=== PATIENT | female | born 1955 | race Caucasian/White ===

== ENCOUNTER 2016-06-27 14:45 | Inpatient (IN) | payer OTHER ==
[~2016-06-27] VITALS: Ht 162.6 cm; Wt 79.9 kg
[~2016-06-27 14:45] MED LIST: ALBU0.63 IH; ALEN70TA3 PO; CHOL4POW11 PO; CRESTOR40 MG PO; CYCL5TAB PO; DIAZEPAM10 MG PO; DICY10CA53 PO; DIPH25CA58 PO; DIPH50CA PO; DULO30CA2 PO; DULO60CA44 PO; FENO135C PO; FLUT10.6 IH; FLUT1DIS5 IH; FURO-68 PO; HYDR-2672 PO; HYDR1TAB26 PO; LANS30CA17 PO; LEVO125T5 PO; LEVO150T5 PO; LEVO500T38 PO; LEVO500T8 PO; LINA145C PO; LINE600T PO; LISI10TA2 PO; METF500T4 PO; MONT10TA6 PO; NITR1PAT11 TD; NYST30PO9 TP; ONDA8TAB9 PO; POLY17PO5 PO; POTA8CAP PO; PRED-220 PO; PRED20TA PO; PRED50TA PO; PROM118S2 PO; SUCR1TAB29 PO; TIOT18CA IH; TRAM50TA PO; ZOLP10TA PO
[2016-06-27 15:40] LABS: BASO # 0.1 x10^3/uL (0.0-0.2); BASO % 1 % (0-3); EOS % 2 % (0-3); HEMOGLOBIN 14.4 g/dL (12.0-15.5); LYMPH % 21 % (24-48); MEAN CORPUSCULAR HEMOGLOBIN 30 pg (25-35); MEAN CORPUSCULAR HGB CONC 34 g/dL (31-37); MEAN CORPUSCULAR VOLUME 86 fL (79-100); MONO % 7 % (0-9); NEUT % 70 % (31-73); PLATELET COUNT 219 x10^3/uL (140-400); RED BLOOD COUNT 4.87 x10^6/uL (3.50-5.40); RED CELL DISTRIBUTION WIDTH 14.3 % (11.5-14.5); WHITE BLOOD COUNT 9.6 x10^3/uL (4.0-11.0)
--- NOTE | 2016-06-27 15:47 | EKG ---
[facility] [address] [place] [address] Test Date: 2016-06-27 Test Time: 15:03:27 Pat Name: CIPRIANO ALBRECHT Department: Room: Gender: F [employer] [place]: : 1955 Requested By: MISAEL TERRY Order Number: [id number] Reading MD: Skyla Aguirre Measurements Intervals [place] Rate: 79 P: 90 NH: 204 QRS: 71 QRSD: 76 T: 87 QT: 396 QTc: 455 Interpretive Statements SINUS RHYTHM ATRIAL PREMATURE COMPLEX(ES) QRS(T) CONTOUR ABNORMALITY CONSIDER ANTEROLATERAL MYOCARDIAL DAMAGE RI6.01 Unconfirmed report Compared to ECG 05/12/2016 15:03:47 No significant changes Electronically Signed On 06-29-2016 18:55:47 TIE HACKER by Skyla Aguirre
[2016-06-27 16:00] LABS: ALBUMIN 3.5 g/dL (3.4-5.0); ALBUMIN/GLOBULIN RATIO 0.9 (1.0-1.7); CALCIUM 9.4 mg/dL (8.5-10.1); CREATININE 0.8 mg/dL (0.6-1.0); GFR 72.9; TOTAL BILIRUBIN 0.6 mg/dL (0.2-1.0); TOTAL PROTEIN 7.6 g/dL (6.4-8.2)
[2016-06-27] MEDS ORDERED: IPRATRPIUM/ALBUTEROL 0.5/2.5MG 3 ML NEBU. NEB ONE (16:00)
--- NOTE | 2016-06-27 16:11 | RAD ---
2 view CXR: Clinical indications: Cough and chest pain. Comparison: March 21, 2016. Findings: Hyperinflation is seen consistent with COPD. No acute lung infiltrate or pleural effusion or pulmonary edema or lung mass or pneumothorax is seen. Focally eventration or hernia of the posterior medial aspect of the right hemidiaphragm is again seen. The heart size, pulmonary vasculature, mediastinum and both lorena are unremarkable. Impression: No acute radiographic abnormality is seen.
[2016-06-27 16:12] LABS: OBC FLU VALID
[2016-06-27 16:13] LABS: POTASSIUM 2.7 mmol/L (3.5-5.1)
[2016-06-27] MEDS ORDERED: methylPREDNISolone SOD SUCC PF 125 MG/2 ML VIAL. IV ONE (16:15)
[2016-06-27] MEDS ORDERED: POTASSIUM CL 40MEQ IN 0.9%NACL 1,000 ML IV ONE (16:30)
[2016-06-27] MEDS ORDERED: POTASSIUM CHLORIDE 20 MEQ/15 ML ORAL LIQUID. PO ONE (16:30)
--- NOTE | 2016-06-27 18:15 | ED.ADGEN ---
Past Medical History Past Medical History: COPD, Diabetes-Type II, Hypertension, Pneumonia, Other Additional Past Medical Histor: Emphysema, chronic back pain, osteoarthritis Past Surgical History: Cholecystectomy, Tubal ligation, Other Additional Past Surgical Histo: thyroidectomy Alcohol Use: None Drug Use: None Adult General Chief Complaint Chief Complaint: SHORTNESS OF BREATH HPI HPI Patient is a 60 year old woman, history of type 2 diabetes mellitus, COPD on 2- 3 L nasal cannula baseline, hypertension, who presents to the emergency part with a complaint of shortness of breath, cough productive of thick sputum, and dyspnea on exertion over the past several days, with intermittent midsternal chest pain, sharp, nonradiating, over the past several weeks. Patient was seen by her primary care provider, Dr. Delarosa today, and was sent to the ED for evaluation from his office. She denies any chest pain currently, states the chest pain is worse with coughing, denies any fevers or chills, any GI or complaints, any injuries, any history of DVT or PE, any recent travel or surgery. Patient becomes winded when sitting upright and moving even short distances. She states she has been taking her prednisone and using her inhalers daily. She states her last stress test and catheterization were "a long time ago ". Review of Systems Review of Systems Constitutional: Denies fever or chills. [] Eyes: Denies change in visual acuity. [] HENT: Denies nasal congestion or sore throat. [] Respiratory: Cough with shortness of breath. Chest pain. Cardiovascular: Chest pain, midsternal no edema. GI: Denies abdominal pain, nausea, vomiting, bloody stools or diarrhea. [] : Denies dysuria. [] Musculoskeletal: Denies back pain or joint pain. [] Integument: Denies rash. [] Neurologic: Denies headache, focal weakness or sensory changes. [] Endocrine: Denies polyuria or polydipsia. [] Lymphatic: Denies swollen glands. [] Psychiatric: Denies depression or anxiety. [] Current Medications Current Medications Current Medications Medications (Trade) Dose Ordered Sig/Santiago Start Time Stop Time Status Last Admin Dose Admin Albuterol/ Ipratropium (Duoneb) 3 ml 1X ONCE 06/27/16 16:00 06/27/16 16:01 DC 06/27/16 16:15 3 ML Methylprednisolone Sodium Succinate (Solu-Medrol 125mg Vial) 125 mg 1X ONCE 06/27/16 16:15 06/27/16 16:16 DC 06/27/16 16:09 125 MG Potassium Chloride 40 meq 40 meq 1X ONCE 06/27/16 16:30 06/27/16 16:31 DC 06/27/16 16:52 40 MEQ Potassium Chloride/Sodium Chloride (KCl 40 Meq-NS 1,000 ml Iv Soln) 1,000 ml @ 75 mls/hr 1X ONCE 06/27/16 16:30 06/28/16 05:49 06/27/16 16:52 75 MLS/HR Allergies Allergies Allergies Coded Allergies Type Severity Reaction Last Updated Verified amoxicillin Allergy Intermediate Nausea and Vomiting 01/30/16 Yes amoxicillin trihydrate Allergy Intermediate yeast infection 01/30/16 Yes potassium clavulanate Allergy Intermediate yeast infection 01/30/16 Yes I S O L A T I O N *CONTACT* Allergy Unknown 02/04/16 Yes meperidine HCl Adverse Reaction Severe 01/30/16 Yes Physical Exam Physical Exam Constitutional: Well developed, well nourished, no acute distress, non-toxic appearance. [] HENT: Normocephalic, atraumatic, bilateral external ears normal, oropharynx moist, no oral exudates, nose normal. [] Eyes: PERRLA, EOMI, conjunctiva normal, no discharge. [] Neck: Normal range of motion, no tenderness, supple, no stridor. [] Cardiovascular:Heart rate regular rhythm, no murmur, S1, S2, rubs or gallops. [] Lungs & Thorax: Patient with wheezes and diminished breath sounds noted throughout, no rhonchi or rales identified, patient with cough with deep inspiration, reproducible anterior midsternal chest pain.] Abdomen: Bowel sounds normal, soft, no tenderness, no masses, no pulsatile masses. [] Skin: Warm, dry, no erythema, no rash. [] Back: No tenderness, no CVA tenderness. [] Extremities: No tenderness, no cyanosis, no clubbing, ROM intact, no edema. Negative Homans sign. [] Neurologic: Alert and oriented X 3, normal motor function, normal sensory function, no focal deficits noted. [] Psychologic: Affect normal, judgement normal, mood normal. [] Current Patient Data Vital Signs Vital Signs Date Time Temp Pulse Resp B/P Pulse Ox O2 Delivery O2 Flow Rate FiO2 06/27/16 17:12 74 18 98/51 98 Nasal Cannula 2 06/27/16 15:08 98.3 98.3 Lab Values Laboratory Tests Test 06/27/16 15:30 White Blood Count 9.6x10^3/uL (4.0-11.0) Red Blood Count 4.87x10^6/uL (3.50-5.40) Hemoglobin 14.4g/dL (12.0-15.5) Hematocrit 42.0% (36.0-47.0) Mean Corpuscular Volume 86fL (79-100) Mean Corpuscular Hemoglobin 30pg (25-35) Mean Corpuscular Hemoglobin Concent 34g/dL (31-37) Red Cell Distribution Width 14.3% (11.5-14.5) Platelet Count 219x10^3/uL (140-400) Neutrophils (%) (Auto) 70% (31-73) Lymphocytes (%) (Auto) 21% (24-48) L Monocytes (%) (Auto) 7% (0-9) Eosinophils (%) (Auto) 2% (0-3) Basophils (%) (Auto) 1% (0-3) Neutrophils # (Auto) 6.6x10^3uL (1.8-7.7) Lymphocytes # (Auto) 2.0x10^3/uL (1.0-4.8) Monocytes # (Auto) 0.7x10^3/uL (0.0-1.1) Eosinophils # (Auto) 0.1x10^3/uL (0.0-0.7) Basophils # (Auto) 0.1x10^3/uL (0.0-0.2) Sodium Level 144mmol/L (136-145) Potassium Level 2.7mmol/L (3.5-5.1) *L Chloride Level 102mmol/L (98-107) Carbon Dioxide Level 32mmol/L (21-32) Anion Gap 10 (6-14) Blood Urea Nitrogen 8mg/dL (7-20) Creatinine 0.8mg/dL (0.6-1.0) Estimated GFR (Cockcroft-Gault) 72.9 BUN/Creatinine Ratio 10 (6-20) Glucose Level 129mg/dL (70-99) H Calcium Level 9.4mg/dL (8.5-10.1) Magnesium Level 1.7mg/dL (1.8-2.4) L Total Bilirubin 0.6mg/dL (0.2-1.0) Aspartate Amino Transferase (AST) 23U/L (15-37) Alanine Aminotransferase (ALT) 20U/L (14-59) Alkaline Phosphatase 72U/L (46-116) Troponin I Quantitative < 0.017ng/mL (0.000-0.055) QR-Mcp-E-Type Natriuretic Peptide 152pg/mL (0-124) H Total Protein 7.6g/dL (6.4-8.2) Albumin 3.5g/dL (3.4-5.0) Albumin/Globulin Ratio 0.9 (1.0-1.7) L Influenza Type A Antigen Negative (NEGATIVE) Influenza Type B Antigen Negative (NEGATIVE) Laboratory Tests 06/27/16 15:30 Laboratory Tests 06/27/16 15:30 EKG EKG EC: Sinus rhythm, heart rate 79 bpm, upright axis, QTC of 455, DE of 204 , QRS 76, moderate baseline artifact noted, occasional APCs noted, no evidence ST elevations or depressions, does not meet STEMI criteria, as interpreted by me. Radiology/Procedures Radiology/Procedures [] [facility] [address] [place] [address] IMAGING REPORT Signed PATIENT: CIPRIANO ALBRECHT ACCOUNT: [id number] : 1955 LOCATION: ER AGE: 60 SEX: F EXAM STATUS: PRE ER ORD. PHYSICIAN: MISAEL TERRY DO REASON: Cough/CP 12 PROCEDURE: CHEST PA & LATERAL 2 view CXR: Clinical indications: Cough and chest pain. Comparison: March 21, 2016. Findings: Hyperinflation is seen consistent with COPD. No acute lung infiltrate or pleural effusion or pulmonary edema or lung mass or pneumothorax is seen. Focally eventration or hernia of the posterior medial aspect of the right hemidiaphragm is again seen. The heart size, pulmonary vasculature, mediastinum and both lorena are unremarkable. Impression: No acute radiographic abnormality is seen. DICTATED and SIGNED BY: YUNG TINEO MD DATE: 06/27/16 1504 CC: MISAEL TERRY DO; MIGUEL DELAROSA MD ~ Course & Med Decision Making Course & Med Decision Making Pertinent Labs and Imaging studies reviewed. (See chart for details) Patient's examination concerning for COPD exacerbation, versus possible cardiac Normality versus infectious source. Chest x-ray is negative for infiltrate or effusion, consistent with COPD, patient's oxygen saturation is stable on her baseline 3 L, although she is dyspneic. Additional nebulizer treatment, and Solu -Medrol given in the ED. Laboratory studies reveal a potassium of 2.7, which was orally repleted in the ED, troponin was negative. Influenza swab was negative. Findings as above discussed with Dr. Hitchcock, on-call for the patient's primary care provider, patient accepted to his service as a full admission to the medical telemetry floor, will continue treatment for COPD exacerbation, follow serial enzymes, and closely monitor, with bridge orders entered per his request. Patient is agreeable to admission, resting comfortably awaiting transfer to the floor. Dragon Disclaimer Dragon Disclaimer This electronic medical record was generated, in whole or in part, using a voice recognition dictation system. Departure Impression: Primary Impression: Hypokalemia Additional Impression: COPD exacerbation Disposition: ADMITTED INPATIENT Admitting Physician: Catrachito Hitchcock Condition: IMPROVED Problem Qualifiers MISAEL TERRY DO Jun 27, 2016 18:15
[2016-06-27 19:00] VITALS: BP 113/53
[2016-06-27 23:00] VITALS: BP 104/50
[2016-06-28] MEDS ORDERED: ACETAMINOPHEN 325 MG TABLET. PO PRN ×2 (00:15→08:45)
[2016-06-28 03:00] VITALS: BP 105/58
[2016-06-28 07:00] VITALS: BP 115/67
[2016-06-28] MEDS ORDERED: IPRATRPIUM/ALBUTEROL 0.5/2.5MG 3 ML NEBU. NEB SCH (08:00)
[2016-06-28] MEDS: IPRATRPIUM/ALBUTEROL 0.5/2.5MG 3 ML NEBU. NEB SCH ×4 (09:00→20:05)
[2016-06-28] MEDS ORDERED: ALBUTEROL SULFATE 2.5 MG/3 ML NEBU. NEB PRN (09:00)
[2016-06-28] MEDS ORDERED: POTASSIUM CHLORIDE 20 MEQ TABLET.ER. PO ONE (09:00)
[2016-06-28] MEDS: DICYCLOMINE HCL 10 MG CAPSULE PO SCH ×3 (09:13→20:36)
[2016-06-28] MEDS: METFORMIN 500 MG TABLET. PO SCH ×2 (09:13→17:24)
[2016-06-28] MEDS: PANTOPRAZOLE 40 MG TABLET. PO SCH (09:13)
[2016-06-28] MEDS: LINACLOTIDE 145 MCG CAPSULE. PO SCH (09:13)
[2016-06-28] MEDS: DULOXETINE HCL 30 MG CAPSULE.DR. PO SCH (09:13)
[2016-06-28] MEDS: MONTELUKAST SODIUM 10 MG TABLET. PO SCH (09:13)
[2016-06-28] MEDS: LEVOTHYROXINE 75 MCG TABLET PO SCH (09:13)
[2016-06-28] MEDS: NYSTATIN TOPICAL POWDER 15GM BOTTLE. TP SCH ×2 (09:14→20:37)
[2016-06-28] MEDS: LISINOPRIL 10 MG TABLET PO SCH ×2 (09:14→21:00)
[2016-06-28] MEDS: NITROGLYCERIN 0.6MG/HR PATCH. TD SCH (09:15)
[2016-06-28] MEDS: HYDROCODONE/APAP 10/325 TABLET. PO PRN ×2 (09:18→17:27)
[2016-06-28 10:44] LABS: CALCIUM 9.2 mg/dL (8.5-10.1); CREATININE 0.8 mg/dL (0.6-1.0); GFR 72.9; POTASSIUM 3.3 mmol/L (3.5-5.1)
[2016-06-28 11:00] VITALS: BP 97/60
[2016-06-28] MEDS: GUAIFENESIN DM 200MG/20MG 10 ML SYRUP. PO PRN ×2 (11:07→17:27)
[2016-06-28] MEDS ORDERED: methylPREDNISolone SOD SUCC PF 40 MG/ML VIAL. IV SCH (12:00)
[2016-06-28] MEDS: methylPREDNISolone SOD SUCC PF 40 MG/ML VIAL. IV SCH (12:30)
[2016-06-28] MEDS ORDERED: MAGNESIUM SULFATE 2GM 50 ML IV ONE (12:30)
[2016-06-28 15:00] VITALS: BP 116/66
[2016-06-28 19:00] VITALS: BP 96/54
--- NOTE | 2016-06-28 20:57 | PDOC ---
Provider Note Provider Note [id number] a/c resp fail copd w ae acute bronchitis see orders DIOR SANCHEZ MD Jun 28, 2016 20:56
--- NOTE | 2016-06-28 21:47 | CONS ---
DATE OF CONSULTATION: 06/28/2016 REASON FOR CONSULTATION: I was asked to see this 60-year-old lady for [id number] respiratory failure, acute exacerbation of COPD. HISTORY OF PRESENT ILLNESS: She has history more than 52-[id number]-[id number] smoking, stopped smoking about 9 years ago. She started to have increased shortness of breath and cough about 3 weeks ago. It has been getting worse over the past week. She has had fever, on and off. She has green sputum production. She has had wheezing. She has rhinorrhea and nasal congestion. PAST MEDICAL HISTORY: Chronic respiratory failure, COPD, oxygen dependent, hypertension, diabetes mellitus, arthritis, thyroidectomy. ALLERGIES: AMOXICILLIN, POTASSIUM, MEPERIDINE. MEDICATIONS: Currently, she is on Solu-Medrol 60 mg daily, Robitussin DM, albuterol, Atrovent nebulizer, Protonix, nitroglycerin, Singulair, metformin, lisinopril, levothyroxine. SOCIAL HISTORY: History of more than 59-qkuq-bstb smoking, stopped smoking 9 years ago. FAMILY HISTORY: There is no history of lung disease. REVIEW OF SYSTEMS: As mentioned above. Other systems otherwise negative. PHYSICAL EXAMINATION: GENERAL: This is overweight lady. VITAL SIGNS: Her O2 saturation is 95% on 3 L of oxygen, blood pressure 96/54, temperature 96, heart rate 78, respiratory rate 18. HEENT: Normocephalic, atraumatic. Pupils equal, round, reactive to light. Throat is clear. Nose, there is some dry mucosa. NECK: There is no JVD. No lymphadenopathy or thyromegaly. CARDIOVASCULAR: Regular rate and rhythm. PMI is nondisplaced. CHEST: Inspection is normal. LUNGS: There are bibasilar crackles and expiratory wheezing, dullness at the bases. ABDOMEN: Soft, bowel sounds are good. There is no mass. EXTREMITIES: There is no edema. LYMPHATICS: There is no lymphadenopathy. NEUROLOGIC: Alert and oriented x 3. SKIN: Chronic changes. LABORATORY DATA: I reviewed the following lab data: Chest x-ray shows COPD changes, no infiltrates. WBC 9.6, hemoglobin 14.4, platelet 219. Sodium 142, potassium 3.3, chloride 104, CO2 of 30, BUN 7, creatinine 0.8, glucose 167. Influenza A and B negative. Her nasal screen for MRSA is negative. IMPRESSION: 1. Lfloc-vn-ydfhbnu respiratory failure, multifactorial in etiology. 2. Acute exacerbation of chronic obstructive pulmonary disease. 3. Acute bronchitis. 4. Ex-smoker. 5. Hypothyroidism. 6. Diabetes mellitus. 7. Hypertension. PLAN AND RECOMMENDATION: 1. Titrate FiO2 to keep O2 saturation 92%. 2. Bronchodilator. 3. Inhaled corticosteroids. 4. Continue Solu-Medrol. 5. Sputum culture. 6. Urine for legionella and strep pneumoniae antigen. 7. Start doxycycline. 8. Lovenox for DVT prophylaxis. 9. Protonix for stress ulcer prophylaxis. 10. Monitor respiratory status very closely. The findings and recommendations were discussed with the patient. She understood and agreed to proceed with the plan. I have answered all of her questions. Thank you very much for allowing me to participate in care of this very nice lady. DIOR SANCHEZ M.D. DR: RONEL/adrianna JOB#: [id number] / [id number] ANNA
[2016-06-28] MEDS: ENOXAPARIN 40 MG/0.4 ML DISP.SYRIN. SQ SCH (21:51)
[2016-06-28] MEDS: DOXYCYCLINE HYCLATE 100 MG TABLET PO SCH (21:51)
[2016-06-28 23:00] VITALS: BP 90/53
[2016-06-29 03:48] VITALS: BP 94/50
[2016-06-29 05:10] LABS: BASO % 0 % (0-3); EOS % 0 % (0-3); HEMATOCRIT 35.6 % (36.0-47.0); HEMOGLOBIN 11.5 g/dL (12.0-15.5); LYMPH % 20 % (24-48); MEAN CORPUSCULAR HEMOGLOBIN 29 pg (25-35); MEAN CORPUSCULAR HGB CONC 32 g/dL (31-37); MEAN CORPUSCULAR VOLUME 89 fL (79-100); MONO % 9 % (0-9); NEUT % 70 % (31-73); PLATELET COUNT 207 x10^3/uL (140-400); RED BLOOD COUNT 4.01 x10^6/uL (3.50-5.40); RED CELL DISTRIBUTION WIDTH 14.5 % (11.5-14.5)
[2016-06-29 05:41] LABS: ALBUMIN 2.9 g/dL (3.4-5.0); ALBUMIN/GLOBULIN RATIO 0.9 (1.0-1.7); CALCIUM 8.9 mg/dL (8.5-10.1); CREATININE 0.7 mg/dL (0.6-1.0); GFR 85.1; POTASSIUM 3.9 mmol/L (3.5-5.1); TOTAL BILIRUBIN 0.2 mg/dL (0.2-1.0); TOTAL PROTEIN 6.3 g/dL (6.4-8.2)
--- NOTE | 2016-06-29 06:16 | HP ---
ADMIT DATE: 06/28/2016 ADMITTING PHYSICIAN: Dr. Aurelia Maldonado. HISTORY OF PRESENT ILLNESS: This 60-year-old female presented to [facility] Emergency Room with complaints of dyspnea, progressively getting worse. The patient also had intermittent midsternal chest pains. The patient was seen by Dr. Maldonado in the office and he was sent to the Emergency Room for further evaluation. The patient was noted to have potassium of 2.7 in the Emergency Room and because of the severe hypokalemia as well as exacerbation of COPD, the patient was admitted for further evaluation and management. The patient did receive some potassium supplements in the Emergency Room. REVIEW OF SYSTEMS: At present time, the patient is complaining of cold, cough, congestion and dyspnea. She denies any nausea, vomiting, abdominal pain, chest pains at this time, although yesterday and day before she had chest pains. She denies any leg pain or swelling of the legs, although she admits to occasional cramping. Other systems reviewed and are negative. The patient denies any fever or chills. PAST MEDICAL HISTORY: The patient has history of diabetes type 2, COPD, hypertension, MRSA pneumonia, emphysema, osteoarthritis. PAST SURGICAL HISTORY: The patient had thyroid surgery, tubal ligation, gallbladder surgery. ALLERGIES: INCLUDE AMOXICILLIN, DEMEROL, POTASSIUM AND AUGMENTIN. SOCIAL HISTORY: History of smoking in the past and has stopped smoking for 2 years, on oxygen at home. No history of alcoholism or drug abuse. MEDICATIONS: Reviewed. FAMILY HISTORY: Positive for diabetes, COPD, heart disease. PHYSICAL EXAMINATION: VITAL SIGNS: Pulse 66 per minute, respirations 20 per minute, blood pressure 105/58 mmHg. Temperature was 98.3 in the Emergency Room. GENERAL: The patient is alert, oriented x 3, in mild to moderate distress. HEENT: Mild congestion of throat. EYES: Pupils reacting to light. SKIN: Warm and dry. There is no cyanosis. NECK: Supple. JVP normal. No thyromegaly. Trachea midline. LUNGS: Bilateral wheezing. CARDIOVASCULAR: S1, S2 regular. ABDOMEN: Soft, nontender, no guarding, no rigidity. Bowel sounds present. EXTREMITIES: No edema, no calf tenderness. CENTRAL NERVOUS SYSTEM: Generalized weakness. LABORATORY FINDINGS: Potassium was 2.7, yesterday was 3.3. Today, WBC count 9.6, hemoglobin 14.4, sodium 142, BUN 7, creatinine 0.8, glucose 104, 167 and 119. Magnesium is 1.7. Chest x-ray did not show any acute infiltrates. IMPRESSION: 1. Severe hypokalemia. 2. Exacerbation of chronic obstructive pulmonary disease. 3. Hypomagnesemia. 4. Diabetes mellitus type 2. 5. Hypertension. 6. Emphysema. 7. Osteoarthritis. PLAN: Replace potassium. I will hold Lasix at this time. I will give her IV Solu-Medrol. Also, I will replace magnesium. For details, please review the orders. I will consult Dr. Minaya for pulmonary evaluation and management. KAMI ROLAND MD DR: JUANITA/adrianna JOB#: [id number] / [id number]
[2016-06-29 07:00] VITALS: BP 110/68
[2016-06-29] MEDS: LEVOTHYROXINE 75 MCG TABLET PO SCH (07:58)
[2016-06-29] MEDS: METFORMIN 500 MG TABLET. PO SCH ×2 (07:58→16:38)
[2016-06-29] MEDS: PANTOPRAZOLE 40 MG TABLET. PO SCH (07:59)
[2016-06-29] MEDS: DICYCLOMINE HCL 10 MG CAPSULE PO SCH ×3 (07:59→19:51)
[2016-06-29] MEDS: POTASSIUM CHLORIDE 20 MEQ TABLET.ER. PO SCH (07:59)
[2016-06-29] MEDS: MONTELUKAST SODIUM 10 MG TABLET. PO SCH (07:59)
[2016-06-29] MEDS: LINACLOTIDE 145 MCG CAPSULE. PO SCH (07:59)
[2016-06-29] MEDS: DULOXETINE HCL 30 MG CAPSULE.DR. PO SCH (07:59)
[2016-06-29] MEDS: NYSTATIN TOPICAL POWDER 15GM BOTTLE. TP SCH ×2 (08:00→19:52)
[2016-06-29] MEDS: DOXYCYCLINE HYCLATE 100 MG TABLET PO SCH ×2 (08:00→19:51)
[2016-06-29] MEDS: HYDROCODONE/APAP 10/325 TABLET. PO PRN ×2 (08:00→20:02)
[2016-06-29] MEDS: NITROGLYCERIN 0.6MG/HR PATCH. TD SCH (08:01)
[2016-06-29] MEDS: LISINOPRIL 10 MG TABLET PO SCH ×2 (08:02→19:51)
[2016-06-29] MEDS: methylPREDNISolone SOD SUCC PF 40 MG/ML VIAL. IV SCH ×2 (08:41→16:38)
--- NOTE | 2016-06-29 09:14 | PDOC ---
PULMONARY PROGRESS NOTES Subjective still has sob, cough, has nasal dryness. no pain Vitals Vital Signs Date Time Temp Pulse Resp B/P Pulse Ox O2 Delivery O2 Flow Rate FiO2 06/29/16 08:02 65 110/68 06/29/16 08:00 18 90 Nasal Cannula 3.0 06/29/16 07:00 98.0 98.0 Comments ros, as mentioned as above other sys otherwise neg General: Alert, No acute distress HEENT: Other (nc at perrl throat clear) Lungs: Wheezing Cardiovascular: S1, S2 Abdomen: Soft, Non-tender Neuro Exam: Alert, Oriented Extremities: No Edema Skin: Warm Labs Laboratory Tests Test 06/27/16 15:30 06/27/16 22:15 06/28/16 07:48 06/28/16 09:35 White Blood Count 9.6x10^3/uL (4.0-11.0) Red Blood Count 4.87x10^6/uL (3.50-5.40) Hemoglobin 14.4g/dL (12.0-15.5) Hematocrit 42.0% (36.0-47.0) Mean Corpuscular Volume 86fL (79-100) Mean Corpuscular Hemoglobin 30pg (25-35) Mean Corpuscular Hemoglobin Concent 34g/dL (31-37) Red Cell Distribution Width 14.3% (11.5-14.5) Platelet Count 219x10^3/uL (140-400) Neutrophils (%) (Auto) 70% (31-73) Lymphocytes (%) (Auto) 21% (24-48) Monocytes (%) (Auto) 7% (0-9) Eosinophils (%) (Auto) 2% (0-3) Basophils (%) (Auto) 1% (0-3) Neutrophils # (Auto) 6.6x10^3uL (1.8-7.7) Lymphocytes # (Auto) 2.0x10^3/uL (1.0-4.8) Monocytes # (Auto) 0.7x10^3/uL (0.0-1.1) Eosinophils # (Auto) 0.1x10^3/uL (0.0-0.7) Basophils # (Auto) 0.1x10^3/uL (0.0-0.2) Sodium Level 144mmol/L (136-145) 142mmol/L (136-145) Potassium Level 2.7mmol/L (3.5-5.1) 3.3mmol/L (3.5-5.1) Chloride Level 102mmol/L (98-107) 104mmol/L (98-107) Carbon Dioxide Level 32mmol/L (21-32) 30mmol/L (21-32) Anion Gap 10 (6-14) 8 (6-14) Blood Urea Nitrogen 8mg/dL (7-20) 7mg/dL (7-20) Creatinine 0.8mg/dL (0.6-1.0) 0.8mg/dL (0.6-1.0) Estimated GFR (Cockcroft-Gault) 72.9 72.9 BUN/Creatinine Ratio 10 (6-20) Glucose Level 129mg/dL (70-99) 167mg/dL (70-99) Calcium Level 9.4mg/dL (8.5-10.1) 9.2mg/dL (8.5-10.1) Magnesium Level 1.7mg/dL (1.8-2.4) Total Bilirubin 0.6mg/dL (0.2-1.0) Aspartate Amino Transf (AST/SGOT) 23U/L (15-37) Alanine Aminotransferase (ALT/SGPT) 20U/L (14-59) Alkaline Phosphatase 72U/L (46-116) Troponin I Quantitative < 0.017ng/mL (0.000-0.055) NX-Kos-T-Type Natriuretic Peptide 152pg/mL (0-124) Total Protein 7.6g/dL (6.4-8.2) Albumin 3.5g/dL (3.4-5.0) Albumin/Globulin Ratio 0.9 (1.0-1.7) Influenza Type A Antigen Negative (NEGATIVE) Influenza Type B Antigen Negative (NEGATIVE) Nasal Screen MRSA (PCR) Negative (Negative) Glucose (Fingerstick) 104mg/dL (70-99) Test 06/28/16 11:15 06/28/16 16:15 06/28/16 20:42 06/29/16 04:45 Glucose (Fingerstick) 119mg/dL (70-99) 154mg/dL (70-99) 203mg/dL (70-99) White Blood Count 10.0x10^3/uL (4.0-11.0) Red Blood Count 4.01x10^6/uL (3.50-5.40) Hemoglobin 11.5g/dL (12.0-15.5) Hematocrit 35.6% (36.0-47.0) Mean Corpuscular Volume 89fL (79-100) Mean Corpuscular Hemoglobin 29pg (25-35) Mean Corpuscular Hemoglobin Concent 32g/dL (31-37) Red Cell Distribution Width 14.5% (11.5-14.5) Platelet Count 207x10^3/uL (140-400) Neutrophils (%) (Auto) 70% (31-73) Lymphocytes (%) (Auto) 20% (24-48) Monocytes (%) (Auto) 9% (0-9) Eosinophils (%) (Auto) 0% (0-3) Basophils (%) (Auto) 0% (0-3) Neutrophils # (Auto) 7.0x10^3uL (1.8-7.7) Lymphocytes # (Auto) 2.0x10^3/uL (1.0-4.8) Monocytes # (Auto) 0.9x10^3/uL (0.0-1.1) Eosinophils # (Auto) 0.0x10^3/uL (0.0-0.7) Basophils # (Auto) 0.0x10^3/uL (0.0-0.2) Sodium Level 143mmol/L (136-145) Potassium Level 3.9mmol/L (3.5-5.1) Chloride Level 106mmol/L (98-107) Carbon Dioxide Level 33mmol/L (21-32) Anion Gap 4 (6-14) Blood Urea Nitrogen 8mg/dL (7-20) Creatinine 0.7mg/dL (0.6-1.0) Estimated GFR (Cockcroft-Gault) 85.1 BUN/Creatinine Ratio 11 (6-20) Glucose Level 107mg/dL (70-99) Calcium Level 8.9mg/dL (8.5-10.1) Total Bilirubin 0.2mg/dL (0.2-1.0) Aspartate Amino Transf (AST/SGOT) 11U/L (15-37) Alanine Aminotransferase (ALT/SGPT) 9U/L (14-59) Alkaline Phosphatase 69U/L (46-116) Total Protein 6.3g/dL (6.4-8.2) Albumin 2.9g/dL (3.4-5.0) Albumin/Globulin Ratio 0.9 (1.0-1.7) Laboratory Tests Test 06/28/16 09:35 06/28/16 11:15 06/28/16 16:15 06/28/16 20:42 Sodium Level 142mmol/L (136-145) Potassium Level 3.3mmol/L (3.5-5.1) Chloride Level 104mmol/L (98-107) Carbon Dioxide Level 30mmol/L (21-32) Anion Gap 8 (6-14) Blood Urea Nitrogen 7mg/dL (7-20) Creatinine 0.8mg/dL (0.6-1.0) Estimated GFR (Cockcroft-Gault) 72.9 Glucose Level 167mg/dL (70-99) Calcium Level 9.2mg/dL (8.5-10.1) Glucose (Fingerstick) 119mg/dL (70-99) 154mg/dL (70-99) 203mg/dL (70-99) Test 06/29/16 04:45 White Blood Count 10.0x10^3/uL (4.0-11.0) Red Blood Count 4.01x10^6/uL (3.50-5.40) Hemoglobin 11.5g/dL (12.0-15.5) Hematocrit 35.6% (36.0-47.0) Mean Corpuscular Volume 89fL (79-100) Mean Corpuscular Hemoglobin 29pg (25-35) Mean Corpuscular Hemoglobin Concent 32g/dL (31-37) Red Cell Distribution Width 14.5% (11.5-14.5) Platelet Count 207x10^3/uL (140-400) Neutrophils (%) (Auto) 70% (31-73) Lymphocytes (%) (Auto) 20% (24-48) Monocytes (%) (Auto) 9% (0-9) Eosinophils (%) (Auto) 0% (0-3) Basophils (%) (Auto) 0% (0-3) Neutrophils # (Auto) 7.0x10^3uL (1.8-7.7) Lymphocytes # (Auto) 2.0x10^3/uL (1.0-4.8) Monocytes # (Auto) 0.9x10^3/uL (0.0-1.1) Eosinophils # (Auto) 0.0x10^3/uL (0.0-0.7) Basophils # (Auto) 0.0x10^3/uL (0.0-0.2) Sodium Level 143mmol/L (136-145) Potassium Level 3.9mmol/L (3.5-5.1) Chloride Level 106mmol/L (98-107) Carbon Dioxide Level 33mmol/L (21-32) Anion Gap 4 (6-14) Blood Urea Nitrogen 8mg/dL (7-20) Creatinine 0.7mg/dL (0.6-1.0) Estimated GFR (Cockcroft-Gault) 85.1 BUN/Creatinine Ratio 11 (6-20) Glucose Level 107mg/dL (70-99) Calcium Level 8.9mg/dL (8.5-10.1) Total Bilirubin 0.2mg/dL (0.2-1.0) Aspartate Amino Transf (AST/SGOT) 11U/L (15-37) Alanine Aminotransferase (ALT/SGPT) 9U/L (14-59) Alkaline Phosphatase 69U/L (46-116) Total Protein 6.3g/dL (6.4-8.2) Albumin 2.9g/dL (3.4-5.0) Albumin/Globulin Ratio 0.9 (1.0-1.7) Medications Active Scripts Medications Dose Route/Sig Days Date Category Dose Instructions Prednisone 50 Mg Tablet 0.5 Tab PO DAILY 05/16/16 Reported Prednisone 50 Mg Tablet 1 Tab PO DAILY 05/16/16 Reported Diazepam 10 Mg Tablet 10 Mg PO TID 05/12/16 Reported Duloxetine Hcl 60 Mg Capsule.dr 60 Mg PO DAILY 02/01/16 Reported Prednisone 20 Mg Tablet 40 Mg PO DAILY 01/29/16 Rx Levaquin (Levofloxacin) 500 Mg Tablet 500 Mg PO DAILY06 01/29/16 Rx Diphenhydramine Hcl 50 Mg Capsule 1 Cap PO QHS 01/25/16 Reported Hydrocodone-Apap 10-325 (Hydrocodone Bit/Acetaminophen) 1 Each Tablet 1 Tab PO PRN Q4HRS PRN 01/25/16 Reported Nystatin 15 Gm Powder 1 Dereck TP BID 01/25/16 Reported Levothyroxine Sodium 150 Mcg Tablet 1 Tab PO DAILY 01/25/16 Reported Ambien (Zolpidem Tartrate) 10 Mg Tablet 10 Mg PO QHS 10/12/13 Reported Zofran (Ondansetron Hcl) 8 Mg Tablet 8 Mg PO PRN TID PRN 05/19/13 Reported Linzess (Linaclotide) 145 Mcg Capsule 145 Mcg PO DAILYAC 05/19/13 Reported Trilipix (Fenofibric Acid (Choline)) 135 Mg Capsule.dr 135 Mg PO DAILY 05/19/13 Reported Potassium Chloride 8 Meq Capsule.er 16 Meq PO BIDWMEALS 05/19/13 Reported Singulair Tablet (Montelukast Sodium) 10 Mg Tablet 10 Mg PO DAILY 05/19/13 Reported Spiriva (Tiotropium [place]) 18 Mcg Cap.w.dev 18 Mcg IH DAILY 05/19/13 Reported NITRO-DUR 0.6mg/hr (Nitroglycerin) 1 Each Patch.td24 0.2 Each TD DAILY 05/19/[address] night, off during day Crestor (Rosuvastatin Calcium) 40 Mg Tablet 40 Mg PO DAILY 05/19/13 Reported Tramadol Hcl 50 Mg Tablet 50 Mg PO PRN Q6HRS 05/19/13 Reported Prevacid (Lansoprazole) 30 Mg Capsule.dr 30 Mg PO DAILYAC 05/19/13 Reported Metformin Hcl 500 Mg Tablet 500 Mg PO BIDAC 05/19/13 Reported Albuterol Sulfate Neb Soln (Albuterol Sulfate) 0.63 Mg/3 Ml Vial.neb 0.63 Mg IH QID 05/19/13 Reported Advair 500-50 Diskus (Fluticasone/Salmeterol) 1 Each Disk.w.dev 1 Each IH BID 05/19/13 Reported Lisinopril 10 Mg Tablet 10 Mg PO BID 05/19/13 Reported Lasix (Furosemide) 40 Mg Tablet 40 Mg PO BID 05/19/13 Reported Fosamax (Alendronate Sodium) 70 Mg Tablet 70 Mg PO Thursday05/19/13 Reported Flovent 44MCG Hfa (Fluticasone Propionate) 10.6 Gm Aer.w.adap 2 IH BID 05/19/13 Reported Bentyl (Dicyclomine Hcl) 10 Mg Capsule 10 Mg PO TID 05/19/13 Reported Cyclobenzaprine Hcl 5 Mg Tablet 5 Mg PO BID 05/19/13 Reported Promethazine-Codeine Syrup (Promethazine Hcl/Codeine) 118 Ml Syrup 5 Ml PO PRN QID 05/19/13 Reported Comments cxr reviewed, No acute radiographic abnormality is seen. Impression . IMPRESSION: 1. [id number] respiratory failure, multifactorial in etiology. 2. Acute exacerbation of chronic obstructive pulmonary disease. 3. Acute bronchitis. 4. Ex-smoker. 5. Hypothyroidism. 6. Diabetes mellitus. 7. Hypertension. Plan . PLAN AND RECOMMENDATION: 1. Titrate FiO2 to keep O2 saturation 92%. 2. Bronchodilator. 3. Inhaled corticosteroids. 4. Continue Solu-Medrol, no change. 5. fu Sputum culture. 6. fu Urine for legionella and strep pneumoniae antigen. 7. doxycycline. 8. Lovenox for DVT prophylaxis. 9. Protonix for stress ulcer prophylaxis. 10. Monitor respiratory status very closely. 11. add DIOR Watkins pt, MD Jun 29, 2016 09:14
[2016-06-29] MEDS: IPRATRPIUM/ALBUTEROL 0.5/2.5MG 3 ML NEBU. NEB SCH ×4 (10:00→19:55)
[2016-06-29 11:00] VITALS: BP 121/67
[2016-06-29] MEDS: BUDESONIDE 0.5 MG/2 ML NEBU NEB SCH ×2 (13:15→19:55)
--- NOTE | 2016-06-29 13:30 | PDOC ---
IM PROGRESS NOTES- Subjective Subjective Not feeling well.Has increased wheezing. Objective Vitals Vital Signs Date Time Temp Pulse Resp B/P Pulse Ox O2 Delivery O2 Flow Rate FiO2 06/29/16 13:20 Nasal Cannula 3.0 06/29/16 11:00 98.2 64 20 121/67 95 98.2 Input & Output Intake and Output 06/29/16 07:00 Intake Total 1620 ml Output Total 400 ml Balance 1220 ml Intake Oral 1620 ml Output Urine Total 400 ml # Voids 8 Physical Exam Physical Exam GENERAL: The patient is alert, oriented x 3, in mild to moderate distress. HEENT: Mild congestion of throat. EYES: Pupils reacting to light. SKIN: Warm and dry. There is no cyanosis. NECK: Supple. JVP normal. No thyromegaly. Trachea midline. LUNGS: Bilateral wheezing. CARDIOVASCULAR: S1, S2 regular. ABDOMEN: Soft, nontender, no guarding, no rigidity. Bowel sounds present. EXTREMITIES: No edema, no calf tenderness. CENTRAL NERVOUS SYSTEM: Generalized weakness. Labs Laboratory Tests Test 06/27/16 15:30 06/27/16 22:15 06/28/16 07:48 06/28/16 09:35 White Blood Count 9.6x10^3/uL (4.0-11.0) Red Blood Count 4.87x10^6/uL (3.50-5.40) Hemoglobin 14.4g/dL (12.0-15.5) Hematocrit 42.0% (36.0-47.0) Mean Corpuscular Volume 86fL (79-100) Mean Corpuscular Hemoglobin 30pg (25-35) Mean Corpuscular Hemoglobin Concent 34g/dL (31-37) Red Cell Distribution Width 14.3% (11.5-14.5) Platelet Count 219x10^3/uL (140-400) Neutrophils (%) (Auto) 70% (31-73) Lymphocytes (%) (Auto) 21% (24-48) Monocytes (%) (Auto) 7% (0-9) Eosinophils (%) (Auto) 2% (0-3) Basophils (%) (Auto) 1% (0-3) Neutrophils # (Auto) 6.6x10^3uL (1.8-7.7) Lymphocytes # (Auto) 2.0x10^3/uL (1.0-4.8) Monocytes # (Auto) 0.7x10^3/uL (0.0-1.1) Eosinophils # (Auto) 0.1x10^3/uL (0.0-0.7) Basophils # (Auto) 0.1x10^3/uL (0.0-0.2) Sodium Level 144mmol/L (136-145) 142mmol/L (136-145) Potassium Level 2.7mmol/L (3.5-5.1) 3.3mmol/L (3.5-5.1) Chloride Level 102mmol/L (98-107) 104mmol/L (98-107) Carbon Dioxide Level 32mmol/L (21-32) 30mmol/L (21-32) Anion Gap 10 (6-14) 8 (6-14) Blood Urea Nitrogen 8mg/dL (7-20) 7mg/dL (7-20) Creatinine 0.8mg/dL (0.6-1.0) 0.8mg/dL (0.6-1.0) Estimated GFR (Cockcroft-Gault) 72.9 72.9 BUN/Creatinine Ratio 10 (6-20) Glucose Level 129mg/dL (70-99) 167mg/dL (70-99) Calcium Level 9.4mg/dL (8.5-10.1) 9.2mg/dL (8.5-10.1) Magnesium Level 1.7mg/dL (1.8-2.4) Total Bilirubin 0.6mg/dL (0.2-1.0) Aspartate Amino Transf (AST/SGOT) 23U/L (15-37) Alanine Aminotransferase (ALT/SGPT) 20U/L (14-59) Alkaline Phosphatase 72U/L (46-116) Troponin I Quantitative < 0.017ng/mL (0.000-0.055) DY-Ewr-T-Type Natriuretic Peptide 152pg/mL (0-124) Total Protein 7.6g/dL (6.4-8.2) Albumin 3.5g/dL (3.4-5.0) Albumin/Globulin Ratio 0.9 (1.0-1.7) Influenza Type A Antigen Negative (NEGATIVE) Influenza Type B Antigen Negative (NEGATIVE) Nasal Screen MRSA (PCR) Negative (Negative) Glucose (Fingerstick) 104mg/dL (70-99) Test 06/28/16 11:15 06/28/16 16:15 06/28/16 20:42 06/29/16 04:45 Glucose (Fingerstick) 119mg/dL (70-99) 154mg/dL (70-99) 203mg/dL (70-99) White Blood Count 10.0x10^3/uL (4.0-11.0) Red Blood Count 4.01x10^6/uL (3.50-5.40) Hemoglobin 11.5g/dL (12.0-15.5) Hematocrit 35.6% (36.0-47.0) Mean Corpuscular Volume 89fL (79-100) Mean Corpuscular Hemoglobin 29pg (25-35) Mean Corpuscular Hemoglobin Concent 32g/dL (31-37) Red Cell Distribution Width 14.5% (11.5-14.5) Platelet Count 207x10^3/uL (140-400) Neutrophils (%) (Auto) 70% (31-73) Lymphocytes (%) (Auto) 20% (24-48) Monocytes (%) (Auto) 9% (0-9) Eosinophils (%) (Auto) 0% (0-3) Basophils (%) (Auto) 0% (0-3) Neutrophils # (Auto) 7.0x10^3uL (1.8-7.7) Lymphocytes # (Auto) 2.0x10^3/uL (1.0-4.8) Monocytes # (Auto) 0.9x10^3/uL (0.0-1.1) Eosinophils # (Auto) 0.0x10^3/uL (0.0-0.7) Basophils # (Auto) 0.0x10^3/uL (0.0-0.2) Sodium Level 143mmol/L (136-145) Potassium Level 3.9mmol/L (3.5-5.1) Chloride Level 106mmol/L (98-107) Carbon Dioxide Level 33mmol/L (21-32) Anion Gap 4 (6-14) Blood Urea Nitrogen 8mg/dL (7-20) Creatinine 0.7mg/dL (0.6-1.0) Estimated GFR (Cockcroft-Gault) 85.1 BUN/Creatinine Ratio 11 (6-20) Glucose Level 107mg/dL (70-99) Calcium Level 8.9mg/dL (8.5-10.1) Total Bilirubin 0.2mg/dL (0.2-1.0) Aspartate Amino Transf (AST/SGOT) 11U/L (15-37) Alanine Aminotransferase (ALT/SGPT) 9U/L (14-59) Alkaline Phosphatase 69U/L (46-116) Total Protein 6.3g/dL (6.4-8.2) Albumin 2.9g/dL (3.4-5.0) Albumin/Globulin Ratio 0.9 (1.0-1.7) Test 06/29/16 07:21 06/29/16 10:31 Glucose (Fingerstick) 88mg/dL (70-99) 104mg/dL (70-99) Laboratory Tests Test 06/28/16 16:15 06/28/16 20:42 06/29/16 04:45 06/29/16 07:21 Glucose (Fingerstick) 154mg/dL (70-99) 203mg/dL (70-99) 88mg/dL (70-99) White Blood Count 10.0x10^3/uL (4.0-11.0) Red Blood Count 4.01x10^6/uL (3.50-5.40) Hemoglobin 11.5g/dL (12.0-15.5) Hematocrit 35.6% (36.0-47.0) Mean Corpuscular Volume 89fL (79-100) Mean Corpuscular Hemoglobin 29pg (25-35) Mean Corpuscular Hemoglobin Concent 32g/dL (31-37) Red Cell Distribution Width 14.5% (11.5-14.5) Platelet Count 207x10^3/uL (140-400) Neutrophils (%) (Auto) 70% (31-73) Lymphocytes (%) (Auto) 20% (24-48) Monocytes (%) (Auto) 9% (0-9) Eosinophils (%) (Auto) 0% (0-3) Basophils (%) (Auto) 0% (0-3) Neutrophils # (Auto) 7.0x10^3uL (1.8-7.7) Lymphocytes # (Auto) 2.0x10^3/uL (1.0-4.8) Monocytes # (Auto) 0.9x10^3/uL (0.0-1.1) Eosinophils # (Auto) 0.0x10^3/uL (0.0-0.7) Basophils # (Auto) 0.0x10^3/uL (0.0-0.2) Sodium Level 143mmol/L (136-145) Potassium Level 3.9mmol/L (3.5-5.1) Chloride Level 106mmol/L (98-107) Carbon Dioxide Level 33mmol/L (21-32) Anion Gap 4 (6-14) Blood Urea Nitrogen 8mg/dL (7-20) Creatinine 0.7mg/dL (0.6-1.0) Estimated GFR (Cockcroft-Gault) 85.1 BUN/Creatinine Ratio 11 (6-20) Glucose Level 107mg/dL (70-99) Calcium Level 8.9mg/dL (8.5-10.1) Total Bilirubin 0.2mg/dL (0.2-1.0) Aspartate Amino Transf (AST/SGOT) 11U/L (15-37) Alanine Aminotransferase (ALT/SGPT) 9U/L (14-59) Alkaline Phosphatase 69U/L (46-116) Total Protein 6.3g/dL (6.4-8.2) Albumin 2.9g/dL (3.4-5.0) Albumin/Globulin Ratio 0.9 (1.0-1.7) Test 06/29/16 10:31 Glucose (Fingerstick) 104mg/dL (70-99) Meds Current Medications Budesonide (Pulmicort) 0.5 mg RTBID NEB Last administered on 06/29/16 13:15; Start 06/29/16 at 08:00 Doxycycline Hyclate (Vibra-Tab) 100 mg BID PO Last administered on 06/29/16 08 :00; Start 06/28/16 at 21:00 Enoxaparin Sodium (Lovenox 40mg Syringe) 40 mg Q24H SQ Last administered on 21:51; Start 06/28/16 at 21:00 Montelukast Sodium (Singulair) 10 mg QHS PO ; Start 06/30/16 at 21:00 Potassium Chloride (Klor-Con) 20 meq [id number] PO Last administered on 07:59; Start 06/29/16 at 08:00 Assessment Assessment 1. Severe hypokalemia. 2. Exacerbation of chronic obstructive pulmonary disease. 3. Hypomagnesemia. 4. Diabetes mellitus type 2. 5. Hypertension. 6. Emphysema. 7. Osteoarthritis. PLAN: Replace potassium. I will hold Lasix at this time. I will give her IV Solu-Medrol. Also, I will replace magnesium. For details, please review the orders. I will consult Dr. Minaya for pulmonary evaluation and management. Wheezing worse- increase Solumedrol. Hypokalemia- better- K 3.9. Restart Lasix. Plan Plan For more details regarding further plans, please refer to the orders. KAMI ROLAND MD Jun 29, 2016 13:30
[2016-06-29 15:00] VITALS: BP 121/68
[2016-06-29] MEDS: FUROSEMIDE 40 MG TABLET PO SCH (17:29)
[2016-06-29 19:00] VITALS: BP 121/75
[2016-06-29 19:12] LABS: SPECIMEN SOURCE Urine (.)
[2016-06-29] MEDS: ENOXAPARIN 40 MG/0.4 ML DISP.SYRIN. SQ SCH (19:52)
[2016-06-29 23:00] VITALS: BP 108/56
[2016-06-30 03:00] VITALS: BP 98/56
[2016-06-30] MEDS: LINACLOTIDE 145 MCG CAPSULE. PO SCH (06:05)
[2016-06-30] MEDS: LEVOTHYROXINE 75 MCG TABLET PO SCH (06:05)
[2016-06-30 07:07] VITALS: BP 107/61
[2016-06-30 07:14] LABS: ALBUMIN 3.3 g/dL (3.4-5.0); ALBUMIN/GLOBULIN RATIO 0.9 (1.0-1.7); CALCIUM 9.6 mg/dL (8.5-10.1); CREATININE 0.7 mg/dL (0.6-1.0); GFR 85.1; POTASSIUM 3.5 mmol/L (3.5-5.1); TOTAL BILIRUBIN 0.3 mg/dL (0.2-1.0); TOTAL PROTEIN 7.1 g/dL (6.4-8.2)
[2016-06-30 07:18] LABS: BASO # 0.1 x10^3/uL (0.0-0.2); BASO % 1 % (0-3); EOS % 0 % (0-3); HEMATOCRIT 39.3 % (36.0-47.0); HEMOGLOBIN 12.7 g/dL (12.0-15.5); LYMPH # 1.8 x10^3/uL (1.0-4.8); LYMPH % 14 % (24-48); MEAN CORPUSCULAR HEMOGLOBIN 29 pg (25-35); MEAN CORPUSCULAR HGB CONC 32 g/dL (31-37); MEAN CORPUSCULAR VOLUME 90 fL (79-100); MONO % 9 % (0-9); NEUT % 76 % (31-73); PLATELET COUNT 252 x10^3/uL (140-400); RED BLOOD COUNT 4.37 x10^6/uL (3.50-5.40); RED CELL DISTRIBUTION WIDTH 14.9 % (11.5-14.5)
[2016-06-30] MEDS: IPRATRPIUM/ALBUTEROL 0.5/2.5MG 3 ML NEBU. NEB SCH ×2 (07:56→11:29)
[2016-06-30] MEDS: BUDESONIDE 0.5 MG/2 ML NEBU NEB SCH (07:57)
[2016-06-30] MEDS: METFORMIN 500 MG TABLET. PO SCH (08:33)
[2016-06-30] MEDS: NITROGLYCERIN 0.6MG/HR PATCH. TD SCH (08:33)
[2016-06-30] MEDS: DOXYCYCLINE HYCLATE 100 MG TABLET PO SCH (08:33)
[2016-06-30] MEDS: LISINOPRIL 10 MG TABLET PO SCH (08:33)
[2016-06-30] MEDS: POTASSIUM CHLORIDE 20 MEQ TABLET.ER. PO SCH (08:34)
[2016-06-30] MEDS: DULOXETINE HCL 30 MG CAPSULE.DR. PO SCH (08:34)
[2016-06-30] MEDS: FUROSEMIDE 40 MG TABLET PO SCH (08:34)
[2016-06-30] MEDS: PANTOPRAZOLE 40 MG TABLET. PO SCH (08:34)
[2016-06-30] MEDS: DICYCLOMINE HCL 10 MG CAPSULE PO SCH ×2 (08:34→14:51)
[2016-06-30] MEDS: methylPREDNISolone SOD SUCC PF 40 MG/ML VIAL. IV SCH (08:38)
[2016-06-30] MEDS: NYSTATIN TOPICAL POWDER 15GM BOTTLE. TP SCH (08:41)
--- NOTE | 2016-06-30 09:49 | PDOC ---
PROGRESS NOTES Subjective Subjective feels better , want to go home Objective Objective Vital Signs Date Time Temp Pulse Resp B/P Pulse Ox O2 Delivery O2 Flow Rate FiO2 06/30/16 08:33 64 107/61 06/30/16 07:59 97 Nasal Cannula 3.0 06/30/16 07:07 98.2 18 98.2 Intake and Output 06/30/16 07:00 Intake Total 4480 ml Output Total 2600 ml Balance 1880 ml Intake Oral 4480 ml Output Urine Total 2600 ml # Voids 5 Physical Exam Abdomen: Normal bowel sounds, Soft Heart: Regular rate, Normal S1, Normal S2 Extremities: No clubbing General: Alert, Oriented X3 HEENT: Atraumatic Lungs: Other (ocassional wheezing) MUSCULOSKELETAL: No deformity Neuro: Normal speech Psych/Mental Status: Mental status NL Skin: No rashes Diagnosis Problem List Problems Medical Problems: (1) COPD exacerbation Status: Acute (2) Hypokalemia Status: Acute Assessment Assessment 1. Severe hypokalemia. 2. Exacerbation of chronic obstructive pulmonary disease. 3. Hypomagnesemia. 4. Diabetes mellitus type 2. 5. Hypertension. 6. Emphysema. 7. Osteoarthritis. PLAN: cxr -ve flue neg. lab linda. d/c home today. Replace potassium. I will hold Lasix at this time. I will give her IV Solu-Medrol. Also, I will replace magnesium. For details, please review the orders. I will consult Dr. Minaya for pulmonary evaluation and management. Wheezing worse- increase Solumedrol. Hypokalemia- better- K 3.9. Restart Lasix. Problems: Plan Plan of Care Problems Medical Problems: (1) COPD exacerbation Status: Acute (2) Hypokalemia Status: Acute Comment Review of Relevant I have reviewed the following items vinny (where applicable) has been applied. Labs Laboratory Tests Test 06/29/16 10:31 06/29/16 16:18 06/29/16 20:43 06/30/16 06:15 Glucose (Fingerstick) 104mg/dL (70-99) 147mg/dL (70-99) 197mg/dL (70-99) White Blood Count 13.0x10^3/uL (4.0-11.0) Red Blood Count 4.37x10^6/uL (3.50-5.40) Hemoglobin 12.7g/dL (12.0-15.5) Hematocrit 39.3% (36.0-47.0) Mean Corpuscular Volume 90fL (79-100) Mean Corpuscular Hemoglobin 29pg (25-35) Mean Corpuscular Hemoglobin Concent 32g/dL (31-37) Red Cell Distribution Width 14.9% (11.5-14.5) Platelet Count 252x10^3/uL (140-400) Neutrophils (%) (Auto) 76% (31-73) Lymphocytes (%) (Auto) 14% (24-48) Monocytes (%) (Auto) 9% (0-9) Eosinophils (%) (Auto) 0% (0-3) Basophils (%) (Auto) 1% (0-3) Neutrophils # (Auto) 9.9x10^3uL (1.8-7.7) Lymphocytes # (Auto) 1.8x10^3/uL (1.0-4.8) Monocytes # (Auto) 1.2x10^3/uL (0.0-1.1) Eosinophils # (Auto) 0.0x10^3/uL (0.0-0.7) Basophils # (Auto) 0.1x10^3/uL (0.0-0.2) Sodium Level 142mmol/L (136-145) Potassium Level 3.5mmol/L (3.5-5.1) Chloride Level 100mmol/L (98-107) Carbon Dioxide Level 32mmol/L (21-32) Anion Gap 10 (6-14) Blood Urea Nitrogen 11mg/dL (7-20) Creatinine 0.7mg/dL (0.6-1.0) Estimated GFR (Cockcroft-Gault) 85.1 BUN/Creatinine Ratio 16 (6-20) Glucose Level 85mg/dL (70-99) Calcium Level 9.6mg/dL (8.5-10.1) Total Bilirubin 0.3mg/dL (0.2-1.0) Aspartate Amino Transf (AST/SGOT) 12U/L (15-37) Alanine Aminotransferase (ALT/SGPT) 13U/L (14-59) Alkaline Phosphatase 80U/L (46-116) Total Protein 7.1g/dL (6.4-8.2) Albumin 3.3g/dL (3.4-5.0) Albumin/Globulin Ratio 0.9 (1.0-1.7) Test 06/30/16 07:24 Glucose (Fingerstick) 94mg/dL (70-99) Medications Current Medications Furosemide (Lasix) 40 mg [id number] PO Last administered on 06/30/16 08:34; Start 06/29/16 at 17:30 Methylprednisolone Sodium Succinate (Solu-Medrol 40mg Vial) 60 mg [id number] IV Last administered on 06/30/16 08:38; Start 06/29/16 at 16:00 Montelukast Sodium (Singulair) 10 mg QHS PO ; Start 06/30/16 at 21:00 Vitals/I & O Vital Sign - Last 24 Hours 06/29/16 06/29/16 06/29/16 06/29/16 11:00 13:17 13:20 15:00 Temp 98.2 98.7 98.2 98.7 Pulse 64 74 Resp 20 18 B/P 121/67 121/68 Pulse Ox 95 95 O2 Delivery Nasal Cannula Nasal Cannula Nasal Cannula Nasal Cannula O2 Flow Rate 3.0 3.0 3.0 3.0 06/29/16 06/29/16 06/29/16 06/29/16 17:00 19:00 19:50 19:51 Temp 97.8 97.8 Pulse 73 73 Resp 18 B/P 121/75 121/75 Pulse Ox 95 O2 Delivery Nasal Cannula Nasal Cannula Nasal Cannula O2 Flow Rate 3.0 3.0 3.0 06/29/16 06/29/16 06/29/16 06/29/16 19:57 19:57 20:02 21:02 Resp 20 20 O2 Delivery Nasal Cannula Nasal Cannula Nasal Cannula Nasal Cannula O2 Flow Rate 3.0 3.0 3.0 3.0 06/29/16 06/30/16 06/30/16 06/30/16 23:00 03:00 07:07 07:59 Temp 97.6 98.0 98.2 97.6 98.0 98.2 Pulse 80 78 64 Resp 18 20 18 B/P 108/56 98/56 107/61 Pulse Ox 94 95 91 97 O2 Delivery Nasal Cannula Nasal Cannula Room Air Nasal Cannula O2 Flow Rate 3.0 3.0 3.0 3.0 06/30/16 08:33 Pulse 64 B/P 107/61 Intake and Output 06/29/16 06/29/16 06/30/16 15:00 23:00 07:00 Intake Total 1500 ml 1240 ml 1740 ml Output Total 800 ml 1200 ml 600 ml Balance 700 ml 40 ml 1140 ml MIGUEL DELAROSA MD Jun 30, 2016 09:49
[2016-06-30] MEDS ORDERED: POTA8CAP PO (09:57)
[2016-06-30 10:52] VITALS: BP 112/57
[2016-06-30] MEDS: HYDROCODONE/APAP 10/325 TABLET. PO PRN (11:36)
[2016-06-30] MEDS ORDERED: MONTELUKAST SODIUM 10 MG TABLET. PO SCH (21:00)
--- NOTE | 2016-07-01 22:25 | PDOC ---
Provider Note Provider Note Discharge summary dictated. #[id number] MIGUEL DELAROSA MD Jul 01, 2016 22:25
--- NOTE | 2016-07-02 05:28 | DS ---
DATE OF DISCHARGE: 06/30/2016 REASON FOR ADMISSION TO THE HOSPITAL: 1. Chronic obstructive pulmonary disease with exacerbation. 2. Hypokalemia. CONSULTATIONS: Dr. Breaux. PROCEDURES: None. HOSPITAL COURSE: The patient is a 60-year-old female, with history of COPD on home oxygen, who came in with shortness of breath and wheezing. Chest x-ray was negative. She was given IV Solu-Medrol, IV doxycycline, breathing treatments. Was found to have potassium of 2.7. The patient was given potassium supplements which was replaced and she was discharged on June 30 after potassium was replaced and she was feeling better. FINAL DIAGNOSES: 1. Chronic obstructive pulmonary disease with acute exacerbation. 2. Chronic obstructive pulmonary disease with hypoxia, on oxygen. 3. Hypokalemia 4. Diabetes, hypertension, hyperlipidemia. DISPOSITION: Home. MEDICATIONS: See MRAD for discharge medications. MIGUEL DELAROSA MD DR: CARLOS/adrianna JOB#: [id number] / [id number] MIGUEL Fowler MD
== END 2016-06-30 15:10 | disposition home or self-care (01) | DRG 189 ==
LOC: ER 14:45 → 5 SOUTH 16:58
PROVIDERS: ADMIT Internal Medicine; ATTEND Internal Medicine
DX: J96.21 Acute and chronic respiratory failure with hypoxia (principal); J44.1 Chronic obstructive pulmonary disease with (acute) exacerbation; J44.0 Chronic obstructive pulmonary disease with (acute) lower respiratory infection; E87.6 Hypokalemia; M19.90 Unspecified osteoarthritis, unspecified site; I10 Essential (primary) hypertension; E11.9 Type 2 diabetes mellitus without complications; Z82.5 Family history of asthma and other chronic lower respiratory diseases; Z83.3 Family history of diabetes mellitus; J20.9 Acute bronchitis, unspecified; E83.42 Hypomagnesemia; E03.9 Hypothyroidism, unspecified; Z87.891 Personal history of nicotine dependence; Z99.81 Dependence on supplemental oxygen; Z90.49 Acquired absence of other specified parts of digestive tract; Z88.1 Allergy status to other antibiotic agents; Z88.8 Allergy status to other drugs, medicaments and biological substances; Z98.51 Tubal ligation status; Z79.899 Other long term (current) drug therapy
CPT/HCPCS: 36415; 71020; 80048; 80053; 82947; 83735; 83880; 84484; 85027; 87070; 87205; 87449; 87641; 87804; 93005; 94640; 94760; 96365; 96375; J1650; J2920; J2930; J3480; J7060; J7620; 99285-25

== ENCOUNTER → 2016-11-20 | Outpatient (CLI) | payer OTHER ==
[~2016-11-20] MED LIST changes: -HYDR-2672 PO; +HYDR-2766 PO; -LANS30CA17 PO; +LANS30CA66 PO; -LEVO500T38 PO; +LEVO500T59 PO; +NYST15PO9 TP; -NYST30PO9 TP; +POLY17PO29 PO; -POLY17PO5 PO; -SUCR1TAB29 PO; +SUCR1TAB35 PO
[2016-11-20 10:11] LABS: BASO # 0.1 x10^3/uL (0.0-0.2); BASO % 1 % (0-3); EOS % 3 % (0-3); HEMATOCRIT 40.5 % (36.0-47.0); LYMPH # 2.1 x10^3/uL (1.0-4.8); LYMPH % 30 % (24-48); MEAN CORPUSCULAR HEMOGLOBIN 31 pg (25-35); MEAN CORPUSCULAR HGB CONC 35 g/dL (31-37); MEAN CORPUSCULAR VOLUME 88 fL (79-100); MONO % 9 % (0-9); NEUT % 56 % (31-73); PLATELET COUNT 219 x10^3/uL (140-400); RED CELL DISTRIBUTION WIDTH 14.2 % (11.5-14.5); WHITE BLOOD COUNT 6.8 x10^3/uL (4.0-11.0)
[2016-11-20 10:19] LABS: ALBUMIN 3.6 g/dL (3.4-5.0); ALBUMIN/GLOBULIN RATIO 1.1 (1.0-1.7); CALCIUM 8.7 mg/dL (8.5-10.1); CREATININE 0.8 mg/dL (0.6-1.0); GFR 72.7; POTASSIUM 3.3 mmol/L (3.5-5.1); TOTAL BILIRUBIN 0.3 mg/dL (0.2-1.0); TOTAL PROTEIN 6.8 g/dL (6.4-8.2)
[2016-11-20 10:24] LABS: PROTHROMBIN TIME PATIENT 12.7 SEC (11.7-14.0)
== END | disposition home or self-care (01) ==
LOC: SURGPAT 08:49
PROVIDERS: ATTEND Obstetrics & Gynecology
DX: Z01.818 Encounter for other preprocedural examination (principal)
CPT/HCPCS: 36415; 80053; 85027; 85610; 85730

== ENCOUNTER 2016-11-26 07:15 | Inpatient (IN) | payer OTHER ==
[2016-11-26] VITALS (12 sets, daily range): BP systolic 91–124; BP diastolic 57–68
[~2016-11-26] VITALS: Ht 162.6 cm; Wt 83.0 kg
[~2016-11-26 07:15] MED LIST changes: +CLINDAMYCIN 600MG PREMIX 50 ML IV PRN; +HYDROmorphone 2 MG/ML VIAL IV PRN; +LIDOCAINE 1% 1 ML SYRINGE. ID PRN; +ONDANSETRON PF 4 MG/2 ML VIAL. IV PRN; +PROCHLORPERAZINE 10 MG/2 ML VIAL. IV PRN; +fentaNYL PF VIAL 100 MCG/2 ML VIAL IV PRN
[2016-11-26] MEDS ORDERED: ALBUTEROL SULFATE 2.5 MG/3 ML NEBU. NEB ONE (08:15)
[2016-11-26] MEDS ORDERED: HYDROCORTISONE SOD SUCC/PF 100 MG/2 ML VIAL. ONE (08:29)
[2016-11-26] MEDS: IV RINGERS,LACTATED 1000ML 1,000 ML IV SCH ×2 (08:35→11:48)
[2016-11-26] MEDS ORDERED: fentaNYL PF VIAL 100 MCG/2 ML VIAL ONE (08:53)
[2016-11-26] MEDS ORDERED: LIDOCAINE 2% PF Vial for OR 5 ML VIAL. ONE (08:53)
[2016-11-26] MEDS ORDERED: DEXAMETHASONE SOD PHOS 20 MG/5 ML VIAL. ONE (08:53)
[2016-11-26] MEDS ORDERED: PROPOFOL 20 ML IV ONE (08:53)
[2016-11-26] MEDS ORDERED: ROCURONIUM 50 MG/5 ML VIAL. ONE (08:53)
[2016-11-26] MEDS ORDERED: ONDANSETRON PF 4 MG/2 ML VIAL. ONE (08:53)
[2016-11-26] MEDS ORDERED: SEVOFLURANE > 120 MINUTES. IH ONE (08:53)
[2016-11-26] MEDS ORDERED: MIDAZOLAM HCL/PF 2 MG/2 ML VIAL. ONE (08:53)
[2016-11-26] MEDS ORDERED: ETOMIDATE 20 MG/10 ML VIAL. IV ONE (08:58)
[2016-11-26] MEDS ORDERED: HYDROCORTISONE SOD SUCC/PF 100 MG/2 ML VIAL. IV ONE ×2 (09:00→21:00)
[2016-11-26] MEDS ORDERED: PHENYLEPHRINE in 0.9% NACL PF 1 MG/10 ML DISP.SYRIN. IV ONE (09:30)
[2016-11-26] MEDS ORDERED: MORPHINE SULFATE 10 MG/ML VIAL. ONE (09:49)
[2016-11-26] MEDS ORDERED: ESMOLOL 100 MG/10 ML VIAL. IV ONE (10:38)
[2016-11-26] MEDS ORDERED: GELATIN SPONGE SIZE 100. ONE (10:51)
[2016-11-26] MEDS ORDERED: GLYCOPYRROLATE 1 MG/5 ML VIAL. ONE (11:00)
[2016-11-26] MEDS ORDERED: NEOSTIGMINE METHYLSULFATE 5 MG/5 ML SYRINGE. ONE (11:01)
[2016-11-26] MEDS: fentaNYL PF VIAL 100 MCG/2 ML VIAL IV PRN ×2 (11:50→12:30)
[2016-11-26] MEDS ORDERED: IV RINGERS,LACTATED 1000ML 1,000 ML IV ONE (13:00)
[2016-11-26] MEDS ORDERED: ONDANSETRON PF 4 MG/2 ML VIAL. IV PRN (13:00)
[2016-11-26] MEDS: MORPHINE SULFATE 2 MG/ML DISP.SYRIN. IV PRN ×5 (13:02→23:36)
[2016-11-26] MEDS ORDERED: CLINDAMYCIN 600MG PREMIX 50 ML IV SCH (17:30)
[2016-11-26] MEDS ORDERED: IV RINGERS,LACTATED 1000ML 1,000 ML IV SCH (21:45)
[2016-11-26] MEDS: ZOLPIDEM 5 MG TABLET. PO PRN ×2 (21:52→22:36)
[2016-11-27 00:52] VITALS: BP 113/64
[2016-11-27] MEDS ORDERED: MORPHINE SULFATE 4 MG/ML DISP.SYRIN. IV ONE (01:15)
[2016-11-27] MEDS: MORPHINE SULFATE 2 MG/ML DISP.SYRIN. IV PRN ×2 (03:09→07:40)
[2016-11-27 03:18] VITALS: BP 119/63
--- NOTE | 2016-11-27 08:04 | PDOC ---
SUBJECTIVE Subjective Patient doing ok No problems OBJECTIVE Objective Vital signs stable Abdomen soft Vital Signs Vital Signs Date Time Temp Pulse Resp B/P (MAP) Pulse Ox O2 Delivery O2 Flow Rate FiO2 11/27/16 04:40 Nasal Cannula 3.0 11/27/16 03:18 97.7 82 22 119/63 (81) 96 Venturi Mask 12.0 97.7 11/27/16 01:30 20 93 11/27/16 01:08 96 11/27/16 00:52 98.1 78 20 113/64 (80) 96 Venturi Mask 12.0 98.1 11/27/16 00:06 96 Venturi Mask 12.0 11/26/16 23:36 20 96 Venturi Mask 12.0 11/26/16 21:30 Venturi Mask 12.0 11/26/16 21:30 98.2 76 20 124/57 (79) 93 40% on Venturi Mask 12.0 98.2 11/26/16 19:43 93 Nasal Cannula 12.0 11/26/16 17:39 98.0 76 20 112/68 (83) 91 venturi mask at 40% 12.0 98.0 11/26/16 16:45 97.9 77 20 124/62 (82) 95 venturi mask at 40% 12.0 97.9 11/26/16 15:55 20 11/26/16 15:45 79 20 110/60 (77) 92 venturi mask at 40% 12.0 11/26/16 15:26 20 Room Air 11/26/16 15:15 97.7 76 20 108/64 (79) 91 venturi mask at 40% 12.0 97.7 11/26/16 14:45 80 20 112/63 (79) 90 venturi mask at 40% 12.0 11/26/16 14:30 78 20 111/66 (81) 91 venturi mask at 40% 12.0 11/26/16 14:15 80 21 110/64 (79) 91 venturi mask at 40% 12.0 11/26/16 14:00 81 18 108/62 (77) 91 venturi mask at 40% 12.0 11/26/16 13:45 82 18 91/60 (70) 91 venturi mask at 40% 12.0 11/26/16 13:30 79 18 102/57 (72) 93 Nasal Cannula 5.0 11/26/16 13:15 98.1 83 20 109/63 (78) 81 Nasal Cannula 2.0 98.1 11/26/16 13:15 Nasal Cannula 2.0 11/26/16 13:10 97.0 78 20 137/65 97 Nasal Cannula 2 97.0 11/26/16 13:10 20 91 Nasal Cannula 2.0 11/26/16 13:02 20 92 Nasal Cannula 2.0 11/26/16 12:47 84 20 118/57 94 Nasal Cannula 2 11/26/16 12:33 Nasal Cannula 2 11/26/16 12:32 86 20 115/58 92 Nasal Cannula 2 11/26/16 12:30 22 92 Nasal Cannula 2.0 11/26/16 12:17 86 20 136/60 90 Nasal Cannula 2 11/26/16 12:04 90 20 116/58 88 Simple Mask 10 11/26/16 11:57 92 20 148/57 87 Nasal Cannula 2 11/26/16 11:50 20 99 Simple Mask 10.0 11/26/16 11:42 89 20 143/72 99 Simple Mask 10 11/26/16 11:27 97.6 89 20 132/66 99 Simple Mask 10 97.6 11/26/16 11:27 Mask 10 11/26/16 08:49 Nasal Cannula 2 11/26/16 08:04 97.4 95 18 113/71 95 Nasal Cannula 2 97.4 I & O Intake and Output 11/27/16 07:00 Intake Total 2630 ml Output Total 1005 ml Balance 1625 ml Intake IV Total 2630 ml Output Urine Total 905 ml Estimated Blood Loss 100 ml PHYSICAL EXAM Physical Exam Vital signs stable Incision healing well ASSESSMENT/PLAN Assessment/Plan Postop Hysterectomy Incision healing ok Problems: COMMENT Lab Laboratory Tests Test 11/26/16 12:26 11/26/16 16:48 Glucose (Fingerstick) 170 mg/dL (70-99) 139 mg/dL (70-99) TANYA CARTER MD Nov 27, 2016 08:04
[2016-11-27] MEDS ORDERED: oxyCODONE/APAP 5/325 1 TAB TABLET PO PRN ×2 (08:15)
[2016-11-27] MEDS ORDERED: HYDROcodone/APAP 7.5/325MG 1 TAB TABLET PO PRN (08:30)
--- NOTE | 2016-11-27 10:28 | PDOC ---
Provider Note Provider Note Pt seen ,Medical consult to be dictated MIGUEL DELAROSA MD Nov 27, 2016 10:28
--- NOTE | 2016-11-27 10:28 | PDOC1 ---
HISTORY AND PHYSICAL Chief Complaint Chief Complaint This is 61 year old female has been admitted with a chief complaint of blader prolapse Pt underwent hysterectomy and bladder lift surgery . i was consulted for medical problems copd /dm and primary care f/u while in the hospital Problems: Past Medical History Cardiovascular: HTN Pulmonary: Bronchitis, COPD, Other CENTRAL NERVOUS SYSTEM: Other GI: GERD, Other Psych: Anxiety, Depression Musculoskeletal: low back pain Renal/: Chronic renal insuff Endocrine: Diabetes Past Surgical History Past Surgical History: Cholecystectomy, Total knee replacement Past Family History Family History: Diabetes, Heart Disease Past Social History PSH ex smoker ,no alcohol Review of Symptoms Review of Symptoms General ROS: positive for blader problems Psychological ROS: negative Ophthalmic ROS: negative ENT ROS: negative Allergy and Immunology ROS: negative Hematology and Lymphatic: negative Endocrine ROS: negative Respiratory ROS: positive cough, dyspnea. Cardiovascular ROS: no chest pain or dyspnea on exertion Gastrointestinal ROS: no abdominal pain, change in bowel habits, or black or bloody stools Genito-Urinary ROS: no dysuria, trouble voiding, or hematuria Musculoskeletal ROS: no pain Neurological ROS: negative Dermatological ROS: no rash Medications Current Medications Acetaminophen/ Hydrocodone Bitart (Lortab 10/325) 1 tab PRN Q4HRS PRN PO PAIN; Start 11/27/16 at 10:30; Status UNV Acetaminophen/ Hydrocodone Bitart (Lortab 7.5/325) 1 tab PRN Q4HRS PRN PO PAIN Last administered on 11/27/16 09:21; Start 11/27/16 at 08:30 Clindamycin Phosphate 50 ml @ 100 mls/hr Q8H IV Last administered on 17:37; Start 11/26/16 at 17:30; Stop 11/26/16 at 17:59; Status DC Dicyclomine HCl (Bentyl) 10 mg TID PO ; Start 11/27/16 at 14:00; Status UNV Esmolol HCl (Brevibloc) 100 mg STK-MED ONCE IV ; Start 11/26/16 at 10:38; Stop 11/26/16 at 10:39; Status DC Furosemide (Lasix) 40 mg BID PO ; Start 11/27/16 at 21:00; Status UNV Gelatin (Gelfoam Size 100) 1 each STK-MED ONCE .ROUTE Last administered on 10:52; Start 11/26/16 at 10:51; Stop 11/26/16 at 10:52; Status DC Glycopyrrolate (Robinul) 1 mg STK-MED ONCE .ROUTE ; Start 11/26/16 at 11:00; Stop 11/26/16 at 11:01; Status DC Hydrocortisone Sodium Succinate (Solu-CORTEF) 100 mg 1X ONCE IV Last administered on 11/26/16 21:46; Start 11/26/16 at 21:00; Stop 11/26/16 at 21:01 ; Status DC Levothyroxine Sodium (Synthroid) 150 mcg DAILY PO ; Start 11/28/16 at 09:00; Status UNV Linaclotide (Linzess) 145 mcg DAILYAC PO ; Start 11/28/16 at 07:30; Status UNV Lisinopril (Prinivil) 10 mg BID PO ; Start 11/27/16 at 21:00; Status UNV Metformin HCl (Glucophage) 500 mg BIDAC PO ; Start 11/27/16 at 16:30; Status UNV Montelukast Sodium (Singulair) 10 mg DAILY PO ; Start 11/28/16 at 09:00; Status UNV Morphine Sulfate 2 mg PRN Q4HRS PRN IV PAIN Last administered on 11/27/16 07: 40; Start 11/26/16 at 13:00 Morphine Sulfate 4 mg 1X ONCE IV Last administered on 11/27/16 01:08; Start 11/27/16 at 01:15; Stop 11/27/16 at 01:16; Status DC Neostigmine Methylsulfate 5 mg STK-MED ONCE .ROUTE ; Start 11/26/16 at 11:01; Stop 11/26/16 at 11:02; Status DC Nitroglycerin (Nitro-Dur 0.6mg) 0.2 patch DAILY TD ; Start 11/28/16 at 09:00; Status UNV Non-Formulary Medication 0.63 mg QID IH ; Start 11/27/16 at 13:00; Status UNV Non-Formulary Medication 1 each BID IH ; Start 11/27/16 at 21:00; Status UNV Non-Formulary Medication 2 puff BID INH ; Start 11/27/16 at 21:00; Status UNV Non-Formulary Medication 5 mg BID PO ; Start 11/27/16 at 21:00; Status UNV Non-Formulary Medication 8 meq TID PO ; Start 11/27/16 at 14:00; Status UNV Non-Formulary Medication 8 mg PRN TID PRN PO NAUSEA/VOMITING; Start 11/27/16 at 10:30; Status UNV Non-Formulary Medication 10 mg QHS PO ; Start 11/27/16 at 21:00; Status UNV Non-Formulary Medication 18 mcg DAILY IH ; Start 11/28/16 at 09:00; Status UNV Non-Formulary Medication 30 mg DAILYAC PO ; Start 11/28/16 at 07:30; Status UNV Non-Formulary Medication 40 mg DAILY PO ; Start 11/28/16 at 09:00; Status UNV Non-Formulary Medication 60 mg DAILY PO ; Start 11/28/16 at 09:00; Status UNV Non-Formulary Medication 135 mg DAILY PO ; Start 11/28/16 at 09:00; Status UNV Nystatin (Nystop) 1 georges BID TP ; Start 11/27/16 at 21:00; Status UNV Ondansetron HCl (Zofran) 4 mg PRN Q4HRS PRN IV NAUSEA/VOMITING; Start 11/26/16 at 13:00 Oxycodone/ Acetaminophen (Percocet 5/325) 1 tab PRN Q4HRS PRN PO PAIN; Start at 08:15 Oxycodone/ Acetaminophen (Percocet 5/325) 2 tab PRN Q4HRS PRN PO PAIN; Start at 08:15 Prednisone (Prednisone) 10 mg DAILY PO ; Start 11/28/16 at 09:00; Status UNV Ringer's Solution 1,000 ml @ 75 mls/hr [id number] IV Last administered on t 21:54; Start 11/26/16 at 21:45 Ringer's Solution 1,000 ml @ 125 mls/hr 1X ONCE IV Last administered on 13:00; Start 11/26/16 at 13:00; Stop 11/26/16 at 20:59; Status DC Tramadol HCl (Ultram) 50 mg PRN Q6HRS PO ; Start 11/27/16 at 10:30; Status UNV Zolpidem Tartrate (Ambien) 5 mg PRN QHS PRN PO INSOMNIA, MAY REPEAT IN 1HR Last administered on 11/26/16t 22:36; Start 11/26/16 at 22:00 Allergy Allergies Coded Allergies Type Severity Reaction Last Updated Verified amoxicillin Allergy Intermediate Nausea and Vomiting 11/26/16 Yes amoxicillin trihydrate Allergy Intermediate yeast infection 11/26/16 Yes potassium clavulanate Allergy Intermediate yeast infection 11/26/16 Yes meperidine HCl Adverse Reaction Severe 11/26/16 Yes Physical Exam Physical Exam General appearance - alert,well appearing, and in no distress and oriented to person, place, and time Mental Status - alert, oriented to person, place, and time, affect appropriate to mood Head - normal Chest - mild wheezes, rales or rhonchi, symmetric air entry Heart - S1 and S2 normal Abdomen - soft, nontender, nondistended, no masses or organomegaly Neurological - alert and oriented Musculoskeletal - no muscular tenderness noted Extremities - no pedal edema Skin - warm and dry Labs Laboratory Tests Test 11/26/16 12:26 11/26/16 16:48 Glucose (Fingerstick) 170 mg/dL (70-99) 139 mg/dL (70-99) Laboratory Tests Test 11/26/16 12:26 11/26/16 16:48 Glucose (Fingerstick) 170 mg/dL (70-99) 139 mg/dL (70-99) Vitals Vital Signs Date Time Temp Pulse Resp B/P (MAP) Pulse Ox O2 Delivery O2 Flow Rate FiO2 11/27/16 04:40 Nasal Cannula 3.0 11/27/16 03:18 97.7 82 22 119/63 (81) 96 97.7 VTE Prophylaxis VTE Prophylaxis Devices: Yes VTE Pharmacological Prophylaxi: Yes Assessment Assessment IMPRESSION:s/p hysterectomy 1. [id number] respiratory failure, multifactorial in etiology.recent surgery 2. Acute exacerbation of chronic obstructive pulmonary disease. 3. Acute bronchitis. 4. Ex-smoker. 5. Hypothyroidism. 6. Diabetes mellitus. 7. Hypertension. PLAN: given iv solumedrol pre and post op solumedrol iv duoneb qid dvt prevention scd sliding scale insulin resume home meds spoke with RN Plan Plan For more details regarding further plans, please refer to the orders. MIGUEL DELAROSA MD Nov 27, 2016 10:28
[2016-11-27] MEDS ORDERED: DEXTROSE 50% 25 GM / 50ML DISP.SYRIN. IV PRN (10:30)
[2016-11-27] MEDS ORDERED: traMADol 50 MG TABLET PO PRN (10:30)
[2016-11-27] MEDS ORDERED: ONDANSETRON ODT 4 MG TAB.RAPDIS. PO PRN (10:45)
[2016-11-27] MEDS: BUDESONIDE 0.5 MG/2 ML NEBU. NEB SCH ×2 (11:00→19:56)
[2016-11-27] MEDS ORDERED: methylPREDNISolone SOD SUCC PF 125 MG/2 ML VIAL. IV ONE (11:00)
[2016-11-27] MEDS ORDERED: IPRATRPIUM/ALBUTEROL 0.5/2.5MG 3 ML NEBU. NEB ONE (11:00)
[2016-11-27] MEDS: DULoxetine HCL 30 MG CAPSULE.DR PO SCH (11:29)
[2016-11-27] MEDS: PANTOPRAZOLE 40 MG TABLET.DR. PO SCH (11:30)
[2016-11-27] MEDS ORDERED: MONTELUKAST SODIUM 10 MG TABLET. PO SCH (11:30)
[2016-11-27] MEDS: LEVOTHYROXINE 150 MCG TABLET PO SCH (11:31)
[2016-11-27] MEDS: CYCLOBENZAPRINE 10 MG TABLET. PO SCH ×2 (11:31→21:16)
[2016-11-27] MEDS: LINACLOTIDE 145 MCG CAPSULE. PO SCH (11:33)
[2016-11-27] MEDS: metFORMIN 500 MG TABLET PO SCH ×2 (11:33→16:05)
[2016-11-27] MEDS: NITROGLYCERIN 0.2MG/HR PATCH. TD SCH (11:34)
[2016-11-27] MEDS: POTASSIUM CHLORIDE 8 MEQ TABLET.ER. PO SCH ×2 (11:36→16:05)
[2016-11-27] MEDS: predniSONE 10 MG TABLET PO SCH (11:36)
[2016-11-27] MEDS: FENOFIBRATE,MICRONIZED 134 MG CAPSULE PO SCH (11:38)
[2016-11-27] MEDS: LISINOPRIL 10 MG TABLET PO SCH ×2 (11:38→21:14)
[2016-11-27] MEDS: FUROSEMIDE 40 MG TABLET. PO SCH ×2 (11:39→21:13)
[2016-11-27] MEDS: NYSTATIN TOPICAL POWDER 15GM BOTTLE. TP SCH ×2 (11:40→21:20)
[2016-11-27] MEDS ORDERED: INSULIN ASPART 300 UNITS/3 ML INSULN.PEN SQ SCH (12:00)
[2016-11-27] MEDS ORDERED: NON FORMULARY ITEM (Albuterol Sulfate (Albuterol Sulfate Neb Soln) 0.63 MG) IH SCH (13:00)
[2016-11-27] MEDS: HYDROcodone/APAP 10/325 1 TAB TABLET PO PRN ×2 (14:02→21:24)
[2016-11-27] MEDS: IPRATRPIUM/ALBUTEROL 0.5/2.5MG 3 ML NEBU. NEB SCH ×3 (14:58→19:56)
[2016-11-27] MEDS: DICYCLOMINE HCL 10 MG CAPSULE PO SCH ×2 (15:13→21:15)
[2016-11-27 15:17] VITALS: BP 109/68
[2016-11-27] MEDS ORDERED: diphenhydrAMINE HCL 25 MG CAPSULE PO PRN (19:15)
[2016-11-27] MEDS ORDERED: ZOLPIDEM 5 MG TABLET. PO SCH (21:00)
[2016-11-27] MEDS ORDERED: NON FORMULARY ITEM (Fluticasone/Salmeterol (Advair 500-50 Diskus) 1 EACH) IH SCH (21:00)
[2016-11-27] MEDS ORDERED: ATORVASTATIN CALCIUM 40 MG TABLET. PO SCH (21:00)
[2016-11-27] MEDS ORDERED: NON FORMULARY ITEM (Fluticasone Propionate (Flovent 44MCG Hfa) 2 PUFF) INH SCH (21:00)
[2016-11-27 23:00] VITALS: BP 120/60
[2016-11-27] MEDS ORDERED: BENZOCAINE/MENTHOL LOZENGE. PO PRN (23:00)
[2016-11-28] MEDS: HYDROcodone/APAP 10/325 1 TAB TABLET PO PRN ×2 (02:33→07:49)
[2016-11-28 06:00] VITALS: BP 116/62
[2016-11-28] MEDS: LEVOTHYROXINE 150 MCG TABLET PO SCH (06:44)
[2016-11-28] MEDS: IPRATRPIUM/ALBUTEROL 0.5/2.5MG 3 ML NEBU. NEB SCH ×2 (06:46→10:54)
[2016-11-28] MEDS: BUDESONIDE 0.5 MG/2 ML NEBU. NEB SCH (06:46)
[2016-11-28 07:35] VITALS: BP 113/64
[2016-11-28] MEDS: PANTOPRAZOLE 40 MG TABLET.DR. PO SCH (07:38)
[2016-11-28] MEDS: LINACLOTIDE 145 MCG CAPSULE. PO SCH (07:38)
[2016-11-28] MEDS: metFORMIN 500 MG TABLET PO SCH (07:38)
[2016-11-28] MEDS ORDERED: NON FORMULARY ITEM (Tiotropium Bromide (Spiriva) 18 MCG) IH SCH (09:00)
[2016-11-28] MEDS: POTASSIUM CHLORIDE 8 MEQ TABLET.ER. PO SCH (09:04)
[2016-11-28] MEDS: DULoxetine HCL 30 MG CAPSULE.DR PO SCH (09:05)
[2016-11-28] MEDS: DICYCLOMINE HCL 10 MG CAPSULE PO SCH (09:05)
[2016-11-28] MEDS: CYCLOBENZAPRINE 10 MG TABLET. PO SCH (09:06)
[2016-11-28] MEDS: FUROSEMIDE 40 MG TABLET. PO SCH (09:06)
[2016-11-28] MEDS: FENOFIBRATE,MICRONIZED 134 MG CAPSULE PO SCH (09:07)
[2016-11-28] MEDS: LISINOPRIL 10 MG TABLET PO SCH (09:08)
[2016-11-28] MEDS: predniSONE 10 MG TABLET PO SCH (09:09)
[2016-11-28] MEDS: NITROGLYCERIN 0.2MG/HR PATCH. TD SCH (09:11)
--- NOTE | 2016-11-28 09:29 | PDOC ---
SUBJECTIVE Subjective Doing ok No Problems OBJECTIVE Objective Vital signs stable Vital Signs Vital Signs Date Time Temp Pulse Resp B/P (MAP) Pulse Ox O2 Delivery O2 Flow Rate FiO2 11/28/16 09:08 91 113/64 11/28/16 07:49 22 93 Nasal Cannula 3.0 11/28/16 06:46 97 Nasal Cannula 2.0 11/28/16 06:00 20 94 Nasal Cannula 3.0 11/28/16 06:00 98.4 87 18 116/62 (80) 98.4 11/27/16 23:00 97.9 90 18 120/60 (80) 97.9 11/27/16 22:23 Nasal Cannula 2.0 11/27/16 21:14 90 120/60 11/27/16 19:50 94 Nasal Cannula 2.0 11/27/16 15:17 79 20 109/68 (82) 11/27/16 15:00 92 Nasal Cannula 2.0 11/27/16 11:38 78 110/62 11/27/16 11:15 92 Nasal Cannula 3.0 I & O Intake and Output 11/28/16 06:59 Intake Total 120 ml Output Total 600 ml Balance -480 ml Intake Oral 120 ml Output Urine Total 600 ml PHYSICAL EXAM Physical Exam Abdomen soft No vaginal bleeding ASSESSMENT/PLAN Assessment/Plan Patient to go home today Will see her in 2 weeks Problems: COMMENT Lab Laboratory Tests Test 11/27/16 21:12 11/28/16 06:44 Glucose (Fingerstick) 180 mg/dL (70-99) 107 mg/dL (70-99) TANYA CARTER MD Nov 28, 2016 09:29
[2016-11-28 11:40] VITALS: BP 101/55
--- NOTE | 2016-11-28 12:01 | PDOC ---
PROGRESS NOTES Subjective Subjective feels good ,anxious to go home Objective Objective Vital Signs Date Time Temp Pulse Resp B/P (MAP) Pulse Ox O2 Delivery O2 Flow Rate FiO2 11/28/16 10:56 Nasal Cannula 2.0 11/28/16 09:10 20 92 11/28/16 09:08 91 113/64 11/28/16 07:35 97.6 97.6 Intake and Output 11/28/16 07:00 Intake Total 120 ml Output Total 600 ml Balance -480 ml Intake Oral 120 ml Output Urine Total 600 ml Physical Exam Abdomen: Normal bowel sounds, Soft Heart: Regular rate, Normal S1 Extremities: No clubbing General: Alert HEENT: Atraumatic Lungs: Other (minimal wheezing) MUSCULOSKELETAL: No deformity Neck: Supple Neuro: Normal speech Psych/Mental Status: Mental status NL Skin: No breakdown Assessment Assessment IMPRESSION:s/p hysterectomy,pod#2 1. Nmogr-bv-watdmeb respiratory failure, multifactorial in etiology.recent surgery 2. Acute exacerbation of chronic obstructive pulmonary disease. 3. Acute bronchitis. 4. Ex-smoker. 5. Hypothyroidism. 6. Diabetes mellitus. 7. Hypertension. PLAN:d/c home on tapering doses of prednisone given iv solumedrol pre and post op solumedrol ivx1 yesterday duoneb qid dvt prevention scd sliding scale insulin resume home meds spoke with RN Problems: Comment Review of Relevant I have reviewed the following items vinny (where applicable) has been applied. Labs Laboratory Tests Test 11/27/16 21:12 11/28/16 06:44 Glucose (Fingerstick) 180 mg/dL (70-99) 107 mg/dL (70-99) Medications Current Medications Albuterol/ Ipratropium (Duoneb) 3 ml RTQID NEB Last administered on 11/28/16 10:54; Start 11/27/16 at 12:00 Atorvastatin Calcium (Lipitor) 80 mg QHS PO Last administered on 11/27/16 21: 15; Start 11/27/16 at 21:00 Dicyclomine HCl (Bentyl) 10 mg TID PO Last administered on 11/28/16 09:05; Start 11/27/16 at 14:00 Diphenhydramine HCl (Benadryl) 50 mg PRN QHS PRN PO INSOMNIA Last administered on 7/13/17at 21:15; Start 11/27/16 at 19:15 Insulin Aspart (NovoLOG) 0-7 UNITS TIDWMEALS SQ ; Start 11/27/16 at 12:00 Non-Formulary Medication 0.63 mg QID IH ; Start 11/27/16 at 13:00; Status UNV Non-Formulary Medication 1 each BID IH ; Start 11/27/16 at 21:00; Status UNV Non-Formulary Medication 2 puff BID INH ; Start 11/27/16 at 21:00; Status UNV Non-Formulary Medication 18 mcg DAILY IH ; Start 11/28/16 at 09:00; Status UNV Potassium Chloride (Klor-Con 8) 8 meq TIDWMEALS PO Last administered on 09:04; Start 11/27/16 at 12:00 Throat Lozenges (Cepacol Sore Throat Lozenge) 1 rebecca PRN Q2HRS PRN PO SORE THROAT Last administered on 11/28/16 02:33; Start 11/27/16 at 23:00 Zolpidem Tartrate (Ambien) 5 mg QHS PO Last administered on 11/27/16 21:15; Start 11/27/16 at 21:00 Vitals/I & O Vital Sign - Last 24 Hours 11/27/16 11/27/16 11/27/16 11/27/16 15:00 15:17 19:50 21:14 Pulse 79 90 Resp 20 B/P (MAP) 109/68 (82) 120/60 Pulse Ox 92 94 O2 Delivery Nasal Cannula Nasal Cannula O2 Flow Rate 2.0 2.0 11/27/16 11/27/16 11/28/16 11/28/16 22:23 23:00 06:00 06:00 Temp 97.9 98.4 97.9 98.4 Pulse 90 87 Resp 18 18 20 B/P (MAP) 120/60 (80) 116/62 (80) Pulse Ox 94 O2 Delivery Nasal Cannula Nasal Cannula O2 Flow Rate 2.0 3.0 11/28/16 11/28/16 11/28/16 11/28/16 06:46 07:35 07:35 07:49 Temp 97.6 97.6 Pulse 91 Resp 22 22 B/P (MAP) 113/64 (80) Pulse Ox 97 93 93 O2 Delivery Nasal Cannula Nasal Cannula Nasal Cannula Nasal Cannula O2 Flow Rate 2.0 3.0 3.0 3.0 11/28/16 11/28/16 11/28/16 09:08 09:10 10:56 Pulse 91 Resp 20 B/P (MAP) 113/64 Pulse Ox 92 O2 Delivery Nasal Cannula Nasal Cannula O2 Flow Rate 3.0 2.0 Intake and Output 11/27/16 11/27/16 11/28/16 15:00 23:00 07:00 Intake Total 120 ml Output Total 600 ml Balance -480 ml MIGUEL DELARSOA MD Nov 28, 2016 12:01
[2016-11-28] MEDS ORDERED: predniSONE 10 MG TABLET PO ONE (12:30)
--- NOTE | 2016-11-28 15:21 | PATHOLOGY ---
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 - Proliferative phase endometrium without any evidence of hyperplasia or malignancy. - Myometrium with calcified thick-walled vessels. - Superficial adenomyosis. (SHA:tobin; 11/28/2016) REPORT ELECTRONICALLY SIGNED BY: Benigno Patel M.D. DATE/TIME: 11/28/2016 15:21 * * * * * * * * GROSS PATHOLOGY: The specimen is received in formalin labeled "Lilli Duvall, uterus and cervix". Received is a 48 g, 7.5 x 3.5 x 2.8 cm moderately torn uterus with attached cervix. The uterine serosa is pale matt, smooth and glistening in appearance. The 0.6 cm cervical os is surrounded by pale matt, smooth to disrupted ectocervical mucosa. The uterus is oriented using the peritoneal reflection and the anterior paracervical margin is inked black. The uterus is opened laterally to reveal a pale matt, corrugated endocervical canal measuring 2.6 cm in length. The endometrial cavity is triangular measuring 3.6 cm in length by 1.1 cm in width. The endometrium is pale matt, glistening in appearance and measures less than 0.1 cm in thickness. Serial sectioning reveals a pale matt, trabeculated myometrium measuring 1.5 cm in thickness with no grossly distinct nodules or lesions. The specimen is submitted representatively as follows: A1 12:00 cervix A2 6:00 cervix A3 anterior endomyometrium A4 posterior endomyometrium. (CAA; 11/27/2016) INITIAL CPT CODE(S): A; 54816 Professional services performed by [facility] at [address] [address] Technical services performed by [facility] at [address] [place] [address], [address], [place] [address]. SPECIMEN(S) RECEIVED: A.Uterus and cervix CLINICAL HISTORY: Post menopausal bleeding, menorrhagia, urinary incontinence PATIENT: LILLI DUVALL /AGE: 4 1955 (Age: 61) PATIENT #: [id number] ALT CASE #: SPECIMEN COLLECTION DATE: 11/26/2016 SPECIMEN RECEIVED DATE: 11/26/2016 [facility] - [id number] [address] - PHONE: [phone] * * * END OF REPORT * * *
--- NOTE | 2016-12-24 19:54 | OP ---
DATE OF SURGERY: 11/26/2016 PREOPERATIVE DIAGNOSES: Postmenopausal bleeding, pelvic pain. POSTOPERATIVE DIAGNOSES: Postmenopausal bleeding, pelvic pain. OPERATION PERFORMED: Total abdominal hysterectomy. DESCRIPTION OF PROCEDURE: The patient is taken to the operating room. Under general anesthesia, she is placed in the dorsal supine position. Wei catheter introduced in the bladder for continuous bladder drainage. Lower abdomen was prepped and draped in the usual manner. A Pfannenstiel incision is made. Abdomen opened in layers and the peritoneum is opened. The pelvic cavity is entered and the round ligament on either side is clamped, ligated, cut and sutured with #1 chromic catgut sutures. The broad ligament on either side is clamped, ligated, cut, sutured with #1 chromic catgut sutures and also the bladder flap peritoneum is dissected. Bladder is pushed way down the lower segment of the uterus and after the complete reflection of bladder flap peritoneum, uterine vessels on either side are clamped, ligated, cut and sutured with #1 chromic catgut sutures and the uterosacral cardinal ligaments on either side are clamped, ligated, cut and sutured with #1 chromic catgut sutures and after the complete reflection of bladder flap peritoneum, a stab wound incision is made below the cervix posteriorly first, incision is extended all around the cervix. Thus, the uterus with the cervix is removed and subjected for pathological examination and the cut edges of vaginal mucous membrane are brought together midline, sutured together using #1 chromic catgut sutures and thus the vaginal cuff is closed. The angle of the vagina is anchored to the uterosacral cardinal ligaments on either side using figure of 8 #1 chromic catgut sutures and a small piece of Gelfoam sponge is placed below the bladder flap peritoneum. Re-peritonealization was done with continuous 0 chromic catgut sutures. After this, there was no active bleeding or oozing noted and abdomen closed in layers using continuous 0 chromic catgut sutures for the peritoneum, the muscle, the fascia, 3-0 plain continuous sutures applied for subcutaneous tissue, 3-0 Vicryl subcutaneous sutures were placed. Pressure dressing was given. The patient was sent to the recovery room in good condition. No complications encountered at the time of the procedure. Estimated blood loss about 100 mL and postoperative condition is stable. TANYA CARTER MD DR: XIMENA/adrianna JOB#: [id number] / [id number]
== END 2016-11-28 11:50 | disposition home or self-care (01) | DRG 748 ==
LOC: SURG 07:15 → 3 NORTH 11:30
PROVIDERS: ADMIT Obstetrics & Gynecology; ATTEND Obstetrics & Gynecology
PROC: 0JUC0JZ Supplement of Pelvic Region Subcutaneous Tissue and Fascia with Synthetic Substitute, Open Approach (ICD-10-PCS; 2016-11-26)
PROC: 0TQB0ZZ Repair Bladder, Open Approach (ICD-10-PCS; principal; 2016-11-26 09:00)
DX: N95.0 Postmenopausal bleeding (principal); J96.20 Acute and chronic respiratory failure, unspecified whether with hypoxia or hypercapnia; J44.0 Chronic obstructive pulmonary disease with (acute) lower respiratory infection; J44.1 Chronic obstructive pulmonary disease with (acute) exacerbation; N81.10 Cystocele, unspecified; E03.9 Hypothyroidism, unspecified; E11.9 Type 2 diabetes mellitus without complications; I10 Essential (primary) hypertension; J20.9 Acute bronchitis, unspecified; Z96.659 Presence of unspecified artificial knee joint; K21.9 Gastro-esophageal reflux disease without esophagitis; F32.9 Major depressive disorder, single episode, unspecified; F41.9 Anxiety disorder, unspecified; G47.00 Insomnia, unspecified; Z79.899 Other long term (current) drug therapy; Z88.1 Allergy status to other antibiotic agents; Z88.5 Allergy status to narcotic agent; Z83.3 Family history of diabetes mellitus; Z82.49 Family history of ischemic heart disease and other diseases of the circulatory system; Z90.49 Acquired absence of other specified parts of digestive tract; Z87.891 Personal history of nicotine dependence; Z88.8 Allergy status to other drugs, medicaments and biological substances
CPT/HCPCS: 36415; 82962; 86850; 86900; 86901; 88307; 94250; 94640; 94760; J0780; J1100; J1720; J1815; J2001; J2250; J2270; J2370; J2405; J2704; J2710; J2930; J3010; J3490; J7120; J7512; J7613; J7620; J7626; Q0163

== ENCOUNTER 2017-02-10 17:42 | Inpatient (IN) | payer OTHER ==
[~2017-02-10] VITALS: Ht 162.6 cm; Wt 86.8 kg
[~2017-02-10 17:42] MED LIST changes: -CLINDAMYCIN 600MG PREMIX 50 ML IV PRN; +DOXY100T PO; -HYDROmorphone 2 MG/ML VIAL IV PRN; -LIDOCAINE 1% 1 ML SYRINGE. ID PRN; -ONDANSETRON PF 4 MG/2 ML VIAL. IV PRN; -PROCHLORPERAZINE 10 MG/2 ML VIAL. IV PRN; -fentaNYL PF VIAL 100 MCG/2 ML VIAL IV PRN
--- NOTE | 2017-02-10 18:10 | PHYS DOC ---
Past Medical History Past Medical History: COPD, Diabetes-Type II, Hypertension, Pneumonia, Other Additional Past Medical Histor: Emphysema, chronic back pain, osteoarthritis Past Surgical History: Cholecystectomy, Hysterectomy, Tubal ligation, Other Additional Past Surgical Histo: thyroidectomy Additional Information: denies, although fingers are tobacco stained Alcohol Use: None Drug Use: None Adult General Chief Complaint Chief Complaint: CHEST WALL PAIN HPI HPI Patient is a 61 year old female who presents with resident chest pain. She states started last night at this time squeezing sensation in her left chest and radiates around to her back. She states nothing makes the pain better or worse. She states is constant she denies any nausea vomiting but states she does feel short of breath and has yellow productive cough. She denies any fevers or chills. She usually wears a Nitropatch but has been wearing it today. She states nitroglycerin that was given in emergency Department did not help and it just a for headache. She states she just got out of hospital for COPD exacerbation last week. She states she's had a stress test but it was 2-3 years ago. Review of Systems Review of Systems Constitutional: Denies fever or chills [] Eyes: Denies change in visual acuity, redness, or eye pain [] HENT: Denies nasal congestion or sore throat [] Respiratory: Positive for cough and shortness of breath Cardiovascular: No additional information not addressed in HPI [] GI: Denies abdominal pain, nausea, vomiting, bloody stools or diarrhea [] : Denies dysuria or hematuria [] Musculoskeletal: Denies back pain or joint pain [] Integument: Denies rash or skin lesions [] Neurologic: Denies headache, focal weakness or sensory changes [] Endocrine: Denies polyuria or polydipsia [] Current Medications Current Medications Current Medications Medications (Trade) Dose Ordered Sig/Santiago Start Time Stop Time Status Last Admin Dose Admin Albuterol/ Ipratropium (Duoneb) 3 ml 1X ONCE 02/10/17 18:45 02/10/17 18:46 DC 02/10/17 18:59 3 ML Info (Do NOT chart on this entry -- for MONITORING) 1 each PRN DAILY PRN 02/10/17 20:15 02/12/17 20:14 Iohexol (Omnipaque 300 Mg/ml) 75 ml 1X ONCE 02/10/17 20:00 02/10/17 20:04 DC 02/10/17 20:12 75 ML Morphine Sulfate 4 mg 1X ONCE 02/10/17 21:15 02/10/17 21:16 DC 02/10/17 21:19 4 MG Nitroglycerin (Nitrostat) 0.4 mg PRN Q5MIN PRN 02/10/17 18:15 02/11/17 18:14 02/10/17 18:23 0.4 MG Allergies Allergies Allergies Coded Allergies Type Severity Reaction Last Updated Verified amoxicillin Allergy Intermediate Nausea and Vomiting 11/26/16 Yes amoxicillin trihydrate Allergy Intermediate yeast infection 11/26/16 Yes potassium clavulanate Allergy Intermediate yeast infection 11/26/16 Yes meperidine HCl Adverse Reaction Severe 11/26/16 Yes Physical Exam Physical Exam Constitutional: Well developed, well nourished, no acute distress, non-toxic appearance. [] HENT: Normocephalic, atraumatic, bilateral external ears normal, oropharynx moist, no oral exudates, nose normal. [] Eyes: PERRLA, EOMI, conjunctiva normal, no discharge. [] Neck: Normal range of motion, no tenderness, supple, no stridor. [] Cardiovascular:Heart rate regular rhythm, no murmur [] Lungs & Thorax: Wheezing bilaterally with decreased breath sounds at bases, tender to palpation over the left chest wall Abdomen: Bowel sounds normal, soft, mild tender palpation left upper quadrant, no rebound or guarding, no masses, no pulsatile masses. [] Skin: Warm, dry, no erythema, no rash. [] Back: No tenderness, no CVA tenderness. [] Extremities: No tenderness, no cyanosis, no clubbing, ROM intact, no edema. [] Neurologic: Alert and oriented X 3, normal motor function, normal sensory function, no focal deficits noted. [] Psychologic: Affect normal, judgement normal, mood normal. [] Current Patient Data Vital Signs Vital Signs Date Time Temp Pulse Resp B/P (MAP) Pulse Ox O2 Delivery O2 Flow Rate FiO2 02/10/17 19:49 76 20 137/75 (95) 97 Nasal Cannula 3.0 02/10/17 17:50 98.9 98.9 Lab Values Laboratory Tests Test 02/10/17 18:00 02/10/17 18:30 White Blood Count 6.4 x10^3/uL (4.0-11.0) Red Blood Count 4.56 x10^6/uL (3.50-5.40) Hemoglobin 13.6 g/dL (12.0-15.5) Hematocrit 41.1 % (36.0-47.0) Mean Corpuscular Volume 90 fL (79-100) Mean Corpuscular Hemoglobin 30 pg (25-35) Mean Corpuscular Hemoglobin Concent 33 g/dL (31-37) Red Cell Distribution Width 15.1 % (11.5-14.5) H Platelet Count 181 x10^3/uL (140-400) Neutrophils (%) (Auto) 56 % (31-73) Lymphocytes (%) (Auto) 32 % (24-48) Monocytes (%) (Auto) 9 % (0-9) Eosinophils (%) (Auto) 3 % (0-3) Basophils (%) (Auto) 1 % (0-3) Neutrophils # (Auto) 3.6 x10^3uL (1.8-7.7) Lymphocytes # (Auto) 2.0 x10^3/uL (1.0-4.8) Monocytes # (Auto) 0.6 x10^3/uL (0.0-1.1) Eosinophils # (Auto) 0.2 x10^3/uL (0.0-0.7) Basophils # (Auto) 0.0 x10^3/uL (0.0-0.2) Prothrombin Time 11.7 SEC (11.7-14.0) Prothrombin Time INR 0.9 (0.8-1.1) D-Dimer (Darlin) 0.89 ug/mlFEU (0.00-0.50) H Sodium Level 144 mmol/L (136-145) Potassium Level 3.8 mmol/L (3.5-5.1) Chloride Level 107 mmol/L (98-107) Carbon Dioxide Level 30 mmol/L (21-32) Anion Gap 7 (6-14) Blood Urea Nitrogen 9 mg/dL (7-20) Creatinine 0.7 mg/dL (0.6-1.0) Estimated GFR (Cockcroft-Gault) 84.8 Glucose Level 126 mg/dL (70-99) H Calcium Level 8.3 mg/dL (8.5-10.1) L Magnesium Level 1.6 mg/dL (1.8-2.4) L Total Bilirubin 0.2 mg/dL (0.2-1.0) Direct Bilirubin < 0.1 mg/dL (0.0-0.2) Aspartate Amino Transferase (AST) 23 U/L (15-37) Alanine Aminotransferase (ALT) 23 U/L (14-59) Alkaline Phosphatase 83 U/L (46-116) Creatine Kinase 45 U/L (26-192) Creatine Kinase MB (Mass) 0.5 ng/mL (0.0-3.6) Creatine Kinase MB Relative Index % (0-4) Troponin I Quantitative < 0.017 ng/mL (0.000-0.055) IT-Efo-G-Type Natriuretic Peptide 136 pg/mL (0-124) H Total Protein 6.0 g/dL (6.4-8.2) L Albumin 3.1 g/dL (3.4-5.0) L Lipase 142 U/L (73-393) Thyroid Stimulating Hormone (TSH) 0.043 uIU/mL (0.358-3.74) L Urine Collection Type Unknown Urine Color Yellow Urine Clarity Clear Urine pH 6.0 Urine Specific [place] 1.015 Urine Protein Negative mg/dL (NEG-TRACE) Urine Glucose (UA) Negative mg/dL (NEG) Urine Ketones (Stick) Negative mg/dL (NEG) Urine Blood Negative (NEG) Urine Nitrite Negative (NEG) Urine Bilirubin Negative (NEG) Urine Urobilinogen Dipstick 0.2 mg/dL (0.2 mg/dL) Urine Leukocyte Esterase Negative (NEG) Urine RBC 0 /HPF (0-2) Urine WBC 1-4 /HPF (0-4) Urine Squamous Epithelial Cells Few /LPF Urine Bacteria 0 /HPF (0-FEW) Urine Mucus Marked /LPF Urine Opiates Screen Pos (NEG) Urine Methadone Screen Neg (NEG) Urine Barbiturates Neg (NEG) Urine Phencyclidine Screen Neg (NEG) Urine Amphetamine/Methamphetamine Neg (NEG) Urine Benzodiazepines Screen Pos (NEG) Urine Cocaine Screen Neg (NEG) Urine Cannabinoids Screen Neg (NEG) Urine Ethyl Alcohol Neg (NEG) Laboratory Tests 02/10/17 18:00 Laboratory Tests 02/10/17 18:00 EKG EKG EKG shows sinus rhythm with rate of [address] elevations or T-wave inversions noted in aVL, normal axis, QTC 404 ms, as interpreted by me. Radiology/Procedures Radiology/Procedures [facility] [address] [place] [address] IMAGING REPORT Signed PATIENT: CIPRIANO ALBRECHT ACCOUNT: [id number] : 1955 LOCATION: ER AGE: 61 SEX: F EXAM STATUS: REG ER ORD. PHYSICIAN: DANNY CHAIREZ MD REASON: PE protocol PROCEDURE: CT ANGIOGRAPHY CHEST Indication: Chest pain and short of air Technique: Axial images and coronal and sagittal maximum intensity projection reformatted images are provided. 75 mL of intravenous Omnipaque 300 was administered. Comparison is from April 07, 2014. One or more of the following individualized dose reduction techniques were utilized for this examination: 1. Automated exposure control 2. Adjustment of the mA and/or kV according to patient size 3. Use of iterative reconstruction technique Findings: The contrast bolus is satisfactory. There is no filling defect to suggest pulmonary embolism. There is atheromatous disease in the thoracic aorta without aneurysm. The heart is not enlarged. There is no hilar or mediastinal adenopathy. Subcentimeter mediastinal lymph nodes are noted. There is no pleural effusion. Central airways are patent. There is a right upper lobe 3 mm nodule on image 39 which is new. There is a 3 mm nodule in the right upper lobe on image 41 which is also new. 3 mm nodule in the left upper lobe on image 59 probably is stable. 3 mm nodule in the left upper lobe on image 46 is new. There are linear bands of atelectasis or scarring. Gallbladder is surgically absent. There are minimal degenerative changes in the spine. IMPRESSION: 1. Negative for pulmonary embolism. 2. Pulmonary nodules. Some of these are new from prior. Per Fleischner Society, 12 month follow-up can be considered in a high-risk patient, no further workup is required in a low-risk patient. Electronically signed by: Rick Tello MD (02/10/2017 8:36 PM) [facility] DICTATED and SIGNED BY: RICK TELLO MD DATE: 02/10/172028 CC: DANNY CHAIREZ MD; AURELIA DELAROSA MD ~ Impressions: Chest pain Course & Med Decision Making Course & Med Decision Making Pertinent Labs and Imaging studies reviewed. (See chart for details) Patient's pain did not improve with nitroglycerin, EKG does not show any acute abnormalities. CT Angio was negative for PE. She's had some issues with constipation lately but her pain is more in her chest made worse with breathing. Patient is being admitted for chest pain rule out. Patient's in stable condition at this time be admitted to , who requests cardiology consultation. Dragon Disclaimer Dragon Disclaimer This electronic medical record was generated, in whole or in part, using a voice recognition dictation system. Departure Departure Impression: Primary Impression: Chest pain Disposition: HOME, SELF-CARE Admitting Physician: Aurelia Delarosa Condition: STABLE Referrals: AURELIA DELAROSA MD (PCP) Problem Qualifiers Primary Impression: Chest pain Chest pain type: chest pain on breathing Qualified Codes: R07.1 - Chest pain on breathing DANNY CHAIREZ MD Feb 10, 2017 18:10
[2017-02-10] MEDS ORDERED: NITROGLYCERIN SUBLINGUAL 0.4 MG BOTTLE OF 25. SL PRN (18:15)
[2017-02-10 18:25] LABS: BASO % 1 % (0-3); EOS % 3 % (0-3); HEMATOCRIT 41.1 % (36.0-47.0); HEMOGLOBIN 13.6 g/dL (12.0-15.5); LYMPH % 32 % (24-48); MEAN CORPUSCULAR HEMOGLOBIN 30 pg (25-35); MEAN CORPUSCULAR HGB CONC 33 g/dL (31-37); MEAN CORPUSCULAR VOLUME 90 fL (79-100); MONO % 9 % (0-9); NEUT % 56 % (31-73); PLATELET COUNT 181 x10^3/uL (140-400); RED BLOOD COUNT 4.56 x10^6/uL (3.50-5.40); RED CELL DISTRIBUTION WIDTH 15.1 % (11.5-14.5); WHITE BLOOD COUNT 6.4 x10^3/uL (4.0-11.0)
[2017-02-10 18:33] LABS: INR 0.9 (0.8-1.1); PROTHROMBIN TIME PATIENT 11.7 SEC (11.7-14.0)
[2017-02-10 18:44] LABS: ANION GAP 7 (6-14); BLOOD UREA NITROGEN 9 mg/dL (7-20); CALCIUM 8.3 mg/dL (8.5-10.1); CARBON DIOXIDE 30 mmol/L (21-32); CHLORIDE 107 mmol/L (98-107); CREATININE 0.7 mg/dL (0.6-1.0); GFR 84.8; GLUCOSE 126 mg/dL (70-99); POTASSIUM 3.8 mmol/L (3.5-5.1); SODIUM 144 mmol/L (136-145)
[2017-02-10] MEDS ORDERED: IPRATRPIUM/ALBUTEROL 0.5/2.5MG 3 ML NEBU. NEB ONE (18:45)
[2017-02-10 18:49] LABS: BILIRUBIN,URINE NEGATIVE (NEG); GLUCOSE,URINE NEGATIVE (NEG); NITRITE,URINE NEGATIVE (NEG); PROTEIN,URINE NEGATIVE (NEG-TRACE); UROBILINOGEN,URINE 0.2 mg/dL (0.2 mg/dL)
[2017-02-10] MEDS: MORPHINE SULFATE 4 MG/ML DISP.SYRIN. IV/SQ PRN ×2 (18:50→20:09)
[2017-02-10 18:51] LABS: ALBUMIN 3.1 g/dL (3.4-5.0); ALK PHOS 83 U/L (46-116); ALT (SGPT) 23 U/L (14-59); AST (SGOT) 23 U/L (15-37); DIRECT BILIRUBIN < 0.1 mg/dL (0.0-0.2); MAGNESIUM 1.6 mg/dL (1.8-2.4); TOTAL BILIRUBIN 0.2 mg/dL (0.2-1.0)
[2017-02-10 18:58] LABS: BARBITURATES NEG (NEG); BENZODIAZEPINES POS (NEG); CANNABINOIDS NEG (NEG); COCAINE NEG (NEG); METHADONE NEG (NEG); OPIATES POS (NEG); PHENCYCLIDINE NEG (NEG)
[2017-02-10 19:00] LABS: CKMB MASS 0.5 ng/mL (0.0-3.6); CREATINE KINASE 45 U/L (26-192)
[2017-02-10 19:01] LABS: BACTERIA,URINE 0 /HPF (0-FEW); RBC,URINE 0 /HPF (0-2); SQUAMOUS EPITHELIAL CELL,UR FEW /LPF
[2017-02-10] MEDS ORDERED: IOHEXOL 300 MG/ML 75 ML VIAL IV ONE (20:00)
[2017-02-10] MEDS ORDERED: CONTRAST GIVEN MC PRN (20:15)
--- NOTE | 2017-02-10 20:39 | RAD ---
Indication: Chest pain and short of air Technique: Axial images and coronal and sagittal maximum intensity projection reformatted images are provided. 75 mL of intravenous Omnipaque 300 was administered. Comparison is from April 07, 2014. One or more of the following individualized dose reduction techniques were utilized for this examination: 1. Automated exposure control 2. Adjustment of the mA and/or kV according to patient size 3. Use of iterative reconstruction technique Findings: The contrast bolus is satisfactory. There is no filling defect to suggest pulmonary embolism. There is atheromatous disease in the thoracic aorta without aneurysm. The heart is not enlarged. There is no hilar or mediastinal adenopathy. Subcentimeter mediastinal lymph nodes are noted. There is no pleural effusion. Central airways are patent. There is a right upper lobe 3 mm nodule on image 39 which is new. There is a 3 mm nodule in the right upper lobe on image 41 which is also new. 3 mm nodule in the left upper lobe on image 59 probably is stable. 3 mm nodule in the left upper lobe on image 46 is new. There are linear bands of atelectasis or scarring. Gallbladder is surgically absent. There are minimal degenerative changes in the spine. IMPRESSION: 1. Negative for pulmonary embolism. 2. Pulmonary nodules. Some of these are new from prior. Per Fleischner Society, 12 month follow-up can be considered in a high-risk patient, no further workup is required in a low-risk patient. Electronically signed by: Rick Tello MD (02/10/2017 8:36 PM) [facility]
[2017-02-10] MEDS ORDERED: MORPHINE SULFATE 4 MG/ML DISP.SYRIN. IV ONE (21:15)
[2017-02-10] MEDS ORDERED: ALBUTEROL SULFATE 2.5 MG/3 ML NEBU. NEB PRN (21:30)
[2017-02-10] MEDS ORDERED: ONDANSETRON PF 4 MG/2 ML VIAL. IV PRN (21:30)
[2017-02-10] MEDS ORDERED: MORPHINE SULFATE 2 MG/ML DISP.SYRIN. IV PRN (21:30)
[2017-02-10 23:25] VITALS: BP 135/84
[2017-02-11] MEDS ORDERED: ZOLPIDEM 5 MG TABLET. PO PRN ×2 (00:15→07:30)
[2017-02-11] MEDS ORDERED: MAGNESIUM SULFATE 1GM 100 ML IV ONE (00:30)
[2017-02-11] MEDS ORDERED: ATORVASTATIN CALCIUM 20 MG TABLET PO ONE (00:30)
[2017-02-11] MEDS ORDERED: LISINOPRIL 10 MG TABLET PO ONE (00:30)
[2017-02-11] MEDS ORDERED: DEXTROSE 50% 25 GM / 50ML DISP.SYRIN. IV PRN ×2 (00:45→09:00)
[2017-02-11 03:15] VITALS: BP 142/83
[2017-02-11 03:45] LABS: BASO # 0.1 x10^3/uL (0.0-0.2); BASO % 1 % (0-3); EOS % 3 % (0-3); HEMATOCRIT 39.8 % (36.0-47.0); HEMOGLOBIN 13.3 g/dL (12.0-15.5); LYMPH # 2.1 x10^3/uL (1.0-4.8); LYMPH % 35 % (24-48); MEAN CORPUSCULAR HEMOGLOBIN 30 pg (25-35); MEAN CORPUSCULAR HGB CONC 33 g/dL (31-37); MEAN CORPUSCULAR VOLUME 89 fL (79-100); MONO % 9 % (0-9); NEUT % 52 % (31-73); PLATELET COUNT 164 x10^3/uL (140-400); RED BLOOD COUNT 4.45 x10^6/uL (3.50-5.40); RED CELL DISTRIBUTION WIDTH 14.9 % (11.5-14.5); WHITE BLOOD COUNT 6.1 x10^3/uL (4.0-11.0)
[2017-02-11 04:11] LABS: ALBUMIN/GLOBULIN RATIO 1.1 (1.0-1.7); CALCIUM 8.4 mg/dL (8.5-10.1); CREATININE 0.7 mg/dL (0.6-1.0); GFR 84.8; MAGNESIUM 2.1 mg/dL (1.8-2.4); POTASSIUM 3.8 mmol/L (3.5-5.1); TOTAL BILIRUBIN 0.3 mg/dL (0.2-1.0); TOTAL PROTEIN 5.8 g/dL (6.4-8.2)
--- NOTE | 2017-02-11 06:34 | EKG ---
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
[2017-02-11] MEDS ORDERED: NON FORMULARY ITEM (Alendronate Sodium (Fosamax) 70 MG) PO SCH (06:45)
[2017-02-11 07:00] VITALS: BP 132/80
[2017-02-11] MEDS ORDERED: LEVOTHYROXINE 150 MCG TABLET PO ONE (07:00)
[2017-02-11] MEDS ORDERED: ALBUTEROL SULFATE 2.5 MG/3 ML NEBU. NEB SCH (07:15)
[2017-02-11] MEDS ORDERED: ONDANSETRON ODT 4 MG TAB.RAPDIS. PO PRN (07:15)
[2017-02-11] MEDS: ZOLPIDEM 5 MG TABLET. PO SCH ×2 (07:30→21:38)
[2017-02-11] MEDS ORDERED: FLU VACC QS2017-18 (36MOS+)/PF 0.5 ML SYRINGE. VAX IM ONE (08:00)
[2017-02-11] MEDS: BUDESONIDE 0.5 MG/2 ML NEBU. NEB SCH ×2 (08:10→19:42)
--- NOTE | 2017-02-11 08:38 | RAD ---
EXAM: Chest, single view. HISTORY: Left-sided chest pain. COMPARISON: 01/23/2017. FINDINGS: A frontal view of the chest is obtained. There is no infiltrate, effusion or pneumothorax. There is slight eventration of the hemidiaphragms. The heart is normal in size. There is right middle lobe pleural-parenchymal scarring. IMPRESSION: No acute pulmonary finding.
[2017-02-11] MEDS: FUROSEMIDE 40 MG TABLET. PO SCH ×2 (08:52→16:20)
[2017-02-11] MEDS: diazePAM 5 MG TABLET PO SCH ×3 (08:52→21:37)
[2017-02-11] MEDS: FENOFIBRATE,MICRONIZED 134 MG CAPSULE PO SCH (08:52)
[2017-02-11] MEDS: CYCLOBENZAPRINE 10 MG TABLET. PO SCH ×2 (08:53→21:38)
[2017-02-11] MEDS: DICYCLOMINE HCL 10 MG CAPSULE PO SCH ×3 (08:53→16:28)
[2017-02-11] MEDS: PANTOPRAZOLE 40 MG TABLET.DR. PO SCH (08:53)
[2017-02-11] MEDS: LINACLOTIDE 145 MCG CAPSULE. PO SCH (08:54)
[2017-02-11] MEDS: POTASSIUM CHLORIDE 8 MEQ TABLET.ER. PO SCH ×3 (08:54→17:00)
[2017-02-11] MEDS: HYDROcodone/APAP 10/325 1 TAB TABLET PO PRN ×3 (08:56→21:38)
[2017-02-11] MEDS: NYSTATIN TOPICAL POWDER 15GM BOTTLE. TP SCH ×2 (08:57→21:43)
[2017-02-11] MEDS ORDERED: FLUTICASONE PROPIONATE IH SCH (09:00)
[2017-02-11] MEDS ORDERED: INFLUENZA VAX SCREEN BY RX. MC ONE (09:00)
[2017-02-11] MEDS: LISINOPRIL 10 MG TABLET PO SCH ×2 (09:00→21:00)
[2017-02-11] MEDS ORDERED: NON FORMULARY ITEM (Tiotropium Bromide (Spiriva) 18 MCG) IH SCH (09:00)
[2017-02-11] MEDS ORDERED: predniSONE 10 MG TABLET PO SCH (09:00)
[2017-02-11] MEDS ORDERED: NON FORMULARY ITEM (Fluticasone/Salmeterol (Advair 500-50 Diskus) 1 EACH) IH SCH (09:00)
[2017-02-11] MEDS ORDERED: LISINOPRIL 10 MG TABLET PO SCH (09:00)
[2017-02-11] MEDS ORDERED: NITROGLYCERIN 0.6MG/HR PATCH. TD SCH (09:00)
[2017-02-11] MEDS: DULoxetine HCL 30 MG CAPSULE.DR PO SCH (09:10)
--- NOTE | 2017-02-11 10:10 | PDOC ---
Provider Note Provider Note Pt seen.H&P dictated. #[id number] MIGUEL DELAROSA MD Feb 11, 2017 10:10
--- NOTE | 2017-02-11 10:16 | PDOC2 ---
CARDIAC CONSULT DATE OF CONSULT Date of Consult DATE: 02/11/17 TIME: 09:55 REASON FOR CONSULT Reason for Consult: Chest pain REFERRING PHYSICIAN Referring Physician: Blanche SOURCE Source: Chart review, Patient HISTORY OF PRESENT ILLNESS HISTORY OF PRESENT ILLNESS This is a pleasant 61 yo female admitted for complains of left chest tightness that radiates to her back. Denies any n/v or diaphoresis but has been positive for increasing HORTON despite COPD treatments and O2/steroid use. Denies any palpitations, dizziness or any passing out. No recent falls, injury, No CAD and VTE. Her last stress test was >5 yrs ago PAST MEDICAL HISTORY Cardiovascular: HTN, Hyperlipidemia Pulmonary: COPD (home O2) Musculoskeletal: Osteoarthritis Renal/: Urinary Incontinence Endocrine: Diabetes (2) PAST SURGICAL HISTORY Past Surgical History: Cholecystectomy, Tubal Ligation, Other (thyroid surgery) FAMILY HISTORY Family History: Diabetes, Heart Disease SOCIAL HISTORY Smoke: Quit ALCOHOL: none Drugs: None Lives: with Family CURRENT MEDICATIONS CURRENT MEDICATIONS Current Medications Medications (Trade) Dose Ordered Sig/Santiago Route PRN Reason Start Time Stop Time Status Last Admin Dose Admin Nitroglycerin (Nitrostat) 0.4 mg PRN Q5MIN PRN SL CP RATING > 1/10 02/10/17 18:15 02/11/17 18:14 02/10/17 18:23 Morphine Sulfate 2 mg PRN Q15MIN PRN IV/SQ PAIN GREATER THAN 3/10 02/10/17 18:45 02/11/17 18:44 02/10/17 20:09 Albuterol/ Ipratropium (Duoneb) 3 ml 1X ONCE NEB 02/10/17 18:45 02/10/17 18:46 DC 02/10/17 18:59 Iohexol (Omnipaque 300 Mg/ml) 75 ml 1X ONCE IV 02/10/17 20:00 02/10/17 20:04 DC 02/10/17 20:12 Morphine Sulfate 4 mg 1X ONCE IV 02/10/17 21:15 02/10/17 21:16 DC 02/10/17 21:19 Albuterol Sulfate (Ventolin Neb Soln) 2.5 mg Q4HRS W/A PRN NEB SHORTNESS OF BREATH 02/10/17 21:30 02/11/17 09:03 DC 02/11/17 08:08 Magnesium Sulfate/ Dextrose 100 ml @ 100 mls/hr 1X ONCE IV 02/11/17 00:30 02/11/17 01:29 DC 02/11/17 00:43 Lisinopril (Prinivil) 10 mg 1X ONCE PO 02/11/17 00:30 02/11/17 00:31 DC 02/11/17 00:41 Zolpidem Tartrate (Ambien) 10 mg PRN QHS PRN PO INSOMNIA 02/11/17 00:15 02/11/17 07:15 DC 02/11/17 00:41 Dicyclomine HCl (Bentyl) 10 mg TIDBFRMEAL PO 02/11/17 07:30 02/11/17 08:53 Furosemide (Lasix) 40 mg BID92 PO 02/11/17 09:00 02/11/17 08:52 Acetaminophen/ Hydrocodone Bitart (Lortab 10/325) 1 tab PRN Q4HRS PRN PO PAIN 02/11/17 06:45 02/11/17 08:56 Linaclotide (Linzess) 145 mcg DAILYAC PO 02/11/17 07:30 02/11/17 08:54 Nystatin (Nystop) 1 [place] BID TP 02/11/17 09:00 02/11/17 08:57 Prednisone (Prednisone) 50 mg DAILY PO 02/11/17 09:00 02/11/17 09:04 DC 02/11/17 08:51 Cyclobenzaprine HCl (Flexeril) 5 mg BID PO 02/11/17 09:00 02/11/17 08:53 Diazepam (Valium) 10 mg TID PO 02/11/17 09:00 02/11/17 08:52 Fenofibrate (Lofibra) 134 mg DAILY PO 02/11/17 09:00 02/11/17 08:52 Pantoprazole Sodium (Protonix) 40 mg DAILYAC PO 02/11/17 07:30 02/11/17 08:53 Potassium Chloride (Klor-Con 8) 8 meq TIDWMEALS PO 02/11/17 08:00 02/11/17 08:54 Levothyroxine Sodium (Synthroid) 150 mcg ONCE ONCE PO 02/11/17 07:00 02/11/17 07:02 DC 02/11/17 08:50 Budesonide (Pulmicort) 0.5 mg RTBID NEB 02/11/17 08:00 02/11/17 08:10 ALLERGIES ALLERGIES: Coded Allergies: amoxicillin (Verified Allergy, Intermediate, Nausea and Vomiting, 11/26/16) amoxicillin trihydrate (Verified Allergy, Intermediate, yeast infection, ) potassium clavulanate (Verified Allergy, Intermediate, yeast infection, 05/03) meperidine HCl (Verified Adverse Reaction, Severe, 11/26/16) ROS Review of System 14 point ROS evaluated with pertinent positives noted per HPI PHYSICAL EXAM General: Alert, Oriented X3, Cooperative, No acute distress HEENT: Atraumatic, Mucous membr. moist/pink Lungs: Other (diffuse wheeze) Heart: Regular rate (SR), Normal S1, Normal S2, Other (2/6 systolic murmur to LLS border) Abdomen: Soft, No tenderness Extremities: No cyanosis, Other (1+ bilateral LE pitting edema) Skin: No breakdown, No significant lesion Neuro: Normal speech, Sensation intact Psych/Mental Status: Mental status NL, Mood NL MUSCULOSKELETAL: Osteoarthritic changes both hands VITALS VITALS Vital Signs Date Time Temp Pulse Resp B/P (MAP) Pulse Ox O2 Delivery O2 Flow Rate FiO2 02/11/17 08:56 18 97 Nasal Cannula 3.0 02/11/17 07:00 98.8 73 132/80 (97) 98.8 LABS Lab: Laboratory Tests Test 02/10/17 18:00 02/10/17 18:30 02/10/17 21:00 02/11/17 03:26 White Blood Count 6.4 x10^3/uL (4.0-11.0) 6.1 x10^3/uL (4.0-11.0) Red Blood Count 4.56 x10^6/uL (3.50-5.40) 4.45 x10^6/uL (3.50-5.40) Hemoglobin 13.6 g/dL (12.0-15.5) 13.3 g/dL (12.0-15.5) Hematocrit 41.1 % (36.0-47.0) 39.8 % (36.0-47.0) Mean Corpuscular Volume 90 fL (79-100) 89 fL (79-100) Mean Corpuscular Hemoglobin 30 pg (25-35) 30 pg (25-35) Mean Corpuscular Hemoglobin Concent 33 g/dL (31-37) 33 g/dL (31-37) Red Cell Distribution Width 15.1 % (11.5-14.5) 14.9 % (11.5-14.5) Platelet Count 181 x10^3/uL (140-400) 164 x10^3/uL (140-400) Neutrophils (%) (Auto) 56 % (31-73) 52 % (31-73) Lymphocytes (%) (Auto) 32 % (24-48) 35 % (24-48) Monocytes (%) (Auto) 9 % (0-9) 9 % (0-9) Eosinophils (%) (Auto) 3 % (0-3) 3 % (0-3) Basophils (%) (Auto) 1 % (0-3) 1 % (0-3) Neutrophils # (Auto) 3.6 x10^3uL (1.8-7.7) 3.2 x10^3uL (1.8-7.7) Lymphocytes # (Auto) 2.0 x10^3/uL (1.0-4.8) 2.1 x10^3/uL (1.0-4.8) Monocytes # (Auto) 0.6 x10^3/uL (0.0-1.1) 0.6 x10^3/uL (0.0-1.1) Eosinophils # (Auto) 0.2 x10^3/uL (0.0-0.7) 0.1 x10^3/uL (0.0-0.7) Basophils # (Auto) 0.0 x10^3/uL (0.0-0.2) 0.1 x10^3/uL (0.0-0.2) Prothrombin Time 11.7 SEC (11.7-14.0) Prothromb Time International Ratio 0.9 (0.8-1.1) D-Dimer (Darlin) 0.89 ug/mlFEU (0.00-0.50) Sodium Level 144 mmol/L (136-145) 145 mmol/L (136-145) Potassium Level 3.8 mmol/L (3.5-5.1) 3.8 mmol/L (3.5-5.1) Chloride Level 107 mmol/L (98-107) 107 mmol/L (98-107) Carbon Dioxide Level 30 mmol/L (21-32) 32 mmol/L (21-32) Anion Gap 7 (6-14) 6 (6-14) Blood Urea Nitrogen 9 mg/dL (7-20) 8 mg/dL (7-20) Creatinine 0.7 mg/dL (0.6-1.0) 0.7 mg/dL (0.6-1.0) Estimated GFR (Cockcroft-Gault) 84.8 84.8 Glucose Level 126 mg/dL (70-99) 109 mg/dL (70-99) Calcium Level 8.3 mg/dL (8.5-10.1) 8.4 mg/dL (8.5-10.1) Magnesium Level 1.6 mg/dL (1.8-2.4) 2.1 mg/dL (1.8-2.4) Total Bilirubin 0.2 mg/dL (0.2-1.0) 0.3 mg/dL (0.2-1.0) Direct Bilirubin < 0.1 mg/dL (0.0-0.2) Aspartate Amino Transf (AST/SGOT) 23 U/L (15-37) 18 U/L (15-37) Alanine Aminotransferase (ALT/SGPT) 23 U/L (14-59) 25 U/L (14-59) Alkaline Phosphatase 83 U/L (46-116) 85 U/L (46-116) Creatine Kinase 45 U/L (26-192) Creatine Kinase MB (Mass) 0.5 ng/mL (0.0-3.6) Creatine Kinase MB Relative Index % (0-4) Troponin I Quantitative < 0.017 ng/mL (0.000-0.055) < 0.017 ng/mL (0.000-0.055) < 0.017 ng/mL (0.000-0.055) FO-Npv-Y-Type Natriuretic Peptide 136 pg/mL (0-124) Total Protein 6.0 g/dL (6.4-8.2) 5.8 g/dL (6.4-8.2) Albumin 3.1 g/dL (3.4-5.0) 3.0 g/dL (3.4-5.0) Lipase 142 U/L (73-393) Thyroid Stimulating Hormone (TSH) 0.043 uIU/mL (0.358-3.74) Urine Collection Type Unknown Urine Color Yellow Urine Clarity Clear Urine pH 6.0 Urine Specific [place] 1.015 Urine Protein Negative mg/dL (NEG-TRACE) Urine Glucose (UA) Negative mg/dL (NEG) Urine Ketones (Stick) Negative mg/dL (NEG) Urine Blood Negative (NEG) Urine Nitrite Negative (NEG) Urine Bilirubin Negative (NEG) Urine Urobilinogen Dipstick 0.2 mg/dL (0.2 mg/dL) Urine Leukocyte Esterase Negative (NEG) Urine RBC 0 /HPF (0-2) Urine WBC 1-4 /HPF (0-4) Urine Squamous Epithelial Cells Few /LPF Urine Bacteria 0 /HPF (0-FEW) Urine Mucus Marked /LPF Urine Opiates Screen Pos (NEG) Urine Methadone Screen Neg (NEG) Urine Barbiturates Neg (NEG) Urine Phencyclidine Screen Neg (NEG) Urine Amphetamine/Methamphetamine Neg (NEG) Urine Benzodiazepines Screen Pos (NEG) Urine Cocaine Screen Neg (NEG) Urine Cannabinoids Screen Neg (NEG) Urine Ethyl Alcohol Neg (NEG) BUN/Creatinine Ratio 11 (6-20) Albumin/Globulin Ratio 1.1 (1.0-1.7) Test 02/11/17 07:38 Glucose (Fingerstick) 114 mg/dL (70-99) ECHOCARDIOGRAM ECHOCARDIOGRAM <Conclusion> The left ventricle is normal size. Left ventricular systolic function is normal. The Ejection Fraction is 50-55%. There is no significant aortic valvular stenosis. There is trace aortic regurgitation. Mitral regurgitation is mild. There is mild tricuspid regurgitation. The pulmonary valve is normal in structure and function. There is no significant pericardial effusion. DATE: 05/26/13 1009 ASSESSMENT/PLAN ASSESSMENT/PLAN 1. Chest pain: with typical features. Troponin series normal. EKG SR with PAC, no AFIB. No acute changes. Tele no evidence of AFIB. 2. DM2 3. HTN: controlled 4. COPD: O2 dependent 5. Hypothyroidism: TSH supra therapeutic at 0.04 per PCP Recommendations 1. TTE today. Unable to tolerate dobutamine MPI today. If wheezing better then will proceed with Lexiscan tomorrow. 2. Consider GI prophylaxis if pt continues to be on oral steroids. 3. Recommend start of ECASA 81 mg for primary prevention. 4. Continue home meds. Problems: ANN MARIE CROWDER APRN Feb 11, 2017 10:16
[2017-02-11 11:00] VITALS: BP 98/45
[2017-02-11] MEDS: IPRATRPIUM/ALBUTEROL 0.5/2.5MG 3 ML NEBU. NEB SCH ×3 (11:47→19:42)
[2017-02-11] MEDS: INSULIN ASPART 300 UNITS/3 ML INSULN.PEN SQ SCH ×2 (12:00→18:53)
[2017-02-11] MEDS ORDERED: MELO15TA23 PO (12:56)
[2017-02-11] MEDS ORDERED: NITR1PAT5 TD (12:56)
[2017-02-11] MEDS ORDERED: SUCR1TAB PO (12:57)
[2017-02-11] MEDS ORDERED: LORA10TA3 PO (12:57)
[2017-02-11] MEDS ORDERED: METH20TA5 PO (12:58)
[2017-02-11] MEDS ORDERED: PROM118S2 PO (12:59)
[2017-02-11] MEDS ORDERED: REGADENOSON 0.4 MG/5 ML DISP.SYRIN. IV ONE (13:15)
--- NOTE | 2017-02-11 13:48 | HP ---
ADMIT DATE: 02/10/2017 PATIENT LOCATION: 258. REASON FOR ADMISSION TO THE HOSPITAL: 1. Chest pain. 2. New onset of atrial fibrillation. HISTORY OF PRESENT ILLNESS: The patient is a 61-year-old female. The patient has severe COPD, oxygen dependent, steroid dependent and she has not smoked for more than 5 years ago and she came with chest pain, left-sided, going to the back and had a CT angiogram of the chest negative for PE. EKG shows atrial fibrillation which is new, was admitted to the hospital for further workup and treatment. PAST MEDICAL HISTORY: Hypertension, hyperlipidemia, COPD, is oxygen dependent as well as steroid dependent, arthritis, anxiety, depression, chronic pain, bladder incontinence and diabetes type 2. PAST SURGICAL HISTORY: She has had a gallbladder surgery, tubal ligation, thyroid surgery. FAMILY HISTORY: Positive for diabetes, heart disease. SOCIAL HISTORY: Smoker for at least 40 years, quit more than 5 years ago. Denies alcohol, drug abuse. She uses oxygen. ALLERGIES: AMOXIL, AUGMENTIN, DEMEROL, AMPICILLIN. MEDICATIONS AT HOME: The patient is on nitro-patch 0.4 daily, Ventolin 2 puffs 4 times daily, lisinopril 10 mg daily, Ambien 10 mg daily, Bentyl 10 mg daily, Lasix 40 mg twice a day, Linzess 145 mcg daily, prednisone 10 mg daily, Flexeril 5 mg twice a day, Valium p.r.n., fenofibrate 134 mg daily, Protonix 40 mg daily, potassium 8 mEq daily, Synthroid 150 mcg daily, Pulmicort 0.5 mg bid, DuoNeb at home qid, Spiriva 1 daily. REVIEW OF SYMPTOMS: Mostly chest pain going to the left shoulder and to the left arm. No fever, no yellow sputum. PHYSICAL EXAMINATION: VITAL SIGNS: At the time of admission shows a temperature 98, pulse 81, respirations 20, blood pressure 143/102, 98% on 3 liters. HEENT: Head is atraumatic. Pupils are equal. Oral cavity, no teeth. NECK: Supple. Thyroid not enlarged. JVD not elevated. CHEST: Symmetrical, COPD pattern. The patient has some chest wall pain, especially at the shoulder when she moves the shoulder. CARDIOVASCULAR: S1, S2. LUNGS: Clear to auscultation. Occasional wheezing. ABDOMEN: Soft, no mass palpable. EXTERNAL GENITALIA: No Wei. RECTAL: Deferred. EXTREMITIES: No calf tenderness, no edema. Pulses 1+. NEUROLOGIC: Cranial nerves intact. Power 5/5 in all extremities. LABORATORY DATA: Shows a white count of 6, hemoglobin 13, platelets 181. Electrolytes show sodium 145, potassium 3.8, chloride 107, bicarb 32, BUN 8, creatinine 0.7, glucose 109. Troponin was negative. Her TSH is very low at 0.043. Urine was negative. Toxicology was positive for opiates and benzodiazepines. D-dimer was high at 0.89. Had a chest x-ray, was negative. Had a CT angiogram of the chest, negative for PE, small nodules, less than 3 mm. FINAL IMPRESSION: 1. Chest pain for cardiac evaluation. The patient has risk factors including diabetes, hypertension, ex-smoker. 2. New onset of atrial fibrillation, probably related to chronic obstructive pulmonary disease. 3. Hypothyroidism. Her TSH is very low. Maybe she is getting too much Synthroid that may also cause atrial fibrillation. 4. Chronic obstructive pulmonary disease, on oxygen and prednisone dependent. 5. Anxiety, depression. 6. Irritable bowel syndrome. PLAN: At this time, was admitted to the hospital, cardiac enzymes, EKG. Cardiology consult and DVT prevention. At this point, may need anticoagulation if persistent or AFib. MIGUEL DELAROSA MD DR: CARLOS/adrianna JOB#: [id number] / [id number] ANNA
[2017-02-11 15:00] VITALS: BP 113/51
--- NOTE | 2017-02-11 16:06 | CARD ---
APPROVED REPORT EXAM: Two-dimensional and M-mode echocardiogram with Doppler and color Doppler. Other Information Quality : Average Rhythm : NSR INDICATION Chest Pain 2D DIMENSIONS RVDd3.0 (2.9-3.5cm)Left Atrium(2D)3.5 (1.6-4.0cm) IVSd1.1 (0.7-1.1cm)Aortic Root(2D)2.9 (2.0-3.7cm) LVDd3.9 (3.9-5.9cm)LVOT Diameter2.0 (1.8-2.4cm) PWd1.1 (0.7-1.1cm)LVDs2.7 (2.5-4.0cm) FS (%) 31.9 %SV38.3 ml LVEF(%)60.2 (>50%) Aortic Valve AoV Peak Rohit.147.5cm/sAoV VTI27.7cm AO Peak GR.8.7mmHgLVOT Peak Rohit.138.8cm/s LVOT VTI 24.67cmAO Mean GR.4mmHg DAVID (VMAX)2.33lc2YVB (VTI)2.71cm2 Mitral Valve MV E Sfsyyxgq88.1cm/sMV DECEL ONOR647rv MV A Jkreybdx89.0cm/sMV UXN039zs E/A Ratio0.8MV A Kmkmgnpb282fz MVA (PHT)2.19cm2 TDI E/Lateral E'8.2E/Medial E'7.9 Pulmonary Valve PV Peak Sdswjrho869.9cm/sPV Peak Grad.4mmHg RVOT VTI11.3cm Tricuspid Valve TR P. Svqkxtmn415pu/sRAP MYPQSUOW4mwNt TR Peak Gr.48hpMmOOZP27mjFo Pulmonary Vein S1 Peumcrtl53.3cm/sD2 Weyuafup19.8cm/s LEFT VENTRICLE The left ventricle is normal size. There is normal left ventricular wall thickness. Left ventricle sy stolic function is normal. The Ejection Fraction is 60-65%. The left ventricular systolic function is normal and the ejection fraction is within normal range. There is normal LV segmental wall motion. T he left ventricular diastolic function and filling is normal for age. There is no ventricular septal defect visualized. RIGHT VENTRICLE The right ventricle is normal size. The right ventricular systolic function is normal. ATRIA The left atrium size is normal. The right atrium size is normal. The interatrial septum is intact wit h no evidence for an atrial septal defect or patent foramen ovale as noted on 2-D or Doppler imaging. AORTIC VALVE The aortic valve is not well visualized. Doppler and Color Flow revealed no significant aortic regurg itation. There is no significant aortic valvular stenosis. MITRAL VALVE The mitral valve is normal in structure and function. There is no mitral valve stenosis. Doppler and Color Flow revealed no mitral valve regurgitation noted. TRICUSPID VALVE The tricuspid valve is not well visualized. Doppler and Color Flow revealed trace to mild tricuspid r egurgitation. The PA pressure was estimated at 29 mmHg. There is no tricuspid valve stenosis. PULMONIC VALVE The pulmonic valve is not well visualized. Doppler and Color Flow revealed no pulmonic valvular regur gitation. There is no pulmonic valvular stenosis. GREAT VESSELS The aortic root is normal in size. The ascending aorta is normal in size. Normal pulmonary venous francesca w (Doppler). The IVC is normal in size and collapses >50% with inspiration. PERICARDIAL EFFUSION There is no evidence of significant pericardial effusion. Critical Notification Critical Value: No <Conclusion> The left ventricle is normal size. Left ventricle systolic function is normal. The Ejection Fraction is 60-65%. The left ventricular systolic function is normal and the ejection fraction is within normal range. There is no significant aortic valvular stenosis. Doppler and Color Flow revealed no significant aortic regurgitation. Doppler and Color Flow revealed no mitral valve regurgitation noted. Doppler and Color Flow revealed trace to mild tricuspid regurgitation. The PA pressure was estimated at 29 mmHg.
[2017-02-11] MEDS: ASPIRIN ENTERIC COATED 81 MG TABLET.DR. PO SCH (16:20)
[2017-02-11] MEDS: HEPARIN PF for SUB-Q USE 5,000 UNIT/0.5 ML VIAL. SQ SCH ×2 (16:26→21:46)
[2017-02-11] MEDS: traMADol 50 MG TABLET PO PRN (18:49)
[2017-02-11 19:43] VITALS: BP 94/52
[2017-02-11] MEDS ORDERED: ATORVASTATIN CALCIUM 40 MG TABLET. PO SCH (21:00)
[2017-02-11] MEDS: diphenhydrAMINE HCL 25 MG CAPSULE PO SCH (21:36)
[2017-02-11] MEDS: MONTELUKAST SODIUM 10 MG TABLET. PO SCH (21:37)
[2017-02-11] MEDS: ATORVASTATIN CALCIUM 40 MG TABLET. PO SCH (21:37)
[2017-02-11 22:35] VITALS: BP 93/57
[2017-02-11] MEDS: PROMETH/CODEINE 6.25/10MG 5 ML SYRUP. PO PRN (23:18)
[2017-02-12 03:29] VITALS: BP 99/48
[2017-02-12] MEDS: traMADol 50 MG TABLET PO PRN ×2 (04:13→21:16)
[2017-02-12] MEDS: HYDROcodone/APAP 10/325 1 TAB TABLET PO PRN ×4 (04:14→21:16)
[2017-02-12] MEDS ORDERED: LEVOTHYROXINE 150 MCG TABLET PO SCH (06:00)
[2017-02-12] MEDS: LEVOTHYROXINE 75 MCG TABLET PO SCH (06:28)
[2017-02-12] MEDS: HEPARIN PF for SUB-Q USE 5,000 UNIT/0.5 ML VIAL. SQ SCH ×3 (06:32→21:26)
[2017-02-12 07:00] VITALS: BP 98/55
[2017-02-12] MEDS: DICYCLOMINE HCL 10 MG CAPSULE PO SCH ×3 (07:30→16:05)
[2017-02-12] MEDS: INSULIN ASPART 300 UNITS/3 ML INSULN.PEN SQ SCH ×3 (08:00→17:39)
[2017-02-12] MEDS: IPRATRPIUM/ALBUTEROL 0.5/2.5MG 3 ML NEBU. NEB SCH ×4 (08:25→20:01)
[2017-02-12] MEDS: BUDESONIDE 0.5 MG/2 ML NEBU. NEB SCH ×2 (08:26→20:01)
[2017-02-12] MEDS ORDERED: REGADENOSON 0.4 MG/5 ML DISP.SYRIN. IV ONE ×2 (08:30→09:00)
[2017-02-12] MEDS: LISINOPRIL 10 MG TABLET PO SCH (09:00)
[2017-02-12] MEDS: NYSTATIN TOPICAL POWDER 15GM BOTTLE. TP SCH ×2 (09:00→21:17)
--- NOTE | 2017-02-12 10:09 | PDOC ---
PROGRESS NOTES Subjective Subjective feels better today Objective Objective Vital Signs Date Time Temp Pulse Resp B/P (MAP) Pulse Ox O2 Delivery O2 Flow Rate FiO2 02/12/17 08:28 93 Nasal Cannula 3.0 02/12/17 07:00 97.8 76 17 98/55 (69) 97.8 Physical Exam Abdomen: Soft, No tenderness Heart: Regular rate, Normal S1, Normal S2, Other Extremities: No cyanosis, Other General: Alert, Oriented X3, Cooperative, No acute distress HEENT: Atraumatic, Mucous membr. moist/pink Lungs: Other (diffuse wheeze) MUSCULOSKELETAL: Osteoarthritic changes both hands Neuro: Normal speech, Sensation intact Psych/Mental Status: Mental status NL, Mood NL Skin: No breakdown, No significant lesion Diagnosis Problem List Problems Medical Problems: (1) Chest pain Status: Acute Assessment Assessment Problems Medical Problems: (1) Chest pain Status: Acute FINAL IMPRESSION: 1. Chest pain for cardiac evaluation. The patient has risk factors including diabetes, hypertension, ex-smoker. 2. New onset of atrial fibrillation, probably related to chronic obstructive pulmonary disease. 3. Hypothyroidism. Her TSH is very low. Maybe she is getting too much Synthroid that may also cause atrial fibrillation. 4. Chronic obstructive pulmonary disease, on oxygen and prednisone dependent. 5. Anxiety, depression. 6. Irritable bowel syndrome. PLAN: NSR, no more a fib. ECHO good LVF. stress test today. home tomorrow. spoke with cardiology. At this time, was admitted to the hospital, cardiac enzymes, EKG. Cardiology consult and DVT prevention. At this point, may need anticoagulation if persistent or AFib. Problems: Plan Plan of Care Problems Medical Problems: (1) Chest pain Status: Acute Comment Review of Relevant I have reviewed the following items vinny (where applicable) has been applied. Labs Laboratory Tests Test 02/11/17 11:25 02/11/17 16:15 02/11/17 21:06 02/12/17 07:47 Glucose (Fingerstick) 142 mg/dL (70-99) 326 mg/dL (70-99) 143 mg/dL (70-99) 109 mg/dL (70-99) Medications Current Medications Albuterol/ Ipratropium (Duoneb) 3 ml RTQID NEB Last administered on 02/12/17t 08:25; Start 02/11/17 at 12:00 Aspirin (Ecotrin) 81 mg DAILYWBKFT PO Last administered on 02/11/17 16:20; Start 02/11/17 at 11:00 Atorvastatin Calcium (Lipitor) 80 mg QHS PO ; Start 02/11/17 at 21:00; Stop at 21:00; Status DC Atorvastatin Calcium (Lipitor) 80 mg QHS PO Last administered on 02/11/17 21: 37; Start 02/11/17 at 21:00 Diphenhydramine HCl (Benadryl) 50 mg QHS PO Last administered on 02/11/17 21: 36; Start 02/11/17 at 21:00 Dobutamine HCl 100 mg/Sodium Chloride 108 ml @ 0 mls/hr 1X ONCE IV Last administered on 02/11/17 10:45; Start 02/11/17 at 10:45; Stop 02/11/17 at 10:48 ; Status DC Heparin Sodium (Porcine) (Heparin Sq) 5,000 unit Q8HRS SQ Last administered on 02/12/17 06:32; Start 02/11/17 at 14:00 Insulin Aspart (NovoLOG) 0-7 UNITS TIDWMEALS SQ Last administered on 02/11/17 18:53; Start 02/11/17 at 12:00 Levothyroxine Sodium (Synthroid) 75 mcg DAILY07 PO Last administered on 06:28; Start 02/12/17 at 07:00 Levothyroxine Sodium (Synthroid) 150 mcg DAILY06 PO ; Start 02/12/17 at 06:00; Stop 02/12/17 at 06:00; Status DC Metformin HCl (Glucophage) 500 mg BIDAC PO ; Start 02/12/17 at 16:30 Montelukast Sodium (Singulair) 10 mg HS PO Last administered on 02/11/17 21:37 ; Start 02/11/17 at 21:00 Prednisone (Prednisone) 10 mg DAILY PO ; Start 02/12/17 at 09:00 Promethazine HCl/ Codeine (Phenergan With Codeine) 5 ml PRN Q6HRS PRN PO COUGH Last administered on 02/11/17 23:18; Start 02/11/17 at 22:45 Regadenoson (Lexiscan) 0.4 mg 1X ONCE IV ; Start 02/11/17 at 13:15; Stop at 13:16; Status DC Regadenoson (Lexiscan) 0.4 mg 1X ONCE IV ; Start 02/12/17 at 08:30; Stop at 08:31; Status DC Vitals/I & O Vital Sign - Last 24 Hours 02/11/17 02/11/17 02/11/17 02/11/17 11:00 15:00 15:46 17:04 Temp 98.2 97.8 98.2 97.8 Pulse 73 84 Resp 20 20 18 B/P (MAP) 98/45 (62) 113/51 (71) Pulse Ox 96 96 96 96 O2 Delivery Nasal Cannula Nasal Cannula Nasal Cannula Nasal Cannula O2 Flow Rate 3.0 3.0 3.0 3.0 02/11/17 02/11/17 02/11/17 02/11/17 18:49 18:54 19:40 19:43 Temp 98.5 98.5 Pulse 74 Resp 18 18 B/P (MAP) 94/52 (66) Pulse Ox 96 96 93 O2 Delivery Nasal Cannula Nasal Cannula Nasal Cannula O2 Flow Rate 3.0 3.0 3.0 02/11/17 02/11/17 02/11/17 02/11/17 19:43 19:44 21:00 21:38 Pulse 74 Resp 20 B/P (MAP) 94/52 Pulse Ox 93 93 93 O2 Delivery Nasal Cannula Nasal Cannula Nasal Cannula O2 Flow Rate 3.0 3.0 3.0 02/11/17 02/12/17 02/12/17 02/12/17 22:35 03:29 04:13 04:14 Temp 98.6 98.4 98.6 98.4 Pulse 77 71 Resp 16 16 20 20 B/P (MAP) 93/57 (69) 99/48 (65) Pulse Ox 95 90 O2 Delivery Nasal Cannula Room Air Nasal Cannula Nasal Cannula O2 Flow Rate 3.0 3.0 3.0 02/12/17 02/12/17 02/12/17 02/12/17 05:14 05:14 07:00 08:28 Temp 97.8 97.8 Pulse 76 Resp 18 18 17 B/P (MAP) 98/55 (69) Pulse Ox 96 93 O2 Delivery Nasal Cannula Nasal Cannula Nasal Cannula Nasal Cannula O2 Flow Rate 3.0 3.0 3.0 3.0 MIGUEL DELAROSA MD Feb 12, 2017 10:09
[2017-02-12 11:00] VITALS: BP 106/68
[2017-02-12] MEDS: diazePAM 5 MG TABLET PO SCH ×3 (11:37→21:11)
[2017-02-12] MEDS: POTASSIUM CHLORIDE 8 MEQ TABLET.ER. PO SCH ×3 (11:37→16:06)
[2017-02-12] MEDS: FENOFIBRATE,MICRONIZED 134 MG CAPSULE PO SCH (11:38)
[2017-02-12] MEDS: CYCLOBENZAPRINE 10 MG TABLET. PO SCH ×2 (11:39→21:11)
[2017-02-12] MEDS: FUROSEMIDE 40 MG TABLET. PO SCH ×2 (11:39→13:01)
[2017-02-12] MEDS: PANTOPRAZOLE 40 MG TABLET.DR. PO SCH (11:39)
[2017-02-12] MEDS: LINACLOTIDE 145 MCG CAPSULE. PO SCH (11:39)
[2017-02-12] MEDS: DULoxetine HCL 30 MG CAPSULE.DR PO SCH (11:39)
[2017-02-12] MEDS: predniSONE 10 MG TABLET PO SCH (11:40)
[2017-02-12] MEDS: ASPIRIN ENTERIC COATED 81 MG TABLET.DR. PO SCH (11:40)
[2017-02-12] MEDS: PROMETH/CODEINE 6.25/10MG 5 ML SYRUP. PO PRN ×2 (11:43→21:15)
--- NOTE | 2017-02-12 12:07 | PDOC ---
CARDIO Progress Notes Date and Time Date of Service 02/12/2017 Time of Evaluation 1200 Subjective Subjective: No Chest Pain, No Palpitations, No Dizziness, Other (SOA with activity) Vitals Vitals Vital Signs Date Time Temp Pulse Resp B/P (MAP) Pulse Ox O2 Delivery O2 Flow Rate FiO2 02/12/17 11:51 Nasal Cannula 3.0 02/12/17 09:00 76 98/55 02/12/17 08:35 93 02/12/17 07:00 97.8 17 97.8 Weight Weight [ ] Laboratory Labs Laboratory Tests Test 02/11/17 16:15 02/11/17 21:06 02/12/17 07:47 02/12/17 11:50 Glucose (Fingerstick) 326 mg/dL (70-99) 143 mg/dL (70-99) 109 mg/dL (70-99) 108 mg/dL (70-99) Physical Exam HEENT: Neck Supple W Full Motion Chest: Symmetric LUNGS: Other (diffuse wheeze) Heart: S1S2, RRR (SR no significant rhythm ectopies) Abdomen: Soft N/T Extremities: No Calf Tenderness Neurology: alert, oriented, follow commands Assessment Assessment 1. Chest pain: No AFIB. CP better overnight. TTE with normal EF and wall motion. 2. DM2 3. HTN: BP low 4. COPD: O2 dependent 5. Hypothyroidism: TSH supra therapeutic at 0.04 per PCP Recommendations 1. Lexiscan today and completely rule out ischemic process. May DC if unremarkable per cardiac standpoint. 2. Decrease lisinopril, continue with ASA. Continue with home BP monitoring 3. Continue with secondary prevention ANN MARIE CROWDER APRN Feb 12, 2017 12:07
--- NOTE | 2017-02-12 14:09 | RAD ---
APPROVED REPORT Test Type: Pharmacological Stress Nurse/Tech: marybel hansen Test Indications: COPD. PT EVALUATED IN ROOM BY RN, PT WITH WHEEZING THROUGHOUT, AT THAT TIME DELAY ED STUDY. DR DELAROSA PAGED AND STATED THE STUDY SHOULD PROCEDE. PT BROUGHT TO NUCLEAR MEDICINE AND INUC HEALTH BP WAS LOW, 250 NS BOLUS GIVEN IV PRIOR TO START OF STUDY. STUDY COMPLETED WITHOUT COMPLICATION OF BREATHING, PT DROWSY. SECOND 250 NS BOLUS GIVEN IV. SBP MAINTAINED GREATER THAN 90 AT THIS TIME. Cardiac History: HTN, SEE EHR Medications: SEE EHR Medical History: COPD SEVERE, HISTORY SMOKING, SEE EHR Resting ECG: SR Resting Heart Rate: 67 bpm Resting Blood Pressure: 90/47mmHg Pretest Chest Pain: No chest pain Nurse/Tech Notes LUNG SOUNDS WHEEZY THROUGHOUT. PT DROWSY BUT ALERT. Consent: The procedure was explained to the patient in lay terms. Informed consent was witnessed. Bc eout was entered into [employer]. History and Stress Test performed by RT Rigo (R) (N) Pharm. Details Pharmacologic stress testing was performed using 0.4mg per 5ml of regadenoson given intravenously ove r 7-10 seconds. Stress Symptoms NONE STATED. HYPOTENSION. POST EXERCISE Reason for Termination: Infusion complete Max HR: 83 bpm Max Blood Pressure: 90/47mmHg Chest Pain: No. Arrhythmia: No. ST Change: No. INTERPRETATION Stress EKG Conclusion: The resting EKG showed a normal sinus rhythm with mild nonspecific ST segment changes. The stress EKG showed no significant changes from baseline. No EKG evidence of stressed induced ischemia. Imaging Protocol IMAGE PROTOCOL: Rest Tc-99m/stress Tc-99m 2 days Rest: Stress: Viability: Radiopharm.Tc99m CdqbqjpifKk94m Sestamibi Ueev19pHz 36.2mCi Img Date 02/11/2017 02/12/2017 Inj-Img Jmex42tky. 60min. Rest Admin Site:IV - Right HandAdministrator:RT Junito Sierra)(N) Stress Admin Site: IV - Right HandAdministrator: RT Junito Sierra)(N) STRESS DATA End Diast. Vol.61.0mlAv. Heart Rate76.0bpm End Syst. Vol.7.0mlCO Index BSA0.0L/min Myocardial Gzoe699.0gEject. Jdctsmvt83.0% Stress Rates Pk. Fill Rate4.12EDV/secLVtime Pk. Fill 230.92msec Pk. Empty Rate5.43ESV/secLVtime Pk. Cluvy457.56msec 1/3 Pk. Fill1.21EDV/sec Stress Scores Regional WT0.00Summed WT2.00 Regional WM0.00Summed WM4.00 LV Perfusion The stress scans showed no significant defects. The rest scans showed no significant defects. Nuclear imaging shows no reversible ischemia or infarct. Wall Motion Normal left ventricular systolic function with an ejection fraction of greater than 70%. LV Perf. Quant 17 Seg. SSS1.00 17 Seg. SRS0.00 17 Seg. SDS1.00 Stress Defect Extent (% LAD)0.00Rest Defect Extent (% LAD)0.00Rev. Defect Extent (% LAD)0.00 Stress Defect Extent (% LCX) 0.00Rest Defect Extent (% LCX)0.00Rev. Defect Extent (% LCX)0.00 Stress Defect Extent (% RCA)0.00Rest Defect Extent (% RCA)0.00Rev. Defect Extent (% RCA)0.00 Stress Defect Extent (% FLOYD)0.00Rest Defect Extent (% FLOYD)0.00Rev. Defect Extent (% FLOYD)0.00 Conclusion 1. No EKG evidence of stressed induced ischemia. 2. Nuclear imaging shows no reversible ischemia or infarct. 3. Normal left ventricular systolic function with an ejection fraction of greater than 70%. 4. Low risk Lexiscan nuclear stress test.
[2017-02-12 15:00] VITALS: BP 109/52
[2017-02-12] MEDS: metFORMIN 500 MG TABLET PO SCH (16:05)
[2017-02-12 19:26] VITALS: BP 106/62
[2017-02-12] MEDS: ZOLPIDEM 5 MG TABLET. PO SCH (21:11)
[2017-02-12] MEDS: diphenhydrAMINE HCL 25 MG CAPSULE PO SCH (21:11)
[2017-02-12] MEDS: MONTELUKAST SODIUM 10 MG TABLET. PO SCH (21:11)
[2017-02-12] MEDS: ATORVASTATIN CALCIUM 40 MG TABLET. PO SCH (21:12)
[2017-02-12 22:36] VITALS: BP 97/64
[2017-02-13 03:21] VITALS: BP 105/66
[2017-02-13] MEDS: HYDROcodone/APAP 10/325 1 TAB TABLET PO PRN (04:56)
[2017-02-13] MEDS: LEVOTHYROXINE 75 MCG TABLET PO SCH (06:27)
[2017-02-13] MEDS: HEPARIN PF for SUB-Q USE 5,000 UNIT/0.5 ML VIAL. SQ SCH (06:32)
[2017-02-13 07:00] VITALS: BP 109/70
[2017-02-13] MEDS: IPRATRPIUM/ALBUTEROL 0.5/2.5MG 3 ML NEBU. NEB SCH ×2 (07:37→11:39)
[2017-02-13] MEDS: BUDESONIDE 0.5 MG/2 ML NEBU. NEB SCH (07:37)
[2017-02-13] MEDS: metFORMIN 500 MG TABLET PO SCH (08:13)
[2017-02-13] MEDS: CYCLOBENZAPRINE 10 MG TABLET. PO SCH (08:13)
[2017-02-13] MEDS: DULoxetine HCL 30 MG CAPSULE.DR PO SCH (08:13)
[2017-02-13] MEDS: ASPIRIN ENTERIC COATED 81 MG TABLET.DR. PO SCH (08:13)
[2017-02-13] MEDS: POTASSIUM CHLORIDE 8 MEQ TABLET.ER. PO SCH ×2 (08:13→12:12)
[2017-02-13] MEDS: DICYCLOMINE HCL 10 MG CAPSULE PO SCH ×2 (08:13→12:12)
[2017-02-13] MEDS: LINACLOTIDE 145 MCG CAPSULE. PO SCH (08:13)
[2017-02-13] MEDS: traMADol 50 MG TABLET PO PRN (08:14)
[2017-02-13] MEDS: FENOFIBRATE,MICRONIZED 134 MG CAPSULE PO SCH (08:14)
[2017-02-13] MEDS: FUROSEMIDE 40 MG TABLET. PO SCH (08:14)
[2017-02-13] MEDS: predniSONE 10 MG TABLET PO SCH (08:14)
[2017-02-13] MEDS: diazePAM 5 MG TABLET PO SCH (08:14)
[2017-02-13] MEDS: PANTOPRAZOLE 40 MG TABLET.DR. PO SCH (08:18)
[2017-02-13] MEDS: PROMETH/CODEINE 6.25/10MG 5 ML SYRUP. PO PRN (08:19)
[2017-02-13] MEDS: INSULIN ASPART 300 UNITS/3 ML INSULN.PEN SQ SCH ×2 (08:22→12:00)
[2017-02-13] MEDS ORDERED: LISINOPRIL 10 MG TABLET PO SCH (09:00)
[2017-02-13] MEDS: NYSTATIN TOPICAL POWDER 15GM BOTTLE. TP SCH (09:00)
--- NOTE | 2017-02-13 10:22 | PDOC ---
PROGRESS NOTES Subjective Subjective no cp or sob Objective Objective Vital Signs Date Time Temp Pulse Resp B/P (MAP) Pulse Ox O2 Delivery O2 Flow Rate FiO2 02/13/17 08:14 91 Room Air 2.0 02/13/17 07:00 98.6 79 19 109/70 (83) 98.6 Physical Exam Abdomen: Soft, No tenderness Heart: Regular rate, Normal S1, Normal S2, Other Extremities: No cyanosis, Other General: Alert, Oriented X3, Cooperative, No acute distress HEENT: Atraumatic, Mucous membr. moist/pink Lungs: Other (diffuse wheeze) MUSCULOSKELETAL: Osteoarthritic changes both hands Neuro: Normal speech, Sensation intact Psych/Mental Status: Mental status NL, Mood NL Skin: No breakdown, No significant lesion Diagnosis Problem List Problems Medical Problems: (1) Chest pain Status: Acute Assessment Assessment Problems Medical Problems: (1) Chest pain Status: Acute FINAL IMPRESSION: 1. Chest pain for cardiac evaluation. The patient has risk factors including diabetes, hypertension, ex-smoker, stress test -ve for ischemia. 2. New onset of atrial fibrillation, probably related to chronic obstructive pulmonary disease. 3. Hypothyroidism. Her TSH is very low. Maybe she is getting too much Synthroid that may also cause atrial fibrillation. 4. Chronic obstructive pulmonary disease, on oxygen and prednisone dependent. 5. Anxiety, depression. 6. Irritable bowel syndrome. PLAN: d/c home today ECHO good LVF. stress test normal po prednisone for wheezing spoke with cardiology. Problems: Plan Plan of Care Problems Medical Problems: (1) Chest pain Status: Acute Comment Review of Relevant I have reviewed the following items vinny (where applicable) has been applied. Labs Laboratory Tests Test 02/12/17 11:50 02/12/17 16:52 02/12/17 20:41 02/13/17 07:43 Glucose (Fingerstick) 108 mg/dL (70-99) 245 mg/dL (70-99) 158 mg/dL (70-99) 161 mg/dL (70-99) Medications Current Medications Lisinopril (Prinivil) 10 mg DAILY PO ; Start 02/13/17 at 09:00 Metformin HCl (Glucophage) 500 mg BIDAC PO Last administered on 02/13/17t 08:13 ; Start 02/12/17 at 16:30 Vitals/I & O Vital Sign - Last 24 Hours 02/12/17 02/12/17 02/12/17 02/12/17 11:00 11:44 11:51 15:00 Temp 97.4 98.4 97.4 98.4 Pulse 76 90 Resp 19 19 B/P (MAP) 106/68 (81) 109/52 (71) Pulse Ox 97 90 O2 Delivery Nasal Cannula Nasal Cannula Nasal Cannula Nasal Cannula O2 Flow Rate 3.0 2.0 3.0 3.0 02/12/17 02/12/17 02/12/17 02/12/17 15:28 16:06 17:06 19:26 Temp 99.0 99.0 Pulse 89 Resp 18 B/P (MAP) 106/62 (77) Pulse Ox 90 O2 Delivery Nasal Cannula Nasal Cannula Room Air O2 Flow Rate 3.0 2.0 2.0 02/12/17 02/12/17 02/12/17 02/12/17 19:53 20:30 21:16 21:16 Pulse Ox 95 95 95 O2 Delivery Nasal Cannula Room Air Room Air Room Air O2 Flow Rate 2.0 02/12/17 02/12/17 02/13/17 02/13/17 22:36 23:19 03:21 04:56 Temp 98.8 98.3 98.8 98.3 Pulse 84 72 Resp 16 16 B/P (MAP) 97/64 (75) 105/66 (79) Pulse Ox 95 95 94 94 O2 Delivery Nasal Cannula Room Air Nasal Cannula Room Air O2 Flow Rate 2.0 2.0 02/13/17 02/13/17 02/13/17 02/13/17 06:02 07:00 07:37 08:14 Temp 98.6 98.6 Pulse 79 Resp 19 B/P (MAP) 109/70 (83) Pulse Ox 94 98 91 91 O2 Delivery Room Air Nasal Cannula Room Air Room Air O2 Flow Rate 3.0 2.0 MIGUEL DELAROSA MD Feb 13, 2017 10:22
[2017-02-13] MEDS ORDERED: LEVO75TA5 PO (10:27)
[2017-02-13 11:00] VITALS: BP 124/64
--- NOTE | 2017-02-14 23:07 | PDOC ---
Provider Note Provider Note Discharge summary dictated. #[id number] MIGUEL DELAROSA MD Feb 14, 2017 23:07
--- NOTE | 2017-02-15 00:49 | DS ---
DATE OF DISCHARGE: 02/13/2017 REASON FOR ADMISSION TO THE HOSPITAL: Left-sided chest pain, risk factors including diabetes, hypertension, ex-smoker. CONSULTATIONS: Dr. Finn. PROCEDURES DONE: 1. Echocardiogram. 2. Lexiscan stress test. COMPLICATIONS NOTED: None. HOSPITAL COURSE: The patient is a 61-year-old female with history of COPD on home oxygen, also diabetes, hypertension, hyperlipidemia, ex-smoker for more than 30 years and initial EKG shows AFib, but after the admission, EKG remained normal sinus rhythm. Cardiac enzymes, EKG was negative for ischemia. Had an echocardiogram that shows ejection fraction of 65%. No significant valvular disease. The patient had a Lexiscan stress test negative for ischemia. The patient had a CT angiogram of the chest negative for PE, a small nodule less than 4 mm. Recommended to follow up in 6 months. The patient had chronic COPD, on oxygen and prednisone dependent, was given higher dose of prednisone. Because of the Lexiscan, the patient had some bronchospasms; otherwise, the patient is discharged home. FINAL DIAGNOSES: 1. Chest pain, noncardiac possible GERD. 2. Stress test negative for ischemia. 3. Chronic obstructive pulmonary disease, on home oxygen and steroid-dependent chronic obstructive pulmonary disease. 4. Diabetes, hypertension, hyperlipidemia. DISPOSITION: Home. DISCHARGE MEDICATIONS: See MRAD for discharge medications. MIGUEL DELAROSA MD DR: CARLOS/nts JOB#: [id number] / [id number] [facility] MIGUEL DELAROSA MD [facility]
[2017-05-16] MEDS ORDERED: DOXY100T PO (21:19)
== END 2017-02-13 13:00 | disposition home or self-care (01) | DRG 392 ==
LOC: ER 17:42 → 2 SOUTH 20:29
PROVIDERS: ADMIT Internal Medicine; ATTEND Internal Medicine
DX: K21.9 Gastro-esophageal reflux disease without esophagitis (principal); J44.1 Chronic obstructive pulmonary disease with (acute) exacerbation; Z99.81 Dependence on supplemental oxygen; I10 Essential (primary) hypertension; F32.9 Major depressive disorder, single episode, unspecified; E03.9 Hypothyroidism, unspecified; E11.9 Type 2 diabetes mellitus without complications; G89.29 Other chronic pain; M19.90 Unspecified osteoarthritis, unspecified site; R07.89 Other chest pain; M54.9 Dorsalgia, unspecified; E78.5 Hyperlipidemia, unspecified; F41.9 Anxiety disorder, unspecified; K58.9 Irritable bowel syndrome, unspecified; Z79.52 Long term (current) use of systemic steroids; Z83.3 Family history of diabetes mellitus; Z87.891 Personal history of nicotine dependence; Z88.8 Allergy status to other drugs, medicaments and biological substances; Z90.49 Acquired absence of other specified parts of digestive tract; Z90.710 Acquired absence of both cervix and uterus; Z87.01 Personal history of pneumonia (recurrent)
CPT/HCPCS: 36415; 71010; 71275; 78452; 80048; 80053; 80076; 80307; 81001; 82553; 82962; 83690; 83735; 83880; 84443; 84484; 85025; 85379; 85610; 90686; 93005; 93017; 93306; 94250; 94640; 94760; 96374; 96375; 96376; A9500; J1250; J1815; J2270; J2785; J3475; J7512; J7613; J7620; J7626; Q0163; Q9967; 99285-25; G0479

== ENCOUNTER 2017-02-16 09:06 | Emergency (ER) | payer OTHER ==
[~2017-02-16 09:06] MED LIST changes: +LEVO75TA5 PO; +LORA10TA3 PO; +MELO15TA23 PO; +METH20TA5 PO; +NITR1PAT5 TD; +SUCR1TAB PO
--- NOTE | 2017-02-16 09:44 | PHYS DOC ---
Past Medical History Past Medical History: COPD, Diabetes-Type II, Hypertension, Pneumonia, Other Additional Past Medical Histor: Emphysema, chronic back pain, osteoarthritis Past Surgical History: Cholecystectomy, Hysterectomy, Tubal ligation, Other Additional Past Surgical Histo: thyroidectomy Alcohol Use: None Drug Use: None Adult General Chief Complaint Chief Complaint: SHORTNESS OF BREATH HPI HPI Patient is a 61 year old female with a history of COPD, hypertension and GERD presents to the ED complaining of left sided chest pain 1 week. Patient states she had chest pain and was admitted to the hospital, worked up and released 2 days ago. States yesterday a rash appeared to her left side. No history of shingles in the past. Denies nausea/vomiting, chest pain, dizziness, weakness, shortness of breath, headache, vision changes, fever or syncope. Review of Systems Review of Systems Constitutional: Denies fever or chills [] Eyes: Denies change in visual acuity, redness, or eye pain [] HENT: Denies nasal congestion or sore throat [] Respiratory: Denies cough or shortness of breath [] Cardiovascular: No additional information not addressed in HPI [] GI: Denies abdominal pain, nausea, vomiting, bloody stools or diarrhea [] : Denies dysuria or hematuria [] Musculoskeletal: Denies back pain or joint pain [] Integument: Complains of rash. Denies skin lesions [] Neurologic: Denies headache, focal weakness or sensory changes [] Endocrine: Denies polyuria or polydipsia [] Current Medications Current Medications Current Medications Medications (Trade) Dose Ordered Sig/Santiago Start Time Stop Time Status Last Admin Dose Admin Acyclovir Sodium 540 mg/Dextrose 110.8 ml @ 110.8 mls/ hr 1X ONCE 02/16/17 10:00 02/16/17 10:59 DC 02/16/17 10:10 110.8 MLS/HR Albuterol/ Ipratropium (Duoneb) 3 ml 1X ONCE 02/16/17 09:45 02/16/17 09:46 DC 02/16/17 10:02 3 ML Methylprednisolone Sodium Succinate (SOLU-Medrol 125MG VIAL) 125 mg 1X ONCE 02/16/17 11:00 02/16/17 11:01 DC 02/16/17 11:03 125 MG Morphine Sulfate 2 mg 1X ONCE 02/16/17 09:45 02/16/17 09:46 DC 02/16/17 10:09 2 MG Ondansetron HCl (Zofran) 4 mg 1X ONCE 02/16/17 09:45 02/16/17 09:46 DC 02/16/17 10:08 4 MG Allergies Allergies Allergies Coded Allergies Type Severity Reaction Last Updated Verified amoxicillin Allergy Intermediate Nausea and Vomiting 11/26/16 Yes amoxicillin trihydrate Allergy Intermediate yeast infection 11/26/16 Yes potassium clavulanate Allergy Intermediate yeast infection 11/26/16 Yes meperidine HCl Adverse Reaction Severe 11/26/16 Yes Physical Exam Physical Exam Constitutional: Well developed, well nourished, no acute distress, non-toxic appearance. [] HENT: Normocephalic, atraumatic, bilateral external ears normal, oropharynx moist, no oral exudates, nose normal. [] Eyes: PERRLA, EOMI, conjunctiva normal, no discharge. [] Neck: Normal range of motion, no tenderness, supple, no stridor. [] Cardiovascular:Heart rate regular rhythm, no murmur [] Lungs & Thorax: Bilateral breath sounds clear to auscultation [] Abdomen: Bowel sounds normal, soft, no tenderness, no masses, no pulsatile masses. [] Skin: Warm, dry, ERYTHEMATOUS VESICULAR RASH TO LEFT RIBS IN DERMATOMAL DISTRIBUTION CONSISTENT WITH HERPES ZOSTER. [] Back: No tenderness, no CVA tenderness. [] Extremities: No tenderness, no cyanosis, no clubbing, ROM intact, no edema. [] Neurologic: Alert and oriented X 3, normal motor function, normal sensory function, no focal deficits noted. [] Psychologic: Affect normal, judgement normal, mood normal. [] Current Patient Data Vital Signs Vital Signs Date Time Temp Pulse Resp B/P (MAP) Pulse Ox O2 Delivery O2 Flow Rate FiO2 02/16/17 11:14 103 20 121/68 (85) 93 Nasal Cannula 3.0 02/16/17 09:20 97.8 97.8 Lab Values Laboratory Tests Test 02/16/17 09:40 White Blood Count 4.2 x10^3/uL (4.0-11.0) Red Blood Count 4.91 x10^6/uL (3.50-5.40) Hemoglobin 14.9 g/dL (12.0-15.5) Hematocrit 43.2 % (36.0-47.0) Mean Corpuscular Volume 88 fL (79-100) Mean Corpuscular Hemoglobin 30 pg (25-35) Mean Corpuscular Hemoglobin Concent 35 g/dL (31-37) Red Cell Distribution Width 15.3 % (11.5-14.5) H Platelet Count 212 x10^3/uL (140-400) Sodium Level 140 mmol/L (136-145) Potassium Level 3.8 mmol/L (3.5-5.1) Chloride Level 98 mmol/L (98-107) Carbon Dioxide Level 33 mmol/L (21-32) H Anion Gap 9 (6-14) Blood Urea Nitrogen 12 mg/dL (7-20) Creatinine 0.9 mg/dL (0.6-1.0) Estimated GFR (Cockcroft-Gault) 63.4 BUN/Creatinine Ratio 13 (6-20) Glucose Level 133 mg/dL (70-99) H Calcium Level 9.0 mg/dL (8.5-10.1) Total Bilirubin 0.4 mg/dL (0.2-1.0) Aspartate Amino Transferase (AST) 31 U/L (15-37) Alanine Aminotransferase (ALT) 30 U/L (14-59) Alkaline Phosphatase 101 U/L (46-116) Troponin I Quantitative < 0.017 ng/mL (0.000-0.055) Total Protein 6.9 g/dL (6.4-8.2) Albumin 3.7 g/dL (3.4-5.0) Albumin/Globulin Ratio 1.2 (1.0-1.7) Laboratory Tests 02/16/17 09:40 Laboratory Tests 02/16/17 09:40 EKG EKG [] Radiology/Procedures Radiology/Procedures PROCEDURE: CHEST AP ONLY Portable chest, 02/16/2017: History: Chest pain, shortness of breath Comparison is made to a study from 02/10/2017. The heart size and pulmonary vascularity are normal. No pulmonary infiltrates are seen. There is no evidence of pleural fluid. IMPRESSION: No acute cardiopulmonary abnormality is detected.[] Course & Med Decision Making Course & Med Decision Making Pertinent Labs and Imaging studies reviewed. (See chart for details) []Discussed labs and imaging with patient. Patient's pain improved. Vital stable , no acute distress. Discussed case with patients PCP, Dr. Maldonado. Agrees with evaluation and plan. Acyclovir given IV in the ED. Will prescribe acyclovir and analgesics outpatient. Discussed follow-up with PCP this week. Discussed reasons to return to the ED. Patient understands and agrees with plan. Family at bedside. Dragon Disclaimer Dragon Disclaimer This electronic medical record was generated, in whole or in part, using a voice recognition dictation system. Departure Departure Impression: Primary Impression: Shingles Disposition: HOME, SELF-CARE Condition: IMPROVED Referrals: MIGUEL MALDONADO MD (PCP) Patient Instructions: Ayde Scripts Acyclovir (ZOVIRAX) 5 Gm Cream..g. 1 CARRI TP 5XDAY, #5 GM 1 Refill Prov: AGATHA WHITFIELD 02/16/17 Hydrocodone/Apap 5-325 (NORCO 5-325 TABLET) 1 Each Tablet 1 TAB PO TID, #10 TAB Prov: AGATHA WHITFIELD 02/16/17 Acyclovir (ACYCLOVIR) 800 Mg Tablet 1 TAB PO 5XDAY, #35 TAB Prov: AGATHA WHITFIELD 02/16/17 AGATHA WHITFIELD Feb 16, 2017 09:44
--- NOTE | 2017-02-16 09:50 | EKG ---
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
[2017-02-16 09:57] LABS: HEMATOCRIT 43.2 % (36.0-47.0); HEMOGLOBIN 14.9 g/dL (12.0-15.5); RED BLOOD COUNT 4.91 x10^6/uL (3.50-5.40); RED CELL DISTRIBUTION WIDTH 15.3 % (11.5-14.5); WHITE BLOOD COUNT 4.2 x10^3/uL (4.0-11.0)
[2017-02-16 10:01] LABS: CREATININE 0.9 mg/dL (0.6-1.0); GFR 63.4; POTASSIUM 3.8 mmol/L (3.5-5.1)
[2017-02-16] MEDS: IPRATRPIUM/ALBUTEROL 0.5/2.5MG 3 ML NEBU. NEB ONE (10:02)
[2017-02-16 10:07] LABS: ALBUMIN 3.7 g/dL (3.4-5.0); ALBUMIN/GLOBULIN RATIO 1.2 (1.0-1.7); TOTAL BILIRUBIN 0.4 mg/dL (0.2-1.0); TOTAL PROTEIN 6.9 g/dL (6.4-8.2)
[2017-02-16] MEDS: ONDANSETRON PF 4 MG/2 ML VIAL. IV ONE (10:08)
[2017-02-16] MEDS: MORPHINE SULFATE 2 MG/ML DISP.SYRIN. IV ONE (10:09)
--- NOTE | 2017-02-16 10:09 | RAD ---
Portable chest, 02/16/2017: History: Chest pain, shortness of breath Comparison is made to a study from 02/10/2017. The heart size and pulmonary vascularity are normal. No pulmonary infiltrates are seen. There is no evidence of pleural fluid. IMPRESSION: No acute cardiopulmonary abnormality is detected.
[2017-02-16] MEDS: ACYCLOVIR SODIUM IV ONE (10:10)
[2017-02-16] MEDS: DEXTROSE 5% IV ONE (10:10)
[2017-02-16] MEDS ORDERED: ACYC5CRE2 TP (10:40)
[2017-02-16] MEDS ORDERED: ACYC800T PO (10:40)
[2017-02-16] MEDS ORDERED: HYDR-971 PO (10:40)
[2017-02-16] MEDS: methylPREDNISolone SOD SUCC PF 125 MG/2 ML VIAL. IV ONE (11:03)
[2017-02-16 11:14] VITALS: BP 121/68
== END 2017-02-16 11:25 | disposition home or self-care (01) ==
LOC: ER 09:06
DX: B02.9 Zoster without complications (principal); R07.89 Other chest pain; E11.9 Type 2 diabetes mellitus without complications; G89.29 Other chronic pain; I10 Essential (primary) hypertension; K21.9 Gastro-esophageal reflux disease without esophagitis; M19.90 Unspecified osteoarthritis, unspecified site; J43.9 Emphysema, unspecified; Z88.1 Allergy status to other antibiotic agents; Z88.8 Allergy status to other drugs, medicaments and biological substances
CPT/HCPCS: 36415; 71010; 80053; 84484; 85027; 93005; 94250; 94640; 96365; 96375; 99285; J0133; J2270; J2405; J2930; J7620

== ENCOUNTER 2017-02-21 09:47 | Inpatient (IN) | payer OTHER ==
[~2017-02-21] VITALS: Ht 162.6 cm; Wt 81.8 kg
[~2017-02-21 09:47] MED LIST changes: +ACYC5CRE2 TP; +ACYC800T PO; +HYDR-971 PO
[2017-02-21] MEDS ORDERED: methylPREDNISolone SOD SUCC PF 125 MG/2 ML VIAL. IV ONE (10:15)
[2017-02-21] MEDS ORDERED: IPRATRPIUM/ALBUTEROL 0.5/2.5MG 3 ML NEBU. NEB ONE (10:15)
[2017-02-21 10:26] LABS: BASO # 0.1 x10^3/uL (0.0-0.2); BASO % 1 % (0-3); EOS % 2 % (0-3); HEMOGLOBIN 15.1 g/dL (12.0-15.5); LYMPH # 2.6 x10^3/uL (1.0-4.8); LYMPH % 41 % (24-48); MEAN CORPUSCULAR HEMOGLOBIN 30 pg (25-35); MEAN CORPUSCULAR HGB CONC 34 g/dL (31-37); MEAN CORPUSCULAR VOLUME 90 fL (79-100); MONO % 10 % (0-9); NEUT % 46 % (31-73); PLATELET COUNT 321 x10^3/uL (140-400); RED BLOOD COUNT 5.02 x10^6/uL (3.50-5.40); RED CELL DISTRIBUTION WIDTH 15.4 % (11.5-14.5); WHITE BLOOD COUNT 6.4 x10^3/uL (4.0-11.0)
[2017-02-21 10:37] LABS: ALBUMIN 3.6 g/dL (3.4-5.0); ALBUMIN/GLOBULIN RATIO 0.9 (1.0-1.7); CALCIUM 9.1 mg/dL (8.5-10.1); CREATININE 0.8 mg/dL (0.6-1.0); GFR 72.7; POTASSIUM 3.3 mmol/L (3.5-5.1); TOTAL BILIRUBIN 0.2 mg/dL (0.2-1.0); TOTAL PROTEIN 7.6 g/dL (6.4-8.2)
--- NOTE | 2017-02-21 10:37 | RAD ---
Portable chest, 02/21/2017: History: Shortness of breath Comparison is made to a study from 02/16/2017. The heart size and pulmonary vascularity are normal. There is calcific plaque in the aorta. There are prominent epicardial fat pads. No pulmonary infiltrates are seen. There is no evidence of pleural fluid. IMPRESSION: No acute cardiopulmonary abnormality is detected.
[2017-02-21] MEDS: fentaNYL PF VIAL 100 MCG/2 ML VIAL IV PRN ×5 (10:40→22:20)
[2017-02-21 10:49] LABS: CKMB MASS < 0.5 ng/mL (0.0-3.6); CREATINE KINASE 37 U/L (26-192)
--- NOTE | 2017-02-21 11:33 | PHYS DOC ---
Past Medical History Past Medical History: COPD, Diabetes-Type II, High Cholesterol, Hypertension Additional Past Medical Histor: Emphysema, chronic back pain, osteoarthritis Past Surgical History: Cholecystectomy, Other Additional Past Surgical Histo: PARTIAL HYSTERECTOMY, DENTAL, PROLAPSE BLADDER SURGERY, THYROIDECTOMY Alcohol Use: None Drug Use: None Adult General Chief Complaint Chief Complaint: CHEST PAIN HPI HPI Patient is a 61 year old female who presents to the ED from home with the complaint of chest pain, shortness of air, and shingles. Patient was seen here on 02/16 with the diagnosis of shingles. She was prescribed acyclovir and hydrocodone. She states that she has been taking the acyclovir as prescribed. She took the hydrocodone, but it did not help her pain, and she is now out of it. She states she feels terrible. She feels weak, her chest hurts. The pain in her chest is over the anterior left chest, on top of her breast. The shingles are located under her left breast. Patient does have COPD, she wears oxygen at home 2-3 L. She does take nebulized breathing treatments. The last one was this morning. She is more short of breath than usual. She states she is supposed to be on prednisone but she hasn't been taking it lately. She just doesn't like it. She thinks she supposed to be on 10 mg a day. Pt denies fever or chills. Her cough is about usual. She has quit smoking but others in the household smoke. PCP Dr. Delarosa Review of Systems Review of Systems Constitutional: Denies fever or chills [] Eyes: Denies change in visual acuity, redness, or eye pain [] HENT: Denies nasal congestion or sore throat [] Respiratory: As in history of present illness Cardiovascular: As in history of present illness GI: Denies abdominal pain, nausea, vomiting : Denies dysuria or hematuria [] Musculoskeletal: Denies back pain or joint pain [] Integument: Chest wall rash consistent with shingles. Neurologic: Denies headache Current Medications Current Medications Current Medications Medications (Trade) Dose Ordered Sig/Santiago Start Time Stop Time Status Last Admin Dose Admin Albuterol/ Ipratropium (Duoneb) 3 ml 1X ONCE 02/21/17 10:15 02/21/17 10:25 DC 10/7/17 10:16 3 ML Fentanyl Citrate (Fentanyl 2ml Vial) 50 mcg PRN Q15MIN PRN 02/21/17 10:15 02/22/17 10:14 02/21/17 10:40 50 MCG Methylprednisolone Sodium Succinate (SOLU-Medrol 125MG VIAL) 60 mg 1X ONCE 02/21/17 10:15 02/21/17 10:25 DC 02/21/17 10:15 60 MG Allergies Allergies Allergies Coded Allergies Type Severity Reaction Last Updated Verified amoxicillin Allergy Intermediate Nausea and Vomiting 11/26/16 Yes amoxicillin trihydrate Allergy Intermediate yeast infection 11/26/16 Yes potassium clavulanate Allergy Intermediate yeast infection 11/26/16 Yes meperidine HCl Adverse Reaction Intermediate Nausea and itching. 02/21/17 Yes Physical Exam Physical Exam Constitutional: Well developed, well nourished, alert, mentating normally. She is mildly dyspneic on 2 L resting on the cart. Frequent cough. HENT: Normocephalic, atraumatic, bilateral external ears normal, nose normal. [ ] Eyes: conjunctiva normal, no discharge. [] Neck: Normal range of motion, no stridor. [] Cardiovascular:Heart rate regular rhythm, no murmur [] Lungs & Thorax: Moderately decreased breath sounds throughout, prolonged expiratory phase, full phase and expiratory wheezes throughout Abdomen: Bowel sounds normal, soft, no masses, no pulsatile masses. [] Skin: Warm, dry, no erythema, left chest wall rash consistent with herpes zoster , some active vesicles present Extremities: No tenderness, no cyanosis, no clubbing, ROM intact, no edema. [] Neurologic: Alert and oriented X 3, normal motor function, no focal deficits noted. [] Current Patient Data Vital Signs Vital Signs Date Time Temp Pulse Resp B/P (MAP) Pulse Ox O2 Delivery O2 Flow Rate FiO2 02/21/17 10:40 24 02/21/17 10:20 94 Nasal Cannula 1.0 02/21/17 10:03 97.9 82 137/71 (93) 97.9 Lab Values Laboratory Tests Test 02/21/17 10:05 White Blood Count 6.4 x10^3/uL (4.0-11.0) Red Blood Count 5.02 x10^6/uL (3.50-5.40) Hemoglobin 15.1 g/dL (12.0-15.5) Hematocrit 45.0 % (36.0-47.0) Mean Corpuscular Volume 90 fL (79-100) Mean Corpuscular Hemoglobin 30 pg (25-35) Mean Corpuscular Hemoglobin Concent 34 g/dL (31-37) Red Cell Distribution Width 15.4 % (11.5-14.5) H Platelet Count 321 x10^3/uL (140-400) Neutrophils (%) (Auto) 46 % (31-73) Lymphocytes (%) (Auto) 41 % (24-48) Monocytes (%) (Auto) 10 % (0-9) H Eosinophils (%) (Auto) 2 % (0-3) Basophils (%) (Auto) 1 % (0-3) Neutrophils # (Auto) 3.0 x10^3uL (1.8-7.7) Lymphocytes # (Auto) 2.6 x10^3/uL (1.0-4.8) Monocytes # (Auto) 0.6 x10^3/uL (0.0-1.1) Eosinophils # (Auto) 0.1 x10^3/uL (0.0-0.7) Basophils # (Auto) 0.1 x10^3/uL (0.0-0.2) Sodium Level 141 mmol/L (136-145) Potassium Level 3.3 mmol/L (3.5-5.1) L Chloride Level 103 mmol/L (98-107) Carbon Dioxide Level 32 mmol/L (21-32) Anion Gap 6 (6-14) Blood Urea Nitrogen 7 mg/dL (7-20) Creatinine 0.8 mg/dL (0.6-1.0) Estimated GFR (Cockcroft-Gault) 72.7 BUN/Creatinine Ratio 9 (6-20) Glucose Level 162 mg/dL (70-99) H Calcium Level 9.1 mg/dL (8.5-10.1) Magnesium Level 1.9 mg/dL (1.8-2.4) Total Bilirubin 0.2 mg/dL (0.2-1.0) Aspartate Amino Transferase (AST) 21 U/L (15-37) Alanine Aminotransferase (ALT) 19 U/L (14-59) Alkaline Phosphatase 93 U/L (46-116) Creatine Kinase 37 U/L (26-192) Creatine Kinase MB (Mass) < 0.5 ng/mL (0.0-3.6) Creatine Kinase MB Relative Index % (0-4) Troponin I Quantitative < 0.017 ng/mL (0.000-0.055) JN-Pjn-D-Type Natriuretic Peptide 193 pg/mL (0-124) H Total Protein 7.6 g/dL (6.4-8.2) Albumin 3.6 g/dL (3.4-5.0) Albumin/Globulin Ratio 0.9 (1.0-1.7) L Laboratory Tests 02/21/17 10:05 Laboratory Tests 02/21/17 10:05 EKG EKG 12-lead EKG read by me. Sinus rhythm. Heart rate 79. There are no acute ST or T wave changes indicative of ischemia or infarction. No STEMI. [id number][] Radiology/Procedures Radiology/Procedures One view portable chest x-ray read by the radiologist. No acute findings.[] Course & Med Decision Making Course & Med Decision Making Pertinent Labs and Imaging studies reviewed. (See chart for details) 61-year-old female with COPD presents with chest pain caused by shingles and also COPD exacerbation. I believe the pain in her chest is contributing to her COPD exacerbation, she's having trouble breathing. Also she has not been taking her prednisone as prescribed for some reason. The patient was given a breathing treatment and a dose of Solu-Medrol. She was given IV fentanyl for pain. I rechecked the patient, she states she doesn't feel any better. Her breathing feels much worse than usual and she doesn't feel comfortable going home. I believe she should be admitted for COPD exacerbation, pulmonary toilet, and pain control. I'm reluctant to give her anything stronger than hydrocodone 5 mg to go home, because she does have oxygen dependent COPD, and I believe she should be monitored if she is getting stronger opiate pain relievers due to the risk of respiratory depression. I discussed the Case with Dr. Hitchcock, taking calls for Dr. Delarosa, he will admit the patient. I wrote bridge orders. [] Dragon Disclaimer Dragon Disclaimer This electronic medical record was generated, in whole or in part, using a voice recognition dictation system. Departure Departure Impression: Primary Impression: Chest pain Additional Impressions: COPD exacerbation Shingles Disposition: ADMITTED INPATIENT Admitting Physician: Miguel Delarosa Condition: STABLE Referrals: MIGUEL DELAROSA MD (PCP) Problem Qualifiers CIPRIANO HAYNES MD Feb 21, 2017 11:33
[2017-02-21] MEDS ORDERED: fentaNYL PF VIAL 100 MCG/2 ML VIAL IV PRN (11:45)
--- NOTE | 2017-02-21 11:52 | EKG ---
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
[2017-02-21] MEDS ORDERED: IPRATRPIUM/ALBUTEROL 0.5/2.5MG 3 ML NEBU. NEB SCH (12:00)
[2017-02-21 12:30] VITALS: BP 119/56
[2017-02-21] MEDS ORDERED: POTASSIUM CHLORIDE 20 MEQ TABLET.ER. PO ONE (12:45)
[2017-02-21] MEDS ORDERED: ONDANSETRON ODT 4 MG TAB.RAPDIS. PO PRN (13:00)
[2017-02-21] MEDS: IPRATRPIUM/ALBUTEROL 0.5/2.5MG 3 ML NEBU. NEB SCH ×3 (13:00→19:31)
[2017-02-21] MEDS: POTASSIUM CHLORIDE 8 MEQ TABLET.ER. PO SCH ×2 (13:22→20:37)
[2017-02-21] MEDS: DULoxetine HCL 30 MG CAPSULE.DR PO SCH (13:23)
[2017-02-21] MEDS: ACYCLOVIR 200 MG CAPSULE. PO SCH ×3 (13:23→20:39)
[2017-02-21] MEDS: MONTELUKAST SODIUM 10 MG TABLET. PO SCH (13:24)
[2017-02-21] MEDS: FUROSEMIDE 40 MG TABLET. PO SCH (13:25)
[2017-02-21] MEDS: DICYCLOMINE HCL 10 MG CAPSULE PO SCH ×2 (13:25→20:38)
[2017-02-21] MEDS: LISINOPRIL 10 MG TABLET PO SCH ×2 (13:25→20:38)
[2017-02-21] MEDS: HYDROcodone/APAP 10/325 1 TAB TABLET PO PRN ×2 (13:26→20:38)
[2017-02-21] MEDS: LINACLOTIDE 145 MCG CAPSULE. PO SCH (13:26)
[2017-02-21] MEDS: NITROGLYCERIN 0.2MG/HR PATCH. TD SCH (13:26)
[2017-02-21] MEDS: NYSTATIN TOPICAL POWDER 15GM BOTTLE. TP SCH ×2 (13:27→20:39)
[2017-02-21 15:00] VITALS: BP 119/59
--- NOTE | 2017-02-21 15:16 | HP ---
ADMIT DATE: 02/21/2017 ATTENDING PHYSICIAN: Dr. Maldonado REASON FOR ADMISSION: Dyspnea and chest pain. HISTORY OF PRESENT ILLNESS: This is a 61-year-old female who has been admitted to this institution several times in the past and who was recently discharged last week, came back to the Emergency Room on 02/16/2017 because of shingles. She was prescribed acyclovir and hydrocodone. She was also prescribed prednisone on discharge from the last admission, but the patient has not been taking prednisone. This morning she called me because her pain was getting worse and she started having more difficulty breathing and her mucous was yellow. Her shingles she felt were causing a lot of pain and she was not able to breathe well. Because of that I sent her back to the Emergency Room. In the Emergency Room, the patient was noted to have exacerbation of chronic obstructive pulmonary disease, partly because of inability to control her pain without significant pain medication that she had run out of hydrocodone. Because of the acute bronchitis, exacerbation of chronic obstructive pulmonary disease and chest pain with pain from the herpes zoster not controlled with the risk of medicating her with higher doses of pain medications as outpatient in the setting of exacerbation of chronic obstructive pulmonary disease and respiratory failure, it was decided to go ahead and admit the patient for further evaluation and management. SYSTEMS REVIEW: At present, the patient is complaining of pain in the left side of the chest along with dyspnea, cough, congestion and yellow expectoration. She denies any heartburn, nausea, vomiting, diarrhea, constipation. She does admit to some joint pains. Other systems reviewed and are negative. PAST MEDICAL HISTORY: The patient was just discharged from this institution last week. Prior to that, she had an episode of atrial fibrillation that resolved spontaneously. During the previous admission when she had chest pain, she had an echocardiogram done that showed ejection fraction of 65% and she had a Lexiscan stress test that was negative for ischemia. The patient also had a CT angiogram of the chest negative for PE with a small nodule less than 4 mm that needs to be followed up in 6 months. She is known to have hypertension, diabetes mellitus type 2, bladder incontinence, hyperlipidemia, chronic obstructive pulmonary disease, oxygen dependent as well as steroid dependent; arthritis, anxiety, depression, chronic pain. PAST SURGICAL HISTORY: The patient had gallbladder surgery, tubal ligation and thyroid surgery. FAMILY HISTORY: Positive for diabetes, heart disease. SOCIAL HISTORY: Smoker for at least 40 years, quit more than 5 years ago. No history of alcoholism or drug abuse. ALLERGIES: THE PATIENT IS ALLERGIC TO AMOXICILLIN, AUGMENTIN, DEMEROL AND AMPICILLIN. MEDICATIONS: I reviewed the medications. PHYSICAL EXAMINATION: VITAL SIGNS: Temperature 97.9, pulse 82 per minute, respirations 22 per minute, blood pressure 137/71. GENERAL: The patient is an elderly female who looks older than her stated age and she is in moderate respiratory distress. SKIN: Warm and dry. There is no cyanosis. On the chest, the patient has healing areas with some open areas of the herpes zoster rash that is extensive, extending in the front and back of the left lower chest below the breast, both anteriorly and posteriorly. HEENT: The patient is wearing oxygen. Throat: Congested. Eyes: Pupils equal, reacting to light. NECK: Supple. JVP normal. No thyromegaly. Trachea midline. LUNGS: Bilateral wheezing. CARDIOVASCULAR: S1, S2 regular. ABDOMEN: Soft, nontender, no guarding, no rigidity. Bowel sounds present. EXTREMITIES: No edema. CENTRAL NERVOUS SYSTEM: Generalized weakness. Moves extremities. LABORATORY FINDINGS: Potassium is 3.3, sodium 141, glucose 162, calcium 9.1, magnesium 1.9, albumin 3.6. Cardiac enzymes are normal. WBC count 6.4, hemoglobin 15.1, platelet count 321,000. Chest x-ray shows no acute changes. IMPRESSION: 1. Acute bronchitis. 2. Acute exacerbation of chronic obstructive pulmonary disease. 3. Herpes zoster with pain not controlled. 4. Hypokalemia. 5. Diabetes mellitus type 2. 6. Hypertension. 7. Noncompliance. 8. Hyperlipidemia. 9. Acute on chronic respiratory failure, oxygen dependent as well as steroid dependent. PLAN: I will start her on IV Levaquin. I will also start her on IV steroids, continue acyclovir and I will give her IV fentanyl p.r.n., but monitor her because of her respiratory failure as well as start her on hydrocodone 10/325 q.4 hours p.r.n. for pain, which she has taken previously. For details, please review the orders. KAMI ROLAND MD DR: JUANITA/adrianna JOB#: [id number] / [id number]
[2017-02-21] MEDS: BUDESONIDE 0.5 MG/2 ML NEBU. NEB SCH ×2 (15:27→19:31)
[2017-02-21] MEDS: metFORMIN 500 MG TABLET PO SCH (17:45)
[2017-02-21] MEDS: SUCRALFATE 1 GM TABLET. PO SCH (17:45)
[2017-02-21] MEDS: INSULIN ASPART 300 UNITS/3 ML INSULN.PEN SQ SCH (17:49)
[2017-02-21] MEDS: PANTOPRAZOLE 40 MG TABLET.DR. PO SCH (17:53)
[2017-02-21 19:00] VITALS: BP 117/53
[2017-02-21] MEDS: guaiFENesin DM 200MG/20MG 10 ML SYRUP PO PRN (19:23)
[2017-02-21] MEDS: ATORVASTATIN CALCIUM 40 MG TABLET. PO SCH (20:38)
[2017-02-21] MEDS ORDERED: methylPREDNISolone SOD SUCC PF 125 MG/2 ML VIAL. IV SCH (21:00)
[2017-02-21] MEDS ORDERED: NON FORMULARY ITEM (Fluticasone Propionate (Flovent 44MCG Hfa) 2 PUFF) IH SCH (21:00)
[2017-02-21 23:00] VITALS: BP 106/59
[2017-02-22] MEDS: fentaNYL PF VIAL 100 MCG/2 ML VIAL IV PRN (02:50)
[2017-02-22] MEDS: guaiFENesin DM 200MG/20MG 10 ML SYRUP PO PRN ×2 (02:50→21:40)
[2017-02-22 03:00] VITALS: BP 110/77
[2017-02-22] MEDS: HYDROcodone/APAP 10/325 1 TAB TABLET PO PRN ×4 (06:05→21:24)
[2017-02-22] MEDS: ACYCLOVIR 200 MG CAPSULE. PO SCH ×5 (06:05→21:24)
[2017-02-22] MEDS: LEVOTHYROXINE 75 MCG TABLET PO SCH (06:05)
[2017-02-22 06:10] LABS: BASO % 1 % (0-3); EOS % 0 % (0-3); HEMATOCRIT 40.6 % (36.0-47.0); HEMOGLOBIN 13.4 g/dL (12.0-15.5); LYMPH % 16 % (24-48); MEAN CORPUSCULAR HEMOGLOBIN 30 pg (25-35); MEAN CORPUSCULAR HGB CONC 33 g/dL (31-37); MEAN CORPUSCULAR VOLUME 90 fL (79-100); MONO % 6 % (0-9); NEUT % 77 % (31-73); PLATELET COUNT 320 x10^3/uL (140-400); RED CELL DISTRIBUTION WIDTH 15.5 % (11.5-14.5); WHITE BLOOD COUNT 5.9 x10^3/uL (4.0-11.0)
[2017-02-22 06:38] LABS: ALBUMIN 3.3 g/dL (3.4-5.0); ALBUMIN/GLOBULIN RATIO 0.9 (1.0-1.7); CALCIUM 9.1 mg/dL (8.5-10.1); GFR 56.2; POTASSIUM 3.3 mmol/L (3.5-5.1); TOTAL BILIRUBIN 0.3 mg/dL (0.2-1.0); TOTAL PROTEIN 7.1 g/dL (6.4-8.2)
[2017-02-22 07:00] VITALS: BP 108/67
[2017-02-22] MEDS: INSULIN ASPART 300 UNITS/3 ML INSULN.PEN SQ SCH ×3 (07:30→16:30)
[2017-02-22] MEDS: PANTOPRAZOLE 40 MG TABLET.DR. PO SCH (07:30)
[2017-02-22] MEDS: LINACLOTIDE 145 MCG CAPSULE. PO SCH (07:30)
[2017-02-22] MEDS: metFORMIN 500 MG TABLET PO SCH ×2 (07:30→17:26)
[2017-02-22] MEDS: SUCRALFATE 1 GM TABLET. PO SCH ×2 (07:30→17:26)
[2017-02-22] MEDS: IPRATRPIUM/ALBUTEROL 0.5/2.5MG 3 ML NEBU. NEB SCH ×4 (08:48→19:50)
[2017-02-22] MEDS: BUDESONIDE 0.5 MG/2 ML NEBU. NEB SCH ×2 (08:48→19:50)
[2017-02-22] MEDS ORDERED: NON FORMULARY ITEM (Tiotropium Bromide (Spiriva) 18 MCG) IH SCH (09:00)
[2017-02-22] MEDS: NYSTATIN TOPICAL POWDER 15GM BOTTLE. TP SCH ×2 (09:00→21:25)
[2017-02-22] MEDS: DICYCLOMINE HCL 10 MG CAPSULE PO SCH ×3 (09:00→21:25)
[2017-02-22] MEDS: FUROSEMIDE 40 MG TABLET. PO SCH ×2 (09:00→14:54)
[2017-02-22] MEDS: MONTELUKAST SODIUM 10 MG TABLET. PO SCH (09:00)
[2017-02-22] MEDS: NITROGLYCERIN 0.2MG/HR PATCH. TD SCH (09:00)
[2017-02-22] MEDS: DULoxetine HCL 30 MG CAPSULE.DR PO SCH (09:00)
[2017-02-22] MEDS: LISINOPRIL 10 MG TABLET PO SCH ×2 (09:00→21:25)
--- NOTE | 2017-02-22 10:44 | PDOC ---
IM PROGRESS NOTES- Subjective Subjective Dyspnea,chest pain is improving. Objective Vitals Vital Signs Date Time Temp Pulse Resp B/P (MAP) Pulse Ox O2 Delivery O2 Flow Rate FiO2 02/22/17 10:18 94 Nasal Cannula 3.0 02/22/17 09:00 75 108/67 02/22/17 07:00 97.9 17 97.9 Physical Exam Physical Exam GENERAL: The patient is an elderly female who looks older than her stated age and she is in moderate respiratory distress. SKIN: Warm and dry. There is no cyanosis. On the chest, the patient has healing areas with some open areas of the herpes zoster rash that is extensive, extending in the front and back of the left lower chest below the breast, both anteriorly and posteriorly. HEENT: The patient is wearing oxygen. Throat: Congested. Eyes: Pupils equal, reacting to light. NECK: Supple. JVP normal. No thyromegaly. Trachea midline. LUNGS: Bilateral wheezing- decreased CARDIOVASCULAR: S1, S2 regular. ABDOMEN: Soft, nontender, no guarding, no rigidity. Bowel sounds present. EXTREMITIES: No edema. CENTRAL NERVOUS SYSTEM: Generalized weakness. Moves extremities. Labs Laboratory Tests Test 02/21/17 10:05 02/21/17 16:22 02/21/17 17:35 02/21/17 20:36 White Blood Count 6.4 x10^3/uL (4.0-11.0) Red Blood Count 5.02 x10^6/uL (3.50-5.40) Hemoglobin 15.1 g/dL (12.0-15.5) Hematocrit 45.0 % (36.0-47.0) Mean Corpuscular Volume 90 fL (79-100) Mean Corpuscular Hemoglobin 30 pg (25-35) Mean Corpuscular Hemoglobin Concent 34 g/dL (31-37) Red Cell Distribution Width 15.4 % (11.5-14.5) Platelet Count 321 x10^3/uL (140-400) Neutrophils (%) (Auto) 46 % (31-73) Lymphocytes (%) (Auto) 41 % (24-48) Monocytes (%) (Auto) 10 % (0-9) Eosinophils (%) (Auto) 2 % (0-3) Basophils (%) (Auto) 1 % (0-3) Neutrophils # (Auto) 3.0 x10^3uL (1.8-7.7) Lymphocytes # (Auto) 2.6 x10^3/uL (1.0-4.8) Monocytes # (Auto) 0.6 x10^3/uL (0.0-1.1) Eosinophils # (Auto) 0.1 x10^3/uL (0.0-0.7) Basophils # (Auto) 0.1 x10^3/uL (0.0-0.2) Sodium Level 141 mmol/L (136-145) Potassium Level 3.3 mmol/L (3.5-5.1) Chloride Level 103 mmol/L (98-107) Carbon Dioxide Level 32 mmol/L (21-32) Anion Gap 6 (6-14) Blood Urea Nitrogen 7 mg/dL (7-20) Creatinine 0.8 mg/dL (0.6-1.0) Estimated GFR (Cockcroft-Gault) 72.7 BUN/Creatinine Ratio 9 (6-20) Glucose Level 162 mg/dL (70-99) Calcium Level 9.1 mg/dL (8.5-10.1) Magnesium Level 1.9 mg/dL (1.8-2.4) Total Bilirubin 0.2 mg/dL (0.2-1.0) Aspartate Amino Transf (AST/SGOT) 21 U/L (15-37) Alanine Aminotransferase (ALT/SGPT) 19 U/L (14-59) Alkaline Phosphatase 93 U/L (46-116) Creatine Kinase 37 U/L (26-192) Creatine Kinase MB (Mass) < 0.5 ng/mL (0.0-3.6) Creatine Kinase MB Relative Index % (0-4) Troponin I Quantitative < 0.017 ng/mL (0.000-0.055) < 0.017 ng/mL (0.000-0.055) RK-Cey-J-Type Natriuretic Peptide 193 pg/mL (0-124) Total Protein 7.6 g/dL (6.4-8.2) Albumin 3.6 g/dL (3.4-5.0) Albumin/Globulin Ratio 0.9 (1.0-1.7) Glucose (Fingerstick) 304 mg/dL (70-99) 256 mg/dL (70-99) Test 10/7/17 23:25 02/22/17 05:00 02/22/17 07:19 Troponin I Quantitative < 0.017 ng/mL (0.000-0.055) White Blood Count 5.9 x10^3/uL (4.0-11.0) Red Blood Count 4.50 x10^6/uL (3.50-5.40) Hemoglobin 13.4 g/dL (12.0-15.5) Hematocrit 40.6 % (36.0-47.0) Mean Corpuscular Volume 90 fL (79-100) Mean Corpuscular Hemoglobin 30 pg (25-35) Mean Corpuscular Hemoglobin Concent 33 g/dL (31-37) Red Cell Distribution Width 15.5 % (11.5-14.5) Platelet Count 320 x10^3/uL (140-400) Neutrophils (%) (Auto) 77 % (31-73) Lymphocytes (%) (Auto) 16 % (24-48) Monocytes (%) (Auto) 6 % (0-9) Eosinophils (%) (Auto) 0 % (0-3) Basophils (%) (Auto) 1 % (0-3) Neutrophils # (Auto) 4.6 x10^3uL (1.8-7.7) Lymphocytes # (Auto) 1.0 x10^3/uL (1.0-4.8) Monocytes # (Auto) 0.3 x10^3/uL (0.0-1.1) Eosinophils # (Auto) 0.0 x10^3/uL (0.0-0.7) Basophils # (Auto) 0.0 x10^3/uL (0.0-0.2) Sodium Level 138 mmol/L (136-145) Potassium Level 3.3 mmol/L (3.5-5.1) Chloride Level 99 mmol/L (98-107) Carbon Dioxide Level 28 mmol/L (21-32) Anion Gap 11 (6-14) Blood Urea Nitrogen 10 mg/dL (7-20) Creatinine 1.0 mg/dL (0.6-1.0) Estimated GFR (Cockcroft-Gault) 56.2 BUN/Creatinine Ratio 10 (6-20) Glucose Level 202 mg/dL (70-99) Calcium Level 9.1 mg/dL (8.5-10.1) Total Bilirubin 0.3 mg/dL (0.2-1.0) Aspartate Amino Transf (AST/SGOT) 13 U/L (15-37) Alanine Aminotransferase (ALT/SGPT) 16 U/L (14-59) Alkaline Phosphatase 77 U/L (46-116) Total Protein 7.1 g/dL (6.4-8.2) Albumin 3.3 g/dL (3.4-5.0) Albumin/Globulin Ratio 0.9 (1.0-1.7) Glucose (Fingerstick) 170 mg/dL (70-99) Laboratory Tests Test 02/21/17 16:22 02/21/17 17:35 02/21/17 20:36 02/21/17 23:25 Glucose (Fingerstick) 304 mg/dL (70-99) 256 mg/dL (70-99) Troponin I Quantitative < 0.017 ng/mL (0.000-0.055) < 0.017 ng/mL (0.000-0.055) Test 02/22/17 05:00 02/22/17 07:19 White Blood Count 5.9 x10^3/uL (4.0-11.0) Red Blood Count 4.50 x10^6/uL (3.50-5.40) Hemoglobin 13.4 g/dL (12.0-15.5) Hematocrit 40.6 % (36.0-47.0) Mean Corpuscular Volume 90 fL (79-100) Mean Corpuscular Hemoglobin 30 pg (25-35) Mean Corpuscular Hemoglobin Concent 33 g/dL (31-37) Red Cell Distribution Width 15.5 % (11.5-14.5) Platelet Count 320 x10^3/uL (140-400) Neutrophils (%) (Auto) 77 % (31-73) Lymphocytes (%) (Auto) 16 % (24-48) Monocytes (%) (Auto) 6 % (0-9) Eosinophils (%) (Auto) 0 % (0-3) Basophils (%) (Auto) 1 % (0-3) Neutrophils # (Auto) 4.6 x10^3uL (1.8-7.7) Lymphocytes # (Auto) 1.0 x10^3/uL (1.0-4.8) Monocytes # (Auto) 0.3 x10^3/uL (0.0-1.1) Eosinophils # (Auto) 0.0 x10^3/uL (0.0-0.7) Basophils # (Auto) 0.0 x10^3/uL (0.0-0.2) Sodium Level 138 mmol/L (136-145) Potassium Level 3.3 mmol/L (3.5-5.1) Chloride Level 99 mmol/L (98-107) Carbon Dioxide Level 28 mmol/L (21-32) Anion Gap 11 (6-14) Blood Urea Nitrogen 10 mg/dL (7-20) Creatinine 1.0 mg/dL (0.6-1.0) Estimated GFR (Cockcroft-Gault) 56.2 BUN/Creatinine Ratio 10 (6-20) Glucose Level 202 mg/dL (70-99) Calcium Level 9.1 mg/dL (8.5-10.1) Total Bilirubin 0.3 mg/dL (0.2-1.0) Aspartate Amino Transf (AST/SGOT) 13 U/L (15-37) Alanine Aminotransferase (ALT/SGPT) 16 U/L (14-59) Alkaline Phosphatase 77 U/L (46-116) Total Protein 7.1 g/dL (6.4-8.2) Albumin 3.3 g/dL (3.4-5.0) Albumin/Globulin Ratio 0.9 (1.0-1.7) Glucose (Fingerstick) 170 mg/dL (70-99) Meds Current Medications Acetaminophen/ Hydrocodone Bitart (Lortab 10/325) 1 tab PRN Q4HRS PRN PO PAIN Last administered on 02/22/17 06:05; Start 02/21/17 at 12:15 Acyclovir (Zovirax) 800 mg 5XDAY PO Last administered on 02/22/17 10:00; Start 02/21/17 at 14:00 Albuterol/ Ipratropium (Duoneb) 3 ml QID NEB Last administered on 02/22/17 08: 48; Start 02/21/17 at 13:00 Albuterol/ Ipratropium (Duoneb) 3 ml RTQID NEB Last administered on 02/21/17 11:51; Start 02/21/17 at 12:00; Stop 02/21/17 at 12:53; Status DC Atorvastatin Calcium (Lipitor) 80 mg QHS PO Last administered on 02/21/17 20: 38; Start 02/21/17 at 21:00 Budesonide (Pulmicort) 0.5 mg RTBID NEB Last administered on 02/22/17 08:48; Start 02/21/17 at 13:00 Cetirizine HCl (ZyrTEC) 10 mg DAILY PO ; Start 02/27/17 at 13:00 Dicyclomine HCl (Bentyl) 10 mg TID PO Last administered on 02/22/17 09:00; Start 02/21/17 at 14:00 Duloxetine HCl (Cymbalta) 60 mg DAILY PO Last administered on 02/22/17 09:00; Start 02/21/17 at 13:00 Fentanyl Citrate (Fentanyl 2ml Vial) 50 mcg PRN Q2HR PRN IV PAIN; Start at 11:45; Stop 02/21/17 at 12:17; Status DC Fentanyl Citrate (Fentanyl 2ml Vial) 50 mcg PRN Q4HRS PRN IV PAIN Last administered on 02/22/17 02:50; Start 02/21/17 at 12:15; Stop 02/22/17 at 12:14 Furosemide (Lasix) 40 mg BID92 PO Last administered on 02/22/17 09:00; Start 02/21/17 at 14:00 Guaifenesin (Robitussin Dm) 10 ml PRN Q6HRS PRN PO COUGH Last administered on 02/22/17 02:50; Start 02/21/17 at 18:30 Insulin Aspart (NovoLOG) TIDBFRMEAL SQ Last administered on 02/21/17 17:49; Start 02/21/17 at 16:30 Levothyroxine Sodium (Synthroid) 75 mcg DAILY07 PO Last administered on 06:05; Start 02/22/17 at 07:00 Linaclotide (Linzess) 145 mcg DAILYAC PO Last administered on 02/22/17 07:30; Start 02/21/17 at 12:30 Lisinopril (Prinivil) 10 mg BID PO Last administered on 02/22/17 09:00; Start 02/21/17 at 13:00 Metformin HCl (Glucophage) 500 mg BIDAC PO Last administered on 02/22/17 07:30 ; Start 02/21/17 at 16:30 Methylprednisolone Sodium Succinate (SOLU-Medrol 40MG VIAL) 40 mg Q12HR IV ; Start 02/22/17 at 21:00 Methylprednisolone Sodium Succinate (SOLU-Medrol 125MG VIAL) 60 mg Q12HR IV Last administered on 02/21/17 20:39; Start 02/21/17 at 21:00; Stop 02/22/17 at 09:33; Status DC Montelukast Sodium (Singulair) 10 mg DAILY PO Last administered on 02/22/17 09 :00; Start 02/21/17 at 13:00 Nitroglycerin (Nitro-Dur) 1 patch DAILY TD Last administered on 02/22/17 09:00 ; Start 02/21/17 at 13:00 Non-Formulary Medication 2 puff BID IH ; Start 02/21/17 at 21:00; Stop 02/21/17 at 21:00; Status DC Non-Formulary Medication 18 mcg DAILY IH ; Start 02/22/17 at 09:00; Stop at 09:00; Status DC Nystatin (Nystop) 1 georges BID TP Last administered on 02/22/17 09:00; Start 02/21/17 at 13:00 Ondansetron HCl (Zofran Odt) 8 mg PRN TID PRN PO NAUSEA/VOMITING; Start at 13:00 Pantoprazole Sodium (Protonix) 40 mg DAILYAC PO Last administered on 02/22/17 07:30; Start 02/21/17 at 16:30 Potassium Chloride (Klor-Con 8) 8 meq TID PO Last administered on 02/21/17 20: 37; Start 02/21/17 at 14:00; Stop 02/22/17 at 09:33; Status DC Potassium Chloride (Klor-Con) 20 meq 1X ONCE PO Last administered on 13:24; Start 02/21/17 at 12:45; Stop 02/21/17 at 12:48; Status DC Potassium Chloride (Klor-Con) 20 meq TIDWMEALS PO ; Start 02/22/17 at 12:00 Sucralfate (Carafate) 1 gm BIDAC PO Last administered on 02/22/17t 07:30; Start 02/21/17 at 16:30 Assessment Assessment 1. Acute bronchitis. 2. Acute exacerbation of chronic obstructive pulmonary disease. 3. Herpes zoster with pain not controlled. 4. Hypokalemia. 5. Diabetes mellitus type 2. 6. Hypertension. 7. Noncompliance. 8. Hyperlipidemia. 9. Acute on chronic respiratory failure, oxygen dependent as well as steroid dependent. PLAN: I will start her on IV Levaquin. Decrease IV steroids, Stop Acyclovir tomorrow . I will give her IV fentanyl p.r.n., but monitor her because of her respiratory failure as well as start her on hydrocodone 10/325 q.4 hours p.r.n. for pain, which she has taken previously. For details, please review the orders. Hypokalemia- K 3.3 replace. Sliding scale insulin. Plan Plan For more details regarding further plans, please refer to the orders. KAMI ROLAND MD Feb 22, 2017 10:44
[2017-02-22 10:54] VITALS: BP 106/63
[2017-02-22 14:34] VITALS: BP 115/64
[2017-02-22] MEDS: POTASSIUM CHLORIDE 20 MEQ TABLET.ER. PO SCH ×2 (14:54→17:25)
[2017-02-22 19:00] VITALS: BP 111/63
[2017-02-22] MEDS: methylPREDNISolone SOD SUCC PF 40 MG/ML VIAL. IV SCH (21:23)
[2017-02-22] MEDS: ATORVASTATIN CALCIUM 40 MG TABLET. PO SCH (21:25)
[2017-02-22 23:00] VITALS: BP 111/70
[2017-02-23] MEDS ORDERED: ZOLPIDEM 5 MG TABLET. PO ONE (00:30)
[2017-02-23] MEDS: HYDROcodone/APAP 10/325 1 TAB TABLET PO PRN ×4 (03:07→20:44)
[2017-02-23 03:09] VITALS: BP 119/66
[2017-02-23] MEDS: LEVOTHYROXINE 75 MCG TABLET PO SCH (06:47)
[2017-02-23] MEDS: ACYCLOVIR 200 MG CAPSULE. PO SCH ×4 (06:47→19:03)
[2017-02-23 07:00] VITALS: BP 109/58
[2017-02-23] MEDS: BUDESONIDE 0.5 MG/2 ML NEBU. NEB SCH ×2 (07:02→19:53)
[2017-02-23] MEDS: IPRATRPIUM/ALBUTEROL 0.5/2.5MG 3 ML NEBU. NEB SCH ×4 (07:02→19:53)
[2017-02-23] MEDS: PANTOPRAZOLE 40 MG TABLET.DR. PO SCH (07:34)
[2017-02-23] MEDS: SUCRALFATE 1 GM TABLET. PO SCH ×2 (07:35→16:31)
[2017-02-23] MEDS: LINACLOTIDE 145 MCG CAPSULE. PO SCH (07:35)
[2017-02-23] MEDS: metFORMIN 500 MG TABLET PO SCH ×2 (07:47→16:31)
[2017-02-23] MEDS: guaiFENesin DM 200MG/20MG 10 ML SYRUP PO PRN ×2 (07:47→20:43)
[2017-02-23] MEDS: INSULIN ASPART 300 UNITS/3 ML INSULN.PEN SQ SCH ×3 (07:51→17:11)
[2017-02-23 08:34] LABS: CALCIUM 8.7 mg/dL (8.5-10.1); CREATININE 0.9 mg/dL (0.6-1.0); GFR 63.4
[2017-02-23] MEDS: NYSTATIN TOPICAL POWDER 15GM BOTTLE. TP SCH ×2 (09:00→20:45)
[2017-02-23] MEDS: DICYCLOMINE HCL 10 MG CAPSULE PO SCH ×3 (09:16→20:45)
[2017-02-23] MEDS: FUROSEMIDE 40 MG TABLET. PO SCH ×2 (09:16→13:47)
[2017-02-23] MEDS: DULoxetine HCL 30 MG CAPSULE.DR PO SCH (09:16)
[2017-02-23] MEDS: MONTELUKAST SODIUM 10 MG TABLET. PO SCH (09:16)
[2017-02-23] MEDS: POTASSIUM CHLORIDE 20 MEQ TABLET.ER. PO SCH ×3 (09:17→17:09)
[2017-02-23] MEDS: LISINOPRIL 10 MG TABLET PO SCH ×2 (09:17→20:45)
[2017-02-23] MEDS: methylPREDNISolone SOD SUCC PF 40 MG/ML VIAL. IV SCH ×2 (09:17→20:43)
[2017-02-23] MEDS: NITROGLYCERIN 0.2MG/HR PATCH. TD SCH (09:19)
--- NOTE | 2017-02-23 10:07 | PDOC ---
PROGRESS NOTES Subjective Subjective feels better today.pain from herpes zoster left chest wall Objective Objective Vital Signs Date Time Temp Pulse Resp B/P (MAP) Pulse Ox O2 Delivery O2 Flow Rate FiO2 02/23/17 09:17 57 02/23/17 08:48 18 02/23/17 07:48 Nasal Cannula 02/23/17 07:02 98 3.0 02/23/17 07:00 98.1 109/58 (75) 98.1 Intake and Output 02/24/17 07:00 Output Total 1600 ml Balance -1600 ml Output Urine Total 1600 ml Physical Exam Abdomen: Normal bowel sounds, Soft Heart: Regular rate, Normal S1, Normal S2 Extremities: No clubbing General: Oriented X3 HEENT: Atraumatic Lungs: Clear to auscultation MUSCULOSKELETAL: No deformity, Osteoarthritic changes both hands Neck: Supple Neuro: Normal speech Psych/Mental Status: Mental status NL Skin: Other (rash left chest) Diagnosis Problem List Problems Medical Problems: (1) Chest pain Status: Acute (2) COPD exacerbation Status: Acute (3) Shingles Status: Acute Assessment Assessment 1. Acute bronchitis. 2. Acute exacerbation of chronic obstructive pulmonary disease. 3. Herpes zoster with pain not controlled. 4. Hypokalemia. 5. Diabetes mellitus type 2. 6. Hypertension. 7. Noncompliance. 8. Hyperlipidemia. 9. Acute on chronic respiratory failure, oxygen dependent as well as steroid dependent. PLAN: lab s better ,add fentanyl patch for pain control I will start her on IV Levaquin. Decrease IV steroids, I will give her IV fentanyl p.r.n., but monitor her because of her respiratory failure as well as start her on hydrocodone 10/325 q.4 hours p.r.n. for pain, which she has taken previously. For details, please review the orders. Hypokalemia- replaced Sliding scale insulin. Problems: Plan Plan of Care Problems Medical Problems: (1) Chest pain Status: Acute (2) COPD exacerbation Status: Acute (3) Shingles Status: Acute Comment Review of Relevant I have reviewed the following items vinny (where applicable) has been applied. Labs Laboratory Tests Test 02/22/17 11:04 02/22/17 16:28 02/22/17 20:38 02/23/17 07:43 Glucose (Fingerstick) 143 mg/dL (70-99) 146 mg/dL (70-99) 132 mg/dL (70-99) 162 mg/dL (70-99) Test 02/23/17 08:05 Sodium Level 139 mmol/L (136-145) Potassium Level 4.0 mmol/L (3.5-5.1) Chloride Level 100 mmol/L (98-107) Carbon Dioxide Level 33 mmol/L (21-32) Anion Gap 6 (6-14) Blood Urea Nitrogen 11 mg/dL (7-20) Creatinine 0.9 mg/dL (0.6-1.0) Estimated GFR (Cockcroft-Gault) 63.4 Glucose Level 170 mg/dL (70-99) Calcium Level 8.7 mg/dL (8.5-10.1) Medications Current Medications Cetirizine HCl (ZyrTEC) 10 mg DAILY PO ; Start 02/27/17 at 13:00 Levofloxacin (Levaquin) 500 mg DAILY06 PO Last administered on 02/23/17 09:19 ; Start 02/22/17 at 15:30 Methylprednisolone Sodium Succinate (SOLU-Medrol 40MG VIAL) 40 mg Q12HR IV Last administered on 02/23/17 09:17; Start 02/22/17 at 21:00 Potassium Chloride (Klor-Con) 20 meq TIDWMEALS PO Last administered on 09:17; Start 02/22/17 at 12:00 Zolpidem Tartrate (Ambien) 5 mg 1X ONCE PO Last administered on 02/23/17 00: 23; Start 02/23/17 at 00:30; Stop 02/23/17 at 00:31; Status DC Vitals/I & O Vital Sign - Last 24 Hours 02/22/17 02/22/17 02/22/17 02/22/17 10:54 11:35 11:43 14:34 Temp 97.5 97.4 97.5 97.4 Pulse 74 77 Resp 17 18 16 B/P (MAP) 106/63 (77) 115/64 (81) Pulse Ox 96 96 99 O2 Delivery Nasal Cannula Nasal Cannula Nasal Cannula Nasal Cannula O2 Flow Rate 3.0 3.0 3.0 3.0 02/22/17 02/22/17 02/22/17 02/22/17 15:36 17:26 18:30 19:00 Temp 98.5 98.5 Pulse 79 Resp 16 B/P (MAP) 111/63 (79) Pulse Ox 99 99 96 O2 Delivery Nasal Cannula Nasal Cannula Nasal Cannula O2 Flow Rate 3.0 3.0 3.0 02/22/17 02/22/17 02/22/17 02/22/17 19:52 19:53 21:20 21:24 Resp 20 O2 Delivery Nasal Cannula Nasal Cannula Nasal Cannula Room Air O2 Flow Rate 3.0 3.0 3.0 02/22/17 02/22/17 02/23/17 02/23/17 21:25 23:00 03:07 03:09 Temp 98.2 99.1 98.2 99.1 Pulse 79 71 83 Resp 18 20 20 B/P (MAP) 111/63 111/70 (84) 119/66 (83) Pulse Ox 98 94 O2 Delivery Nasal Cannula Nasal Cannula Nasal Cannula O2 Flow Rate 3.0 3.0 3.0 02/23/17 02/23/17 02/23/17 02/23/17 04:00 07:00 07:02 07:48 Temp 98.1 98.1 Pulse 64 Resp 18 18 B/P (MAP) 109/58 (75) Pulse Ox 97 98 O2 Delivery Nasal Cannula Nasal Cannula Nasal Cannula Nasal Cannula O2 Flow Rate 3.0 3.0 3.0 02/23/17 02/23/17 08:48 09:17 Pulse 57 Resp 18 Intake and Output 02/23/17 02/23/17 02/24/17 15:00 23:00 07:00 Output Total 1600 ml Balance -1600 ml MIGUEL DELAROSA MD Feb 23, 2017 10:07
[2017-02-23] MEDS ORDERED: fentaNYL 12MCG/HR PATCH 1 PATCH PATCH.TD72 TD SCH (10:30)
[2017-02-23 11:00] VITALS: BP 110/73
[2017-02-23] MEDS: ACYCLOVIR 5% TOPICAL OINT 5GM TUBE. TP SCH ×4 (11:11→20:43)
[2017-02-23 15:00] VITALS: BP 118/68
[2017-02-23 19:15] VITALS: BP 107/60
[2017-02-23] MEDS: ATORVASTATIN CALCIUM 40 MG TABLET. PO SCH (20:43)
[2017-02-23 23:00] VITALS: BP 108/60
[2017-02-24] MEDS: HYDROcodone/APAP 10/325 1 TAB TABLET PO PRN ×5 (01:59→20:44)
[2017-02-24 03:00] VITALS: BP 105/51
[2017-02-24] MEDS: ACYCLOVIR 5% TOPICAL OINT 5GM TUBE. TP SCH ×5 (06:00→22:03)
[2017-02-24] MEDS: LEVOTHYROXINE 75 MCG TABLET PO SCH (06:01)
[2017-02-24 07:09] VITALS: BP 142/95
[2017-02-24] MEDS: IPRATRPIUM/ALBUTEROL 0.5/2.5MG 3 ML NEBU. NEB SCH ×4 (07:31→19:35)
[2017-02-24] MEDS: BUDESONIDE 0.5 MG/2 ML NEBU. NEB SCH ×2 (07:31→19:35)
--- NOTE | 2017-02-24 09:27 | PDOC ---
PROGRESS NOTES Subjective Subjective pain better with fentanyl patch Objective Objective Vital Signs Date Time Temp Pulse Resp B/P (MAP) Pulse Ox O2 Delivery O2 Flow Rate FiO2 02/24/17 07:32 97 Nasal Cannula 3.0 02/24/17 07:09 98.1 71 17 142/95 (111) 98.1 Physical Exam Abdomen: Normal bowel sounds, Soft Heart: Regular rate, Normal S1, Normal S2 Extremities: No clubbing General: Oriented X3 HEENT: Atraumatic Lungs: Clear to auscultation MUSCULOSKELETAL: No deformity, Osteoarthritic changes both hands Neck: Supple Neuro: Normal speech Psych/Mental Status: Mental status NL Skin: Other (rash left chest) Diagnosis Problem List Problems Medical Problems: (1) Chest pain Status: Acute (2) COPD exacerbation Status: Acute (3) Shingles Status: Acute Assessment Assessment 1. Acute bronchitis. 2. Acute exacerbation of chronic obstructive pulmonary disease. 3. Herpes zoster with pain not controlled. 4. Hypokalemia. 5. Diabetes mellitus type 2. 6. Hypertension. 7. Noncompliance. 8. Hyperlipidemia. 9. Acute on chronic respiratory failure, oxygen dependent as well as steroid dependent. PLAN: pain control better on fentanyl patch. d/c home tomorrow. lab s better ,add fentanyl patch for pain control d/c levaquin. oral prednisone, I will give her IV fentanyl p.r.n., but monitor her because of her respiratory failure as well as start her on hydrocodone 10/325 q.4 hours p.r.n. for pain, which she has taken previously. For details, please review the orders. Hypokalemia- replaced Sliding scale insulin. Problems: Plan Plan of Care Problems Medical Problems: (1) Chest pain Status: Acute (2) COPD exacerbation Status: Acute (3) Shingles Status: Acute Comment Review of Relevant I have reviewed the following items vinny (where applicable) has been applied. Labs Laboratory Tests Test 02/23/17 11:13 02/23/17 16:17 02/23/17 20:44 02/24/17 06:59 Glucose (Fingerstick) 135 mg/dL (70-99) 156 mg/dL (70-99) 172 mg/dL (70-99) 153 mg/dL (70-99) Medications Current Medications Acyclovir (Zovirax) 1 georges 5XDAY TP Last administered on 02/24/17 06:00; Start 02/23/17 at 11:00 Cetirizine HCl (ZyrTEC) 10 mg DAILY PO ; Start 02/27/17 at 13:00 Fentanyl (Duragesic 12mcg/ Hr Patch) 1 patch Q3DAYS TD Last administered on t 10:22; Start 02/23/17 at 10:30 Vitals/I & O Vital Sign - Last 24 Hours 02/23/17 02/23/17 02/23/17 02/23/17 10:22 11:00 11:07 14:22 Temp 97.9 97.9 Pulse 66 Resp 20 18 B/P (MAP) 110/73 (85) Pulse Ox 96 97 O2 Delivery Nasal Cannula Nasal Cannula Nasal Cannula Nasal Cannula O2 Flow Rate 2.0 3.0 3.0 2.0 02/23/17 02/23/17 02/23/17 02/23/17 15:00 15:30 16:03 19:05 Temp 98.1 98.1 Pulse 69 Resp 18 B/P (MAP) 118/68 (85) Pulse Ox 98 O2 Delivery Nasal Cannula Nasal Cannula Nasal Cannula Nasal Cannula O2 Flow Rate 3.0 3.0 2.0 2.0 02/23/17 02/23/17 02/23/17 02/23/17 19:15 19:54 20:44 20:45 Temp 98.6 98.6 Pulse 81 69 Resp 16 16 B/P (MAP) 107/60 (76) 106/70 Pulse Ox 95 98 O2 Delivery Nasal Cannula Nasal Cannula Nasal Cannula O2 Flow Rate 3.0 3.0 3.0 02/23/17 02/24/17 02/24/17 02/24/17 23:00 01:59 03:00 06:01 Temp 98.6 98.4 98.6 98.4 Pulse 75 77 Resp 16 16 16 16 B/P (MAP) 108/60 (76) 105/51 (69) Pulse Ox 93 93 93 93 O2 Delivery Room Air Nasal Cannula Nasal Cannula Nasal Cannula O2 Flow Rate 3.0 2.0 2.0 02/24/17 02/24/17 02/24/17 06:46 07:09 07:32 Temp 98.1 98.1 Pulse 71 Resp 18 17 B/P (MAP) 142/95 (111) Pulse Ox 93 93 97 O2 Delivery Nasal Cannula Nasal Cannula Nasal Cannula O2 Flow Rate 2.0 2.0 3.0 MIGUEL DELAROSA MD Feb 24, 2017 09:27
[2017-02-24] MEDS ORDERED: predniSONE 20 MG TABLET PO ONE (09:30)
[2017-02-24] MEDS: SUCRALFATE 1 GM TABLET. PO SCH ×2 (10:03→18:56)
[2017-02-24] MEDS: metFORMIN 500 MG TABLET PO SCH ×2 (10:03→18:56)
[2017-02-24] MEDS: LINACLOTIDE 145 MCG CAPSULE. PO SCH (10:04)
[2017-02-24] MEDS: PANTOPRAZOLE 40 MG TABLET.DR. PO SCH (10:04)
[2017-02-24] MEDS: POTASSIUM CHLORIDE 20 MEQ TABLET.ER. PO SCH ×3 (10:05→18:57)
[2017-02-24] MEDS: DULoxetine HCL 30 MG CAPSULE.DR PO SCH (10:06)
[2017-02-24] MEDS: DICYCLOMINE HCL 10 MG CAPSULE PO SCH ×3 (10:06→20:43)
[2017-02-24] MEDS: FUROSEMIDE 40 MG TABLET. PO SCH ×2 (10:07→14:28)
[2017-02-24] MEDS: LISINOPRIL 10 MG TABLET PO SCH ×2 (10:07→20:43)
[2017-02-24] MEDS: MONTELUKAST SODIUM 10 MG TABLET. PO SCH (10:08)
[2017-02-24] MEDS: NITROGLYCERIN 0.2MG/HR PATCH. TD SCH (10:09)
[2017-02-24] MEDS: NYSTATIN TOPICAL POWDER 15GM BOTTLE. TP SCH ×2 (10:10→20:44)
[2017-02-24] MEDS: guaiFENesin DM 200MG/20MG 10 ML SYRUP PO PRN (10:10)
[2017-02-24] MEDS: INSULIN ASPART 300 UNITS/3 ML INSULN.PEN SQ SCH ×3 (10:17→19:01)
[2017-02-24 11:18] VITALS: BP 115/54
[2017-02-24 14:45] VITALS: BP 124/72
[2017-02-24 19:15] VITALS: BP 105/61
[2017-02-24] MEDS: ATORVASTATIN CALCIUM 40 MG TABLET. PO SCH (20:43)
[2017-02-24] MEDS ORDERED: ZOLPIDEM 5 MG TABLET. PO PRN (21:30)
[2017-02-24 23:15] VITALS: BP 98/55
[2017-02-25] MEDS: HYDROcodone/APAP 10/325 1 TAB TABLET PO PRN ×2 (02:34→06:34)
[2017-02-25 03:00] VITALS: BP 108/67
[2017-02-25] MEDS: ACYCLOVIR 5% TOPICAL OINT 5GM TUBE. TP SCH ×2 (06:23→08:41)
[2017-02-25] MEDS: LEVOTHYROXINE 75 MCG TABLET PO SCH (06:23)
[2017-02-25 07:00] VITALS: BP 91/59
[2017-02-25] MEDS: IPRATRPIUM/ALBUTEROL 0.5/2.5MG 3 ML NEBU. NEB SCH ×2 (08:18→11:04)
[2017-02-25] MEDS: BUDESONIDE 0.5 MG/2 ML NEBU. NEB SCH (08:18)
[2017-02-25] MEDS: DULoxetine HCL 30 MG CAPSULE.DR PO SCH (08:36)
[2017-02-25] MEDS: LISINOPRIL 10 MG TABLET PO SCH (08:36)
[2017-02-25] MEDS: FUROSEMIDE 40 MG TABLET. PO SCH (08:37)
[2017-02-25] MEDS: POTASSIUM CHLORIDE 20 MEQ TABLET.ER. PO SCH (08:37)
[2017-02-25] MEDS: MONTELUKAST SODIUM 10 MG TABLET. PO SCH (08:37)
[2017-02-25] MEDS: DICYCLOMINE HCL 10 MG CAPSULE PO SCH (08:37)
[2017-02-25] MEDS: PANTOPRAZOLE 40 MG TABLET.DR. PO SCH (08:38)
[2017-02-25] MEDS: guaiFENesin DM 200MG/20MG 10 ML SYRUP PO PRN (08:38)
[2017-02-25] MEDS: LINACLOTIDE 145 MCG CAPSULE. PO SCH (08:38)
[2017-02-25] MEDS: SUCRALFATE 1 GM TABLET. PO SCH (08:38)
[2017-02-25] MEDS: metFORMIN 500 MG TABLET PO SCH (08:38)
[2017-02-25] MEDS: NITROGLYCERIN 0.2MG/HR PATCH. TD SCH (08:41)
[2017-02-25] MEDS: NYSTATIN TOPICAL POWDER 15GM BOTTLE. TP SCH (08:41)
[2017-02-25] MEDS: INSULIN ASPART 300 UNITS/3 ML INSULN.PEN SQ SCH (08:46)
[2017-02-25] MEDS ORDERED: predniSONE 20 MG TABLET PO SCH (09:00)
--- NOTE | 2017-02-25 09:59 | PDOC ---
PROGRESS NOTES Subjective Subjective feels better ready to go home Objective Objective Vital Signs Date Time Temp Pulse Resp B/P (MAP) Pulse Ox O2 Delivery O2 Flow Rate FiO2 02/25/17 08:39 18 95 Nasal Cannula 3.0 02/25/17 08:36 74 91/59 02/25/17 07:00 98.9 98.9 Physical Exam Abdomen: Normal bowel sounds, Soft Heart: Regular rate, Normal S1, Normal S2 Extremities: No clubbing General: Oriented X3 HEENT: Atraumatic Lungs: Clear to auscultation MUSCULOSKELETAL: No deformity, Osteoarthritic changes both hands Neck: Supple Neuro: Normal speech Psych/Mental Status: Mental status NL Skin: Other (rash left chest) Diagnosis Problem List Problems Medical Problems: (1) Chest pain Status: Acute (2) COPD exacerbation Status: Acute (3) Shingles Status: Acute Assessment Assessment 1. Acute bronchitis improved. 2. Acute exacerbation of chronic obstructive pulmonary disease. 3. Herpes zoster with pain not controlled. 4. Hypokalemia. 5. Diabetes mellitus type 2. 6. Hypertension. 7. Noncompliance. 8. Hyperlipidemia. 9. Acute on chronic respiratory failure, oxygen dependent as well as steroid dependent. PLAN: d/c home today pain control better on fentanyl patch. lab s better ,add fentanyl patch for pain control d/c levaquin, cxr -ve. oral prednisone 25 mg x 7 days and dec to 10 mg maintenance dose daily, had flue shot and up to date on Pneumovax Problems: Plan Plan of Care Problems Medical Problems: (1) Chest pain Status: Acute (2) COPD exacerbation Status: Acute (3) Shingles Status: Acute Comment Review of Relevant I have reviewed the following items vinny (where applicable) has been applied. Labs Laboratory Tests Test 02/24/17 11:01 02/24/17 16:15 02/24/17 21:01 02/25/17 07:25 Glucose (Fingerstick) 121 mg/dL (70-99) 252 mg/dL (70-99) 183 mg/dL (70-99) 97 mg/dL (70-99) Medications Current Medications Cetirizine HCl (ZyrTEC) 10 mg DAILY PO ; Start 02/27/17 at 13:00 Prednisone (Prednisone) 40 mg DAILY PO Last administered on 02/25/17t 08:38; Start 02/25/17 at 09:00 Zolpidem Tartrate (Ambien) 5 mg PRN QHS PRN PO INSOMNIA Last administered on t 22:02; Start 02/24/17 at 21:30 Vitals/I & O Vital Sign - Last 24 Hours 02/24/17 02/24/17 02/24/17 02/24/17 10:07 10:11 11:18 11:41 Temp 98.0 98.0 Pulse 71 80 Resp 20 18 B/P (MAP) 142/95 115/54 (74) Pulse Ox 97 95 O2 Delivery Nasal Cannula Nasal Cannula Nasal Cannula O2 Flow Rate 3.0 3.0 3.0 02/24/17 02/24/17 02/24/17 02/24/17 14:28 14:45 15:43 19:15 Temp 97.7 98.1 97.7 98.1 Pulse 78 77 Resp 20 18 16 B/P (MAP) 124/72 (89) 105/61 (76) Pulse Ox 95 95 96 O2 Delivery Nasal Cannula Room Air Nasal Cannula Nasal Cannula O2 Flow Rate 3.0 3.0 3.0 02/24/17 02/24/17 02/24/17 02/24/17 19:37 19:41 19:45 20:43 Pulse 77 B/P (MAP) 105/61 Pulse Ox 94 94 O2 Delivery Nasal Cannula Nasal Cannula Nasal Cannula O2 Flow Rate 3.0 3.0 3.0 02/24/17 02/24/17 02/25/17 02/25/17 20:44 23:15 02:34 03:00 Temp 98.5 96.8 98.5 96.8 Pulse 66 70 Resp 16 18 18 B/P (MAP) 98/55 (69) 108/67 (81) Pulse Ox 93 93 98 O2 Delivery Nasal Cannula Nasal Cannula Nasal Cannula Nasal Cannula O2 Flow Rate 3.0 3.0 3.0 3.0 02/25/17 02/25/17 02/25/17 02/25/17 06:34 07:00 08:00 08:20 Temp 98.9 98.9 Pulse 74 Resp 17 B/P (MAP) 91/59 (70) Pulse Ox 96 95 O2 Delivery Nasal Cannula Nasal Cannula Nasal Cannula Nasal Cannula O2 Flow Rate 3.0 3.0 3.0 3.0 02/25/17 02/25/17 08:36 08:39 Pulse 74 Resp 18 B/P (MAP) 91/59 Pulse Ox 95 O2 Delivery Nasal Cannula O2 Flow Rate 3.0 MIGUEL DELAROSA MD Feb 25, 2017 09:59
[2017-02-25] MEDS ORDERED: PRED20TA PO (10:02)
[2017-02-25] MEDS ORDERED: FENT1PAT13 TP (10:02)
[2017-02-25 10:47] VITALS: BP 111/70
[2017-02-27] MEDS ORDERED: CETIRIZINE HCL 10 MG TABLET. PO SCH (13:00)
== END 2017-02-25 11:53 | disposition home or self-care (01) | DRG 189 ==
LOC: ER 09:47 → 5 NORTH 11:33
PROVIDERS: ADMIT Internal Medicine; ATTEND Internal Medicine
DX: J96.20 Acute and chronic respiratory failure, unspecified whether with hypoxia or hypercapnia (principal); Z99.81 Dependence on supplemental oxygen; J44.0 Chronic obstructive pulmonary disease with (acute) lower respiratory infection; B02.9 Zoster without complications; J44.1 Chronic obstructive pulmonary disease with (acute) exacerbation; I48.91 Unspecified atrial fibrillation; I10 Essential (primary) hypertension; J20.9 Acute bronchitis, unspecified; M54.9 Dorsalgia, unspecified; E11.9 Type 2 diabetes mellitus without complications; E78.00 Pure hypercholesterolemia, unspecified; G89.29 Other chronic pain; F41.9 Anxiety disorder, unspecified; F32.9 Major depressive disorder, single episode, unspecified; E78.5 Hyperlipidemia, unspecified; E87.6 Hypokalemia; Z79.52 Long term (current) use of systemic steroids; Z83.3 Family history of diabetes mellitus; Z87.891 Personal history of nicotine dependence; Z90.710 Acquired absence of both cervix and uterus; Z91.19 Patient's noncompliance with other medical treatment and regimen; Z90.49 Acquired absence of other specified parts of digestive tract; Z90.89 Acquired absence of other organs; Z88.1 Allergy status to other antibiotic agents; Z88.8 Allergy status to other drugs, medicaments and biological substances; Z82.49 Family history of ischemic heart disease and other diseases of the circulatory system
CPT/HCPCS: 36415; 71010; 80048; 80053; 82553; 82962; 83735; 83880; 84484; 85025; 93005; 94250; 94640; 94760; 96374; J1815; J2920; J2930; J3010; J7512; J7620; J7626; 99285-25

== ENCOUNTER 2017-05-16 17:08 | Emergency (ER) | payer OTHER ==
[2017-05-16 17:36] LABS: ADD MAN DIFF? NO
[2017-05-16 17:38] LABS: BASO # 0.1 x10^3/uL (0.0-0.2); BASO % 1 % (0-3); EOS % 1 % (0-3); HEMATOCRIT 40.9 % (36.0-47.0); HEMOGLOBIN 13.7 g/dL (12.0-15.5); LYMPH # 1.5 x10^3/uL (1.0-4.8); LYMPH % 16 % (24-48); MEAN CORPUSCULAR HEMOGLOBIN 31 pg (25-35); MEAN CORPUSCULAR HGB CONC 33 g/dL (31-37); MEAN CORPUSCULAR VOLUME 91 fL (79-100); MONO % 10 % (0-9); NEUT % 74 % (31-73); PLATELET COUNT 251 x10^3/uL (140-400); RED BLOOD COUNT 4.48 x10^6/uL (3.50-5.40); RED CELL DISTRIBUTION WIDTH 12.8 % (11.5-14.5); WHITE BLOOD COUNT 9.9 x10^3/uL (4.0-11.0)
[2017-05-16 17:51] LABS: ANION GAP 8 (6-14); BLOOD UREA NITROGEN 8 mg/dL (7-20); CALCIUM 9.3 mg/dL (8.5-10.1); CARBON DIOXIDE 32 mmol/L (21-32); CHLORIDE 102 mmol/L (98-107); CREATININE 0.9 mg/dL (0.6-1.0); GFR 63.4; GLUCOSE 133 mg/dL (70-99); POTASSIUM 3.1 mmol/L (3.5-5.1); SODIUM 142 mmol/L (136-145)
[2017-05-16 18:00] LABS: TROPONINI < 0.017 ng/mL (0.000-0.055)
[2017-05-16 18:03] LABS: NT-PRO BNP 251 pg/mL (0-124)
[2017-05-16] MEDS: ACETAMINOPHEN 325 MG TABLET. PO (18:28)
[2017-05-16] MEDS: IV NORMAL SALINE 500ML BAG 500 ML IV (18:29)
[2017-05-16] MEDS: IPRATRPIUM/ALBUTEROL 0.5/2.5MG 3 ML NEBU. NEB (18:36)
[2017-05-16] MEDS: POTASSIUM CHLORIDE 20 MEQ TABLET.ER. PO (20:46)
[2017-05-16 20:58] LABS: TROPONIN BY ISTAT 0.01 ng/ml (<0.08)
[2017-05-16] MEDS: DEXAMETHASONE SOD PHOS 4 MG/ML VIAL IV (21:23)
== END 2017-05-16 21:54 | disposition home or self-care (01) ==
LOC: ER 17:08
DX: J44.9 Chronic obstructive pulmonary disease, unspecified (principal); E11.9 Type 2 diabetes mellitus without complications; E78.00 Pure hypercholesterolemia, unspecified; I10 Essential (primary) hypertension; G89.29 Other chronic pain; Z90.49 Acquired absence of other specified parts of digestive tract; Z90.711 Acquired absence of uterus with remaining cervical stump; Z88.1 Allergy status to other antibiotic agents; Z88.8 Allergy status to other drugs, medicaments and biological substances
CPT/HCPCS: 36415; 71010; 80048; 83880; 84484; 85025; 93005; 94640; 96361; 96374; 99285-25; J1100; J7040; J7620

== ENCOUNTER 2017-06-04 20:16 | Emergency (ER) | payer OTHER ==
[2017-06-04] MEDS: ONDANSETRON ODT 4 MG TAB.RAPDIS. PO ×2 (21:30→21:40)
== END 2017-06-04 23:02 | disposition home or self-care (01) ==
LOC: ER 20:16
DX: S06.0X0A Concussion without loss of consciousness, initial encounter (principal); S01.81XA Laceration without foreign body of other part of head, initial encounter; E78.00 Pure hypercholesterolemia, unspecified; E11.9 Type 2 diabetes mellitus without complications; I10 Essential (primary) hypertension; G89.29 Other chronic pain; J43.9 Emphysema, unspecified; Z99.81 Dependence on supplemental oxygen; Z90.49 Acquired absence of other specified parts of digestive tract; Z90.711 Acquired absence of uterus with remaining cervical stump; Z88.1 Allergy status to other antibiotic agents; Z88.8 Allergy status to other drugs, medicaments and biological substances; W18.39XA Other fall on same level, initial encounter; Y93.89 Activity, other specified; Y99.8 Other external cause status; Y92.89 Other specified places as the place of occurrence of the external cause
CPT/HCPCS: 70450; 99284-25; Q0162

== ENCOUNTER 2017-06-25 14:51 | Inpatient (IN) | payer OTHER ==
[2017-06-25 16:14] LABS: POC GLUCOSE 103 mg/dL (70-99)
[2017-06-25] MEDS ORDERED: DEXTROSE 50% 25 GM / 50ML DISP.SYRIN. IV (17:30)
[2017-06-25] MEDS ORDERED: NON FORMULARY ITEM (Alendronate Sodium (Fosamax) 70 MG) PO (17:30)
[2017-06-25] MEDS ORDERED: ONDANSETRON ODT 4 MG TAB.RAPDIS. PO (17:45)
[2017-06-25] MEDS: metFORMIN 500 MG TABLET PO (18:15)
[2017-06-25] MEDS: ENOXAPARIN 40 MG/0.4 ML SYRINGE. SQ (18:16)
[2017-06-25] MEDS: IV DEXTROSE 5 %-0.45 % NACL 1,000 ML IV (18:16)
[2017-06-25] MEDS ORDERED: ALBUTEROL SULFATE 2.5 MG/3 ML NEBU. NEB (18:30)
[2017-06-25] MEDS: cefTRIAXone IV Push 1 GM VIAL. IVP (18:30)
[2017-06-25] MEDS: IPRATRPIUM/ALBUTEROL 0.5/2.5MG 3 ML NEBU. NEB (20:00)
[2017-06-25] MEDS: BUDESONIDE 0.5 MG/2 ML NEBU. NEB (20:00)
[2017-06-25] MEDS: ATORVASTATIN CALCIUM 40 MG TABLET. PO (20:43)
[2017-06-25] MEDS: diphenhydrAMINE HCL 25 MG CAPSULE PO (20:44)
[2017-06-25] MEDS: CYCLOBENZAPRINE 10 MG TABLET. PO (20:45)
[2017-06-25] MEDS: diazePAM 5 MG TABLET PO (20:45)
[2017-06-25] MEDS: GABAPENTIN 300 MG CAPSULE. PO (20:45)
[2017-06-25] MEDS: FLUTICASONE 50MCG/NASAL SPRAY 16GM BOTTLE. NS (20:46)
[2017-06-25] MEDS: DULoxetine HCL 30 MG CAPSULE.DR PO (20:46)
[2017-06-25] MEDS: DICYCLOMINE HCL 10 MG CAPSULE PO (20:46)
[2017-06-25] MEDS: SUCRALFATE 1 GM TABLET. PO (20:46)
[2017-06-25] MEDS: METHYL SALICYLATE/MENTHOL TOPICAL OINTMENT 29GM TUBE. TP (20:47)
[2017-06-25] MEDS: NYSTATIN 100,000 UNITS/ML 5 ML ORAL.SUSP. SWSW (20:49)
[2017-06-25] MEDS: NYSTATIN TOPICAL POWDER 15GM BOTTLE. TP (20:50)
[2017-06-25] MEDS ORDERED: NON FORMULARY ITEM (Fluticasone Propionate (Flovent 44MCG Hfa) 2 PUFF) IH (21:00)
[2017-06-25] MEDS: LISINOPRIL 10 MG TABLET PO (21:00)
[2017-06-25] MEDS ORDERED: NON FORMULARY ITEM (Albuterol Sulfate (Albuterol Sulfate Neb Soln) 0.63 MG) IH (21:00)
[2017-06-25] MEDS ORDERED: NON FORMULARY ITEM (Fluticasone/Salmeterol (Advair 500-50 Diskus) 1 EACH) IH (21:00)
[2017-06-25 21:44] LABS: ALBUMIN/GLOBULIN RATIO 0.9 (1.0-1.7); ALK PHOS 74 U/L (46-116); ALT (SGPT) 12 U/L (14-59); ANION GAP 2 (6-14); AST (SGOT) 17 U/L (15-37); BLOOD UREA NITROGEN 8 mg/dL (7-20); BUN/CREATININE RATIO 9 (6-20); CALCIUM 8.2 mg/dL (8.5-10.1); CARBON DIOXIDE 36 mmol/L (21-32); CHLORIDE 103 mmol/L (98-107); CREATININE 0.9 mg/dL (0.6-1.0); GFR 63.4; GLUCOSE 136 mg/dL (70-99); POTASSIUM 3.4 mmol/L (3.5-5.1); SODIUM 141 mmol/L (136-145); TOTAL BILIRUBIN 0.3 mg/dL (0.2-1.0); TOTAL PROTEIN 6.3 g/dL (6.4-8.2)
[2017-06-25 21:56] LABS: POC GLUCOSE 116 mg/dL (70-99)
[2017-06-25] MEDS: HYDROcodone/APAP 10/325 1 TAB TABLET PO (22:06)
[2017-06-25] MEDS: CHOLESTYRAMINE/ASPARTAME 4 GM PACKET PO (22:06)
[2017-06-26] MEDS: IV DEXTROSE 5 %-0.45 % NACL 1,000 ML IV ×3 (04:00→23:16)
[2017-06-26 05:18] LABS: ADD MAN DIFF? NO
[2017-06-26 05:47] LABS: BASO # 0.1 x10^3/uL (0.0-0.2); BASO % 1 % (0-3); EOS # 0.1 x10^3/uL (0.0-0.7); EOS % 2 % (0-3); HEMATOCRIT 40.1 % (36.0-47.0); HEMOGLOBIN 13.5 g/dL (12.0-15.5); LYMPH % 31 % (24-48); MEAN CORPUSCULAR HEMOGLOBIN 31 pg (25-35); MEAN CORPUSCULAR HGB CONC 34 g/dL (31-37); MEAN CORPUSCULAR VOLUME 92 fL (79-100); MONO # 0.8 x10^3/uL (0.0-1.1); MONO % 12 % (0-9); NEUT # 3.6 x10^3uL (1.8-7.7); NEUT % 55 % (31-73); PLATELET COUNT 211 x10^3/uL (140-400); RED BLOOD COUNT 4.34 x10^6/uL (3.50-5.40); RED CELL DISTRIBUTION WIDTH 13.3 % (11.5-14.5); WHITE BLOOD COUNT 6.6 x10^3/uL (4.0-11.0)
[2017-06-26 06:36] LABS: ANION GAP 7 (6-14); BLOOD UREA NITROGEN 7 mg/dL (7-20); CALCIUM 8.4 mg/dL (8.5-10.1); CARBON DIOXIDE 35 mmol/L (21-32); CHLORIDE 102 mmol/L (98-107); CHOLESTEROL 88 mg/dL (0-200); CREATININE 0.8 mg/dL (0.6-1.0); GFR 72.7; GLUCOSE 103 mg/dL (70-99); HDLC 29 mg/dL (40-60); LDLC 36 mg/dL (0-100); NON-HDL CHOLESTEROL 59 mg/dL (0-129); POTASSIUM 3.3 mmol/L (3.5-5.1); SODIUM 144 mmol/L (136-145); TRIGLYCERIDES 114 mg/dL (0-150); VLDLC 23 mg/dL (0-40)
[2017-06-26 06:43] LABS: THYROID STIM HORMONE (TSH) 3.126 uIU/mL (0.358-3.74)
[2017-06-26] MEDS: LINACLOTIDE 145 MCG CAPSULE. PO (07:37)
[2017-06-26] MEDS: metFORMIN 500 MG TABLET PO ×2 (07:37→18:07)
[2017-06-26] MEDS: LEVOTHYROXINE 150 MCG TABLET PO (07:37)
[2017-06-26] MEDS: LANSOPRAZOLE 30 MG TAB.RAP.DR PO (07:37)
[2017-06-26] MEDS: INSULIN ASPART 300 UNITS/3 ML INSULN.PEN SQ ×3 (08:00→18:14)
[2017-06-26 08:07] LABS: POC GLUCOSE 128 mg/dL (70-99)
[2017-06-26] MEDS: LIDOCAINE (700MG/PATCH) PATCH. TP (09:00)
[2017-06-26] MEDS ORDERED: NON FORMULARY ITEM (Tiotropium Bromide (Spiriva) 18 MCG) IH (09:00)
[2017-06-26] MEDS: NYSTATIN 100,000 UNITS/ML 5 ML ORAL.SUSP. SWSW ×3 (09:00→17:00)
[2017-06-26] MEDS: BUDESONIDE 0.5 MG/2 ML NEBU. NEB ×2 (09:06→19:58)
[2017-06-26] MEDS: IPRATRPIUM/ALBUTEROL 0.5/2.5MG 3 ML NEBU. NEB ×4 (09:06→19:58)
[2017-06-26] MEDS: POTASSIUM CHLORIDE 10 MEQ TABLET.ER. PO ×3 (09:37→17:00)
[2017-06-26] MEDS: CETIRIZINE HCL 10 MG TABLET. PO (09:37)
[2017-06-26] MEDS: SUCRALFATE 1 GM TABLET. PO ×2 (09:37→21:20)
[2017-06-26] MEDS: DICYCLOMINE HCL 10 MG CAPSULE PO ×3 (09:37→21:15)
[2017-06-26] MEDS: CALCIUM CARB/VIT D3 500/200 TABLET. PO ×2 (09:38→18:07)
[2017-06-26] MEDS: MONTELUKAST SODIUM 10 MG TABLET. PO (09:38)
[2017-06-26] MEDS: GABAPENTIN 300 MG CAPSULE. PO ×3 (09:38→21:13)
[2017-06-26] MEDS: HYDROcodone/APAP 10/325 1 TAB TABLET PO ×2 (09:38→21:14)
[2017-06-26] MEDS: predniSONE 10 MG TABLET PO (09:38)
[2017-06-26] MEDS: FUROSEMIDE 40 MG TABLET. PO ×2 (09:38→15:23)
[2017-06-26] MEDS: DULoxetine HCL 30 MG CAPSULE.DR PO ×2 (09:38→21:15)
[2017-06-26] MEDS: FENOFIBRATE,MICRONIZED 134 MG CAPSULE PO (09:39)
[2017-06-26] MEDS: LISINOPRIL 10 MG TABLET PO ×2 (09:39→21:15)
[2017-06-26] MEDS: MELOXICAM 7.5 MG TABLET PO (09:40)
[2017-06-26] MEDS: METHYL SALICYLATE/MENTHOL TOPICAL OINTMENT 29GM TUBE. TP ×3 (09:40→21:17)
[2017-06-26] MEDS: diazePAM 5 MG TABLET PO ×3 (09:40→21:14)
[2017-06-26] MEDS: FLUTICASONE 50MCG/NASAL SPRAY 16GM BOTTLE. NS ×2 (09:40→21:17)
[2017-06-26] MEDS: CYCLOBENZAPRINE 10 MG TABLET. PO ×2 (09:40→21:15)
[2017-06-26] MEDS: NITROGLYCERIN 0.2MG/HR PATCH. TD (09:41)
[2017-06-26] MEDS: NYSTATIN TOPICAL POWDER 15GM BOTTLE. TP ×2 (09:41→21:17)
[2017-06-26] MEDS: POTASSIUM CHLORIDE 20 MEQ TABLET.ER. PO ×2 (09:44→12:49)
[2017-06-26] MEDS: CHOLESTYRAMINE/ASPARTAME 4 GM PACKET PO ×3 (09:44→21:16)
[2017-06-26 10:39] LABS: INFLUENZA A PATIENT NEGATIVE (NEGATIVE); INFLUENZA B PATIENT NEGATIVE (NEGATIVE)
[2017-06-26 10:40] LABS: OBC FLU VALID
[2017-06-26 11:40] LABS: POC GLUCOSE 111 mg/dL (70-99)
[2017-06-26] MEDS: LACTOBACILLUS RHAMNOSUS GG 1 CAPSULE. PO ×2 (15:22→21:16)
[2017-06-26 17:28] LABS: POC GLUCOSE 262 mg/dL (70-99)
[2017-06-26] MEDS: ENOXAPARIN 40 MG/0.4 ML SYRINGE. SQ (18:07)
[2017-06-26] MEDS: cefTRIAXone IV Push 1 GM VIAL. IVP (18:08)
[2017-06-26 20:55] LABS: POC GLUCOSE 201 mg/dL (70-99)
[2017-06-26] MEDS: traMADol 50 MG TABLET PO (21:13)
[2017-06-26] MEDS: ZOLPIDEM 5 MG TABLET. PO (21:14)
[2017-06-26] MEDS: ATORVASTATIN CALCIUM 40 MG TABLET. PO (21:15)
[2017-06-26] MEDS: diphenhydrAMINE HCL 25 MG CAPSULE PO (21:15)
[2017-06-26 23:12] LABS: HEMOGLOBIN A1C 5.4 % (4.8-5.6)
[2017-06-27] MEDS: IV DEXTROSE 5 %-0.45 % NACL 1,000 ML IV ×2 (00:15→05:29)
[2017-06-27 06:35] LABS: ANION GAP 10 (6-14); BLOOD UREA NITROGEN 4 mg/dL (7-20); CALCIUM 9.3 mg/dL (8.5-10.1); CARBON DIOXIDE 30 mmol/L (21-32); CHLORIDE 104 mmol/L (98-107); CREATININE 0.7 mg/dL (0.6-1.0); GFR 84.8; GLUCOSE 142 mg/dL (70-99); POTASSIUM 4.6 mmol/L (3.5-5.1); SODIUM 144 mmol/L (136-145)
[2017-06-27] MEDS: IPRATRPIUM/ALBUTEROL 0.5/2.5MG 3 ML NEBU. NEB ×4 (07:16→20:58)
[2017-06-27] MEDS: BUDESONIDE 0.5 MG/2 ML NEBU. NEB ×2 (07:16→20:58)
[2017-06-27 07:45] LABS: POC GLUCOSE 83 mg/dL (70-99)
[2017-06-27] MEDS: INSULIN ASPART 300 UNITS/3 ML INSULN.PEN SQ ×3 (08:00→17:00)
[2017-06-27] MEDS: diazePAM 5 MG TABLET PO ×3 (09:00→21:31)
[2017-06-27] MEDS: MELOXICAM 7.5 MG TABLET PO (09:00)
[2017-06-27] MEDS: CYCLOBENZAPRINE 10 MG TABLET. PO ×2 (09:00→21:33)
[2017-06-27] MEDS: LIDOCAINE (700MG/PATCH) PATCH. TP (09:00)
[2017-06-27] MEDS: LINACLOTIDE 145 MCG CAPSULE. PO (09:06)
[2017-06-27] MEDS: LISINOPRIL 10 MG TABLET PO ×2 (09:06→21:32)
[2017-06-27] MEDS: metFORMIN 500 MG TABLET PO ×2 (09:06→17:04)
[2017-06-27] MEDS: CETIRIZINE HCL 10 MG TABLET. PO (09:06)
[2017-06-27] MEDS: FENOFIBRATE,MICRONIZED 134 MG CAPSULE PO (09:07)
[2017-06-27] MEDS: predniSONE 10 MG TABLET PO (09:07)
[2017-06-27] MEDS: SUCRALFATE 1 GM TABLET. PO ×2 (09:07→21:33)
[2017-06-27] MEDS: DULoxetine HCL 30 MG CAPSULE.DR PO ×2 (09:07→21:28)
[2017-06-27] MEDS: GABAPENTIN 300 MG CAPSULE. PO ×3 (09:07→21:34)
[2017-06-27] MEDS: DICYCLOMINE HCL 10 MG CAPSULE PO ×3 (09:07→21:27)
[2017-06-27] MEDS: CALCIUM CARB/VIT D3 500/200 TABLET. PO ×2 (09:08→17:04)
[2017-06-27] MEDS: FUROSEMIDE 40 MG TABLET. PO ×2 (09:08→13:19)
[2017-06-27] MEDS: LEVOTHYROXINE 150 MCG TABLET PO (09:08)
[2017-06-27] MEDS: POTASSIUM CHLORIDE 10 MEQ TABLET.ER. PO ×3 (09:08→17:04)
[2017-06-27] MEDS: LACTOBACILLUS RHAMNOSUS GG 1 CAPSULE. PO ×2 (09:08→21:28)
[2017-06-27] MEDS: LANSOPRAZOLE 30 MG TAB.RAP.DR PO (09:08)
[2017-06-27] MEDS: MONTELUKAST SODIUM 10 MG TABLET. PO (09:08)
[2017-06-27] MEDS: FLUTICASONE 50MCG/NASAL SPRAY 16GM BOTTLE. NS ×2 (09:09→21:36)
[2017-06-27] MEDS: METHYL SALICYLATE/MENTHOL TOPICAL OINTMENT 29GM TUBE. TP ×3 (09:09→21:36)
[2017-06-27] MEDS: NYSTATIN TOPICAL POWDER 15GM BOTTLE. TP ×2 (09:09→21:36)
[2017-06-27] MEDS: NITROGLYCERIN 0.2MG/HR PATCH. TD (09:09)
[2017-06-27] MEDS: CHOLESTYRAMINE/ASPARTAME 4 GM PACKET PO ×3 (10:00→21:40)
[2017-06-27 11:15] LABS: POC GLUCOSE 88 mg/dL (70-99)
[2017-06-27] MEDS: CEFPODOXIME PROXETIL 100 MG TABLET. PO ×2 (13:18→21:32)
[2017-06-27] MEDS: HYDROcodone/APAP 10/325 1 TAB TABLET PO ×2 (13:18→21:44)
[2017-06-27] MEDS: DOCUSATE SODIUM 100 MG CAPSULE. PO (13:19)
[2017-06-27] MEDS: POLYETHYLENE GLYCOL 3350 17 GM PACKET. PO (13:20)
[2017-06-27] MEDS: ENOXAPARIN 40 MG/0.4 ML SYRINGE. SQ (17:04)
[2017-06-27 17:42] LABS: POC GLUCOSE 159 mg/dL (70-99)
[2017-06-27 21:09] LABS: POC GLUCOSE 149 mg/dL (70-99)
[2017-06-27] MEDS: ATORVASTATIN CALCIUM 40 MG TABLET. PO (21:28)
[2017-06-27] MEDS: diphenhydrAMINE HCL 25 MG CAPSULE PO (21:33)
[2017-06-27] MEDS: ZOLPIDEM 5 MG TABLET. PO (21:44)
[2017-06-28] MEDS: IPRATRPIUM/ALBUTEROL 0.5/2.5MG 3 ML NEBU. NEB ×2 (07:46→12:10)
[2017-06-28] MEDS: BUDESONIDE 0.5 MG/2 ML NEBU. NEB (07:46)
[2017-06-28] MEDS: INSULIN ASPART 300 UNITS/3 ML INSULN.PEN SQ ×2 (08:00→12:00)
[2017-06-28] MEDS: LIDOCAINE (700MG/PATCH) PATCH. TP (09:00)
[2017-06-28] MEDS: CHOLESTYRAMINE/ASPARTAME 4 GM PACKET PO (09:07)
[2017-06-28] MEDS: NYSTATIN TOPICAL POWDER 15GM BOTTLE. TP (09:07)
[2017-06-28] MEDS: FLUTICASONE 50MCG/NASAL SPRAY 16GM BOTTLE. NS (09:07)
[2017-06-28] MEDS: NITROGLYCERIN 0.2MG/HR PATCH. TD (09:08)
[2017-06-28] MEDS: METHYL SALICYLATE/MENTHOL TOPICAL OINTMENT 29GM TUBE. TP (09:08)
[2017-06-28] MEDS: CEFPODOXIME PROXETIL 100 MG TABLET. PO (09:09)
[2017-06-28] MEDS: MONTELUKAST SODIUM 10 MG TABLET. PO (09:09)
[2017-06-28] MEDS: predniSONE 10 MG TABLET PO (09:09)
[2017-06-28] MEDS: FENOFIBRATE,MICRONIZED 134 MG CAPSULE PO (09:09)
[2017-06-28] MEDS: MELOXICAM 7.5 MG TABLET PO (09:09)
[2017-06-28] MEDS: SUCRALFATE 1 GM TABLET. PO (09:10)
[2017-06-28] MEDS: LACTOBACILLUS RHAMNOSUS GG 1 CAPSULE. PO (09:10)
[2017-06-28] MEDS: LISINOPRIL 10 MG TABLET PO (09:10)
[2017-06-28] MEDS: metFORMIN 500 MG TABLET PO (09:10)
[2017-06-28] MEDS: GABAPENTIN 300 MG CAPSULE. PO (09:10)
[2017-06-28] MEDS: FUROSEMIDE 40 MG TABLET. PO (09:11)
[2017-06-28] MEDS: CYCLOBENZAPRINE 10 MG TABLET. PO (09:11)
[2017-06-28] MEDS: CALCIUM CARB/VIT D3 500/200 TABLET. PO (09:11)
[2017-06-28] MEDS: DOCUSATE SODIUM 100 MG CAPSULE. PO (09:11)
[2017-06-28] MEDS: POTASSIUM CHLORIDE 10 MEQ TABLET.ER. PO ×2 (09:11→12:54)
[2017-06-28] MEDS: CETIRIZINE HCL 10 MG TABLET. PO (09:11)
[2017-06-28] MEDS: DULoxetine HCL 30 MG CAPSULE.DR PO (09:11)
[2017-06-28] MEDS: LANSOPRAZOLE 30 MG TAB.RAP.DR PO (09:12)
[2017-06-28] MEDS: DICYCLOMINE HCL 10 MG CAPSULE PO (09:12)
[2017-06-28] MEDS: diazePAM 5 MG TABLET PO (09:12)
[2017-06-28] MEDS: LINACLOTIDE 145 MCG CAPSULE. PO (09:19)
[2017-06-28] MEDS: HYDROcodone/APAP 10/325 1 TAB TABLET PO (09:19)
[2017-06-28] MEDS: LEVOTHYROXINE 150 MCG TABLET PO (09:19)
[2017-06-28 11:41] LABS: POC GLUCOSE 121 mg/dL (70-99)
[2017-06-28 11:45] LABS: POC GLUCOSE 109 mg/dL (70-99)
== END 2017-06-28 14:00 | disposition home or self-care (01) | DRG 189 ==
LOC: 5 SOUTH 14:51
PROVIDERS: Internal Medicine
DX: J96.00 Acute respiratory failure, unspecified whether with hypoxia or hypercapnia (principal); J44.1 Chronic obstructive pulmonary disease with (acute) exacerbation; Z99.81 Dependence on supplemental oxygen; E11.9 Type 2 diabetes mellitus without complications; E78.5 Hyperlipidemia, unspecified; F32.9 Major depressive disorder, single episode, unspecified; I10 Essential (primary) hypertension; Z83.3 Family history of diabetes mellitus; Z87.891 Personal history of nicotine dependence; F41.9 Anxiety disorder, unspecified; G89.29 Other chronic pain; M19.90 Unspecified osteoarthritis, unspecified site; Z98.51 Tubal ligation status; Z88.0 Allergy status to penicillin; Z88.1 Allergy status to other antibiotic agents; Z88.8 Allergy status to other drugs, medicaments and biological substances
CPT/HCPCS: 36415; 71046; 80048; 80053; 80061; 82962; 83036; 84443; 85025; 87804; 87804-59; 93005; 94640; 94760; J0696; J1650; J1815; J7512; J7620; J7626; Q0163

== ENCOUNTER 2018-12-08 22:33 | Inpatient (IN) | payer OTHER ==
[~2018-12-08] VITALS: Ht 162.6 cm; Wt 94.4 kg
[~2018-12-08 22:33] MED LIST changes: +CA/D1TAB11 PO; +CEFP200T PO; +DIAZ10TA5 PO; +DIPH25TA22 PO; +DOXY100C2 PO; -DULO60CA44 PO; +DULO60CA45 PO; +FENT1PAT13 TP; +FLUT16SP NS; +GABA600T7 PO; -HYDR-2766 PO; +HYDR-2769 PO; +HYDR-3164 PO; -HYDR-971 PO; +LIDO700A21 TP; -LINA145C PO; +LINZESS145 MCG PO; +METF500T16 PO; -METF500T4 PO; +MONT10TA49 PO; -MONT10TA6 PO; +NYST100054 PO; +PANT40TA77 PO; -POTA8CAP PO; +POTA8CAP19 PO; +PRED1TAB3 PO; -PROM118S2 PO; +PROM118S5 PO; +[UNRECOGNIZED DRUG - CODE] TP
[2018-12-08] MEDS ORDERED: IPRATROPIUM BROMIDE 0.5 MG/2.5 ML NEBU. NEB ONE (23:30)
[2018-12-08] MEDS ORDERED: methylPREDNISolone SOD SUCC PF 125 MG/2 ML VIAL. IV ONE (23:30)
[2018-12-08] MEDS ORDERED: MORPHINE SULFATE 2 MG/ML VIAL. IV/SQ PRN (23:30)
[2018-12-08] MEDS ORDERED: ALBUTEROL SULFATE 2.5 MG/3 ML NEBU. CONT NEB ONE (23:30)
--- NOTE | 2018-12-08 23:34 | PHYS DOC ---
Past Medical History Past Medical History: COPD, Diabetes-Type II, High Cholesterol, Hypertension Additional Past Medical Histor: Emphysema, chronic back pain, osteoarthritis; O2 dependent Past Surgical History: Cholecystectomy, Other Additional Past Surgical Histo: PARTIAL HYSTERECTOMY, DENTAL, PROLAPSE BLADDER ;THYROIDECTOMY Alcohol Use: None Drug Use: None Adult General Chief Complaint Chief Complaint: SHORTNESS OF BREATH HPI HPI Patient is a 63-year-old female who presents with complaint of ongoing shortness of breath that she indicates has been going on for approximately a month. She states that she has been in and out of the hospital since that time and states t hat she was most recently released from hospital about a week ago. She states that she is just not getting any better. She also indicates that she has had development of chest pain over the last 3-4 days that she currently rates at a 9 out of 10. She describes it as tight, sharp and at times heavy. She states the pain is worsened with exertion. She states that she is having significant difficulty getting around her house due to the chest pain and shortness of breath. She denies any fever. She does indicate that she has had a cough but that it's not worse than usual.[] Review of Systems Review of Systems Constitutional: Denies fever or chills [] Respiratory: Complains of cough and shortness of breath [] Cardiovascular: No additional information not addressed in HPI [] GI: Denies abdominal pain, nausea, vomiting or diarrhea [] Integument: Denies rash or skin lesions [] Neurologic: Denies headache, focal weakness or sensory changes [] All other systems were reviewed and found to be within normal limits, except as documented in this note. Current Medications Current Medications Current Medications Medications (Trade) Dose Ordered Sig/Santiago Start Time Stop Time Status Last Admin Dose Admin Albuterol Sulfate (Ventolin Neb Soln) 10 mg 1X ONCE 12/08/18 23:30 12/08/18 23:31 DC 12/08/18 23:48 10 MG Ipratropium [place] (Atrovent) 0.5 mg 1X ONCE 12/08/18 23:30 12/08/18 23:31 DC 12/08/18 23:49 0.5 MG Methylprednisolone Sodium Succinate (SOLU-Medrol 125MG VIAL) 125 mg 1X ONCE 12/08/18 23:30 12/08/18 23:31 DC 12/08/18 23:52 125 MG Morphine Sulfate (Morphine Sulfate) 2 mg PRN Q15MIN PRN 12/08/18 23:30 12/09/18 23:29 12/08/18 23:52 2 MG Allergies Allergies Allergies Coded Allergies Type Severity Reaction Last Updated Verified amoxicillin Allergy Intermediate Nausea and Vomiting 11/16/18 Yes amoxicillin trihydrate Allergy Intermediate yeast infection 11/16/18 Yes potassium clavulanate Allergy Intermediate yeast infection 11/16/18 Yes meperidine HCl Adverse Reaction Intermediate Nausea and itching. 11/16/18 Yes Physical Exam Physical Exam Constitutional: Well developed, well nourished, no acute distress, non-toxic appearance. [] HENT: Normocephalic, atraumatic, bilateral external ears normal, oropharynx moist, no oral exudates, nose normal. [] Eyes: PERRLA, EOMI, conjunctiva normal, no discharge. [] Neck: Normal range of motion, no tenderness, supple, no stridor. [] Cardiovascular:Heart rate regular rhythm, no murmur [] Lungs & Thorax: Lungs demonstrate markedly reduced breath sounds throughout with coarse inspiratory and expiratory wheezes to auscultation [] Abdomen: Bowel sounds normal, soft, no tenderness. [] Skin: Warm, dry, no erythema, no rash. [] Extremities: No tenderness, no cyanosis, no clubbing, ROM intact. [] Neurologic: Alert and oriented X 3, no focal deficits noted. [] Current Patient Data Vital Signs Vital Signs Date Time Temp Pulse Resp B/P (MAP) Pulse Ox O2 Delivery O2 Flow Rate FiO2 12/08/18 23:52 18 Room Air 12/08/18 23:46 99 5.0 12/08/18 23:04 98.2 81 131/116 (121) 98.2 Lab Values Laboratory Tests Test 12/08/18 23:37 White Blood Count 10.2 x10^3/uL (4.0-11.0) Red Blood Count 4.60 x10^6/uL (3.50-5.40) Hemoglobin 14.3 g/dL (12.0-15.5) Hematocrit 42.2 % (36.0-47.0) Mean Corpuscular Volume 92 fL (79-100) Mean Corpuscular Hemoglobin 31 pg (25-35) Mean Corpuscular Hemoglobin Concent 34 g/dL (31-37) Red Cell Distribution Width 14.4 % (11.5-14.5) Platelet Count 274 x10^3/uL (140-400) Neutrophils (%) (Auto) 66 % (31-73) Lymphocytes (%) (Auto) 21 % (24-48) L Monocytes (%) (Auto) 10 % (0-9) H Eosinophils (%) (Auto) 2 % (0-3) Basophils (%) (Auto) 1 % (0-3) Neutrophils # (Auto) 6.7 x10^3/uL (1.8-7.7) Lymphocytes # (Auto) 2.2 x10^3/uL (1.0-4.8) Monocytes # (Auto) 1.0 x10^3/uL (0.0-1.1) Eosinophils # (Auto) 0.2 x10^3/uL (0.0-0.7) Basophils # (Auto) 0.1 x10^3/uL (0.0-0.2) Sodium Level 139 mmol/L (136-145) Potassium Level 3.8 mmol/L (3.5-5.1) Chloride Level 97 mmol/L (98-107) L Carbon Dioxide Level 38 mmol/L (21-32) H Anion Gap 4 (6-14) L Blood Urea Nitrogen 10 mg/dL (7-20) Creatinine 0.9 mg/dL (0.6-1.0) Estimated GFR (Cockcroft-Gault) 63.0 BUN/Creatinine Ratio 11 (6-20) Glucose Level 134 mg/dL (70-99) H Calcium Level 9.1 mg/dL (8.5-10.1) Total Bilirubin 0.6 mg/dL (0.2-1.0) Aspartate Amino Transferase (AST) 18 U/L (15-37) Alanine Aminotransferase (ALT) 25 U/L (14-59) Alkaline Phosphatase 76 U/L (46-116) Troponin I Quantitative < 0.017 ng/mL (0.000-0.055) WR-Vjz-I-Type Natriuretic Peptide 200 pg/mL (0-124) H Total Protein 6.3 g/dL (6.4-8.2) L Albumin 3.4 g/dL (3.4-5.0) Albumin/Globulin Ratio 1.2 (1.0-1.7) Laboratory Tests 12/08/18 23:37 Laboratory Tests 12/08/18 23:37 EKG EKG EKG demonstrates normal sinus rhythm with rate of 79.[] Radiology/Procedures Radiology/Procedures [] Course & Med Decision Making Course & Med Decision Making Pertinent Labs and Imaging studies reviewed. (See chart for details) [] Dragon Disclaimer Dragon Disclaimer This electronic medical record was generated, in whole or in part, using a voice recognition dictation system. Departure Departure Impression: Primary Impression: Chest pain Additional Impression: COPD exacerbation Disposition: ADMITTED INPATIENT Admitting Physician: Miguel Maldonado Condition: IMPROVED Referrals: MIGUEL MALDONADO MD (PCP) Problem Qualifiers Primary Impression: Chest pain Chest pain type: unspecified Qualified Codes: R07.9 - Chest pain, unspecified ANGELLA TIAN Jr. DO Dec 08, 2018 23:34
[2018-12-08 23:48] LABS: BASO # 0.1 x10^3/uL (0.0-0.2); BASO % 1 % (0-3); EOS # 0.2 x10^3/uL (0.0-0.7); EOS % 2 % (0-3); HEMATOCRIT 42.2 % (36.0-47.0); HEMOGLOBIN 14.3 g/dL (12.0-15.5); LYMPH # 2.2 x10^3/uL (1.0-4.8); LYMPH % 21 % (24-48); MEAN CORPUSCULAR HEMOGLOBIN 31 pg (25-35); MEAN CORPUSCULAR HGB CONC 34 g/dL (31-37); MEAN CORPUSCULAR VOLUME 92 fL (79-100); MONO % 10 % (0-9); NEUT # 6.7 x10^3/uL (1.8-7.7); NEUT % 66 % (31-73); PLATELET COUNT 274 x10^3/uL (140-400); RED CELL DISTRIBUTION WIDTH 14.4 % (11.5-14.5); WHITE BLOOD COUNT 10.2 x10^3/uL (4.0-11.0)
[2018-12-09] VITALS (7 sets, daily range): BP systolic 103–137; BP diastolic 44–74
[2018-12-09 00:05] LABS: CALCIUM 9.1 mg/dL (8.5-10.1); CREATININE 0.9 mg/dL (0.6-1.0); POTASSIUM 3.8 mmol/L (3.5-5.1)
[2018-12-09 00:10] LABS: ALBUMIN 3.4 g/dL (3.4-5.0); ALBUMIN/GLOBULIN RATIO 1.2 (1.0-1.7); TOTAL BILIRUBIN 0.6 mg/dL (0.2-1.0); TOTAL PROTEIN 6.3 g/dL (6.4-8.2)
[2018-12-09] MEDS ORDERED: MORPHINE SULFATE 2 MG/ML VIAL. IV PRN (01:00)
[2018-12-09] MEDS ORDERED: ONDANSETRON PF 4 MG/2 ML VIAL. IV PRN (01:00)
[2018-12-09] MEDS ORDERED: NITROGLYCERIN SUBLINGUAL 0.4 MG BOTTLE OF 25. SL PRN (01:00)
--- NOTE | 2018-12-09 02:00 | NUR ---
Pt was admitted to the unit from ER with c/o CP and SOB. Pt is A/Ox4, on 4L NC, SR on telemetry, VSS. Pt states being SOB for the past month, has been admitted twice this past month for COPD. Daughter Tristy at bedside, call light within reach, bed in low/locked position, will continue to monitor for status changes.
--- NOTE | 2018-12-09 06:00 | EKG ---
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
--- NOTE | 2018-12-09 07:58 | RAD ---
EXAM: AP View of the chest DATE: 12/08/2018 11:26 PM INDICATION: Chest pain, dyspnea COMPARISON: CT 11/15/2018, radiograph 11/29/2018 FINDINGS/ IMPRESSION: Heart is not enlarged. Atherosclerotic calcifications of the tortuous aorta are seen. Mild eventration left hemidiaphragm. No lobar consolidation. Emphysematous changes are seen. Blunting of the costophrenic angle likely bilaterally likely from pleural thickening. Electronically signed by: Jamie Mcdowell MD (12/09/2018 7:56 AM) [facility]
[2018-12-09] MEDS ORDERED: IPRATRPIUM/ALBUTEROL 0.5/2.5MG 3 ML NEBU. NEB SCH (08:00)
[2018-12-09] MEDS ORDERED: AZITHROMYCIN 250 MG TABLET. PO ONE (09:15)
[2018-12-09] MEDS ORDERED: NON FORMULARY ITEM (Alendronate Sodium (Fosamax) 70 MG) PO SCH (09:15)
[2018-12-09] MEDS ORDERED: methylPREDNISolone SOD SUCC PF 40 MG/ML VIAL. IV SCH (09:15)
[2018-12-09] MEDS ORDERED: traMADol 50 MG TABLET PO PRN (09:30)
[2018-12-09] MEDS ORDERED: DEXTROSE 50% 25 GM / 50ML DISP.SYRIN. IV PRN (10:00)
--- NOTE | 2018-12-09 10:00 | PDOC ---
Provider Note Provider Note Pt seen.H&P dictated.#[id number]. MIGUEL DELAROSA MD Dec 09, 2018 09:59
[2018-12-09] MEDS: LEVOTHYROXINE 150 MCG TABLET PO SCH (10:12)
[2018-12-09] MEDS: FLUTICASONE 50MCG/NASAL SPRAY 16GM BOTTLE. NS SCH ×2 (10:13→21:35)
[2018-12-09] MEDS: GABAPENTIN 300 MG CAPSULE. PO SCH ×3 (10:14→21:36)
[2018-12-09] MEDS: PANTOPRAZOLE 40 MG TABLET.DR. PO SCH (10:14)
[2018-12-09] MEDS: DULoxetine HCL 30 MG CAPSULE.DR PO SCH ×2 (10:15→21:36)
[2018-12-09] MEDS: SUCRALFATE 1 GM TABLET. PO SCH ×2 (10:15→21:36)
[2018-12-09] MEDS: MELOXICAM 7.5 MG TABLET PO SCH (10:15)
[2018-12-09] MEDS: DICYCLOMINE HCL 10 MG CAPSULE PO SCH ×3 (10:16→21:36)
[2018-12-09] MEDS: CETIRIZINE HCL 10 MG TABLET. PO SCH (10:16)
[2018-12-09] MEDS: metFORMIN 500 MG TABLET PO SCH ×2 (10:17→17:54)
--- NOTE | 2018-12-09 10:25 | PDOC2 ---
CARDIAC CONSULT DATE OF CONSULT Date of Consult DATE: 12/09/18 TIME: 10:12 REASON FOR CONSULT Reason for Consult: Chest pain, COPD exacerbation REFERRING PHYSICIAN Referring Physician: Paul SOURCE Source: Chart review, Patient HISTORY OF PRESENT ILLNESS HISTORY OF PRESENT ILLNESS This is a pleasant 63 yo female admitted for complains of chest pain. Reports that she has been having more wheezing and has been coughing with white sputum sometimes. Also with HORTON but could not tell me if it is more or less and uses 4LPM of O2 supplement continuously. Verbalized chest pain burning and sharp lower midchest which she also has GERD and takes med for it. This goes across below her bilateral ribcage. No nausea or vomiting. Also same discomfort to her left posterior lower ribcage that is reproducible. No palpitations nor frequent dizzy spells. PAST MEDICAL HISTORY Past Medical History Cardiovascular: HTN, Hyperlipidemia Pulmonary: COPD CENTRAL NERVOUS SYSTEM: Other (No pertinent history) GI: GERD Heme/Onc: Anemia NOS Musculoskeletal: Osteoarthritis Infectious disease: Herpes zoster (shingles to left chest) Renal/: Urinary Incontinence Endocrine: Diabetes (2), Hypothyroidism (acquired), Osteopenia Dermatology: Other (shingles) PAST SURGICAL HISTORY Past Surgical History Cholecystectomy, Tubal Ligation, Other (thyroid surgery) FAMILY HISTORY Family History Diabetes, Heart Disease SOCIAL HISTORY Smoke: Quit (>10 yrs) ALCOHOL: none Drugs: None Lives: with Family CURRENT MEDICATIONS CURRENT MEDICATIONS Current Medications Medications (Trade) Dose Ordered Sig/Santiago Route PRN Reason Start Time Stop Time Status Last Admin Dose Admin Ipratropium [place] (Atrovent) 0.5 mg 1X ONCE NEB 12/08/18 23:30 12/08/18 23:31 DC 12/08/18 23:49 Methylprednisolone Sodium Succinate (SOLU-Medrol 125MG VIAL) 125 mg 1X ONCE IV 12/08/18 23:30 12/08/18 23:31 DC 12/08/18 23:52 Albuterol Sulfate (Ventolin Neb Soln) 10 mg 1X ONCE CONT NEB 12/08/18 23:30 12/08/18 23:31 DC 12/08/18 23:48 Morphine Sulfate (Morphine Sulfate) 2 mg PRN Q15MIN PRN IV/SQ PAIN GREATER THAN 3/10 12/08/18 23:30 12/09/18 07:55 DC 12/08/18 23:52 Albuterol/ Ipratropium (Duoneb) 3 ml RTQID NEB 12/09/18 08:00 12/09/18 09:22 DC 12/09/18 07:20 ALLERGIES ALLERGIES: Coded Allergies: amoxicillin (Verified Allergy, Intermediate, Nausea and Vomiting, 11/16/18) amoxicillin trihydrate (Verified Allergy, Intermediate, yeast infection, 11/16/18) potassium clavulanate (Verified Allergy, Intermediate, yeast infection, 11/16/18) meperidine HCl (Verified Adverse Reaction, Intermediate, Nausea and itchi ng., 11/16/18) Patient states she can take Fentanyl with no problem. ROS Review of System 14 point ROS evaluated with pertinent positives noted per HPI PHYSICAL EXAM General: Alert, Oriented X3, Cooperative, No acute distress HEENT: Atraumatic, Mucous membr. moist/pink Heart: Regular rate (SR), No murmurs Abdomen: Soft, No tenderness Extremities: No cyanosis, No edema Skin: No breakdown, No significant lesion Neuro: Normal speech, Sensation intact Psych/Mental Status: Mental status NL, Mood NL MUSCULOSKELETAL: Osteoarthritic changes both hands VITALS/I&O VITALS/I&O: Vital Signs Date Time Temp Pulse Resp B/P (MAP) Pulse Ox O2 Delivery O2 Flow Rate FiO2 12/09/18 07:22 98 4.0 12/09/18 07:00 98.1 69 22 111/46 (67) Nasal Cannula 98.1 I & O 12/08/18 12/08/18 12/09/18 15:00 23:00 07:00 Intake Total 240 ml Balance 240 ml LABS Lab: Laboratory Tests Test 12/08/18 23:37 12/09/18 03:40 12/09/18 07:07 White Blood Count 10.2 x10^3/uL (4.0-11.0) Red Blood Count 4.60 x10^6/uL (3.50-5.40) Hemoglobin 14.3 g/dL (12.0-15.5) Hematocrit 42.2 % (36.0-47.0) Mean Corpuscular Volume 92 fL (79-100) Mean Corpuscular Hemoglobin 31 pg (25-35) Mean Corpuscular Hemoglobin Concent 34 g/dL (31-37) Red Cell Distribution Width 14.4 % (11.5-14.5) Platelet Count 274 x10^3/uL (140-400) Neutrophils (%) (Auto) 66 % (31-73) Lymphocytes (%) (Auto) 21 % (24-48) L Monocytes (%) (Auto) 10 % (0-9) H Eosinophils (%) (Auto) 2 % (0-3) Basophils (%) (Auto) 1 % (0-3) Neutrophils # (Auto) 6.7 x10^3/uL (1.8-7.7) Lymphocytes # (Auto) 2.2 x10^3/uL (1.0-4.8) Monocytes # (Auto) 1.0 x10^3/uL (0.0-1.1) Eosinophils # (Auto) 0.2 x10^3/uL (0.0-0.7) Basophils # (Auto) 0.1 x10^3/uL (0.0-0.2) Sodium Level 139 mmol/L (136-145) Potassium Level 3.8 mmol/L (3.5-5.1) Chloride Level 97 mmol/L (98-107) L Carbon Dioxide Level 38 mmol/L (21-32) H Anion Gap 4 (6-14) L Blood Urea Nitrogen 10 mg/dL (7-20) Creatinine 0.9 mg/dL (0.6-1.0) Estimated GFR (Cockcroft-Gault) 63.0 BUN/Creatinine Ratio 11 (6-20) Glucose Level 134 mg/dL (70-99) H Calcium Level 9.1 mg/dL (8.5-10.1) Total Bilirubin 0.6 mg/dL (0.2-1.0) Aspartate Amino Transferase (AST) 18 U/L (15-37) Alanine Aminotransferase (ALT) 25 U/L (14-59) Alkaline Phosphatase 76 U/L (46-116) Troponin I Quantitative < 0.017 ng/mL (0.000-0.055) < 0.017 ng/mL (0.000-0.055) ZR-Pic-K-Type Natriuretic Peptide 200 pg/mL (0-124) H Total Protein 6.3 g/dL (6.4-8.2) L Albumin 3.4 g/dL (3.4-5.0) Albumin/Globulin Ratio 1.2 (1.0-1.7) Glucose (Fingerstick) 171 mg/dL (70-99) H Laboratory Tests 12/08/18 23:37 Laboratory Tests 12/08/18 23:37 ECHOCARDIOGRAM ECHOCARDIOGRAM <Conclusion> The left ventricular systolic function is normal and the ejection fraction is within normal range. The Ejection Fraction is >70%. There is grossly normal LV segmental wall motion. Technically difficult study DATE: 12/04/17 1612 STRESS TEST STRESS TEST Conclusion 1. No EKG evidence of stressed induced ischemia. 2. Nuclear imaging shows no reversible ischemia or infarct. 3. Normal left ventricular systolic function with an ejection fraction of greater than 70%. 4. Low risk Lexiscan nuclear stress test. DATE: 02/12/17 1408 ASSESSMENT/PLAN ASSESSMENT/PLAN 1. Atypical CP: trops nml. Popsicle pleuritic and from bronchospasm 2. AECOPD 3. HTN 4. HLP 5. DM2 Recommendations TTE, continue with secondary prevention measures, Will consider for outpt stress test. ANN MARIE CROWDER IMPROVEMENT MANAGER Dec 09, 2018 10:25
[2018-12-09] MEDS: LISINOPRIL 10 MG TABLET PO SCH ×2 (10:26→21:36)
[2018-12-09] MEDS: FUROSEMIDE 40 MG TABLET. PO SCH ×2 (10:26→15:49)
[2018-12-09] MEDS: ENOXAPARIN 40 MG/0.4 ML SYRINGE. SQ SCH (10:27)
[2018-12-09] MEDS: NITROGLYCERIN 0.2MG/HR PATCH. TD SCH (10:40)
[2018-12-09] MEDS: IPRATRPIUM/ALBUTEROL 0.5/2.5MG 3 ML NEBU. NEB SCH ×3 (10:45→20:23)
--- NOTE | 2018-12-09 12:17 | CONS ---
DATE OF CONSULTATION: PULMONARY CONSULTATION ATTENDING PHYSICIAN: Catrachito Hitchcock MD REASON FOR CONSULTATION: Dyspnea. HISTORY OF PRESENT ILLNESS: The patient is known to us. She is a 63-year-old morbidly obese patient with a BMI of 33.8. She has a history of oxygen-dependent chronic obstructive airway disease and has frequent hospitalizations. She presented to the hospital with complaint of shortness of breath. She says she does not have any significant cough. She was some wheezing as well. This is her third admission in the last 30 days. No increased leg swelling. No headaches, no nausea, vomiting, no diarrhea. No dysuria. Her chest x-ray did not reveal any definite consolidation. I have been asked to see her for further evaluation. PAST MEDICAL HISTORY: 1. Significant for chronic hypoxic respiratory failure. 2. Chronic obstructive airway disease. 3. Diabetes type 2. 4. Dyslipidemia. 5. Hypertension. PAST SURGICAL HISTORY: Cholecystectomy, partial hysterectomy, prolapsed bladder, and thyroidectomy. REVIEW OF SYSTEMS: A 12-point system obtained. Pertinent positives discussed in my history of present illness, otherwise noncontributory. All systems that were negative were reviewed as well. ALLERGIES: AMOXICILLIN, MEPERIDINE, AND POTASSIUM CLAVULANATE. MEDICATIONS: All reviewed as listed in the MRAD including IV Solu-Medrol, azithromycin, DuoNeb, and Lovenox for DVT prophylaxis. SOCIAL HISTORY: Quit tobacco 10 years ago, before that smoked for 30 years. PHYSICAL EXAMINATION: VITAL SIGNS: Reviewed, pulse ox 98% on 4 liters. NECK: Supple. LUNGS: With occasional anterior wheeze, mostly on the right side. CARDIOVASCULAR: With regular rate. ABDOMEN: Soft, obese. EXTREMITIES: With no pitting edema. LABORATORY DATA: Labs are reviewed. White cell count 10.2, hemoglobin 14.3, platelets 274. IMPRESSION: 1. Dyspnea secondary to acute exacerbation of chronic obstructive pulmonary disease with mild bronchospasm. 2. Acute Bronchitis.Clinically, less likely pneumonia. 3. Morbid obesity. RECOMMENDATIONS: 1. Discussed with the patient regarding the importance of losing weight. She is at her baseline oxygen at 4 liters. 2. Continue present bronchodilators. 3. Continue steroids with taper. 4. DVT prophylaxis with Lovenox. 5. Anticipate hospitalization 24-48 hours. ADAM U. CAZARES, MD DR: ABRAM/adrianna JOB#: [id number] / [id number] ANNA
--- NOTE | 2018-12-09 12:19 | HP ---
ADMIT DATE: 12/09/2018 MEDICAL HISTORY AND PHYSICAL LOCATION: 250. ATTENDING PHYSICIAN: Miguel Maldonado MD REASONS FOR ADMISSION TO THE HOSPITAL: 1. Chest pain. 2. Chronic obstructive pulmonary disease exacerbation. HISTORY OF PRESENT ILLNESS: The patient is a 63-year-old female. The patient is well known to me. She has history of diabetes and chronic obstructive pulmonary disease. She has oxygen-dependent chronic obstructive pulmonary disease and prednisone-dependent chronic obstructive pulmonary disease. This is her third admission in last 30 days for chronic obstructive pulmonary disease with exacerbation. She came to the emergency room with chest pain and cardiac enzymes and EKG were negative. The patient was admitted to the hospital. She was also wheezing, was given Solu-Medrol and breathing treatments, and Pulmonary is also consulted. PAST MEDICAL HISTORY: As mentioned above. This is her third admission in last 30 days for chronic obstructive pulmonary disease. She has history of chronic obstructive pulmonary disease. As mentioned, she has history of steroid-dependent chronic obstructive pulmonary disease and she is also on home oxygen. She does not smoke. Last time she smoked was 15 years ago. She smoked for 40 years, at least 2 packs. She has history of diabetes, hypertension, hyperlipidemia, anxiety, depression, and hypothyroidism. PAST SURGICAL HISTORY: She had a thyroid surgery, hysterectomy, and bladder lift surgery. ALLERGIES: AMOXIL, AUGMENTIN, AND DEMEROL. MEDICATIONS AT HOME: She is in the hospital recently; please refer to the medications. PERSONAL HISTORY: Smoked for at least 30-40 years, 2 packs, quit 10-15 years ago. FAMILY HISTORY: Positive for diabetes and heart disease. REVIEW OF SYSTEMS: Complains of shortness of breath and chest tightness as well as fatigue. MEDICATIONS: She is on home oxygen between 3-4 liters. She is on prednisone 10 mg every day maintenance and nitropatch 0.2 daily. She has a nebulizer with DuoNeb 4 times daily, Fosamax 70 mg once a week, Bentyl 10 mg 3 times a day, Benadryl 25 mg twice a day, Cymbalta 30 mg twice a day, Flovent 2 inhalations twice a day, Flonase 1 spray twice a day, Advair Diskus 500/50 twice a day, Lasix 40 mg twice a day, gabapentin 600 mg 3 times daily, hydrocodone 10/325 every 4-6 hours, levothyroxine 150 mcg daily, lisinopril 10 mg daily, loratadine 10 mg daily, meloxicam 15 mg daily, metformin 500 mg twice a day, Zofran 8 mg as needed for nausea, Protonix 40 mg daily, potassium 8 mEq 3 times a day, prednisone 10 mg daily, Crestor 40 mg daily, Carafate 1 gram twice a day, Spiriva 18 mcg 1 inhalation daily, tramadol 50 mg every 6 hours, and Ambien 10 mg daily. PHYSICAL EXAMINATION: VITAL SIGNS: At the time of admission shows temperature 98, pulse 81, respirations 16, blood pressure 131/116, and saturation 95% on 4 liters. HEENT: Head is atraumatic. Pupils are equal. She has a wisdom face. The patient has no teeth, on oxygen nasal cannula. NECK: Supple, has a scar of thyroid surgery. CARDIOVASCULAR: S1, S2. No murmurs. LUNGS: Bilateral wheezing, mostly in the posterior lungs. ABDOMEN: Soft, no mass palpable. EXTERNAL GENITALIA: No Wei. RECTAL: Deferred. EXTREMITIES: No calf tenderness, no edema, pulses 1+. NEUROLOGIC: Moving all extremities. No focal deficits noted. DIAGNOSTIC STUDIES: Laboratory data shows a white count of 10, hemoglobin 14, and platelets 274. Electrolytes show sodium 139, potassium 3.8, chloride 97, bicarbonate 38, BUN 10, creatinine 0.9, and glucose 134. LFTs were normal. Troponin x2 was negative. BNP was 200. Chest x-ray, negative investigation in the past. The patient had a CT of the chest beginning of this month, which shows interstitial infiltrates. The patient has markedly delayed gastric emptying. She had a stress test done 2 years ago, negative for ischemia, ejection fraction 70%. FINAL IMPRESSION: 1. Chest pain for evaluation, the patient has risk factors. 2. Chronic obstructive pulmonary disease with acute exacerbation. 3. Chronic obstructive pulmonary disease, on home oxygen. 4. Chronic prednisone-dependent, steroid-dependent chronic obstructive pulmonary disease. 5. Diabetes. 6. Hypertension. 7. Hyperlipidemia. 8. Ex-smoker, smoked for at least 30-40 years, 2 packs, quit 10 years ago. PLAN: At this time, admit to hospital; the patient is consulted with Cardiology as well as Pulmonology; Solu-Medrol 40 mg every 8 hours and also may have an echocardiogram this time and see; deep vein thrombosis prevention. MIGUEL MALDONADO MD DR: CARLOS/adrianna JOB#: [id number] / [id number]
--- NOTE | 2018-12-09 12:22 | CARD ---
MR#: [id number] Date of Study: 12/09/2018 Ordering Physician: ANN MARIE CROWDER, Referring Physician: KAMI ROLAND Tech: Tami Bobo [facility] APPROVED REPORT EXAM: Two-dimensional and M-mode echocardiogram with Doppler and color Doppler. Other Information Quality : Technically LimitedHR: 81bpm Rhythm : NSRTechnically limited study due to body habitus and COPD. INDICATION Chest Pain RISK FACTORS Obesity Smoking 2D DIMENSIONS RVDd3.6 (2.9-3.5cm)Left Atrium(2D)3.5 (1.6-4.0cm) IVSd1.3 (0.7-1.1cm)Aortic Root(2D)2.6 (2.0-3.7cm) LVDd4.2 (3.9-5.9cm)LVOT Diameter1.9 (1.8-2.4cm) PWd0.9 (0.7-1.1cm)LVDs2.6 (2.5-4.0cm) FS (%) 38.6 %SV53.2 ml LVEF(%)69.4 (>50%) Aortic Valve AoV Peak Rohit.128.7cm/sAoV VTI23.4cm AO Peak GR.6.6mmHgLVOT VTI 16.82cm AO Mean GR.3mmHgAVA (VTI)2.00cm2 Mitral Valve MV E Bdzkqkzp55.4cm/sMV DECEL [id number] MV A Cgucbvcp12.5cm/sE/A Ratio0.9 MV A [id number] TDI Lateral E' P. V10.68cm/sE/Lateral E'7.2 Tricuspid Valve TR P. Gydbntme321ck/sRAP [id number] TR Peak Gr.67fbQmYDDX23tgPh LEFT VENTRICLE The left ventricle is normal size. Proximal septal thickening is noted. The left ventricular systolic function is normal and the ejection fraction is within normal range. The Ejection Fraction is 65-70% . There is grossly normal LV segmental wall motion. Technically difficult study with suboptimal image s. Transmitral Doppler flow pattern is abnormal. RIGHT VENTRICLE The right ventricle is borderline dilated. There is normal right ventricular wall thickness. The righ t ventricular systolic function is normal. ATRIA The left atrium size is normal. The right atrium size is normal. The interatrial septum is intact wit h no evidence for an atrial septal defect or patent foramen ovale as noted on 2-D or Doppler imaging. AORTIC VALVE The aortic valve is not well visualized. Doppler and Color Flow revealed no significant aortic regurg itation. There is no significant aortic valvular stenosis. MITRAL VALVE The mitral valve is normal in structure and function. There is no evidence of mitral valve prolapse. There is no mitral valve stenosis. Doppler and Color Flow revealed no mitral valve regurgitation note d. TRICUSPID VALVE The tricuspid valve is normal in structure and function. Doppler and Color Flow revealed trace tricus pid regurgitation. The PA pressure was estimated at 27 mmHg. There is no tricuspid valve prolapse or vegetation. There is no tricuspid valve stenosis. PULMONIC VALVE The pulmonic valve is not well visualized. GREAT VESSELS The aortic root is normal in size. The ascending aorta is normal in size. The IVC is normal in size a nd collapses >50% with inspiration. PERICARDIAL EFFUSION There is no evidence of significant pericardial effusion. Critical Notification Critical Value: No <Conclusion> The left ventricular systolic function is normal and the ejection fraction is within normal range. Th e Ejection Fraction is 65-70%. There is grossly normal LV segmental wall motion. Technically difficult study with suboptimal images. Signed by : Reza Christopher, Electronically Approved : 12/09/2018 12:22:05
[2018-12-09] MEDS ORDERED: NON FORMULARY ITEM (Albuterol Sulfate (Albuterol Sulfate Neb Soln) 0.63 MG) IH SCH (13:00)
[2018-12-09] MEDS: POTASSIUM CHLORIDE 10 MEQ TABLET.ER. PO SCH ×2 (13:32→15:48)
[2018-12-09] MEDS: INSULIN LISPRO 300 UNITS/3 ML INSULN.PEN. SQ SCH ×2 (13:37→17:00)
[2018-12-09] MEDS: HYDROcodone/APAP 10/325 1 TAB TABLET PO PRN ×2 (13:47→23:13)
[2018-12-09] MEDS: ONDANSETRON ODT 4 MG TAB.RAPDIS. PO PRN (13:47)
[2018-12-09] MEDS: methylPREDNISolone SOD SUCC PF 40 MG/ML VIAL. IV SCH ×2 (15:53→21:35)
[2018-12-09] MEDS: BUDESONIDE 0.5 MG/2 ML NEBU. NEB SCH (20:23)
[2018-12-09] MEDS ORDERED: NON FORMULARY ITEM (Fluticasone/Salmeterol (Advair 500-50 Diskus) 1 EACH) IH SCH (21:00)
[2018-12-09] MEDS ORDERED: DOXYCYCLINE HYCLATE 100 MG TABLET PO SCH (21:00)
[2018-12-09] MEDS: ATORVASTATIN CALCIUM 40 MG TABLET. PO SCH (21:36)
[2018-12-09] MEDS: diphenhydrAMINE HCL 25 MG CAPSULE PO PRN (23:13)
[2018-12-10] MEDS: ZOLPIDEM 5 MG TABLET. PO PRN ×2 (01:04→21:52)
[2018-12-10 03:59] VITALS: BP 124/74
[2018-12-10] MEDS: LEVOTHYROXINE 150 MCG TABLET PO SCH (06:06)
[2018-12-10] MEDS: methylPREDNISolone SOD SUCC PF 40 MG/ML VIAL. IV SCH ×3 (06:06→21:54)
[2018-12-10 07:00] VITALS: BP 125/64
[2018-12-10] MEDS: IPRATRPIUM/ALBUTEROL 0.5/2.5MG 3 ML NEBU. NEB SCH ×4 (07:33→20:06)
[2018-12-10] MEDS: BUDESONIDE 0.5 MG/2 ML NEBU. NEB SCH ×2 (07:33→20:06)
[2018-12-10] MEDS: INSULIN LISPRO 300 UNITS/3 ML INSULN.PEN. SQ SCH ×3 (08:00→17:26)
[2018-12-10] MEDS ORDERED: predniSONE 10 MG TABLET PO SCH (09:00)
[2018-12-10] MEDS: metFORMIN 500 MG TABLET PO SCH ×2 (09:01→17:23)
[2018-12-10] MEDS: DICYCLOMINE HCL 10 MG CAPSULE PO SCH ×3 (09:01→21:52)
[2018-12-10] MEDS: LISINOPRIL 10 MG TABLET PO SCH ×2 (09:01→21:53)
[2018-12-10] MEDS: PANTOPRAZOLE 40 MG TABLET.DR. PO SCH (09:01)
[2018-12-10] MEDS: AZITHROMYCIN 250 MG TABLET. PO SCH (09:01)
[2018-12-10] MEDS: POTASSIUM CHLORIDE 10 MEQ TABLET.ER. PO SCH ×3 (09:02→17:23)
[2018-12-10] MEDS: DULoxetine HCL 30 MG CAPSULE.DR PO SCH ×2 (09:02→21:52)
[2018-12-10] MEDS: MELOXICAM 7.5 MG TABLET PO SCH (09:02)
[2018-12-10] MEDS: CETIRIZINE HCL 10 MG TABLET. PO SCH (09:03)
[2018-12-10] MEDS: GABAPENTIN 300 MG CAPSULE. PO SCH ×3 (09:03→21:52)
[2018-12-10] MEDS: FUROSEMIDE 40 MG TABLET. PO SCH ×2 (09:03→13:47)
[2018-12-10] MEDS: FLUTICASONE 50MCG/NASAL SPRAY 16GM BOTTLE. NS SCH ×2 (09:03→21:51)
[2018-12-10] MEDS: NITROGLYCERIN 0.2MG/HR PATCH. TD SCH (09:10)
[2018-12-10] MEDS: HYDROcodone/APAP 10/325 1 TAB TABLET PO PRN ×2 (09:13→21:54)
--- NOTE | 2018-12-10 09:30 | PDOC ---
PROGRESS NOTES Subjective Subjective WHEEZING Objective Objective Vital Signs Date Time Temp Pulse Resp B/P (MAP) Pulse Ox O2 Delivery O2 Flow Rate FiO2 12/10/18 09:13 92 Nasal Cannula 4.0 12/10/18 09:01 82 124/74 12/10/18 07:00 98.0 20 98.0 Intake and Output 12/10/18 06:59 Intake Total 1800 ml Output Total 3900 ml Balance -2100 ml Intake Oral 1800 ml Output Urine Total 3900 ml Physical Exam Abdomen: Soft, No tenderness Heart: Regular rate (SR), No murmurs Extremities: No cyanosis, No edema General: Alert, Oriented X3, Cooperative, No acute distress HEENT: Atraumatic, Mucous membr. moist/pink Lungs: Other (BOB WHEEZING) MUSCULOSKELETAL: Osteoarthritic changes both hands Neuro: Normal speech, Sensation intact Psych/Mental Status: Mental status NL, Mood NL Skin: No breakdown, No significant lesion Diagnosis Problem List Problems Medical Problems: (1) Acute bronchitis Status: Acute (2) COPD exacerbation Status: Acute Assessment Assessment Problems Medical Problems: (1) Acute bronchitis Status: Acute (2) COPD exacerbation Status: Acute FINAL IMPRESSION: 1. Chest pain for evaluation, the patient has risk factors. 2. Chronic obstructive pulmonary disease with acute exacerbation. 3. Chronic obstructive pulmonary disease, on home oxygen. 4. Chronic prednisone-dependent, steroid-dependent chronic obstructive pulmonary disease. 5. Diabetes. 6. Hypertension. 7. Hyperlipidemia. 8. Ex-smoker, smoked for at least 30-40 years, 2 packs, quit 10 years ago. PLAN: ECHO -GOOD lvf 70% ejf . LABS GOOD SPOKE WITH LUNG DOCTOR. IV STEROIDS. At this time, admit to hospital; the patient is consulted with Cardiology as well as Pulmonology; Solu-Medrol 40 mg every 8 hours and also may have an echocardiogram this time and see; deep vein thrombosis prevention. Plan Plan of Care Problems Medical Problems: (1) Acute bronchitis Status: Acute (2) COPD exacerbation Status: Acute Comment Review of Relevant I have reviewed the following items vinny (where applicable) has been applied. Labs Laboratory Tests Test 12/09/18 09:50 12/09/18 11:53 12/09/18 17:32 12/09/18 20:33 Troponin I Quantitative < 0.017 ng/mL (0.000-0.055) Glucose (Fingerstick) 199 mg/dL (70-99) 147 mg/dL (70-99) 183 mg/dL (70-99) Test 12/10/18 07:30 Glucose (Fingerstick) 148 mg/dL (70-99) Medications Current Medications Albuterol/ Ipratropium (Duoneb) 3 ml RTQID NEB Last administered on 12/10/18 07:33; Start 12/09/18 at 12:00 Atorvastatin Calcium (Lipitor) 80 mg QHS PO Last administered on 12/09/18 21:36; Start 12/09/18 at 21:00 Azithromycin (Zithromax) 250 mg DAILY PO Last administered on 12/10/18 09:01; Start 12/10/18 at 09:00 Budesonide (Pulmicort) 0.5 mg RTBID NEB Last administered on 12/10/18 07:33; Start 12/09/18 at 20:00 Cetirizine HCl (ZyrTEC) 10 mg DAILY PO Last administered on 12/10/18 09:03; Start 12/09/18 at 10:00 Dextrose (Dextrose 50%-Water Syringe) 12.5 gm PRN Q15MIN PRN IV SEE COMMENTS; Start 12/09/18 at 10:00 Dicyclomine HCl (Bentyl) 10 mg TID PO Last administered on 12/10/18 09:01; Start 12/09/18 at 10:00 Diphenhydramine HCl (Benadryl) 25 mg PRN BID PRN PO ITCHING/ALLERGIES Last administered on 12/09/18 23:13; Start 12/09/18 at 09:30 Doxycycline Hyclate (Vibra-Tab) 100 mg BID PO ; Start 12/09/18 at 21:00; Status UNV Duloxetine HCl (Cymbalta) 30 mg BID PO Last administered on 12/10/18 09:02; Start 12/09/18 at 10:00 Enoxaparin Sodium (Lovenox 40mg Syringe) 40 mg Q24H SQ Last administered on 12/09/18 10:27; Start 12/09/18 at 10:00 Fluticasone Propionate (Flonase) 1 spray BID NS Last administered on 12/10/18 09:03; Start 12/09/18 at 10:00 Furosemide (Lasix) 40 mg BID92 PO Last administered on 12/10/18 09:03; Start 12/09/18 at 10:00 Gabapentin (Neurontin) 600 mg TID PO Last administered on 12/10/18 09:03; Start 12/09/18 at 10:00 Insulin Human Lispro (HumaLOG) 0-7 UNITS TIDWMEALS SQ Last administered on 12/09/18 13:37; Start 12/09/18 at 12:00 Levothyroxine Sodium (Synthroid) 150 mcg DAILY06 PO Last administered on 12/10/18 06:06; Start 12/09/18 at 10:00 Lisinopril (Prinivil) 10 mg BID PO Last administered on 12/10/18 09:01; Start 12/09/18 at 10:00 Meloxicam (Mobic) 15 mg DAILY PO Last administered on 12/10/18 09:02; Start 12/09/18 at 10:00 Metformin HCl (Glucophage) 500 mg BIDWMEALS PO Last administered on 12/10/18 09:01; Start 12/09/18 at 10:00 Methylprednisolone Sodium Succinate (SOLU-Medrol 40MG VIAL) 80 mg Q8HRS IV Last administered on 12/10/18 06:06; Start 12/09/18 at 14:00 Nitroglycerin (Nitro-Dur) 1 patch DAILY TD Last administered on 12/10/18 09:10; Start 12/09/18 at 11:00 Non-Formulary Medication (Albuterol Sulfate (Albuterol Sulfate Neb Soln)) 0.63 mg QID IH ; Start 12/09/18 at 13:00; Status UNV Non-Formulary Medication (Fluticasone/ Salmeterol (Advair 500-50 Diskus)) 1 each BID IH ; Start 12/09/18 at 21:00; Status UNV Pantoprazole Sodium (Protonix) 40 mg DAILYAC PO Last administered on 12/10/18 09:01; Start 12/09/18 at 10:00 Potassium Chloride (Klor-Con) 10 meq TIDWMEALS PO Last administered on 12/10/18 09:02; Start 12/09/18 at 12:00 Prednisone (Prednisone) 50 mg DAILY PO ; Start 12/10/18 at 09:00; Status UNV Sucralfate (Carafate) 1 gm BID@1000,2200 PO Last administered on 12/09/18at 21:36; Start 12/09/18 at 10:00 Tramadol HCl (Ultram) 50 mg PRN Q6HRS PRN PO MODERATE PAIN; Start 12/09/18 at 09:30 Zolpidem Tartrate (Ambien) 5 mg PRN QHS PRN PO INSOMNIA Last administered on 12/10/18at 01:04; Start 12/09/18 at 09:30 Vitals/I & O Vital Sign - Last 24 Hours 12/09/18 12/09/18 12/09/18 12/09/18 10:26 10:42 10:45 13:47 Temp 97.5 97.5 Pulse 69 77 Resp 16 B/P (MAP) 130/60 130/60 (83) Pulse Ox 95 98 98 O2 Delivery Nasal Cannula Nasal Cannula O2 Flow Rate 4.0 4.0 4.0 12/09/18 12/09/18 12/09/18 12/09/18 14:37 14:47 15:00 19:18 Temp 98.0 97.3 98.0 97.3 Pulse 80 69 Resp 16 16 B/P (MAP) 137/74 (95) 122/66 (84) Pulse Ox 98 92 92 97 O2 Delivery Nasal Cannula Nasal Cannula O2 Flow Rate 4.0 4.0 4.0 12/09/18 12/09/18 12/09/18 12/09/18 20:00 20:23 20:24 21:36 Pulse 69 B/P (MAP) 122/66 Pulse Ox 98 98 O2 Delivery Nasal Cannula O2 Flow Rate 4.0 4.0 4.0 12/09/18 12/09/18 12/10/18 12/10/18 23:03 23:13 00:13 03:59 Temp 97.5 98.3 97.5 98.3 Pulse 75 82 Resp 22 20 20 22 B/P (MAP) 121/58 (79) 124/74 (91) Pulse Ox 96 92 O2 Delivery Nasal Cannula Nasal Cannula Nasal Cannula Nasal Cannula O2 Flow Rate 4.0 4.0 4.0 4.0 12/10/18 12/10/18 12/10/18 12/10/18 07:00 07:36 07:37 08:00 Temp 98.0 98.0 Pulse 73 Resp 20 B/P (MAP) 125/64 (84) Pulse Ox 90 92 92 O2 Delivery Nasal Cannula Nasal Cannula O2 Flow Rate 4.0 4.0 4.0 4.0 12/10/18 12/10/18 09:01 09:13 Pulse 82 B/P (MAP) 124/74 Pulse Ox 92 O2 Delivery Nasal Cannula O2 Flow Rate 4.0 Intake and Output 12/09/18 12/09/18 12/10/18 14:59 22:59 06:59 Intake Total 600 ml 720 ml 480 ml Output Total 1500 ml 2400 ml Balance -900 ml 720 ml -1920 ml MIGUEL DELAROSA MD Dec 10, 2018 09:30
--- NOTE | 2018-12-10 09:49 | PDOC ---
PULMONARY PROGRESS NOTES Subjective better no soa Vitals Vital Signs Date Time Temp Pulse Resp B/P (MAP) Pulse Ox O2 Delivery O2 Flow Rate FiO2 12/10/18 09:13 92 Nasal Cannula 4.0 12/10/18 09:01 82 124/74 12/10/18 07:00 98.0 20 98.0 ROS: No Chest Pain, No Increase Cough General: Alert, No acute distress Lungs: Clear Cardiovascular: S1, S2 Abdomen: Soft, Non-tender Extremities: No Edema Labs Laboratory Tests Test 12/08/18 23:37 12/09/18 03:40 12/09/18 07:07 12/09/18 09:50 White Blood Count 10.2 x10^3/uL (4.0-11.0) Red Blood Count 4.60 x10^6/uL (3.50-5.40) Hemoglobin 14.3 g/dL (12.0-15.5) Hematocrit 42.2 % (36.0-47.0) Mean Corpuscular Volume 92 fL (79-100) Mean Corpuscular Hemoglobin 31 pg (25-35) Mean Corpuscular Hemoglobin Concent 34 g/dL (31-37) Red Cell Distribution Width 14.4 % (11.5-14.5) Platelet Count 274 x10^3/uL (140-400) Neutrophils (%) (Auto) 66 % (31-73) Lymphocytes (%) (Auto) 21 % (24-48) Monocytes (%) (Auto) 10 % (0-9) Eosinophils (%) (Auto) 2 % (0-3) Basophils (%) (Auto) 1 % (0-3) Neutrophils # (Auto) 6.7 x10^3/uL (1.8-7.7) Lymphocytes # (Auto) 2.2 x10^3/uL (1.0-4.8) Monocytes # (Auto) 1.0 x10^3/uL (0.0-1.1) Eosinophils # (Auto) 0.2 x10^3/uL (0.0-0.7) Basophils # (Auto) 0.1 x10^3/uL (0.0-0.2) Sodium Level 139 mmol/L (136-145) Potassium Level 3.8 mmol/L (3.5-5.1) Chloride Level 97 mmol/L (98-107) Carbon Dioxide Level 38 mmol/L (21-32) Anion Gap 4 (6-14) Blood Urea Nitrogen 10 mg/dL (7-20) Creatinine 0.9 mg/dL (0.6-1.0) Estimated GFR (Cockcroft-Gault) 63.0 BUN/Creatinine Ratio 11 (6-20) Glucose Level 134 mg/dL (70-99) Calcium Level 9.1 mg/dL (8.5-10.1) Total Bilirubin 0.6 mg/dL (0.2-1.0) Aspartate Amino Transf (AST/SGOT) 18 U/L (15-37) Alanine Aminotransferase (ALT/SGPT) 25 U/L (14-59) Alkaline Phosphatase 76 U/L (46-116) Troponin I Quantitative < 0.017 ng/mL (0.000-0.055) < 0.017 ng/mL (0.000-0.055) < 0.017 ng/mL (0.000-0.055) SE-Bdf-D-Type Natriuretic Peptide 200 pg/mL (0-124) Total Protein 6.3 g/dL (6.4-8.2) Albumin 3.4 g/dL (3.4-5.0) Albumin/Globulin Ratio 1.2 (1.0-1.7) Glucose (Fingerstick) 171 mg/dL (70-99) Test 12/09/18 11:53 12/09/18 17:32 12/09/18 20:33 12/10/18 07:30 Glucose (Fingerstick) 199 mg/dL (70-99) 147 mg/dL (70-99) 183 mg/dL (70-99) 148 mg/dL (70-99) Laboratory Tests Test 12/09/18 09:50 12/09/18 11:53 12/09/18 17:32 12/09/18 20:33 Troponin I Quantitative < 0.017 ng/mL (0.000-0.055) Glucose (Fingerstick) 199 mg/dL (70-99) 147 mg/dL (70-99) 183 mg/dL (70-99) Test 12/10/18 07:30 Glucose (Fingerstick) 148 mg/dL (70-99) Medications Active Scripts Medications Dose Route/Sig Max Daily Dose Days Date Category Doxycycline Hyclate 100 Mg Tablet 100 Mg PO BID 5 12/02/18 Rx Prednisone (Prednisone) 10 Mg Tablet 50 Mg PO DAILY 5 12/02/18 Rx Banophen (Diphenhydramine Hcl) 25 Mg Tablet 25 Mg PO BID 11/29/18 Reported Protonix (Pantoprazole Sodium) 40 Mg Tablet.dr 40 Mg PO DAILYAC 11/29/18 Reported Tramadol Hcl 50 Mg Tablet 50 Mg PO Q6HRS PRN 11/13/18 Reported Fluticasone Propionate Nasal [place] (Fluticasone Propionate) 16 Gm [place].susp 1 [place] NS BID 06/25/17 Reported Ambien (Zolpidem Tartrate) 10 Mg Tablet 10 Mg PO HS PRN 06/25/17 Reported Gabapentin 600 Mg Tablet 600 Mg PO TID 06/25/17 Reported Levothyroxine Sodium 150 Mcg Tablet 150 Mcg PO DAILYAC 06/25/17 Reported Cymbalta (Duloxetine Hcl) 30 Mg Capsule.dr 30 Mg PO BID 06/25/17 Reported Sucralfate 1 Gm Tablet 1 Gm PO BID 02/11/17 Reported Loratadine 10 Mg Tablet 10 Mg PO DAILY 02/11/17 Reported Meloxicam 15 Mg Tablet 15 Mg PO DAILY 02/11/17 Reported NITRO-DUR 0.2mg/hr (Nitroglycerin) 1 Each Patch.td24 1 Each TD 02/11/17 Reported Potassium Chloride 8 Meq Capsule.er 8 Meq PO TID 06/30/16 Rx Hydrocodone-Apap 10-325 (Hydrocodone Bit/Acetaminophen) 1 Each Tablet 1 Tab PO PRN Q4HRS PRN 01/25/16 Reported Zofran (Ondansetron Hcl) 8 Mg Tablet 8 Mg PO PRN TID PRN 05/19/13 Reported Spiriva (Tiotropium [place]) 18 Mcg Cap.w.dev 18 Mcg IH DAILY 05/19/13 Reported Crestor (Rosuvastatin Calcium) 40 Mg Tablet 40 Mg PO DAILY 05/19/13 Reported Metformin Hcl 500 Mg Tablet 500 Mg PO BIDAC 05/19/13 Reported Albuterol Sulfate Neb Soln (Albuterol Sulfate) 0.63 Mg/3 Ml Vial.neb 0.63 Mg IH QID 05/19/13 Reported Advair 500-50 Diskus (Fluticasone/Salmeterol) 1 Each Disk.w.dev 1 Each IH BID 05/19/13 Reported Lisinopril 10 Mg Tablet 10 Mg PO BID 05/19/13 Reported Lasix (Furosemide) 40 Mg Tablet 40 Mg PO BID 05/19/13 Reported Fosamax (Alendronate Sodium) 70 Mg Tablet 70 Mg PO Thursday05/19/13 Reported Flovent 44MCG Hfa (Fluticasone Propionate) 10.6 Gm Aer.w.adap 2 IH BID 05/19/13 Reported Bentyl (Dicyclomine Hcl) 10 Mg Capsule 10 Mg PO TID 05/19/13 Reported Impression . 1. Dyspnea secondary to acute exacerbation of chronic obstructive pulmonary disease with mild bronchospasm. 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 Acute Bronchitis.Clinically, less likely pneumonia. 3. Morbid obesity. Plan . 1. Discussed with the patient regarding the importance of losing weight. She is at her baseline oxygen at 4 liters. 2. Continue present bronchodilators. 3. Continue steroids with taper. 4. DVT prophylaxis with Lovenox. 5. Anticipate hospitalization 24 hrs 6. check IgE level ADAM CAZARES MD Dec 10, 2018 09:49
[2018-12-10] MEDS: ENOXAPARIN 40 MG/0.4 ML SYRINGE. SQ SCH (10:11)
[2018-12-10] MEDS: SUCRALFATE 1 GM TABLET. PO SCH ×2 (10:11→21:52)
[2018-12-10 11:00] VITALS: BP_SYST 120; BP_SYST 123; BP_DIAS 56; BP_DIAS 61
--- NOTE | 2018-12-10 13:03 | NUR ---
SS following for discharge planning. SS reviewed pt chart. Pt is from home with daughter and is currently requiring oxygen. PT recommended home with assistance. SS will continue to follow for discharge planning.
[2018-12-10 15:00] VITALS: BP 132/67
--- NOTE | 2018-12-10 16:44 | RAD ---
EXAM: PA and Lateral Views of the Chest DATE: 12/10/2018 9:32 AM INDICATION: COPD COMPARISON: 12/08/2018, 11/29/2018 FINDINGS/ IMPRESSION: Heart is moderately enlarged Mediastinal and hilar contours are normal. Atherosclerotic calcifications of the tortuous aorta are seen. Patchy perihilar and lung base airspace opacities are stable accounting for differences in technique. Emphysematous changes are seen. No pleural effusion or pneumothorax. Electronically signed by: Jamie Mcdowell MD (12/10/2018 4:41 PM) [facility]
[2018-12-10 19:00] VITALS: BP 113/68
[2018-12-10] MEDS: ATORVASTATIN CALCIUM 40 MG TABLET. PO SCH (21:52)
[2018-12-10] MEDS: diphenhydrAMINE HCL 25 MG CAPSULE PO PRN (21:52)
[2018-12-10 23:00] VITALS: BP 123/65
[2018-12-11 03:00] VITALS: BP 116/62
[2018-12-11] MEDS: methylPREDNISolone SOD SUCC PF 40 MG/ML VIAL. IV SCH ×2 (06:16→20:51)
[2018-12-11] MEDS: LEVOTHYROXINE 150 MCG TABLET PO SCH (06:16)
[2018-12-11] MEDS: HYDROcodone/APAP 10/325 1 TAB TABLET PO PRN ×4 (06:17→21:39)
[2018-12-11] MEDS: IPRATRPIUM/ALBUTEROL 0.5/2.5MG 3 ML NEBU. NEB SCH ×4 (07:24→19:42)
[2018-12-11] MEDS: BUDESONIDE 0.5 MG/2 ML NEBU. NEB SCH ×2 (07:24→19:42)
[2018-12-11 07:59] VITALS: BP 136/55
[2018-12-11] MEDS: INSULIN LISPRO 300 UNITS/3 ML INSULN.PEN. SQ SCH ×3 (08:00→17:31)
--- NOTE | 2018-12-11 08:48 | PDOC ---
IM PROGRESS NOTES- Subjective Subjective Has dyspnea and cough. Objective Vitals/I&O Vital Signs Date Time Temp Pulse Resp B/P (MAP) Pulse Ox O2 Delivery O2 Flow Rate FiO2 12/11/18 07:33 Nasal Cannula 4.0 12/11/18 07:29 97 12/11/18 06:17 20 12/11/18 03:00 98.2 79 116/62 (80) 98.2 I & O 12/10/18 12/10/18 12/11/18 15:00 23:00 07:00 Intake Total 1060 ml 1000 ml 1200 ml Output Total 500 ml 1000 ml Balance 1060 ml 500 ml 200 ml Physical Exam Physical Exam General appearance - alert,ill appearing, and in moderate distress and oriented to person, place, and time Mental Status - alert, oriented to person, place, and time, affect appropriate to mood Head - normal Chest - bilateral wheezing Heart - S1 and S2 normal Abdomen - soft, nontender, nondistended, no masses or organomegaly Neurological - alert and oriented Musculoskeletal - no muscular tenderness noted Extremities - no pedal edema Skin - warm and dry Labs Laboratory Tests Test 12/10/18 17:01 12/10/18 20:54 12/11/18 07:54 Glucose (Fingerstick) 196 mg/dL (70-99) H 224 mg/dL (70-99) H 124 mg/dL (70-99) H Meds Current Medications Medications (Trade) Dose Ordered Sig/[place] Route PRN Reason Start Time Stop Time Status Last Admin Dose Admin Azithromycin (Zithromax) 250 mg DAILY PO 12/10/18 09:00 12/10/18 09:01 Assessment Assessment Problems Medical Problems: (1) Acute bronchitis Status: Acute (2) COPD exacerbation Status: Acute FINAL IMPRESSION: 1. Chest pain for evaluation, the patient has risk factors. 2. Chronic obstructive pulmonary disease with acute exacerbation. 3. Chronic obstructive pulmonary disease, on home oxygen. 4. Chronic prednisone-dependent, steroid-dependent chronic obstructive pulmonary disease. 5. Diabetes. 6. Hypertension. 7. Hyperlipidemia. 8. Ex-smoker, smoked for at least 30-40 years, 2 packs, quit 10 years ago. PLAN: Taper steroids.Labs in AM. Wheezing is slightly better. Prognosis is very poor. Plan Plan For more details regarding further plans, please refer to the orders. KAMI ROLAND MD Dec 11, 2018 08:48
[2018-12-11] MEDS: ONDANSETRON ODT 4 MG TAB.RAPDIS. PO PRN (09:07)
[2018-12-11] MEDS: ENOXAPARIN 40 MG/0.4 ML SYRINGE. SQ SCH (09:08)
[2018-12-11] MEDS: FLUTICASONE 50MCG/NASAL SPRAY 16GM BOTTLE. NS SCH ×2 (09:08→20:52)
[2018-12-11] MEDS: MELOXICAM 7.5 MG TABLET PO SCH (09:09)
[2018-12-11] MEDS: metFORMIN 500 MG TABLET PO SCH ×2 (09:10→17:27)
[2018-12-11] MEDS: DICYCLOMINE HCL 10 MG CAPSULE PO SCH ×3 (09:10→20:52)
[2018-12-11] MEDS: AZITHROMYCIN 250 MG TABLET. PO SCH (09:10)
[2018-12-11] MEDS: NITROGLYCERIN 0.2MG/HR PATCH. TD SCH (09:10)
[2018-12-11] MEDS: GABAPENTIN 300 MG CAPSULE. PO SCH ×3 (09:10→20:52)
[2018-12-11] MEDS: PANTOPRAZOLE 40 MG TABLET.DR. PO SCH (09:11)
[2018-12-11] MEDS: DULoxetine HCL 30 MG CAPSULE.DR PO SCH ×2 (09:11→20:52)
[2018-12-11] MEDS: SUCRALFATE 1 GM TABLET. PO SCH ×2 (09:11→20:52)
[2018-12-11] MEDS: LISINOPRIL 10 MG TABLET PO SCH ×2 (09:11→20:52)
[2018-12-11] MEDS: CETIRIZINE HCL 10 MG TABLET. PO SCH (09:11)
[2018-12-11] MEDS: FUROSEMIDE 40 MG TABLET. PO SCH ×2 (09:11→14:08)
[2018-12-11] MEDS: POTASSIUM CHLORIDE 10 MEQ TABLET.ER. PO SCH ×3 (09:12→17:26)
--- NOTE | 2018-12-11 09:37 | PDOC ---
PULMONARY PROGRESS NOTES Subjective better no soa Vitals Vital Signs Date Time Temp Pulse Resp B/P (MAP) Pulse Ox O2 Delivery O2 Flow Rate FiO2 12/11/18 09:11 86 136/55 12/11/18 07:59 98.1 18 95 Nasal Cannula 3.0 98.1 ROS: No Chest Pain, No Increase Cough General: Alert, No acute distress Lungs: Wheezing (bilateral) Cardiovascular: S1, S2 Abdomen: Soft, Non-tender Neuro Exam: Alert Extremities: No Edema Labs Laboratory Tests Test 12/09/18 09:50 12/09/18 11:53 12/09/18 17:32 12/09/18 20:33 Troponin I Quantitative < 0.017 ng/mL (0.000-0.055) Glucose (Fingerstick) 199 mg/dL (70-99) 147 mg/dL (70-99) 183 mg/dL (70-99) Test 12/10/18 07:30 12/10/18 17:01 12/10/18 20:54 12/11/18 07:54 Glucose (Fingerstick) 148 mg/dL (70-99) 196 mg/dL (70-99) 224 mg/dL (70-99) 124 mg/dL (70-99) Laboratory Tests Test 12/10/18 17:01 12/10/18 20:54 12/11/18 07:54 Glucose (Fingerstick) 196 mg/dL (70-99) 224 mg/dL (70-99) 124 mg/dL (70-99) Medications Active Scripts Medications Dose Route/Sig Max Daily Dose Days Date Category Doxycycline Hyclate 100 Mg Tablet 100 Mg PO BID 5 12/02/18 Rx Prednisone (Prednisone) 10 Mg Tablet 50 Mg PO DAILY 5 12/02/18 Rx Banophen (Diphenhydramine Hcl) 25 Mg Tablet 25 Mg PO BID 11/29/18 Reported Protonix (Pantoprazole Sodium) 40 Mg Tablet.dr 40 Mg PO DAILYAC 11/29/18 Reported Tramadol Hcl 50 Mg Tablet 50 Mg PO Q6HRS PRN 11/13/18 Reported Fluticasone Propionate Nasal [place] (Fluticasone Propionate) 16 Gm [place].susp 1 [place] NS BID 06/25/17 Reported Ambien (Zolpidem Tartrate) 10 Mg Tablet 10 Mg PO HS PRN 06/25/17 Reported Gabapentin 600 Mg Tablet 600 Mg PO TID 06/25/17 Reported Levothyroxine Sodium 150 Mcg Tablet 150 Mcg PO DAILYAC 06/25/17 Reported Cymbalta (Duloxetine Hcl) 30 Mg Capsule.dr 30 Mg PO BID 06/25/17 Reported Sucralfate 1 Gm Tablet 1 Gm PO BID 02/11/17 Reported Loratadine 10 Mg Tablet 10 Mg PO DAILY 02/11/17 Reported Meloxicam 15 Mg Tablet 15 Mg PO DAILY 02/11/17 Reported NITRO-DUR 0.2mg/hr (Nitroglycerin) 1 Each Patch.td24 1 Each TD 02/11/17 Reported Potassium Chloride 8 Meq Capsule.er 8 Meq PO TID 06/30/16 Rx Hydrocodone-Apap 10-325 (Hydrocodone Bit/Acetaminophen) 1 Each Tablet 1 Tab PO PRN Q4HRS PRN 01/25/16 Reported Zofran (Ondansetron Hcl) 8 Mg Tablet 8 Mg PO PRN TID PRN 05/19/13 Reported Spiriva (Tiotropium [place]) 18 Mcg Cap.w.dev 18 Mcg IH DAILY 05/19/13 Reported Crestor (Rosuvastatin Calcium) 40 Mg Tablet 40 Mg PO DAILY 05/19/13 Reported Metformin Hcl 500 Mg Tablet 500 Mg PO BIDAC 05/19/13 Reported Albuterol Sulfate Neb Soln (Albuterol Sulfate) 0.63 Mg/3 Ml Vial.neb 0.63 Mg IH QID 05/19/13 Reported Advair 500-50 Diskus (Fluticasone/Salmeterol) 1 Each Disk.w.dev 1 Each IH BID 05/19/13 Reported Lisinopril 10 Mg Tablet 10 Mg PO BID 05/19/13 Reported Lasix (Furosemide) 40 Mg Tablet 40 Mg PO BID 05/19/13 Reported Fosamax (Alendronate Sodium) 70 Mg Tablet 70 Mg PO Thursday05/19/13 Reported Flovent 44MCG Hfa (Fluticasone Propionate) 10.6 Gm Aer.w.adap 2 IH BID 05/19/13 Reported Bentyl (Dicyclomine Hcl) 10 Mg Capsule 10 Mg PO TID 05/19/13 Reported Impression . 1. Dyspnea secondary to acute exacerbation of chronic obstructive pulmonary disease with mild bronchospasm. likely has overlap syndrome with asthma 2. Acute Bronchitis.Clinically, less likely pneumonia. 3. Morbid obesity. Plan . 1. Discussed with the patient regarding the importance of losing weight. She is at her baseline oxygen at 4 liters. 2. Continue present bronchodilators. 3. Continue steroids 4. DVT prophylaxis with Lovenox. 5. Anticipate hospitalization another 48 hrs till wheezing improve 6. pending IgE level d/w ADAM ALAN MD Dec 11, 2018 09:37
[2018-12-11 11:59] VITALS: BP 119/56
[2018-12-11 15:00] VITALS: BP 111/58
[2018-12-11 19:00] VITALS: BP_SYST 109; BP_DIAS 49; BP_DIAS 50
[2018-12-11] MEDS: ATORVASTATIN CALCIUM 40 MG TABLET. PO SCH (20:52)
[2018-12-11] MEDS: LACTOBACILLUS RHAMNOSUS GG 1 CAPSULE. PO SCH (20:52)
[2018-12-11] MEDS: ZOLPIDEM 5 MG TABLET. PO PRN (21:39)
[2018-12-11 22:53] VITALS: BP 121/55
[2018-12-12 03:00] VITALS: BP 131/65
[2018-12-12 05:44] LABS: BASO # 0.1 x10^3/uL (0.0-0.2); BASO % 0 % (0-3); EOS % 0 % (0-3); HEMATOCRIT 38.5 % (36.0-47.0); HEMOGLOBIN 12.9 g/dL (12.0-15.5); LYMPH # 0.5 x10^3/uL (1.0-4.8); LYMPH % 3 % (24-48); MEAN CORPUSCULAR HEMOGLOBIN 31 pg (25-35); MEAN CORPUSCULAR HGB CONC 34 g/dL (31-37); MEAN CORPUSCULAR VOLUME 93 fL (79-100); MONO # 0.8 x10^3/uL (0.0-1.1); MONO % 5 % (0-9); NEUT # 16.5 x10^3/uL (1.8-7.7); NEUT % 92 % (31-73); PLATELET COUNT 208 x10^3/uL (140-400); RED BLOOD COUNT 4.13 x10^6/uL (3.50-5.40); RED CELL DISTRIBUTION WIDTH 14.7 % (11.5-14.5); WHITE BLOOD COUNT 17.9 x10^3/uL (4.0-11.0)
[2018-12-12] MEDS: LEVOTHYROXINE 150 MCG TABLET PO SCH (05:59)
[2018-12-12 06:02] LABS: CALCIUM 8.8 mg/dL (8.5-10.1); CREATININE 1.3 mg/dL (0.6-1.0); GFR 41.2; POTASSIUM 5.2 mmol/L (3.5-5.1)
[2018-12-12 07:00] VITALS: BP 137/51
[2018-12-12] MEDS: ONDANSETRON ODT 4 MG TAB.RAPDIS. PO PRN (07:09)
[2018-12-12] MEDS: BUDESONIDE 0.5 MG/2 ML NEBU. NEB SCH ×2 (07:33→19:56)
[2018-12-12] MEDS: IPRATRPIUM/ALBUTEROL 0.5/2.5MG 3 ML NEBU. NEB SCH ×4 (07:33→19:56)
[2018-12-12 07:49] LABS: % BANDS 4 % (0-9); % LYMPHS 3 % (24-48); % MONOS 5 % (0-10); % SEGS 88 % (35-66)
[2018-12-12 07:52] LABS: PLT ESTIMATE ADEQUATE (ADEQUATE); TOXIC VACUOLATION SLIGHT
[2018-12-12] MEDS: methylPREDNISolone SOD SUCC PF 40 MG/ML VIAL. IV SCH ×2 (08:15→21:04)
[2018-12-12] MEDS: NITROGLYCERIN 0.2MG/HR PATCH. TD SCH (08:16)
[2018-12-12] MEDS: FLUTICASONE 50MCG/NASAL SPRAY 16GM BOTTLE. NS SCH ×2 (08:16→21:04)
[2018-12-12] MEDS: GABAPENTIN 300 MG CAPSULE. PO SCH ×3 (08:17→21:05)
[2018-12-12] MEDS: HYDROcodone/APAP 10/325 1 TAB TABLET PO PRN ×3 (08:17→23:33)
[2018-12-12] MEDS: DICYCLOMINE HCL 10 MG CAPSULE PO SCH ×3 (08:17→21:05)
[2018-12-12] MEDS: ENOXAPARIN 40 MG/0.4 ML SYRINGE. SQ SCH (08:17)
[2018-12-12] MEDS: CETIRIZINE HCL 10 MG TABLET. PO SCH (08:17)
[2018-12-12] MEDS: MELOXICAM 7.5 MG TABLET PO SCH (08:18)
[2018-12-12] MEDS: AZITHROMYCIN 250 MG TABLET. PO SCH (08:18)
[2018-12-12] MEDS: SUCRALFATE 1 GM TABLET. PO SCH ×2 (08:18→21:06)
[2018-12-12] MEDS: LACTOBACILLUS RHAMNOSUS GG 1 CAPSULE. PO SCH ×2 (08:18→21:04)
[2018-12-12] MEDS: POTASSIUM CHLORIDE 10 MEQ TABLET.ER. PO SCH (08:18)
[2018-12-12] MEDS: PANTOPRAZOLE 40 MG TABLET.DR. PO SCH (08:18)
[2018-12-12] MEDS: DULoxetine HCL 30 MG CAPSULE.DR PO SCH ×2 (08:19→21:07)
[2018-12-12] MEDS: LISINOPRIL 10 MG TABLET PO SCH ×2 (08:19→21:05)
[2018-12-12] MEDS: metFORMIN 500 MG TABLET PO SCH ×2 (08:19→17:01)
[2018-12-12] MEDS: INSULIN LISPRO 300 UNITS/3 ML INSULN.PEN. SQ SCH ×3 (08:20→17:02)
[2018-12-12] MEDS: FUROSEMIDE 40 MG TABLET. PO SCH ×2 (08:52→13:49)
--- NOTE | 2018-12-12 09:41 | PDOC ---
IM PROGRESS NOTES- Subjective Subjective Has dyspnea and cough. Objective Vitals/I&O Vital Signs Date Time Temp Pulse Resp B/P (MAP) Pulse Ox O2 Delivery O2 Flow Rate FiO2 12/12/18 09:23 Nasal Cannula 3.0 12/12/18 08:19 79 137/51 12/12/18 07:38 93 12/12/18 07:00 98.0 18 98.0 I & O 12/11/18 12/11/18 12/12/18 14:59 22:59 06:59 Intake Total 360 ml 360 ml 500 ml Output Total 800 ml Balance 360 ml 360 ml -300 ml Physical Exam Physical Exam General appearance - alert,ill appearing, and in moderate distress and oriented to person, place, and time Mental Status - alert, oriented to person, place, and time, affect appropriate to mood Head - normal Chest - increased air entry Heart - S1 and S2 normal Abdomen - soft, nontender, nondistended, no masses or organomegaly Neurological - alert and oriented Musculoskeletal - no muscular tenderness noted Extremities - no pedal edema Skin - warm and dry Labs Laboratory Tests Test 12/11/18 11:51 12/11/18 17:25 12/11/18 19:35 12/12/18 05:30 Glucose (Fingerstick) 188 mg/dL (70-99) H 246 mg/dL (70-99) H 159 mg/dL (70-99) H White Blood Count 17.9 x10^3/uL (4.0-11.0) H Red Blood Count 4.13 x10^6/uL (3.50-5.40) Hemoglobin 12.9 g/dL (12.0-15.5) Hematocrit 38.5 % (36.0-47.0) Mean Corpuscular Volume 93 fL (79-100) Mean Corpuscular Hemoglobin 31 pg (25-35) Mean Corpuscular Hemoglobin Concent 34 g/dL (31-37) Red Cell Distribution Width 14.7 % (11.5-14.5) H Platelet Count 208 x10^3/uL (140-400) Neutrophils (%) (Auto) 92 % (31-73) H Lymphocytes (%) (Auto) 3 % (24-48) L Monocytes (%) (Auto) 5 % (0-9) Eosinophils (%) (Auto) 0 % (0-3) Basophils (%) (Auto) 0 % (0-3) Neutrophils # (Auto) 16.5 x10^3/uL (1.8-7.7) H Lymphocytes # (Auto) 0.5 x10^3/uL (1.0-4.8) L Monocytes # (Auto) 0.8 x10^3/uL (0.0-1.1) Eosinophils # (Auto) 0.0 x10^3/uL (0.0-0.7) Basophils # (Auto) 0.1 x10^3/uL (0.0-0.2) Segmented Neutrophils % 88 % (35-66) H Band Neutrophils % 4 % (0-9) Lymphocytes % 3 % (24-48) L Monocytes % 5 % (0-10) Toxic Vacuolation Slight Platelet Estimate Adequate (ADEQUATE) Sodium Level 131 mmol/L (136-145) L Potassium Level 5.2 mmol/L (3.5-5.1) H Chloride Level 91 mmol/L (98-107) L Carbon Dioxide Level 31 mmol/L (21-32) Anion Gap 9 (6-14) Blood Urea Nitrogen 30 mg/dL (7-20) H Creatinine 1.3 mg/dL (0.6-1.0) H Estimated GFR (Cockcroft-Gault) 41.2 Glucose Level 150 mg/dL (70-99) H Calcium Level 8.8 mg/dL (8.5-10.1) Test 12/12/18 07:31 Glucose (Fingerstick) 153 mg/dL (70-99) H Laboratory Tests 12/12/18 05:30 Laboratory Tests 12/12/18 05:30 Meds Current Medications Medications (Trade) Dose Ordered Sig/[place] Route PRN Reason Start Time Stop Time Status Last Admin Dose Admin Methylprednisolone Sodium Succinate (SOLU-Medrol 40MG VIAL) 80 mg Q12HR IV 12/11/18 21:00 12/12/18 08:15 Lactobacillus Rhamnosus (Culturelle) 1 cap BID PO 12/11/18 21:00 12/12/18 08:18 Assessment Assessment Problems Medical Problems: (1) Acute bronchitis Status: Acute (2) COPD exacerbation Status: Acute FINAL IMPRESSION: 1. Chest pain for evaluation, the patient has risk factors. 2. Chronic obstructive pulmonary disease with acute exacerbation. 3. Chronic obstructive pulmonary disease, on home oxygen. 4. Chronic prednisone-dependent, steroid-dependent chronic obstructive pulmonary disease. 5. Diabetes. 6. Hypertension. 7. Hyperlipidemia. 8. Ex-smoker, smoked for at least 30-40 years, 2 packs, quit 10 years ago. PLAN: Taper steroids.Wheezing is improving. Prognosis is very poor. Hyperkalemia- K 5.1- stop KCL. Hyponatremia- Na 130.Labs in AM Plan Plan For more details regarding further plans, please refer to the orders. KAMI ROLAND MD Dec 12, 2018 09:41
[2018-12-12 10:52] VITALS: BP 137/60
--- NOTE | 2018-12-12 13:57 | PDOC ---
PULMONARY PROGRESS NOTES Subjective better no soa Vitals Vital Signs Date Time Temp Pulse Resp B/P (MAP) Pulse Ox O2 Delivery O2 Flow Rate FiO2 12/12/18 13:50 Nasal Cannula 4.0 12/12/18 10:52 97.8 86 18 137/60 (85) 94 97.8 ROS: No Chest Pain, No Increase Cough General: Alert, No acute distress Lungs: Wheezing (faint) Cardiovascular: S1, S2 Abdomen: Soft, Non-tender Neuro Exam: Alert Extremities: No Edema Labs Laboratory Tests Test 12/10/18 17:01 12/10/18 20:54 12/11/18 07:54 12/11/18 11:51 Glucose (Fingerstick) 196 mg/dL (70-99) 224 mg/dL (70-99) 124 mg/dL (70-99) 188 mg/dL (70-99) Test 12/11/18 17:25 12/11/18 19:35 12/12/18 05:30 12/12/18 07:31 Glucose (Fingerstick) 246 mg/dL (70-99) 159 mg/dL (70-99) 153 mg/dL (70-99) White Blood Count 17.9 x10^3/uL (4.0-11.0) Red Blood Count 4.13 x10^6/uL (3.50-5.40) Hemoglobin 12.9 g/dL (12.0-15.5) Hematocrit 38.5 % (36.0-47.0) Mean Corpuscular Volume 93 fL (79-100) Mean Corpuscular Hemoglobin 31 pg (25-35) Mean Corpuscular Hemoglobin Concent 34 g/dL (31-37) Red Cell Distribution Width 14.7 % (11.5-14.5) Platelet Count 208 x10^3/uL (140-400) Neutrophils (%) (Auto) 92 % (31-73) Lymphocytes (%) (Auto) 3 % (24-48) Monocytes (%) (Auto) 5 % (0-9) Eosinophils (%) (Auto) 0 % (0-3) Basophils (%) (Auto) 0 % (0-3) Neutrophils # (Auto) 16.5 x10^3/uL (1.8-7.7) Lymphocytes # (Auto) 0.5 x10^3/uL (1.0-4.8) Monocytes # (Auto) 0.8 x10^3/uL (0.0-1.1) Eosinophils # (Auto) 0.0 x10^3/uL (0.0-0.7) Basophils # (Auto) 0.1 x10^3/uL (0.0-0.2) Segmented Neutrophils % 88 % (35-66) Band Neutrophils % 4 % (0-9) Lymphocytes % 3 % (24-48) Monocytes % 5 % (0-10) Toxic Vacuolation Slight Platelet Estimate Adequate (ADEQUATE) Sodium Level 131 mmol/L (136-145) Potassium Level 5.2 mmol/L (3.5-5.1) Chloride Level 91 mmol/L (98-107) Carbon Dioxide Level 31 mmol/L (21-32) Anion Gap 9 (6-14) Blood Urea Nitrogen 30 mg/dL (7-20) Creatinine 1.3 mg/dL (0.6-1.0) Estimated GFR (Cockcroft-Gault) 41.2 Glucose Level 150 mg/dL (70-99) Calcium Level 8.8 mg/dL (8.5-10.1) Test 12/12/18 11:01 Glucose (Fingerstick) 226 mg/dL (70-99) Laboratory Tests Test 12/11/18 17:25 12/11/18 19:35 12/12/18 05:30 12/12/18 07:31 Glucose (Fingerstick) 246 mg/dL (70-99) 159 mg/dL (70-99) 153 mg/dL (70-99) White Blood Count 17.9 x10^3/uL (4.0-11.0) Red Blood Count 4.13 x10^6/uL (3.50-5.40) Hemoglobin 12.9 g/dL (12.0-15.5) Hematocrit 38.5 % (36.0-47.0) Mean Corpuscular Volume 93 fL (79-100) Mean Corpuscular Hemoglobin 31 pg (25-35) Mean Corpuscular Hemoglobin Concent 34 g/dL (31-37) Red Cell Distribution Width 14.7 % (11.5-14.5) Platelet Count 208 x10^3/uL (140-400) Neutrophils (%) (Auto) 92 % (31-73) Lymphocytes (%) (Auto) 3 % (24-48) Monocytes (%) (Auto) 5 % (0-9) Eosinophils (%) (Auto) 0 % (0-3) Basophils (%) (Auto) 0 % (0-3) Neutrophils # (Auto) 16.5 x10^3/uL (1.8-7.7) Lymphocytes # (Auto) 0.5 x10^3/uL (1.0-4.8) Monocytes # (Auto) 0.8 x10^3/uL (0.0-1.1) Eosinophils # (Auto) 0.0 x10^3/uL (0.0-0.7) Basophils # (Auto) 0.1 x10^3/uL (0.0-0.2) Segmented Neutrophils % 88 % (35-66) Band Neutrophils % 4 % (0-9) Lymphocytes % 3 % (24-48) Monocytes % 5 % (0-10) Toxic Vacuolation Slight Platelet Estimate Adequate (ADEQUATE) Sodium Level 131 mmol/L (136-145) Potassium Level 5.2 mmol/L (3.5-5.1) Chloride Level 91 mmol/L (98-107) Carbon Dioxide Level 31 mmol/L (21-32) Anion Gap 9 (6-14) Blood Urea Nitrogen 30 mg/dL (7-20) Creatinine 1.3 mg/dL (0.6-1.0) Estimated GFR (Cockcroft-Gault) 41.2 Glucose Level 150 mg/dL (70-99) Calcium Level 8.8 mg/dL (8.5-10.1) Test 12/12/18 11:01 Glucose (Fingerstick) 226 mg/dL (70-99) Medications Active Scripts Medications Dose Route/Sig Max Daily Dose Days Date Category Doxycycline Hyclate 100 Mg Tablet 100 Mg PO BID 5 12/02/18 Rx Prednisone (Prednisone) 10 Mg Tablet 50 Mg PO DAILY 5 12/02/18 Rx Banophen (Diphenhydramine Hcl) 25 Mg Tablet 25 Mg PO BID 11/29/18 Reported Protonix (Pantoprazole Sodium) 40 Mg Tablet.dr 40 Mg PO DAILYAC 11/29/18 Reported Tramadol Hcl 50 Mg Tablet 50 Mg PO Q6HRS PRN 11/13/18 Reported Fluticasone Propionate Nasal [place] (Fluticasone Propionate) 16 Gm [place].susp 1 [place] NS BID 06/25/17 Reported Ambien (Zolpidem Tartrate) 10 Mg Tablet 10 Mg PO HS PRN 06/25/17 Reported Gabapentin 600 Mg Tablet 600 Mg PO TID 06/25/17 Reported Levothyroxine Sodium 150 Mcg Tablet 150 Mcg PO DAILYAC 06/25/17 Reported Cymbalta (Duloxetine Hcl) 30 Mg Capsule.dr 30 Mg PO BID 06/25/17 Reported Sucralfate 1 Gm Tablet 1 Gm PO BID 02/11/17 Reported Loratadine 10 Mg Tablet 10 Mg PO DAILY 02/11/17 Reported Meloxicam 15 Mg Tablet 15 Mg PO DAILY 02/11/17 Reported NITRO-DUR 0.2mg/hr (Nitroglycerin) 1 Each Patch.td24 1 Each TD 02/11/17 Reported Potassium Chloride 8 Meq Capsule.er 8 Meq PO TID 06/30/16 Rx Hydrocodone-Apap 10-325 (Hydrocodone Bit/Acetaminophen) 1 Each Tablet 1 Tab PO PRN Q4HRS PRN 01/25/16 Reported Zofran (Ondansetron Hcl) 8 Mg Tablet 8 Mg PO PRN TID PRN 05/19/13 Reported Spiriva (Tiotropium [place]) 18 Mcg Cap.w.dev 18 Mcg IH DAILY 05/19/13 Reported Crestor (Rosuvastatin Calcium) 40 Mg Tablet 40 Mg PO DAILY 05/19/13 Reported Metformin Hcl 500 Mg Tablet 500 Mg PO BIDAC 05/19/13 Reported Albuterol Sulfate Neb Soln (Albuterol Sulfate) 0.63 Mg/3 Ml Vial.neb 0.63 Mg IH QID 05/19/13 Reported Advair 500-50 Diskus (Fluticasone/Salmeterol) 1 Each Disk.w.dev 1 Each IH BID 05/19/13 Reported Lisinopril 10 Mg Tablet 10 Mg PO BID 05/19/13 Reported Lasix (Furosemide) 40 Mg Tablet 40 Mg PO BID 05/19/13 Reported Fosamax (Alendronate Sodium) 70 Mg Tablet 70 Mg PO Thursday05/19/13 Reported Flovent 44MCG Hfa (Fluticasone Propionate) 10.6 Gm Aer.w.adap 2 IH BID 05/19/13 Reported Bentyl (Dicyclomine Hcl) 10 Mg Capsule 10 Mg PO TID 05/19/13 Reported Impression . 1. Dyspnea secondary to acute exacerbation of chronic obstructive pulmonary disease with mild bronchospasm. likely has overlap syndrome with asthma 2. Acute Bronchitis.Clinically, less likely pneumonia. 3. Morbid obesity. Plan . 1. Discussed with the patient regarding the importance of losing weight. She is at her baseline oxygen at 4 liters. 2. Continue present bronchodilators. 3. Continue steroids 4. DVT prophylaxis with Lovenox. 5. Anticipate hospitalization another 48 hrs till wheezing improve 6. pending IgE level d/w ADAM ALAN MD Dec 12, 2018 13:57
[2018-12-12 14:56] VITALS: BP 139/62
[2018-12-12 19:00] VITALS: BP 145/68
[2018-12-12] MEDS: ATORVASTATIN CALCIUM 40 MG TABLET. PO SCH (21:04)
[2018-12-12 22:44] VITALS: BP 93/59
[2018-12-12] MEDS: ZOLPIDEM 5 MG TABLET. PO PRN (23:33)
[2018-12-13] MEDS: ONDANSETRON ODT 4 MG TAB.RAPDIS. PO PRN ×2 (02:11→21:46)
[2018-12-13 03:00] VITALS: BP 117/64
[2018-12-13] MEDS: LEVOTHYROXINE 150 MCG TABLET PO SCH (06:08)
[2018-12-13 07:00] VITALS: BP 100/58
[2018-12-13 07:56] LABS: CALCIUM 8.3 mg/dL (8.5-10.1); GFR 55.8; POTASSIUM 4.3 mmol/L (3.5-5.1)
[2018-12-13] MEDS: INSULIN LISPRO 300 UNITS/3 ML INSULN.PEN. SQ SCH ×3 (08:00→17:02)
[2018-12-13] MEDS: IPRATRPIUM/ALBUTEROL 0.5/2.5MG 3 ML NEBU. NEB SCH ×4 (08:04→19:14)
[2018-12-13] MEDS: BUDESONIDE 0.5 MG/2 ML NEBU. NEB SCH ×2 (08:04→19:14)
[2018-12-13] MEDS: metFORMIN 500 MG TABLET PO SCH ×2 (08:23→17:00)
[2018-12-13] MEDS: LISINOPRIL 10 MG TABLET PO SCH ×3 (08:23→21:44)
[2018-12-13] MEDS: AZITHROMYCIN 250 MG TABLET. PO SCH (08:23)
[2018-12-13] MEDS: CETIRIZINE HCL 10 MG TABLET. PO SCH (08:24)
[2018-12-13] MEDS: LACTOBACILLUS RHAMNOSUS GG 1 CAPSULE. PO SCH ×2 (08:24→21:43)
[2018-12-13] MEDS: PANTOPRAZOLE 40 MG TABLET.DR. PO SCH (08:24)
[2018-12-13] MEDS: GABAPENTIN 300 MG CAPSULE. PO SCH ×3 (08:24→21:43)
[2018-12-13] MEDS: DICYCLOMINE HCL 10 MG CAPSULE PO SCH ×3 (08:24→21:44)
[2018-12-13] MEDS: MELOXICAM 7.5 MG TABLET PO SCH (08:25)
[2018-12-13] MEDS: FUROSEMIDE 40 MG TABLET. PO SCH ×2 (08:25→14:02)
[2018-12-13] MEDS: DULoxetine HCL 30 MG CAPSULE.DR PO SCH ×2 (08:26→21:44)
[2018-12-13] MEDS: FLUTICASONE 50MCG/NASAL SPRAY 16GM BOTTLE. NS SCH ×2 (08:27→21:42)
[2018-12-13] MEDS: methylPREDNISolone SOD SUCC PF 40 MG/ML VIAL. IV SCH ×2 (08:27→21:42)
[2018-12-13] MEDS: NITROGLYCERIN 0.2MG/HR PATCH. TD SCH (08:28)
--- NOTE | 2018-12-13 09:28 | PDOC ---
PROGRESS NOTES Subjective Subjective did not sleep well,wheezing a lot Objective Objective Vital Signs Date Time Temp Pulse Resp B/P (MAP) Pulse Ox O2 Delivery O2 Flow Rate FiO2 12/13/18 08:04 98 Nasal Cannula 4.0 12/13/18 07:00 98.7 67 16 100/58 (72) 98.7 Intake and Output 12/13/18 06:59 Intake Total 860 ml Output Total 1000 ml Balance -140 ml Intake Oral 860 ml Output Urine Total 1000 ml # Voids 5 Physical Exam Abdomen: Soft, No tenderness Heart: Regular rate (SR), No murmurs Extremities: No cyanosis, No edema General: Alert, Oriented X3, Cooperative, No acute distress HEENT: Atraumatic, Mucous membr. moist/pink Lungs: Other (BILATERAL WHEEZING) MUSCULOSKELETAL: Osteoarthritic changes both hands Neuro: Normal speech, Sensation intact Psych/Mental Status: Mental status NL, Mood NL Skin: No breakdown, No significant lesion Diagnosis Problem List Problems Medical Problems: (1) Acute bronchitis Status: Acute (2) COPD exacerbation Status: Acute (3) Diabetes Status: Chronic (4) Morbid obesity Status: Chronic (5) Shortness of breath Status: Acute Assessment Assessment Problems Medical Problems: (1) Acute bronchitis Status: Acute (2) COPD exacerbation Status: Acute FINAL IMPRESSION: 1. Chest pain for evaluation, the patient has risk factors.NO [place]. 2. Chronic obstructive pulmonary disease with acute exacerbation. 3. Chronic obstructive pulmonary disease, on home oxygen. 4. Chronic prednisone-dependent, steroid-dependent chronic obstructive pulmonary disease. 5. Diabetes. 6. Hypertension. 7. Hyperlipidemia. 8. Ex-smoker, smoked for at least 30-40 years, 2 packs, quit 10 years ago. PLAN:Po prednisone Wheezing is improving slowly Prognosis is very poor. wbc 17 reactive due to steroids Na 138 normal. Plan Plan of Care Problems Medical Problems: (1) Acute bronchitis Status: Acute (2) COPD exacerbation Status: Acute (3) Diabetes Status: Chronic (4) Morbid obesity Status: Chronic (5) Shortness of breath Status: Acute Comment Review of Relevant I have reviewed the following items vinny (where applicable) has been applied. Labs Laboratory Tests Test 12/12/18 11:01 12/12/18 16:50 12/12/18 21:11 12/13/18 06:55 Glucose (Fingerstick) 226 mg/dL (70-99) 185 mg/dL (70-99) 196 mg/dL (70-99) Sodium Level 137 mmol/L (136-145) Potassium Level 4.3 mmol/L (3.5-5.1) Chloride Level 93 mmol/L (98-107) Carbon Dioxide Level 37 mmol/L (21-32) Anion Gap 7 (6-14) Blood Urea Nitrogen 30 mg/dL (7-20) Creatinine 1.0 mg/dL (0.6-1.0) Estimated GFR (Cockcroft-Gault) 55.8 Glucose Level 141 mg/dL (70-99) Calcium Level 8.3 mg/dL (8.5-10.1) Test 12/13/18 07:25 Glucose (Fingerstick) 142 mg/dL (70-99) Vitals/I & O Vital Sign - Last 24 Hours 12/12/18 12/12/18 12/12/18 12/12/18 10:52 12:25 13:50 14:56 Temp 97.8 97.8 97.8 97.8 Pulse 86 88 Resp 18 18 B/P (MAP) 137/60 (85) 139/62 (87) Pulse Ox 94 94 O2 Delivery Nasal Cannula Nasal Cannula Nasal Cannula Nasal Cannula O2 Flow Rate 4.0 4.0 4.0 4.0 12/12/18 12/12/18 12/12/18 12/12/18 15:30 16:08 19:00 19:58 Temp 97.9 97.9 Pulse 90 Resp 18 B/P (MAP) 145/68 (93) Pulse Ox 93 98 O2 Delivery Nasal Cannula Nasal Cannula Nasal Cannula Nasal Cannula O2 Flow Rate 4.0 4.0 4.0 4.0 12/12/18 12/12/18 12/12/18 12/13/18 20:00 21:05 22:44 03:00 Temp 97.9 97.7 97.9 97.7 Pulse 90 89 79 Resp 18 18 B/P (MAP) 145/68 93/59 (70) 117/64 (81) Pulse Ox 93 94 O2 Delivery Nasal Cannula Nasal Cannula Nasal Cannula O2 Flow Rate 3.0 3.0 3.0 12/13/18 12/13/18 07:00 08:04 Temp 98.7 98.7 Pulse 67 Resp 16 B/P (MAP) 100/58 (72) Pulse Ox 94 98 O2 Delivery Nasal Cannula Nasal Cannula O2 Flow Rate 3.0 4.0 Intake and Output 12/12/18 12/12/18 12/13/18 14:59 22:59 06:59 Intake Total 560 ml 300 ml Output Total 1000 ml Balance 560 ml -700 ml MIGUEL DELAROSA MD Dec 13, 2018 09:28
[2018-12-13] MEDS: HYDROcodone/APAP 10/325 1 TAB TABLET PO PRN ×2 (10:28→21:47)
[2018-12-13] MEDS: SUCRALFATE 1 GM TABLET. PO SCH ×2 (10:28→21:43)
[2018-12-13] MEDS: ENOXAPARIN 40 MG/0.4 ML SYRINGE. SQ SCH (10:29)
[2018-12-13 11:00] VITALS: BP 96/45
--- NOTE | 2018-12-13 11:20 | PDOC ---
PULMONARY PROGRESS NOTES Subjective better no soa Vitals Vital Signs Date Time Temp Pulse Resp B/P (MAP) Pulse Ox O2 Delivery O2 Flow Rate FiO2 12/13/18 11:00 98.4 80 16 96/45 (62) 94 Nasal Cannula 3.0 98.4 ROS: No Chest Pain, No Increase Cough General: Alert, No acute distress Lungs: Wheezing (faint) Cardiovascular: S1, S2 Abdomen: Soft, Non-tender Neuro Exam: Alert Extremities: No Edema Labs Laboratory Tests Test 12/11/18 11:51 12/11/18 17:25 12/11/18 19:35 12/12/18 05:30 Glucose (Fingerstick) 188 mg/dL (70-99) 246 mg/dL (70-99) 159 mg/dL (70-99) White Blood Count 17.9 x10^3/uL (4.0-11.0) Red Blood Count 4.13 x10^6/uL (3.50-5.40) Hemoglobin 12.9 g/dL (12.0-15.5) Hematocrit 38.5 % (36.0-47.0) Mean Corpuscular Volume 93 fL (79-100) Mean Corpuscular Hemoglobin 31 pg (25-35) Mean Corpuscular Hemoglobin Concent 34 g/dL (31-37) Red Cell Distribution Width 14.7 % (11.5-14.5) Platelet Count 208 x10^3/uL (140-400) Neutrophils (%) (Auto) 92 % (31-73) Lymphocytes (%) (Auto) 3 % (24-48) Monocytes (%) (Auto) 5 % (0-9) Eosinophils (%) (Auto) 0 % (0-3) Basophils (%) (Auto) 0 % (0-3) Neutrophils # (Auto) 16.5 x10^3/uL (1.8-7.7) Lymphocytes # (Auto) 0.5 x10^3/uL (1.0-4.8) Monocytes # (Auto) 0.8 x10^3/uL (0.0-1.1) Eosinophils # (Auto) 0.0 x10^3/uL (0.0-0.7) Basophils # (Auto) 0.1 x10^3/uL (0.0-0.2) Segmented Neutrophils % 88 % (35-66) Band Neutrophils % 4 % (0-9) Lymphocytes % 3 % (24-48) Monocytes % 5 % (0-10) Toxic Vacuolation Slight Platelet Estimate Adequate (ADEQUATE) Sodium Level 131 mmol/L (136-145) Potassium Level 5.2 mmol/L (3.5-5.1) Chloride Level 91 mmol/L (98-107) Carbon Dioxide Level 31 mmol/L (21-32) Anion Gap 9 (6-14) Blood Urea Nitrogen 30 mg/dL (7-20) Creatinine 1.3 mg/dL (0.6-1.0) Estimated GFR (Cockcroft-Gault) 41.2 Glucose Level 150 mg/dL (70-99) Calcium Level 8.8 mg/dL (8.5-10.1) Test 12/12/18 07:31 12/12/18 11:01 12/12/18 16:50 12/12/18 21:11 Glucose (Fingerstick) 153 mg/dL (70-99) 226 mg/dL (70-99) 185 mg/dL (70-99) 196 mg/dL (70-99) Test 12/13/18 06:55 12/13/18 07:25 Sodium Level 137 mmol/L (136-145) Potassium Level 4.3 mmol/L (3.5-5.1) Chloride Level 93 mmol/L (98-107) Carbon Dioxide Level 37 mmol/L (21-32) Anion Gap 7 (6-14) Blood Urea Nitrogen 30 mg/dL (7-20) Creatinine 1.0 mg/dL (0.6-1.0) Estimated GFR (Cockcroft-Gault) 55.8 Glucose Level 141 mg/dL (70-99) Calcium Level 8.3 mg/dL (8.5-10.1) Glucose (Fingerstick) 142 mg/dL (70-99) Laboratory Tests Test 12/12/18 16:50 12/12/18 21:11 12/13/18 06:55 12/13/18 07:25 Glucose (Fingerstick) 185 mg/dL (70-99) 196 mg/dL (70-99) 142 mg/dL (70-99) Sodium Level 137 mmol/L (136-145) Potassium Level 4.3 mmol/L (3.5-5.1) Chloride Level 93 mmol/L (98-107) Carbon Dioxide Level 37 mmol/L (21-32) Anion Gap 7 (6-14) Blood Urea Nitrogen 30 mg/dL (7-20) Creatinine 1.0 mg/dL (0.6-1.0) Estimated GFR (Cockcroft-Gault) 55.8 Glucose Level 141 mg/dL (70-99) Calcium Level 8.3 mg/dL (8.5-10.1) Medications Active Scripts Medications Dose Route/Sig Max Daily Dose Days Date Category Doxycycline Hyclate 100 Mg Tablet 100 Mg PO BID 5 12/02/18 Rx Prednisone (Prednisone) 10 Mg Tablet 50 Mg PO DAILY 5 12/02/18 Rx Banophen (Diphenhydramine Hcl) 25 Mg Tablet 25 Mg PO BID 11/29/18 Reported Protonix (Pantoprazole Sodium) 40 Mg Tablet.dr 40 Mg PO DAILYAC 11/29/18 Reported Tramadol Hcl 50 Mg Tablet 50 Mg PO Q6HRS PRN 11/13/18 Reported Fluticasone Propionate Nasal [place] (Fluticasone Propionate) 16 Gm [place].susp 1 [place] NS BID 06/25/17 Reported Ambien (Zolpidem Tartrate) 10 Mg Tablet 10 Mg PO HS PRN 06/25/17 Reported Gabapentin 600 Mg Tablet 600 Mg PO TID 06/25/17 Reported Levothyroxine Sodium 150 Mcg Tablet 150 Mcg PO DAILYAC 06/25/17 Reported Cymbalta (Duloxetine Hcl) 30 Mg Capsule.dr 30 Mg PO BID 06/25/17 Reported Sucralfate 1 Gm Tablet 1 Gm PO BID 02/11/17 Reported Loratadine 10 Mg Tablet 10 Mg PO DAILY 02/11/17 Reported Meloxicam 15 Mg Tablet 15 Mg PO DAILY 02/11/17 Reported NITRO-DUR 0.2mg/hr (Nitroglycerin) 1 Each Patch.td24 1 Each TD 02/11/17 Reported Potassium Chloride 8 Meq Capsule.er 8 Meq PO TID 06/30/16 Rx Hydrocodone-Apap 10-325 (Hydrocodone Bit/Acetaminophen) 1 Each Tablet 1 Tab PO PRN Q4HRS PRN 01/25/16 Reported Zofran (Ondansetron Hcl) 8 Mg Tablet 8 Mg PO PRN TID PRN 05/19/13 Reported Spiriva (Tiotropium [place]) 18 Mcg Cap.w.dev 18 Mcg IH DAILY 05/19/13 Reported Crestor (Rosuvastatin Calcium) 40 Mg Tablet 40 Mg PO DAILY 05/19/13 Reported Metformin Hcl 500 Mg Tablet 500 Mg PO BIDAC 05/19/13 Reported Albuterol Sulfate Neb Soln (Albuterol Sulfate) 0.63 Mg/3 Ml Vial.neb 0.63 Mg IH QID 05/19/13 Reported Advair 500-50 Diskus (Fluticasone/Salmeterol) 1 Each Disk.w.dev 1 Each IH BID 05/19/13 Reported Lisinopril 10 Mg Tablet 10 Mg PO BID 05/19/13 Reported Lasix (Furosemide) 40 Mg Tablet 40 Mg PO BID 05/19/13 Reported Fosamax (Alendronate Sodium) 70 Mg Tablet 70 Mg PO Thursday05/19/13 Reported Flovent 44MCG Hfa (Fluticasone Propionate) 10.6 Gm Aer.w.adap 2 IH BID 05/19/13 Reported Bentyl (Dicyclomine Hcl) 10 Mg Capsule 10 Mg PO TID 05/19/13 Reported Impression . 1. Dyspnea secondary to acute exacerbation of chronic obstructive pulmonary disease with mild bronchospasm. likely has overlap syndrome with asthma 2. Acute Bronchitis.Clinically, less likely pneumonia. 3. Morbid obesity. Plan . 1. Discussed with the patient regarding the importance of losing weight. She is at her baseline oxygen at 4 liters. 2. Continue present bronchodilators. 3. Continue steroids, start taper 4. DVT prophylaxis with Lovenox. 5. Anticipate hospitalization another 24 hrs 6. pending IgE level d/w ADAM ALAN MD Dec 13, 2018 11:20
[2018-12-13 15:00] VITALS: BP 129/54
[2018-12-13 19:00] VITALS: BP 111/56
[2018-12-13] MEDS: ATORVASTATIN CALCIUM 40 MG TABLET. PO SCH (21:43)
[2018-12-13 23:00] VITALS: BP 116/50
[2018-12-14 03:00] VITALS: BP 110/51
[2018-12-14] MEDS: ONDANSETRON ODT 4 MG TAB.RAPDIS. PO PRN (05:56)
[2018-12-14] MEDS: LEVOTHYROXINE 150 MCG TABLET PO SCH (05:56)
[2018-12-14 07:00] VITALS: BP 111/48
[2018-12-14] MEDS: BUDESONIDE 0.5 MG/2 ML NEBU. NEB SCH (07:32)
[2018-12-14] MEDS: IPRATRPIUM/ALBUTEROL 0.5/2.5MG 3 ML NEBU. NEB SCH ×2 (07:32→12:09)
[2018-12-14] MEDS: PANTOPRAZOLE 40 MG TABLET.DR. PO SCH (08:23)
[2018-12-14] MEDS: metFORMIN 500 MG TABLET PO SCH (08:23)
[2018-12-14] MEDS: INSULIN LISPRO 300 UNITS/3 ML INSULN.PEN. SQ SCH ×2 (08:24→11:52)
[2018-12-14 08:35] LABS: BASO % 0 % (0-3); EOS % 0 % (0-3); HEMATOCRIT 38.9 % (36.0-47.0); HEMOGLOBIN 12.8 g/dL (12.0-15.5); LYMPH # 0.6 x10^3/uL (1.0-4.8); LYMPH % 4 % (24-48); MEAN CORPUSCULAR HEMOGLOBIN 31 pg (25-35); MEAN CORPUSCULAR HGB CONC 33 g/dL (31-37); MEAN CORPUSCULAR VOLUME 93 fL (79-100); MONO # 1.6 x10^3/uL (0.0-1.1); MONO % 10 % (0-9); NEUT # 13.4 x10^3/uL (1.8-7.7); NEUT % 86 % (31-73); PLATELET COUNT 206 x10^3/uL (140-400); RED BLOOD COUNT 4.17 x10^6/uL (3.50-5.40); RED CELL DISTRIBUTION WIDTH 15.3 % (11.5-14.5); WHITE BLOOD COUNT 15.7 x10^3/uL (4.0-11.0)
[2018-12-14] MEDS: methylPREDNISolone SOD SUCC PF 40 MG/ML VIAL. IV SCH (09:10)
[2018-12-14] MEDS: LACTOBACILLUS RHAMNOSUS GG 1 CAPSULE. PO SCH (09:11)
[2018-12-14] MEDS: FLUTICASONE 50MCG/NASAL SPRAY 16GM BOTTLE. NS SCH (09:11)
[2018-12-14] MEDS: DICYCLOMINE HCL 10 MG CAPSULE PO SCH (09:11)
[2018-12-14] MEDS: GABAPENTIN 300 MG CAPSULE. PO SCH (09:12)
[2018-12-14] MEDS: DULoxetine HCL 30 MG CAPSULE.DR PO SCH (09:12)
[2018-12-14] MEDS: CETIRIZINE HCL 10 MG TABLET. PO SCH (09:12)
[2018-12-14] MEDS: AZITHROMYCIN 250 MG TABLET. PO SCH (09:12)
[2018-12-14] MEDS: LISINOPRIL 10 MG TABLET PO SCH (09:13)
[2018-12-14] MEDS: NITROGLYCERIN 0.2MG/HR PATCH. TD SCH (09:13)
[2018-12-14] MEDS: FUROSEMIDE 40 MG TABLET. PO SCH (09:15)
[2018-12-14] MEDS: SUCRALFATE 1 GM TABLET. PO SCH (09:15)
[2018-12-14] MEDS: MELOXICAM 7.5 MG TABLET PO SCH (09:16)
[2018-12-14] MEDS: ENOXAPARIN 40 MG/0.4 ML SYRINGE. SQ SCH (09:17)
--- NOTE | 2018-12-14 09:44 | PDOC ---
PROGRESS NOTES Subjective Subjective feels better today Objective Objective Vital Signs Date Time Temp Pulse Resp B/P (MAP) Pulse Ox O2 Delivery O2 Flow Rate FiO2 12/14/18 09:13 83 111/48 12/14/18 07:27 97 Nasal Cannula 4.0 12/14/18 07:00 97.8 18 97.8 Intake and Output 12/14/18 06:59 Intake Total 1680 ml Output Total 2500 ml Balance -820 ml Intake Oral 1680 ml Output Urine Total 2500 ml # Voids 1 Physical Exam Abdomen: Soft, No tenderness Heart: Regular rate (SR), No murmurs Extremities: No cyanosis, No edema General: Alert, Oriented X3, Cooperative, No acute distress HEENT: Atraumatic, Mucous membr. moist/pink Lungs: Other (dec WHEEZING) MUSCULOSKELETAL: Osteoarthritic changes both hands Neuro: Normal speech, Sensation intact Psych/Mental Status: Mental status NL, Mood NL Skin: No breakdown, No significant lesion Diagnosis Problem List Problems Medical Problems: (1) Acute bronchitis Status: Acute (2) COPD exacerbation Status: Acute (3) Diabetes Status: Chronic (4) Morbid obesity Status: Chronic (5) Shortness of breath Status: Acute Assessment Assessment Problems Medical Problems: (1) Acute bronchitis Status: Acute (2) COPD exacerbation Status: Acute FINAL IMPRESSION: 1. Chest pain for evaluation, the patient has risk factors.NO [place]. 2. Chronic obstructive pulmonary disease with acute exacerbation. 3. Chronic obstructive pulmonary disease, on home oxygen. 4. Chronic prednisone-dependent, steroid-dependent chronic obstructive pulmonary disease. 5. Diabetes. 6. Hypertension. 7. Hyperlipidemia. 8. Ex-smoker, smoked for at least 30-40 years, 2 packs, quit 10 years ago. PLAN:Po prednisone Wheezing is improving slowly Prognosis is very poor. wbc 14 reactive due to steroids,trending down d/c home today f/u pulmonary for immune shots q2 weeks out pt Plan Plan of Care Problems Medical Problems: (1) Acute bronchitis Status: Acute (2) COPD exacerbation Status: Acute (3) Diabetes Status: Chronic (4) Morbid obesity Status: Chronic (5) Shortness of breath Status: Acute Comment Review of Relevant I have reviewed the following items vinny (where applicable) has been applied. Labs Laboratory Tests Test 12/13/18 11:41 12/13/18 16:33 12/13/18 20:43 12/14/18 07:30 Glucose (Fingerstick) 199 mg/dL (70-99) 186 mg/dL (70-99) 213 mg/dL (70-99) White Blood Count 15.7 x10^3/uL (4.0-11.0) Red Blood Count 4.17 x10^6/uL (3.50-5.40) Hemoglobin 12.8 g/dL (12.0-15.5) Hematocrit 38.9 % (36.0-47.0) Mean Corpuscular Volume 93 fL (79-100) Mean Corpuscular Hemoglobin 31 pg (25-35) Mean Corpuscular Hemoglobin Concent 33 g/dL (31-37) Red Cell Distribution Width 15.3 % (11.5-14.5) Platelet Count 206 x10^3/uL (140-400) Neutrophils (%) (Auto) 86 % (31-73) Lymphocytes (%) (Auto) 4 % (24-48) Monocytes (%) (Auto) 10 % (0-9) Eosinophils (%) (Auto) 0 % (0-3) Basophils (%) (Auto) 0 % (0-3) Neutrophils # (Auto) 13.4 x10^3/uL (1.8-7.7) Lymphocytes # (Auto) 0.6 x10^3/uL (1.0-4.8) Monocytes # (Auto) 1.6 x10^3/uL (0.0-1.1) Eosinophils # (Auto) 0.0 x10^3/uL (0.0-0.7) Basophils # (Auto) 0.0 x10^3/uL (0.0-0.2) Test 12/14/18 07:43 Glucose (Fingerstick) 228 mg/dL (70-99) Medications Current Medications Methylprednisolone Sodium Succinate (SOLU-Medrol 40MG VIAL) 40 mg Q12HR IV Last administered on 12/14/18at 09:10; Start 12/13/18 at 21:00 Vitals/I & O Vital Sign - Last 24 Hours 12/13/18 12/13/18 12/13/18 12/13/18 11:00 11:28 11:39 15:00 Temp 98.4 97.7 98.4 97.7 Pulse 80 89 Resp 16 14 B/P (MAP) 96/45 (62) 129/54 (79) Pulse Ox 94 97 95 O2 Delivery Nasal Cannula Nasal Cannula Nasal Cannula Nasal Cannula O2 Flow Rate 3.0 4.0 3.0 12/13/18 12/13/18 12/13/18 12/13/18 17:12 19:00 19:16 20:00 Temp 98.2 98.2 Pulse 65 Resp 20 B/P (MAP) 111/56 (74) Pulse Ox 96 95 94 O2 Delivery Nasal Cannula Nasal Cannula Nasal Cannula Nasal Cannula O2 Flow Rate 4.0 2.0 4.0 4.0 12/13/18 12/13/18 12/14/18 12/14/18 21:44 23:00 03:00 07:00 Temp 98.0 97.6 97.8 98.0 97.6 97.8 Pulse 65 60 89 83 Resp 22 22 18 B/P (MAP) 111/56 116/50 (72) 110/51 (70) 111/48 (69) Pulse Ox 100 92 96 O2 Delivery Nasal Cannula Nasal Cannula Nasal Cannula O2 Flow Rate 2.0 4.0 12/14/18 12/14/18 07:27 09:13 Pulse 83 B/P (MAP) 111/48 Pulse Ox 97 O2 Delivery Nasal Cannula O2 Flow Rate 4.0 Intake and Output 12/13/18 12/13/18 12/14/18 14:59 22:59 06:59 Intake Total 840 ml 840 ml 0 ml Output Total 1700 ml 800 ml Balance 840 ml -860 ml -800 ml MIGUEL DELAROSA MD Dec 14, 2018 09:44
--- NOTE | 2018-12-14 09:52 | PDOC ---
Provider Note Provider Note Discharge summary dictated. #[id number] MIGUEL DELAROSA MD Dec 14, 2018 09:52
[2018-12-14 10:50] VITALS: BP 116/62
--- NOTE | 2018-12-14 10:51 | PDOC ---
PULMONARY PROGRESS NOTES Subjective better no soa Vitals Vital Signs Date Time Temp Pulse Resp B/P (MAP) Pulse Ox O2 Delivery O2 Flow Rate FiO2 12/14/18 09:13 83 111/48 12/14/18 07:27 97 Nasal Cannula 4.0 12/14/18 07:00 97.8 18 97.8 ROS: No Chest Pain, No Increase Cough General: Alert, No acute distress Lungs: Wheezing (resolved) Cardiovascular: S1, S2 Abdomen: Soft, Non-tender Neuro Exam: Alert Extremities: No Edema Labs Laboratory Tests Test 12/12/18 11:01 12/12/18 16:50 12/12/18 21:11 12/13/18 06:55 Glucose (Fingerstick) 226 mg/dL (70-99) 185 mg/dL (70-99) 196 mg/dL (70-99) Sodium Level 137 mmol/L (136-145) Potassium Level 4.3 mmol/L (3.5-5.1) Chloride Level 93 mmol/L (98-107) Carbon Dioxide Level 37 mmol/L (21-32) Anion Gap 7 (6-14) Blood Urea Nitrogen 30 mg/dL (7-20) Creatinine 1.0 mg/dL (0.6-1.0) Estimated GFR (Cockcroft-Gault) 55.8 Glucose Level 141 mg/dL (70-99) Calcium Level 8.3 mg/dL (8.5-10.1) Test 12/13/18 07:25 12/13/18 11:41 12/13/18 16:33 12/13/18 20:43 Glucose (Fingerstick) 142 mg/dL (70-99) 199 mg/dL (70-99) 186 mg/dL (70-99) 213 mg/dL (70-99) Test 12/14/18 07:30 12/14/18 07:43 White Blood Count 15.7 x10^3/uL (4.0-11.0) Red Blood Count 4.17 x10^6/uL (3.50-5.40) Hemoglobin 12.8 g/dL (12.0-15.5) Hematocrit 38.9 % (36.0-47.0) Mean Corpuscular Volume 93 fL (79-100) Mean Corpuscular Hemoglobin 31 pg (25-35) Mean Corpuscular Hemoglobin Concent 33 g/dL (31-37) Red Cell Distribution Width 15.3 % (11.5-14.5) Platelet Count 206 x10^3/uL (140-400) Neutrophils (%) (Auto) 86 % (31-73) Lymphocytes (%) (Auto) 4 % (24-48) Monocytes (%) (Auto) 10 % (0-9) Eosinophils (%) (Auto) 0 % (0-3) Basophils (%) (Auto) 0 % (0-3) Neutrophils # (Auto) 13.4 x10^3/uL (1.8-7.7) Lymphocytes # (Auto) 0.6 x10^3/uL (1.0-4.8) Monocytes # (Auto) 1.6 x10^3/uL (0.0-1.1) Eosinophils # (Auto) 0.0 x10^3/uL (0.0-0.7) Basophils # (Auto) 0.0 x10^3/uL (0.0-0.2) Glucose (Fingerstick) 228 mg/dL (70-99) Laboratory Tests Test 12/13/18 11:41 12/13/18 16:33 12/13/18 20:43 12/14/18 07:30 Glucose (Fingerstick) 199 mg/dL (70-99) 186 mg/dL (70-99) 213 mg/dL (70-99) White Blood Count 15.7 x10^3/uL (4.0-11.0) Red Blood Count 4.17 x10^6/uL (3.50-5.40) Hemoglobin 12.8 g/dL (12.0-15.5) Hematocrit 38.9 % (36.0-47.0) Mean Corpuscular Volume 93 fL (79-100) Mean Corpuscular Hemoglobin 31 pg (25-35) Mean Corpuscular Hemoglobin Concent 33 g/dL (31-37) Red Cell Distribution Width 15.3 % (11.5-14.5) Platelet Count 206 x10^3/uL (140-400) Neutrophils (%) (Auto) 86 % (31-73) Lymphocytes (%) (Auto) 4 % (24-48) Monocytes (%) (Auto) 10 % (0-9) Eosinophils (%) (Auto) 0 % (0-3) Basophils (%) (Auto) 0 % (0-3) Neutrophils # (Auto) 13.4 x10^3/uL (1.8-7.7) Lymphocytes # (Auto) 0.6 x10^3/uL (1.0-4.8) Monocytes # (Auto) 1.6 x10^3/uL (0.0-1.1) Eosinophils # (Auto) 0.0 x10^3/uL (0.0-0.7) Basophils # (Auto) 0.0 x10^3/uL (0.0-0.2) Test 12/14/18 07:43 Glucose (Fingerstick) 228 mg/dL (70-99) Medications Active Scripts Medications Dose Route/Sig Max Daily Dose Days Date Category Doxycycline Hyclate 100 Mg Tablet 100 Mg PO BID 5 12/02/18 Rx Prednisone (Prednisone) 10 Mg Tablet 50 Mg PO DAILY 5 12/02/18 Rx Banophen (Diphenhydramine Hcl) 25 Mg Tablet 25 Mg PO BID 11/29/18 Reported Protonix (Pantoprazole Sodium) 40 Mg Tablet.dr 40 Mg PO DAILYAC 11/29/18 Reported Tramadol Hcl 50 Mg Tablet 50 Mg PO Q6HRS PRN 11/13/18 Reported Fluticasone Propionate Nasal [place] (Fluticasone Propionate) 16 Gm [place].susp 1 [place] NS BID 06/25/17 Reported Ambien (Zolpidem Tartrate) 10 Mg Tablet 10 Mg PO HS PRN 06/25/17 Reported Gabapentin 600 Mg Tablet 600 Mg PO TID 06/25/17 Reported Levothyroxine Sodium 150 Mcg Tablet 150 Mcg PO DAILYAC 06/25/17 Reported Cymbalta (Duloxetine Hcl) 30 Mg Capsule.dr 30 Mg PO BID 06/25/17 Reported Sucralfate 1 Gm Tablet 1 Gm PO BID 02/11/17 Reported Loratadine 10 Mg Tablet 10 Mg PO DAILY 02/11/17 Reported Meloxicam 15 Mg Tablet 15 Mg PO DAILY 02/11/17 Reported NITRO-DUR 0.2mg/hr (Nitroglycerin) 1 Each Patch.td24 1 Each TD 02/11/17 Reported Potassium Chloride 8 Meq Capsule.er 8 Meq PO TID 06/30/16 Rx Hydrocodone-Apap 10-325 (Hydrocodone Bit/Acetaminophen) 1 Each Tablet 1 Tab PO PRN Q4HRS PRN 01/25/16 Reported Zofran (Ondansetron Hcl) 8 Mg Tablet 8 Mg PO PRN TID PRN 05/19/13 Reported Spiriva (Tiotropium Banco) 18 Mcg Cap.w.dev 18 Mcg IH DAILY 05/19/13 Reported Crestor (Rosuvastatin Calcium) 40 Mg Tablet 40 Mg PO DAILY 05/19/13 Reported Metformin Hcl 500 Mg Tablet 500 Mg PO BIDAC 05/19/13 Reported Albuterol Sulfate Neb Soln (Albuterol Sulfate) 0.63 Mg/3 Ml Vial.neb 0.63 Mg IH QID 05/19/13 Reported Advair 500-50 Diskus (Fluticasone/Salmeterol) 1 Each Disk.w.dev 1 Each IH BID 05/19/13 Reported Lisinopril 10 Mg Tablet 10 Mg PO BID 05/19/13 Reported Lasix (Furosemide) 40 Mg Tablet 40 Mg PO BID 05/19/13 Reported Fosamax (Alendronate Sodium) 70 Mg Tablet 70 Mg PO Thursday05/19/13 Reported Flovent 44MCG Hfa (Fluticasone Propionate) 10.6 Gm Aer.w.adap 2 IH BID 05/19/13 Reported Bentyl (Dicyclomine Hcl) 10 Mg Capsule 10 Mg PO TID 05/19/13 Reported Impression . 1. Dyspnea secondary to acute exacerbation of chronic obstructive pulmonary disease with mild bronchospasm. likely has overlap syndrome with asthma 2. Acute Bronchitis.Clinically, less likely pneumonia. 3. Morbid obesity. Plan . 1. Discussed with the patient regarding the importance of losing weight. She is at her baseline oxygen at 4 liters. 2. Continue present bronchodilators. 3. Continue steroids, start taper 4. DVT prophylaxis with Lovenox. 5. Anticipate dc today 6. pending IgE level d/w ADAM ALAN MD Dec 14, 2018 10:51
--- NOTE | 2018-12-14 12:10 | NUR ---
pt home with [facility], which is not HH. will go home w/ self care
--- NOTE | 2018-12-14 12:59 | NUR ---
SW consulted for resumption or [facility]. SW discussed with RN, [facility] is a home care agency and not skilled home health. No resumption order is needed. Pt can dc with self care.
--- NOTE | 2018-12-14 13:02 | NUR ---
pt discharged home with daughter. meds and follow up reviewed. pt on home O2. stable upon DC
--- NOTE | 2018-12-14 18:56 | DS ---
DATE OF DISCHARGE: 12/14/2018 REASON FOR ADMISSION TO THE HOSPITAL: 1. Chest pain. 2. Chronic obstructive pulmonary disease with exacerbation. CONSULTATIONS: Dr. Christopher, Dr. Minaya. PROCEDURES DONE: Echocardiogram. COMPLICATIONS NOTED: None. HOSPITAL COURSE: The patient is a 63-year-old female with chronic COPD. She has steroid-dependent COPD. She is also on home oxygen 4 liters. She was just discharged from the hospital less than 2 weeks ago. She came with chest pain, retrosternal, and also COPD with acute exacerbation. Cardiac enzymes were negative, seen by Cardiology. The patient had an echocardiogram, showed 60% ejection fraction; and a stress test, which was done less than 2 years ago, which was normal. The patient was seen by Pulmonology, was given IV Solu-Medrol, Zithromax. Apparently, when she was discharged from the hospital, she did not resume her maintenance dose of prednisone 10 mg; after she had done with 50 mg prednisone for a week, she was supposed to resume 10 mg; she says she ran out of the prednisone and she did not get it filled; and that could be a contributing factor. On the whole, the patient's condition improved slowly, seen by Dr. Minaya, Pulmonology, and he recommended immunoglobulin shots every 2 weeks outpatient that may help her asthma part of COPD. Her white count went up to 18,000, was trending down, secondary to steroids. FINAL DIAGNOSES: 1. Chest pain, possible skeletomuscular, noncardiac at this point. 2. Chronic obstructive pulmonary disease with acute exacerbation. 3. Chronic gastroesophageal reflux disease. 4. Steroid-dependent chronic obstructive pulmonary disease. The patient did not fill up the prescription medication for prednisone, put on maintenance dose. 5. Chronic oxygen-dependent chronic obstructive pulmonary disease. 6. Diabetes. 7. Hypertension. 8. Hyperlipidemia. DISPOSITION: Home. DISCHARGE MEDICATIONS: See MRAD for discharge medications. PROGNOSIS: Guarded to fair. Follow with PCP in 1 week; and given a prescription of prednisone 10 mg maintenance dose to use it after she is done with prednisone 50 mg for 5 days, prednisone 25 mg for 6 days and continue with prednisone 10 mg daily. She is on home oxygen. Continue DuoNeb. Follow with Pulmonology. She probably may benefit from immune shots, which would be provided by Dr. Minaya every 2 weeks. MIGUEL DELAROSA MD DR: CARLOS/adrianna JOB#: [id number] / [id number]
== END 2018-12-14 13:03 | disposition home or self-care (01) | DRG 189 ==
LOC: ER 22:33 → 2 SOUTH 12-09 01:15 → 5 SOUTH 12-10 11:24
PROVIDERS: ADMIT Internal Medicine; ATTEND Internal Medicine
DX: J96.20 Acute and chronic respiratory failure, unspecified whether with hypoxia or hypercapnia (principal); J44.0 Chronic obstructive pulmonary disease with (acute) lower respiratory infection; J44.1 Chronic obstructive pulmonary disease with (acute) exacerbation; J20.9 Acute bronchitis, unspecified; R07.89 Other chest pain; E11.9 Type 2 diabetes mellitus without complications; E66.01 Morbid (severe) obesity due to excess calories; E78.00 Pure hypercholesterolemia, unspecified; E78.5 Hyperlipidemia, unspecified; E89.0 Postprocedural hypothyroidism; F32.9 Major depressive disorder, single episode, unspecified; F41.9 Anxiety disorder, unspecified; G89.29 Other chronic pain; M19.90 Unspecified osteoarthritis, unspecified site; I10 Essential (primary) hypertension; K21.9 Gastro-esophageal reflux disease without esophagitis; M85.80 Other specified disorders of bone density and structure, unspecified site; T38.0X5A Adverse effect of glucocorticoids and synthetic analogues, initial encounter; Z79.52 Long term (current) use of systemic steroids; Z83.3 Family history of diabetes mellitus; Z87.891 Personal history of nicotine dependence; Z90.711 Acquired absence of uterus with remaining cervical stump; Z99.81 Dependence on supplemental oxygen; Z68.33 Body mass index [BMI] 33.0-33.9, adult; Z88.8 Allergy status to other drugs, medicaments and biological substances; Z90.49 Acquired absence of other specified parts of digestive tract
CPT/HCPCS: 36415; 71045; 71046; 80048; 80053; 82784; 82962; 83880; 84484; 85007; 85025; 93005; 93306; 94640; 94644; 94760; 96374; 96375; J1650; J1815; J2270; J2920; J2930; J7613; J7620; J7626; J7644; Q0144; Q0162; Q0163; 97116; 99285-25

== ENCOUNTER 2018-12-27 03:33 | Inpatient (IN) | payer OTHER ==
[~2018-12-27] VITALS: Ht 162.6 cm; Wt 85.8 kg
[2018-12-27] MEDS ORDERED: IPRATRPIUM/ALBUTEROL 0.5/2.5MG 3 ML NEBU. NEB ONE (04:00)
[2018-12-27 04:01] LABS: BASO # 0.1 x10^3/uL (0.0-0.2); BASO % 1 % (0-3); EOS # 0.2 x10^3/uL (0.0-0.7); EOS % 2 % (0-3); HEMATOCRIT 39.3 % (36.0-47.0); HEMOGLOBIN 13.5 g/dL (12.0-15.5); LYMPH % 26 % (24-48); MEAN CORPUSCULAR HEMOGLOBIN 31 pg (25-35); MEAN CORPUSCULAR HGB CONC 35 g/dL (31-37); MEAN CORPUSCULAR VOLUME 91 fL (79-100); MONO # 0.8 x10^3/uL (0.0-1.1); MONO % 11 % (0-9); NEUT # 4.7 x10^3/uL (1.8-7.7); NEUT % 60 % (31-73); PLATELET COUNT 237 x10^3/uL (140-400); RED BLOOD COUNT 4.31 x10^6/uL (3.50-5.40); RED CELL DISTRIBUTION WIDTH 14.6 % (11.5-14.5); WHITE BLOOD COUNT 7.8 x10^3/uL (4.0-11.0)
--- NOTE | 2018-12-27 04:09 | PHYS DOC ---
Past Medical History Past Medical History: COPD, Diabetes-Type II, High Cholesterol, Hypertension Additional Past Medical Histor: Emphysema, chronic back pain, osteoarthritis; O2 dependent Past Surgical History: Cholecystectomy, Other Additional Past Surgical Histo: PARTIAL HYSTERECTOMY, DENTAL, PROLAPSE BLADDER ;THYROIDECTOMY Smoking: Quit Greater Than 1 Year Alcohol Use: None Drug Use: None Adult General Chief Complaint Chief Complaint: SHORTNESS OF BREATH HPI HPI 63-year-old female with past medical history of COPD presents with report of progressive shortness of breath over the last several days. Patient recently admitted for COPD exacerbation and discharged 10 days ago. Patient does report some achy chest discomfort with associated nausea, vomiting, and diarrhea. Patient reports progressive weakness. Denies leg swelling or calf tenderness. Patient requires home O2 at 4 L [id number]. Patient does report productive cough which is thicker but white in color. Denies any fever or chills. Denies known trauma. Patient reports she has been using her nebulizer treatments without significant improvement. Review of Systems Review of Systems Constitutional: Denies fever or chills Eyes: Denies redness or eye pain HENT: Denies nasal congestion or sore throat Respiratory: Reports productive cough and shortness of breath Cardiovascular: Denies palpitations; reports chest tightness GI: Denies abdominal pain, nausea, or vomiting : Denies dysuria or hematuria Musculoskeletal: Denies back pain or joint pain Integument: Denies rash or skin lesions Neurologic: Denies headache, focal weakness or sensory changes Complete systems were reviewed and found to be within normal limits, except as documented in this note. Current Medications Current Medications Current Medications Medications (Trade) Dose Ordered Sig/Santiago Start Time Stop Time Status Last Admin Dose Admin Albuterol/ Ipratropium (Duoneb) 3 ml 1X ONCE 12/27/18 04:00 12/27/18 04:42 DC 12/27/18 04:01 3 ML Aztreonam (Azactam) 2 gm 1X ONCE 12/27/18 05:00 12/27/18 05:01 UNV Dexamethasone Sodium Phosphate (Decadron) 4 mg STK-MED ONCE 12/27/18 04:29 12/27/18 04:29 DC Levofloxacin/ Dextrose 150 ml @ 100 mls/hr 1X ONCE 12/27/18 05:00 12/27/18 06:29 UNV Magnesium Sulfate 50 ml @ 25 mls/hr 1X ONCE 12/27/18 05:00 12/27/18 06:59 UNV Potassium Chloride (Klor-Con) 40 meq 1X ONCE 12/27/18 05:00 12/27/18 05:01 UNV Sodium Chloride 1,000 ml @ 1,000 mls/hr 1X ONCE 12/27/18 05:00 12/27/18 05:59 UNV Vancomycin HCl (Vanco Per Pharmacy) 1 each PRN DAILY PRN 12/27/18 05:00 UNV Allergies Allergies Allergies Coded Allergies Type Severity Reaction Last Updated Verified amoxicillin Allergy Intermediate Nausea and Vomiting 11/16/18 Yes amoxicillin trihydrate Allergy Intermediate yeast infection 11/16/18 Yes potassium clavulanate Allergy Intermediate yeast infection 11/16/18 Yes meperidine HCl Adverse Reaction Intermediate Nausea and itching. 11/16/18 Yes Physical Exam Physical Exam Constitutional: Well developed, well nourished, no acute distress, non-toxic appearance HENT: Normocephalic, atraumatic, oropharynx moist Eyes: Conjunctiva normal, no discharge Neck: Normal range of motion, no tenderness, supple Cardiovascular: Heart rate normal, regular rhythm Lungs & Thorax: Bilateral breath sounds diminished at bases, poor aeration, diffuse expiratory wheezing to upper lung cintron Abdomen: Soft, no tenderness Skin: Warm, dry, no erythema, no rash Extremities: No tenderness, ROM intact, no edema Neurologic: Alert and oriented X 3, no focal deficits noted Psychologic: Affect normal, judgement normal Current Patient Data Vital Signs Vital Signs Date Time Temp Pulse Resp B/P (MAP) Pulse Ox O2 Delivery O2 Flow Rate FiO2 12/27/18 04:46 78 40 88/51 (63) 99 Nasal Cannula 4.0 12/27/18 03:40 97.5 97.5 Lab Values Laboratory Tests Test 12/27/18 03:45 White Blood Count 7.8 x10^3/uL (4.0-11.0) Red Blood Count 4.31 x10^6/uL (3.50-5.40) Hemoglobin 13.5 g/dL (12.0-15.5) Hematocrit 39.3 % (36.0-47.0) Mean Corpuscular Volume 91 fL (79-100) Mean Corpuscular Hemoglobin 31 pg (25-35) Mean Corpuscular Hemoglobin Concent 35 g/dL (31-37) Red Cell Distribution Width 14.6 % (11.5-14.5) H Platelet Count 237 x10^3/uL (140-400) Neutrophils (%) (Auto) 60 % (31-73) Lymphocytes (%) (Auto) 26 % (24-48) Monocytes (%) (Auto) 11 % (0-9) H Eosinophils (%) (Auto) 2 % (0-3) Basophils (%) (Auto) 1 % (0-3) Neutrophils # (Auto) 4.7 x10^3/uL (1.8-7.7) Lymphocytes # (Auto) 2.0 x10^3/uL (1.0-4.8) Monocytes # (Auto) 0.8 x10^3/uL (0.0-1.1) Eosinophils # (Auto) 0.2 x10^3/uL (0.0-0.7) Basophils # (Auto) 0.1 x10^3/uL (0.0-0.2) Sodium Level 138 mmol/L (136-145) Potassium Level 3.4 mmol/L (3.5-5.1) L Chloride Level 97 mmol/L (98-107) L Carbon Dioxide Level 33 mmol/L (21-32) H Anion Gap 8 (6-14) Blood Urea Nitrogen 12 mg/dL (7-20) Creatinine 1.2 mg/dL (0.6-1.0) H Estimated GFR (Cockcroft-Gault) 45.2 BUN/Creatinine Ratio 10 (6-20) Glucose Level 189 mg/dL (70-99) H Lactic Acid Level 3.1 mmol/L (0.4-2.0) H Calcium Level 9.2 mg/dL (8.5-10.1) Magnesium Level 1.2 mg/dL (1.8-2.4) L Total Bilirubin 0.4 mg/dL (0.2-1.0) Aspartate Amino Transferase (AST) 20 U/L (15-37) Alanine Aminotransferase (ALT) 36 U/L (14-59) Alkaline Phosphatase 84 U/L (46-116) Creatine Kinase 37 U/L (26-192) Creatine Kinase MB (Mass) 0.9 ng/mL (0.0-3.6) Creatine Kinase MB Relative Index % (0-4) Troponin I Quantitative < 0.017 ng/mL (0.000-0.055) TQ-Mtn-P-Type Natriuretic Peptide 72 pg/mL (0-124) Total Protein 6.6 g/dL (6.4-8.2) Albumin 3.5 g/dL (3.4-5.0) Albumin/Globulin Ratio 1.1 (1.0-1.7) Lipase 228 U/L (73-393) Laboratory Tests 12/27/18 03:45 Laboratory Tests 12/27/18 03:45 EKG EKG @0343 NSR at 100bpm, no ST elevation Radiology/Procedures Radiology/Procedures CXR 2 view (preliminary interpretation by ED physician): Coarse lung markings bilaterally, blunting at bilateral costophrenic angles, hyperexpansion, no focal infiltration/opacity Course & Med Decision Making Course & Med Decision Making Pertinent Labs and Imaging studies reviewed. (See chart for details) Patient presents with HPI and physical exam consistent for COPD exacerbation. Patients does also reports some N/V/D. Afebrile. Sats stable on home O2 requirement. Symptomatic treatment provided with respiratory nebs and steroid. CXR similar to prior. EKG stable. Labs obtained and posted to chart. Troponin WNL, BNP also WNL. WBC WNL. Patient does meet SIRS criteria with tachycardia and tachypnea. Lactic acid elevated. Presumed respiratory infection. Patient therefore meets Severe Sepsis criteria. IVF hydration bolusing provided for ideal body weight. Empiric broad spectrum antibiotics given as patient recently admitted. Sepsis reassessment completed. Hypokalemia and hypomagnesemia addressed. Patient requiring admission for further evaluation and treatment. Discussed with Dr. Hitchcock, who is control inspector for Dr. Delarosa (PCP) and who is in agreement with admission. Discussed findings and plan with patient and family, who acknowledge understanding and agreement. Dragon Disclaimer Dragon Disclaimer This electronic medical record was generated, in whole or in part, using a voice recognition dictation system. Departure Departure Impression: Primary Impression: COPD exacerbation Additional Impressions: Severe sepsis Hypokalemia Hypomagnesemia Disposition: ADMITTED INPATIENT Admitting Physician: Catrachito Hitchcock (control inspector for Dr. Delarosa) Condition: GUARDED Referrals: MIGUEL DELAROSA MD (PCP) Date and Time of Reassessment Date: Dec 27, 2018 Time: 05:20 Fluid Challenge Is the fluid challenge complet: No IBW Target Volume Used: Yes BMI > 30: Yes Vital Signs Vital Signs: Vital Signs Date Time Temp Pulse Resp B/P (MAP) Pulse Ox O2 Delivery O2 Flow Rate FiO2 12/27/18 04:46 78 40 88/51 (63) 99 Nasal Cannula 4.0 12/27/18 03:40 97.5 97.5 Temperature Source: Oral Respirations Respiratory Effort: Accessory muscles, Shortness of breath Respiratory Pattern: Tachypnea Cardiovascular Pulse Rhythm: Regular Heart: Nml rate, reg. rhythm Lung Sounds Breath Sounds: Wheezes, Diminished Capillary Refil Capillary Refill: Rt Hand < 3 seconds Peripheral Pulse Pulse Location: Radial Pulse Strength: Normal (2+) Pulse Assessment Method: Palpation Integumentary Skin: Warm, Dry Skin Moisture: Dry Skin Turgor: Normal Skin Color: warm, dry Fingernail Color: WNL Critical Care Time Critical care time was 30 minutes which includes time at bedside, spent in discussion of patient's care with specialists and/or family members, with interpretation of laboratory and/or radiological studies and is exclusive of procedures. Problem Qualifiers NASRIN MUNOZ DO Dec 27, 2018 04:08
[2018-12-27 04:12] LABS: CALCIUM 9.2 mg/dL (8.5-10.1); CREATININE 1.2 mg/dL (0.6-1.0); GFR 45.2; POTASSIUM 3.4 mmol/L (3.5-5.1)
[2018-12-27 04:17] LABS: ALBUMIN 3.5 g/dL (3.4-5.0); ALBUMIN/GLOBULIN RATIO 1.1 (1.0-1.7); MAGNESIUM 1.2 mg/dL (1.8-2.4); TOTAL BILIRUBIN 0.4 mg/dL (0.2-1.0); TOTAL PROTEIN 6.6 g/dL (6.4-8.2)
[2018-12-27 04:25] LABS: CREATINE KINASE 37 U/L (26-192)
[2018-12-27] MEDS ORDERED: DEXAMETHASONE SOD PHOS 4 MG/ML VIAL ONE (04:29)
[2018-12-27] MEDS ORDERED: DEXAMETHASONE SOD PHOS 20 MG/5 ML VIAL. IV ONE (04:30)
[2018-12-27] MEDS ORDERED: VANCOMYCIN PER PHARMACY MC PRN (05:00)
[2018-12-27] MEDS ORDERED: IV NORMAL SALINE 1000ML BAG 1,000 ML IV ONE ×2 (05:00)
--- NOTE | 2018-12-27 05:00 | RAD ---
Two-view chest dated 12/27/2018. Comparison made to 12/10/2018. CLINICAL INDICATION: Dyspnea. FINDINGS: PA and lateral views obtained. Heart and mediastinal contours are stable. Lungs are somewhat hyperinflated but otherwise clear. No consolidation or pleural effusion. No pneumothorax. There is some patchy and linear opacities at both lung bases, unchanged. IMPRESSION: No acute radiographic abnormality. Stable findings compared to 12/10/2018. Electronically signed by: Dominic Joseph MD (12/27/2018 4:57 AM) [id number]
[2018-12-27] MEDS ORDERED: ACETAMINOPHEN 325 MG TABLET. PO PRN (05:15)
[2018-12-27] MEDS ORDERED: AZTREONAM IV Push 2 GM VIAL. IVP ONE (05:15)
[2018-12-27] MEDS ORDERED: IV DEXTROSE 5% 250 ML BAG. IV PRN ×2 (05:15→10:15)
[2018-12-27] MEDS ORDERED: ONDANSETRON PF 4 MG/2 ML VIAL. IV PRN (05:15)
[2018-12-27] MEDS ORDERED: MAGNESIUM SULFATE 2GM 50 ML IV ONE (05:15)
[2018-12-27] MEDS ORDERED: POTASSIUM CHLORIDE 20 MEQ TABLET.ER. PO ONE (05:15)
[2018-12-27] MEDS ORDERED: DEXTROSE 50% 25 GM / 50ML DISP.SYRIN. IV PRN ×2 (05:15→10:15)
[2018-12-27] MEDS ORDERED: VANCOMYCIN 2 GM in IV NORMAL SALINE 500ML BAG 500 ML IV ONE (05:30)
[2018-12-27 06:32] VITALS: BP 121/87
[2018-12-27 06:59] LABS: BILIRUBIN,URINE NEGATIVE (NEG); CLARITY,URINE CLEAR; COLOR,URINE YELLOW; NITRITE,URINE NEGATIVE (NEG); PROTEIN,URINE NEGATIVE (NEG-TRACE); UROBILINOGEN,URINE 0.2 mg/dL (0.2 mg/dL)
[2018-12-27 07:17] LABS: BACTERIA,URINE FEW /HPF (0-FEW); HYALINE CASTS, URINE FEW /HPF; RBC,URINE 0 /HPF (0-2); SQUAMOUS EPITHELIAL CELL,UR FEW /LPF; WBC,URINE OCC /HPF (0-4)
--- NOTE | 2018-12-27 07:22 | EKG ---
[facility] [address] [place] [address] Test Date: 2018-12-27 Test Time: 03:43:55 Pat Name: CIPRIANO ALBRECHT Department: Room: 211 1 Gender: F [employer] Worker: : [id number] Requested By: NASRIN MUNOZ Order Number: [id number] Reading MD: Reza Christopher MD Measurements Intervals [place] Rate: 100 P: 90 MI: 188 QRS: 87 QRSD: 74 T: 78 QT: 350 QTc: 455 Interpretive Statements SINUS RHYTHM Electronically Signed On 01-05-2019 22:25:10 CDT by Reza Christopher MD
[2018-12-27] MEDS ORDERED: C.DIFF MED SCREEN BY RX. MC ONE (07:45)
[2018-12-27] MEDS ORDERED: IPRATRPIUM/ALBUTEROL 0.5/2.5MG 3 ML NEBU. NEB SCH (08:00)
[2018-12-27] MEDS ORDERED: INSULIN LISPRO 300 UNITS/3 ML INSULN.PEN. SQ SCH (08:00)
[2018-12-27] MEDS ORDERED: MONT10TA49 PO (08:09)
[2018-12-27] MEDS ORDERED: TRAM50TA PO (08:09)
--- NOTE | 2018-12-27 08:09 | NUR ---
Pharmacy Medication Review S: Consulted for medication review re: C.diff Risk Assessment score of 5 O: CIPRIANO ALBRECHT is a 63 year old with: Previous C.diff infection: No Previous hospitalization: Within 30 days Recent antibiotics: Within 30 days Use of gastric acid suppressor: Yes Transfer from [place]/LTAC: No Current antibiotic regimen: Current acid suppression regimen: A: Patient has been identified as having risk factors for C.diff infection as noted above. P:ABX DE-ESCALATION RECOMMENDED: NO, PT WITH SEPSIS PROBIOTIC ORDERED: YES PPI CHANGED TO [id number]: PT NOT ON GLADYS MENON [facility], 12/27/18 0809
[2018-12-27] MEDS: IV NORMAL SALINE 1000ML BAG 1,000 ML IV SCH ×2 (08:40→19:54)
--- NOTE | 2018-12-27 09:15 | PDOC ---
Infectious Disease Note Vital Sign Vital Signs Vital Signs Date Time Temp Pulse Resp B/P (MAP) Pulse Ox O2 Delivery O2 Flow Rate FiO2 12/27/18 08:26 97 Nasal Cannula 4.0 12/27/18 06:32 98.4 87 20 121/87 (98) 98.4 Labs Lab Laboratory Tests Test 12/27/18 03:45 12/27/18 06:45 12/27/18 07:15 12/27/18 08:04 White Blood Count 7.8 x10^3/uL (4.0-11.0) Red Blood Count 4.31 x10^6/uL (3.50-5.40) Hemoglobin 13.5 g/dL (12.0-15.5) Hematocrit 39.3 % (36.0-47.0) Mean Corpuscular Volume 91 fL (79-100) Mean Corpuscular Hemoglobin 31 pg (25-35) Mean Corpuscular Hemoglobin Concent 35 g/dL (31-37) Red Cell Distribution Width 14.6 % (11.5-14.5) Platelet Count 237 x10^3/uL (140-400) Neutrophils (%) (Auto) 60 % (31-73) Lymphocytes (%) (Auto) 26 % (24-48) Monocytes (%) (Auto) 11 % (0-9) Eosinophils (%) (Auto) 2 % (0-3) Basophils (%) (Auto) 1 % (0-3) Neutrophils # (Auto) 4.7 x10^3/uL (1.8-7.7) Lymphocytes # (Auto) 2.0 x10^3/uL (1.0-4.8) Monocytes # (Auto) 0.8 x10^3/uL (0.0-1.1) Eosinophils # (Auto) 0.2 x10^3/uL (0.0-0.7) Basophils # (Auto) 0.1 x10^3/uL (0.0-0.2) Sodium Level 138 mmol/L (136-145) Potassium Level 3.4 mmol/L (3.5-5.1) Chloride Level 97 mmol/L (98-107) Carbon Dioxide Level 33 mmol/L (21-32) Anion Gap 8 (6-14) Blood Urea Nitrogen 12 mg/dL (7-20) Creatinine 1.2 mg/dL (0.6-1.0) Estimated GFR (Cockcroft-Gault) 45.2 BUN/Creatinine Ratio 10 (6-20) Glucose Level 189 mg/dL (70-99) Lactic Acid Level 3.1 mmol/L (0.4-2.0) 5.0 mmol/L (0.4-2.0) Calcium Level 9.2 mg/dL (8.5-10.1) Magnesium Level 1.2 mg/dL (1.8-2.4) Total Bilirubin 0.4 mg/dL (0.2-1.0) Aspartate Amino Transf (AST/SGOT) 20 U/L (15-37) Alanine Aminotransferase (ALT/SGPT) 36 U/L (14-59) Alkaline Phosphatase 84 U/L (46-116) Creatine Kinase 37 U/L (26-192) Creatine Kinase MB (Mass) 0.9 ng/mL (0.0-3.6) Creatine Kinase MB Relative Index % (0-4) Troponin I Quantitative < 0.017 ng/mL (0.000-0.055) < 0.017 ng/mL (0.000-0.055) ZZ-His-B-Type Natriuretic Peptide 72 pg/mL (0-124) Total Protein 6.6 g/dL (6.4-8.2) Albumin 3.5 g/dL (3.4-5.0) Albumin/Globulin Ratio 1.1 (1.0-1.7) Lipase 228 U/L (73-393) Urine Collection Type Unknown Urine Color Yellow Urine Clarity Clear Urine pH 6.0 Urine Specific [place] 1.010 Urine Protein Negative mg/dL (NEG-TRACE) Urine Glucose (UA) Negative mg/dL (NEG) Urine Ketones (Stick) Negative mg/dL (NEG) Urine Blood Negative (NEG) Urine Nitrite Negative (NEG) Urine Bilirubin Negative (NEG) Urine Urobilinogen Dipstick 0.2 mg/dL (0.2 mg/dL) Urine Leukocyte Esterase Negative (NEG) Urine RBC 0 /HPF (0-2) Urine WBC Occ /HPF (0-4) Urine Squamous Epithelial Cells Few /LPF Urine Bacteria Few /HPF (0-FEW) Urine Hyaline Casts Few /HPF Urine Mucus Mod /LPF Glucose (Fingerstick) 151 mg/dL (70-99) Objective Assessment Lactic acidosis, etiology unclear, rule out sepsis Severe diarrhea, rule out c diff COPD DM HTN Plan Plan of Care change antibiotics to iv meropenem and po vanc supportive care check cultures check c diff LUTHER SHEIKH MD Dec 27, 2018 09:15
[2018-12-27] MEDS ORDERED: NON FORMULARY ITEM (Alendronate Sodium (Fosamax) 70 MG) PO SCH (10:00)
[2018-12-27] MEDS ORDERED: traMADol 50 MG TABLET PO PRN ×2 (10:00)
--- NOTE | 2018-12-27 10:03 | PDOC ---
Provider Note Provider Note Pt seen.H&P dictated.#[id number]. MIGUEL DELAROSA MD Dec 27, 2018 10:03
[2018-12-27] MEDS ORDERED: IOHEXOL 240 MG/ML 50ML VIAL. PO ONE (10:15)
[2018-12-27] MEDS ORDERED: IOHEXOL 300 MG/ML 100ML VIAL. IV ONE (10:15)
[2018-12-27] MEDS: VANCOMYCIN 125 MG/2.5 ML ORAL SOLUTION. PO SCH ×4 (10:18→20:06)
[2018-12-27] MEDS ORDERED: CONTRAST GIVEN. MC PRN (10:30)
[2018-12-27] MEDS ORDERED: MAGNESIUM SULFATE 4GM 100 ML IV ONE (10:30)
[2018-12-27] MEDS ORDERED: predniSONE 10 MG TABLET PO ONE (10:30)
--- NOTE | 2018-12-27 10:47 | HP ---
ADMIT DATE: LOCATION: REASON FOR ADMISSION TO THE HOSPITAL: Shortness of breath, abdominal pain, not feeling well, and lactic acidosis. HISTORY OF PRESENT ILLNESS: The patient is a 63-year-old female patient, well known to me with history of chronic COPD. She has oxygen dependent and prednisone dependent COPD, has been in and out of the hospitals 2 to 3 times in last one month. She was on antibiotics doxycycline when she went a week ago. She was having abdominal pain and diarrhea and not sleeping and not feeling well, was brought to the hospital. Lactic acid was 3, went up to 5, white count was normal and the patient was given fluids. ID was consulted and started on broad-spectrum antibiotic and the CT scan of abdomen and pelvis is pending possible diverticulitis. PAST MEDICAL HISTORY: As mentioned, has steroid dependent and oxygen dependent COPD; diabetes; hypertension; hyperlipidemia; emphysema; anxiety; depression; arthritis; chronic back pain. PAST SURGICAL HISTORY: Gallbladder surgery, hysterectomy, bladder prolapse, thyroidectomy and dental procedures. ALLERGIES: AMOXIL, DEMEROL AND AUGMENTIN. PERSONAL HISTORY: She smoked for at least 30 years, 2 packs, quit less than a year ago. Denies alcohol. Denies any street drugs. The patient is on chronic narcotic pain medications. FAMILY HISTORY: Positive for diabetes, COPD, heart problems. MEDICATIONS AT HOME: The patient is on lot of medications; Bentyl 10 mg 3 times a day, Cymbalta 30 mg twice a day, Lasix 40 mg twice a day, hydrocodone 10/325 q. 4, levothyroxine 150 mcg daily, lisinopril 10 mg twice a day, metformin 500 mg twice a day, Singulair 10 mg daily, Nitro-Dur patch 0.2 patch daily, Protonix 40 mg daily, Carafate 1 gram twice a day, tramadol 50 mg q. 6, DuoNeb 4 times daily, Fosamax 70 mg once a week, Benadryl 25 mg twice a day, Flovent twice a day inhaler, Advair 500/50 twice a day, gabapentin 600 mg 3 times daily, loratadine 10 mg daily, meloxicam 15 mg daily, Zofran 8 mg daily, potassium 8 mEq 3 times a day, Crestor 40 mg daily, Spiriva 18 mcg daily, Ambien 10 mg daily. REVIEW OF SYSTEMS: Complains of abdominal pain, diarrhea. Denies any fever, denies any chest pain. Rest of the 14-system was reviewed and negative. PHYSICAL EXAMINATION: GENERAL: The patient is chronically sick, not in any distress. VITAL SIGNS: Temperature 98, pulse 87, respirations 20, blood pressure 121/87, 96 on 2 liters. HEENT: Head is atraumatic. Pupils equal. Oral cavity: No congestion. No teeth. NECK: Supple. Scar of thyroid surgery. No mass palpable. CARDIOVASCULAR: S1, S2. LUNGS: Diminished breath sounds. No wheezing. Usually she has a lot of wheezing. ABDOMEN: Has tenderness in the suprapubic area and mid abdomen. Bowel sounds are present, no mass palpable. EXTERNAL GENITALIA: No Wei. RECTAL: Deferred. EXTREMITIES: No calf tenderness, no edema. Pulses 1+. NEUROLOGIC: Moving all extremities. No focal deficits noted. LABORATORY DATA: Shows a white count 8, hemoglobin 13, platelets 237. Electrolytes: Sodium 138, potassium 3.4, chloride 97, bicarbonate 33, BUN 12, creatinine 1.2, glucose 189, magnesium 1.2, low. LFTs are normal. Troponin was negative. Lactic acid was 3.1, went up to 5.0. Lipase was normal. Urine was negative for infection. She had a chest x-ray was negative for infiltrates. FINAL IMPRESSION: 1. Abdominal pain. 2. Diarrhea, possible C. diff. 3. Lactic acidosis. 4. Chronic obstructive pulmonary disease, on home oxygen and also prednisone dependent chronic obstructive pulmonary disease. 5. Diabetes type 2. 6. Hypothyroidism. 7. Hypertension. 8. Hyperlipidemia. PLAN: At this time, was admit to hospital, given IV fluids, broad-spectrum antibiotics after culture was done. Check stool for C. diff. ID was consulted. Resume prednisone and see how she does. MIGUEL DELAROSA MD DR: CARLOS/adrianna JOB#: [id number] / [id number]
[2018-12-27 10:51] VITALS: BP 125/44
[2018-12-27] MEDS: IPRATRPIUM/ALBUTEROL 0.5/2.5MG 3 ML NEBU. NEB SCH ×3 (11:42→19:52)
[2018-12-27] MEDS: INSULIN LISPRO 300 UNITS/3 ML INSULN.PEN. SQ SCH ×2 (12:00→17:42)
--- NOTE | 2018-12-27 12:03 | CONS ---
DATE OF CONSULTATION: 12/27/2018 REQUESTING PHYSICIAN: Aurelia Maldonado MD REASON FOR CONSULTATION: Lactic acidosis. HISTORY OF PRESENT ILLNESS: This is a 63-year-old female who had recently been discharged from the hospital for COPD exacerbation, who came in with 5-day history of not feeling well, severe diarrhea up to 10 times a day. She says some mild abdominal cramping, severe body ache and just not feeling well. The patient was found to have a lactic acid of 3.1, which actually went up to 5. White count is normal. Her BUN and creatinine is normal. Chest x-ray is unremarkable. The patient had been given vancomycin and aztreonam and Levaquin 1 dose and consult has been requested. The patient is alert, awake. The patient is sitting, not in any distress. Denies any nausea, vomiting. Denies any fever. Denies any headache, visual symptoms, but continued to have severe diarrhea and body ache and some abdominal mild cramping. PAST MEDICAL HISTORY: Positive for COPD, diabetes, hypertension, hyperlipidemia, home oxygen. PAST SURGICAL HISTORY: Has had hysterectomy, prolapsed bladder, thyroidectomy, cholecystectomy. SOCIAL HISTORY: Negative for smoking. She used to smoke, quit a year ago. No alcohol use or drug use. ALLERGIES: LISTED ALLERGIC TO AMOXICILLIN WHICH CAUSES HER TO WAKE SICK TO THE STOMACH. CURRENT MEDICATIONS: Reviewed. REVIEW OF SYSTEMS: As per HPI, all other systems reviewed are negative. PHYSICAL EXAMINATION: GENERAL: Alert, oriented female, not in distress. VITAL SIGNS: Stable, afebrile. HEENT: NAD. NECK: Supple, no JVP, no lymphadenopathy. LUNGS: Clear. HEART: S1, S2 regular. ABDOMEN: Soft, nontender, no organomegaly. EXTREMITIES: No edema, cyanosis. SKIN: Unremarkable. NEUROLOGIC: The patient is neurologically alert, awake and appropriate. No focal neurologic deficit. LABORATORY DATA: White count is 7.8, hemoglobin 13.5, platelets are normal. BUN and creatinine is normal. Her lactic acid is 5. Liver functions are normal. Urinalysis unremarkable for infection. Her cultures are pending. Chest x-ray is unremarkable. IMPRESSION: 1. Lactic acidosis, etiology for lactic acidosis is not very clear. Certainly sepsis needs to be ruled out, although she does not look that septic. 2. Severe diarrhea, rule out Clostridium difficile. 3. Chronic obstructive pulmonary disease. 4. Diabetes. 5. Hypertension. RECOMMENDATIONS: We will change antibiotics to IV meropenem and p.o. vancomycin, supportive care. We will check cultures. Check C. diff and we will continue to follow. Thank you very much, Dr. Maldonado, for giving me the opportunity to participate in this patient's care. LUTHER SHEIKH MD DR: NAVARRO/adrianna JOB#: [id number] / [id number]
[2018-12-27] MEDS: LACTOBACILLUS RHAMNOSUS GG 1 CAPSULE. PO SCH ×2 (12:15→19:55)
[2018-12-27] MEDS: DULoxetine HCL 30 MG CAPSULE.DR PO SCH ×2 (12:16→19:54)
[2018-12-27] MEDS: SUCRALFATE 1 GM TABLET. PO SCH ×2 (12:16→16:49)
[2018-12-27] MEDS: CETIRIZINE HCL 10 MG TABLET. PO SCH (12:16)
[2018-12-27] MEDS: LEVOTHYROXINE 150 MCG TABLET PO SCH (12:16)
[2018-12-27] MEDS: diphenhydrAMINE HCL 25 MG CAPSULE PO SCH ×2 (12:16→19:55)
[2018-12-27] MEDS: POTASSIUM CHLORIDE 10 MEQ TABLET.ER. PO SCH ×2 (12:17→16:49)
[2018-12-27] MEDS: MELOXICAM 7.5 MG TABLET PO SCH (12:17)
[2018-12-27] MEDS: LISINOPRIL 10 MG TABLET PO SCH ×2 (12:17→19:56)
[2018-12-27] MEDS: PANTOPRAZOLE 40 MG TABLET.DR. PO SCH (12:17)
[2018-12-27] MEDS: FLUTICASONE 50MCG/NASAL SPRAY 16GM BOTTLE. NS SCH (12:18)
[2018-12-27] MEDS: ENOXAPARIN 40 MG/0.4 ML SYRINGE. SQ SCH (12:18)
--- NOTE | 2018-12-27 12:41 | RAD ---
EXAM: CT Abdomen and Pelvis with IV contrast CLINICAL HISTORY: Abdominal pain, lactic acidosis, colitis. COMPARISON: none TECHNIQUE: Helical CT of the abdomen and pelvis was performed following the administration of intravenous contrast. Axial, coronal and sagittal reformatted images were generated. PQRS compliance statement - One or more of the following individualized dose reduction techniques were utilized for this study: 1. Automated exposure control 2. Adjustment of the mA and/or kV according to patient size 3. Use of iterative reconstruction technique FINDINGS: Lower chest: Linear opacities in the lower lobes likely scarring/atelectasis. Abdomen and Pelvis: Liver measures 16.8 cm in length. Relative hepatic hypoattenuation likely hepatic steatosis. Accounting for postcholecystectomy change, no biliary ductal dilatation. Pancreas is unremarkable. Small duodenal diverticulum. Spleen is unremarkable. Adrenal glands are normal. Symmetric nephrograms. No focal renal lesion. No hydronephrosis. No hydroureter. Appendix is normal. Moderate colonic stool content is seen. No abnormal colonic wall thickening or pericolonic fat infiltration to suggest colitis. Colonic diverticula are seen. No small or large bowel dilatation to suggest bowel obstruction. No abdominal or pelvic ascites. No pneumoperitoneum. No abdominal or pelvic lymphadenopathy. Atherosclerotic calcifications of aorta are seen. Bones: Degenerative changes of the spine are seen. IMPRESSION: No evidence for bowel obstruction. No definitive CT evidence for colitis. No free or loculated abdominal or pelvic collection. No pneumoperitoneum. Hepatic hypoattenuation may be seen with hepatic steatosis. Electronically signed by: Jamie Mcdowell MD (12/27/2018 12:38 PM) [facility]
[2018-12-27] MEDS ORDERED: NON FORMULARY ITEM (Albuterol Sulfate (Albuterol Sulfate Neb Soln) 0.63 MG) IH SCH (13:00)
[2018-12-27] MEDS: HYDROcodone/APAP 10/325 1 TAB TABLET PO PRN ×2 (13:27→20:06)
[2018-12-27] MEDS: NITROGLYCERIN 0.2MG/HR PATCH. TD SCH (13:32)
[2018-12-27] MEDS: GABAPENTIN 300 MG CAPSULE. PO SCH ×2 (13:32→19:55)
[2018-12-27] MEDS: DICYCLOMINE HCL 10 MG CAPSULE PO SCH ×2 (13:32→20:00)
[2018-12-27 15:00] VITALS: BP 116/66
[2018-12-27] MEDS: MEROPENEM 500 MG in IV NORMAL SALINE 50ML 50 ML IV SCH ×2 (15:04→20:06)
--- NOTE | 2018-12-27 15:39 | NUR ---
SS following for discharge planning. SS reviewed pt chart. Pt is from home with daughter and is currently requiring oxygen. No discharge needs noted at this time. SS will continue to follow for discharge planning.
--- NOTE | 2018-12-27 17:47 | PDOC ---
PULMONARY PROGRESS NOTES Vitals Vital Signs Date Time Temp Pulse Resp B/P (MAP) Pulse Ox O2 Delivery O2 Flow Rate FiO2 12/27/18 15:51 97 Nasal Cannula 4.0 12/27/18 15:00 97.7 80 16 116/66 (83) 97.7 General: Alert, No acute distress Lungs: Wheezing Cardiovascular: S1, S2 Abdomen: Soft, Non-tender Extremities: No Edema Skin: Warm, Dry Labs Laboratory Tests Test 12/27/18 03:45 12/27/18 06:45 12/27/18 07:15 12/27/18 08:04 White Blood Count 7.8 x10^3/uL (4.0-11.0) Red Blood Count 4.31 x10^6/uL (3.50-5.40) Hemoglobin 13.5 g/dL (12.0-15.5) Hematocrit 39.3 % (36.0-47.0) Mean Corpuscular Volume 91 fL (79-100) Mean Corpuscular Hemoglobin 31 pg (25-35) Mean Corpuscular Hemoglobin Concent 35 g/dL (31-37) Red Cell Distribution Width 14.6 % (11.5-14.5) Platelet Count 237 x10^3/uL (140-400) Neutrophils (%) (Auto) 60 % (31-73) Lymphocytes (%) (Auto) 26 % (24-48) Monocytes (%) (Auto) 11 % (0-9) Eosinophils (%) (Auto) 2 % (0-3) Basophils (%) (Auto) 1 % (0-3) Neutrophils # (Auto) 4.7 x10^3/uL (1.8-7.7) Lymphocytes # (Auto) 2.0 x10^3/uL (1.0-4.8) Monocytes # (Auto) 0.8 x10^3/uL (0.0-1.1) Eosinophils # (Auto) 0.2 x10^3/uL (0.0-0.7) Basophils # (Auto) 0.1 x10^3/uL (0.0-0.2) Sodium Level 138 mmol/L (136-145) Potassium Level 3.4 mmol/L (3.5-5.1) Chloride Level 97 mmol/L (98-107) Carbon Dioxide Level 33 mmol/L (21-32) Anion Gap 8 (6-14) Blood Urea Nitrogen 12 mg/dL (7-20) Creatinine 1.2 mg/dL (0.6-1.0) Estimated GFR (Cockcroft-Gault) 45.2 BUN/Creatinine Ratio 10 (6-20) Glucose Level 189 mg/dL (70-99) Lactic Acid Level 3.1 mmol/L (0.4-2.0) 5.0 mmol/L (0.4-2.0) Calcium Level 9.2 mg/dL (8.5-10.1) Magnesium Level 1.2 mg/dL (1.8-2.4) Total Bilirubin 0.4 mg/dL (0.2-1.0) Aspartate Amino Transf (AST/SGOT) 20 U/L (15-37) Alanine Aminotransferase (ALT/SGPT) 36 U/L (14-59) Alkaline Phosphatase 84 U/L (46-116) Creatine Kinase 37 U/L (26-192) Creatine Kinase MB (Mass) 0.9 ng/mL (0.0-3.6) Creatine Kinase MB Relative Index % (0-4) Troponin I Quantitative < 0.017 ng/mL (0.000-0.055) < 0.017 ng/mL (0.000-0.055) EV-Enw-S-Type Natriuretic Peptide 72 pg/mL (0-124) Total Protein 6.6 g/dL (6.4-8.2) Albumin 3.5 g/dL (3.4-5.0) Albumin/Globulin Ratio 1.1 (1.0-1.7) Lipase 228 U/L (73-393) Urine Collection Type Unknown Urine Color Yellow Urine Clarity Clear Urine pH 6.0 Urine Specific [place] 1.010 Urine Protein Negative mg/dL (NEG-TRACE) Urine Glucose (UA) Negative mg/dL (NEG) Urine Ketones (Stick) Negative mg/dL (NEG) Urine Blood Negative (NEG) Urine Nitrite Negative (NEG) Urine Bilirubin Negative (NEG) Urine Urobilinogen Dipstick 0.2 mg/dL (0.2 mg/dL) Urine Leukocyte Esterase Negative (NEG) Urine RBC 0 /HPF (0-2) Urine WBC Occ /HPF (0-4) Urine Squamous Epithelial Cells Few /LPF Urine Bacteria Few /HPF (0-FEW) Urine Hyaline Casts Few /HPF Urine Mucus Mod /LPF Glucose (Fingerstick) 151 mg/dL (70-99) Test 12/27/18 11:00 12/27/18 12:23 12/27/18 15:00 12/27/18 17:28 Lactic Acid Level 3.7 mmol/L (0.4-2.0) 4.0 mmol/L (0.4-2.0) Troponin I Quantitative < 0.017 ng/mL (0.000-0.055) Glucose (Fingerstick) 148 mg/dL (70-99) 211 mg/dL (70-99) Laboratory Tests Test 12/27/18 03:45 12/27/18 06:45 12/27/18 07:15 12/27/18 08:04 White Blood Count 7.8 x10^3/uL (4.0-11.0) Red Blood Count 4.31 x10^6/uL (3.50-5.40) Hemoglobin 13.5 g/dL (12.0-15.5) Hematocrit 39.3 % (36.0-47.0) Mean Corpuscular Volume 91 fL (79-100) Mean Corpuscular Hemoglobin 31 pg (25-35) Mean Corpuscular Hemoglobin Concent 35 g/dL (31-37) Red Cell Distribution Width 14.6 % (11.5-14.5) Platelet Count 237 x10^3/uL (140-400) Neutrophils (%) (Auto) 60 % (31-73) Lymphocytes (%) (Auto) 26 % (24-48) Monocytes (%) (Auto) 11 % (0-9) Eosinophils (%) (Auto) 2 % (0-3) Basophils (%) (Auto) 1 % (0-3) Neutrophils # (Auto) 4.7 x10^3/uL (1.8-7.7) Lymphocytes # (Auto) 2.0 x10^3/uL (1.0-4.8) Monocytes # (Auto) 0.8 x10^3/uL (0.0-1.1) Eosinophils # (Auto) 0.2 x10^3/uL (0.0-0.7) Basophils # (Auto) 0.1 x10^3/uL (0.0-0.2) Sodium Level 138 mmol/L (136-145) Potassium Level 3.4 mmol/L (3.5-5.1) Chloride Level 97 mmol/L (98-107) Carbon Dioxide Level 33 mmol/L (21-32) Anion Gap 8 (6-14) Blood Urea Nitrogen 12 mg/dL (7-20) Creatinine 1.2 mg/dL (0.6-1.0) Estimated GFR (Cockcroft-Gault) 45.2 BUN/Creatinine Ratio 10 (6-20) Glucose Level 189 mg/dL (70-99) Lactic Acid Level 3.1 mmol/L (0.4-2.0) 5.0 mmol/L (0.4-2.0) Calcium Level 9.2 mg/dL (8.5-10.1) Magnesium Level 1.2 mg/dL (1.8-2.4) Total Bilirubin 0.4 mg/dL (0.2-1.0) Aspartate Amino Transf (AST/SGOT) 20 U/L (15-37) Alanine Aminotransferase (ALT/SGPT) 36 U/L (14-59) Alkaline Phosphatase 84 U/L (46-116) Creatine Kinase 37 U/L (26-192) Creatine Kinase MB (Mass) 0.9 ng/mL (0.0-3.6) Creatine Kinase MB Relative Index % (0-4) Troponin I Quantitative < 0.017 ng/mL (0.000-0.055) < 0.017 ng/mL (0.000-0.055) FW-Gqq-D-Type Natriuretic Peptide 72 pg/mL (0-124) Total Protein 6.6 g/dL (6.4-8.2) Albumin 3.5 g/dL (3.4-5.0) Albumin/Globulin Ratio 1.1 (1.0-1.7) Lipase 228 U/L (73-393) Urine Collection Type Unknown Urine Color Yellow Urine Clarity Clear Urine pH 6.0 Urine Specific [place] 1.010 Urine Protein Negative mg/dL (NEG-TRACE) Urine Glucose (UA) Negative mg/dL (NEG) Urine Ketones (Stick) Negative mg/dL (NEG) Urine Blood Negative (NEG) Urine Nitrite Negative (NEG) Urine Bilirubin Negative (NEG) Urine Urobilinogen Dipstick 0.2 mg/dL (0.2 mg/dL) Urine Leukocyte Esterase Negative (NEG) Urine RBC 0 /HPF (0-2) Urine WBC Occ /HPF (0-4) Urine Squamous Epithelial Cells Few /LPF Urine Bacteria Few /HPF (0-FEW) Urine Hyaline Casts Few /HPF Urine Mucus Mod /LPF Glucose (Fingerstick) 151 mg/dL (70-99) Test 12/27/18 11:00 12/27/18 12:23 12/27/18 15:00 12/27/18 17:28 Lactic Acid Level 3.7 mmol/L (0.4-2.0) 4.0 mmol/L (0.4-2.0) Troponin I Quantitative < 0.017 ng/mL (0.000-0.055) Glucose (Fingerstick) 148 mg/dL (70-99) 211 mg/dL (70-99) Medications Active Scripts Medications Dose Route/Sig Max Daily Dose Days Date Category Tramadol Hcl 50 Mg Tablet 50 Mg PO Q6HRS PRN 12/27/18 Reported Montelukast Sodium Tablet (Montelukast Sodium) 10 Mg Tablet 10 Mg PO HS 12/27/18 Reported Banophen (Diphenhydramine Hcl) 25 Mg Tablet 25 Mg PO BID 11/29/18 Reported Protonix (Pantoprazole Sodium) 40 Mg Tablet.dr 40 Mg PO DAILYAC 11/29/18 Reported Tramadol Hcl 50 Mg Tablet 50 Mg PO Q6HRS PRN 11/13/18 Reported Ambien (Zolpidem Tartrate) 10 Mg Tablet 10 Mg PO HS PRN 06/25/17 Reported Gabapentin 600 Mg Tablet 600 Mg PO TID 06/25/17 Reported Levothyroxine Sodium 150 Mcg Tablet 150 Mcg PO DAILYAC 06/25/17 Reported Cymbalta (Duloxetine Hcl) 30 Mg Capsule.dr 30 Mg PO BID 06/25/17 Reported Sucralfate 1 Gm Tablet 1 Gm PO BID 02/11/17 Reported Loratadine 10 Mg Tablet 10 Mg PO DAILY 02/11/17 Reported Meloxicam 15 Mg Tablet 15 Mg PO DAILY 02/11/17 Reported NITRO-DUR 0.2mg/hr (Nitroglycerin) 1 Each Patch.td24 1 Each TD 02/11/17 Reported Potassium Chloride 8 Meq Capsule.er 8 Meq PO TID 06/30/16 Rx Hydrocodone-Apap 10-325 (Hydrocodone Bit/Acetaminophen) 1 Each Tablet 1 Tab PO PRN Q4HRS PRN 01/25/16 Reported Zofran (Ondansetron Hcl) 8 Mg Tablet 8 Mg PO PRN TID PRN 05/19/13 Reported Spiriva (Tiotropium [place]) 18 Mcg Cap.w.dev 18 Mcg IH DAILY 05/19/13 Reported Crestor (Rosuvastatin Calcium) 40 Mg Tablet 40 Mg PO DAILY 05/19/13 Reported Metformin Hcl 500 Mg Tablet 500 Mg PO BIDAC 05/19/13 Reported Albuterol Sulfate Neb Soln (Albuterol Sulfate) 0.63 Mg/3 Ml Vial.neb 0.63 Mg IH QID 05/19/13 Reported Advair 500-50 Diskus (Fluticasone/Salmeterol) 1 Each Disk.w.dev 1 Each IH BID 05/19/13 Reported Lisinopril 10 Mg Tablet 10 Mg PO BID 05/19/13 Reported Lasix (Furosemide) 40 Mg Tablet 40 Mg PO BID 05/19/13 Reported Fosamax (Alendronate Sodium) 70 Mg Tablet 70 Mg PO Thursday05/19/13 Reported Flovent 44MCG Hfa (Fluticasone Propionate) 10.6 Gm Aer.w.adap 2 IH BID 05/19/13 Reported Bentyl (Dicyclomine Hcl) 10 Mg Capsule 10 Mg PO TID 05/19/13 Reported Impression . NOTE DICTATED COPD LACTIC ACIDOSIS MAY CONSIDER D/C METFORMIN IF LA CONTINUES THANKS STEPHEN MOYA MD Dec 27, 2018 17:47
[2018-12-27] MEDS: BUDESONIDE 0.5 MG/2 ML NEBU. NEB SCH (19:52)
[2018-12-27 19:56] VITALS: BP 138/78
[2018-12-27] MEDS: ZOLPIDEM 5 MG TABLET. PO PRN (19:57)
[2018-12-27] MEDS: MONTELUKAST SODIUM 10 MG TABLET. PO SCH (20:05)
[2018-12-27] MEDS: ATORVASTATIN CALCIUM 40 MG TABLET. PO SCH (20:05)
[2018-12-27] MEDS ORDERED: NON FORMULARY ITEM (Fluticasone/Salmeterol (Advair 500-50 Diskus) 1 EACH) IH SCH (21:00)
[2018-12-27 22:18] VITALS: BP 125/67
--- NOTE | 2018-12-28 00:28 | CONS ---
DATE OF CONSULTATION: 12/27/2018 ATTENDING PHYSICIAN: Aurelia Maldonado MD REASON FOR CONSULTATION: The patient is seen in pulmonary consultation at the request of Dr. Maldonado for increasing shortness of air. HISTORY OF PRESENT ILLNESS: The patient is well known to me from previous hospitalization. She has COPD frequent acute exacerbations, hypertension, and hyperlipidemia who presented with increasing shortness of breath and diarrhea. She has been seen by Infectious Disease Service for the above. She also has a lactic acidosis. She is currently being worked up for the possibility of occult sepsis. She denies productive cough. She normally is on 4 liters of oxygen supplementation at home. PAST MEDICAL HISTORY: Chronic respiratory failure, COPD, diabetes, hypertension, hyperlipidemia, morbid obesity. PAST SURGICAL HISTORY: Status post hysterectomy, thyroidectomy, cholecystectomy. SOCIAL HISTORY: She is currently not smoking, quit approximately a year ago. Denies any illicit drug use. FAMILY HISTORY: No family history of lung disorders. ALLERGIES: LISTED TO AMOXICILLIN, MEPERIDINE AND POTASSIUM. CURRENT MEDICATIONS: List was reviewed. REVIEW OF SYSTEMS: CONSTITUTIONAL: No fever or chills. EYES: No changes in visual acuity. HENT: No nasal congestion or sore throat. PULMONARY: As indicated above. CARDIOVASCULAR: No chest pain. No pressure. GASTROINTESTINAL: As indicated above. GENITOURINARY: No dysuria or frequency. MUSCULOSKELETAL: No localized muscle aches or joint pains. SKIN: No new skin rashes. PHYSICAL EXAMINATION: VITAL SIGNS: Since admission, the patient has been afebrile. She is currently on 2-4 liters of oxygen supplementation. HEENT: Eyes: Sclerae were nonicteric. NECK: Jugular venous distention was not elevated. No lymphadenopathy. CHEST: Full expansion. LUNGS: Adequate airway flow with no wheezes. CARDIOVASCULAR: Regular rate and rhythm with S1, S2, no S3. ABDOMEN: Soft, nontender, nondistended. EXTREMITIES: No clubbing, cyanosis or edema. NEUROLOGIC: The patient was awake, alert, following commands. A detailed neuro exam was not performed. LABORATORY DATA: Labs were reviewed. White count was normal. Hemoglobin and hematocrit were noted. Chest x-ray shows no acute infiltrates. IMPRESSION: 1. Progressive dyspnea, multifactorial. 2. Acute exacerbation of chronic obstructive pulmonary disease. 3. Lactic acidosis workup in process. 5. Morbid obesity. 6. History of tobacco dependence, in remission. PLAN: 1. I reviewed the chest x-ray, no acute infiltrates. We will continue current Rx. 2. Follow ID recommendation. 3. May consider discontinuing metformin if the lactic acid level continues to be elevated. Dr. Maldonado, I do appreciate the privilege in sharing in the patient's care. STEPHEN MOYA MD DR: XIMENA/adrianna JOB#: [id number] / [id number]
[2018-12-28] MEDS: FLUTICASONE 50MCG/NASAL SPRAY 16GM BOTTLE. NS SCH ×3 (01:18→20:53)
[2018-12-28 02:59] VITALS: BP 117/75
[2018-12-28] MEDS: HYDROcodone/APAP 10/325 1 TAB TABLET PO PRN ×4 (03:22→21:36)
[2018-12-28] MEDS: MEROPENEM 500 MG in IV NORMAL SALINE 50ML 50 ML IV SCH ×3 (03:22→21:56)
[2018-12-28 07:00] VITALS: BP 112/59
[2018-12-28 07:36] LABS: BASO # 0.1 x10^3/uL (0.0-0.2); BASO % 1 % (0-3); EOS % 0 % (0-3); HEMOGLOBIN 10.5 g/dL (12.0-15.5); LYMPH # 1.3 x10^3/uL (1.0-4.8); LYMPH % 11 % (24-48); MEAN CORPUSCULAR HEMOGLOBIN 31 pg (25-35); MEAN CORPUSCULAR HGB CONC 34 g/dL (31-37); MEAN CORPUSCULAR VOLUME 93 fL (79-100); MONO # 1.2 x10^3/uL (0.0-1.1); MONO % 10 % (0-9); NEUT # 9.1 x10^3/uL (1.8-7.7); NEUT % 79 % (31-73); PLATELET COUNT 107 x10^3/uL (140-400); RED BLOOD COUNT 3.34 x10^6/uL (3.50-5.40); RED CELL DISTRIBUTION WIDTH 14.5 % (11.5-14.5); WHITE BLOOD COUNT 11.6 x10^3/uL (4.0-11.0)
[2018-12-28] MEDS: BUDESONIDE 0.5 MG/2 ML NEBU. NEB SCH ×2 (07:43→20:39)
[2018-12-28] MEDS: IPRATRPIUM/ALBUTEROL 0.5/2.5MG 3 ML NEBU. NEB SCH ×4 (07:43→20:40)
[2018-12-28 07:52] LABS: CALCIUM 8.3 mg/dL (8.5-10.1); CREATININE 0.7 mg/dL (0.6-1.0); GFR 84.2; MAGNESIUM 2.2 mg/dL (1.8-2.4); POTASSIUM 5.4 mmol/L (3.5-5.1)
[2018-12-28] MEDS: INSULIN LISPRO 300 UNITS/3 ML INSULN.PEN. SQ SCH ×3 (08:00→17:00)
[2018-12-28] MEDS: GABAPENTIN 300 MG CAPSULE. PO SCH ×3 (08:36→20:54)
[2018-12-28] MEDS: predniSONE 10 MG TABLET PO SCH (08:36)
[2018-12-28] MEDS: LACTOBACILLUS RHAMNOSUS GG 1 CAPSULE. PO SCH ×2 (08:36→20:54)
[2018-12-28] MEDS: CETIRIZINE HCL 10 MG TABLET. PO SCH (08:36)
[2018-12-28] MEDS: DULoxetine HCL 30 MG CAPSULE.DR PO SCH ×2 (08:36→20:55)
[2018-12-28] MEDS: LEVOTHYROXINE 150 MCG TABLET PO SCH (08:37)
[2018-12-28] MEDS: SUCRALFATE 1 GM TABLET. PO SCH ×2 (08:37→18:05)
[2018-12-28] MEDS: PANTOPRAZOLE 40 MG TABLET.DR. PO SCH (08:37)
[2018-12-28] MEDS: MELOXICAM 7.5 MG TABLET PO SCH (08:37)
[2018-12-28] MEDS: DICYCLOMINE HCL 10 MG CAPSULE PO SCH ×3 (08:38→20:54)
[2018-12-28] MEDS: LISINOPRIL 10 MG TABLET PO SCH ×2 (08:38→20:56)
[2018-12-28] MEDS: NITROGLYCERIN 0.2MG/HR PATCH. TD SCH (08:39)
[2018-12-28] MEDS: VANCOMYCIN 125 MG/2.5 ML ORAL SOLUTION. PO SCH ×4 (08:51→21:35)
[2018-12-28] MEDS: IV NORMAL SALINE 1000ML BAG 1,000 ML IV SCH ×2 (08:52→22:00)
[2018-12-28] MEDS ORDERED: NON FORMULARY ITEM (Tiotropium Bromide (Spiriva) 18 MCG) IH SCH (09:00)
[2018-12-28] MEDS ORDERED: VANCOMYCIN 1.25 GM in IV NORMAL SALINE 250ML 250 ML IV SCH (09:00)
[2018-12-28] MEDS: diphenhydrAMINE HCL 25 MG CAPSULE PO SCH ×2 (09:00→20:53)
--- NOTE | 2018-12-28 09:05 | PDOC ---
PULMONARY PROGRESS NOTES Subjective PT FEELS BETTER LESS SOA Vitals Vital Signs Date Time Temp Pulse Resp B/P (MAP) Pulse Ox O2 Delivery O2 Flow Rate FiO2 12/28/18 08:39 81 12/28/18 07:45 99 Nasal Cannula 3.0 12/28/18 07:00 96.8 16 112/59 (76) 96.8 ROS: No Nausea, No Chest Pain, No Abdominal Pain, No Increase Cough General: Alert, No acute distress Lungs: Wheezing Cardiovascular: S1, S2 Abdomen: Soft, Non-tender Extremities: No Edema Skin: Warm, Dry Labs Laboratory Tests Test 12/27/18 03:45 12/27/18 06:45 12/27/18 07:15 12/27/18 08:04 White Blood Count 7.8 x10^3/uL (4.0-11.0) Red Blood Count 4.31 x10^6/uL (3.50-5.40) Hemoglobin 13.5 g/dL (12.0-15.5) Hematocrit 39.3 % (36.0-47.0) Mean Corpuscular Volume 91 fL (79-100) Mean Corpuscular Hemoglobin 31 pg (25-35) Mean Corpuscular Hemoglobin Concent 35 g/dL (31-37) Red Cell Distribution Width 14.6 % (11.5-14.5) Platelet Count 237 x10^3/uL (140-400) Neutrophils (%) (Auto) 60 % (31-73) Lymphocytes (%) (Auto) 26 % (24-48) Monocytes (%) (Auto) 11 % (0-9) Eosinophils (%) (Auto) 2 % (0-3) Basophils (%) (Auto) 1 % (0-3) Neutrophils # (Auto) 4.7 x10^3/uL (1.8-7.7) Lymphocytes # (Auto) 2.0 x10^3/uL (1.0-4.8) Monocytes # (Auto) 0.8 x10^3/uL (0.0-1.1) Eosinophils # (Auto) 0.2 x10^3/uL (0.0-0.7) Basophils # (Auto) 0.1 x10^3/uL (0.0-0.2) Sodium Level 138 mmol/L (136-145) Potassium Level 3.4 mmol/L (3.5-5.1) Chloride Level 97 mmol/L (98-107) Carbon Dioxide Level 33 mmol/L (21-32) Anion Gap 8 (6-14) Blood Urea Nitrogen 12 mg/dL (7-20) Creatinine 1.2 mg/dL (0.6-1.0) Estimated GFR (Cockcroft-Gault) 45.2 BUN/Creatinine Ratio 10 (6-20) Glucose Level 189 mg/dL (70-99) Lactic Acid Level 3.1 mmol/L (0.4-2.0) 5.0 mmol/L (0.4-2.0) Calcium Level 9.2 mg/dL (8.5-10.1) Magnesium Level 1.2 mg/dL (1.8-2.4) Total Bilirubin 0.4 mg/dL (0.2-1.0) Aspartate Amino Transf (AST/SGOT) 20 U/L (15-37) Alanine Aminotransferase (ALT/SGPT) 36 U/L (14-59) Alkaline Phosphatase 84 U/L (46-116) Creatine Kinase 37 U/L (26-192) Creatine Kinase MB (Mass) 0.9 ng/mL (0.0-3.6) Creatine Kinase MB Relative Index % (0-4) Troponin I Quantitative < 0.017 ng/mL (0.000-0.055) < 0.017 ng/mL (0.000-0.055) ZQ-Btt-P-Type Natriuretic Peptide 72 pg/mL (0-124) Total Protein 6.6 g/dL (6.4-8.2) Albumin 3.5 g/dL (3.4-5.0) Albumin/Globulin Ratio 1.1 (1.0-1.7) Lipase 228 U/L (73-393) Urine Collection Type Unknown Urine Color Yellow Urine Clarity Clear Urine pH 6.0 Urine Specific [place] 1.010 Urine Protein Negative mg/dL (NEG-TRACE) Urine Glucose (UA) Negative mg/dL (NEG) Urine Ketones (Stick) Negative mg/dL (NEG) Urine Blood Negative (NEG) Urine Nitrite Negative (NEG) Urine Bilirubin Negative (NEG) Urine Urobilinogen Dipstick 0.2 mg/dL (0.2 mg/dL) Urine Leukocyte Esterase Negative (NEG) Urine RBC 0 /HPF (0-2) Urine WBC Occ /HPF (0-4) Urine Squamous Epithelial Cells Few /LPF Urine Bacteria Few /HPF (0-FEW) Urine Hyaline Casts Few /HPF Urine Mucus Mod /LPF Glucose (Fingerstick) 151 mg/dL (70-99) Test 12/27/18 11:00 12/27/18 12:23 12/27/18 15:00 12/27/18 17:28 Lactic Acid Level 3.7 mmol/L (0.4-2.0) 4.0 mmol/L (0.4-2.0) Troponin I Quantitative < 0.017 ng/mL (0.000-0.055) Glucose (Fingerstick) 148 mg/dL (70-99) 211 mg/dL (70-99) Test 12/27/18 18:40 12/27/18 20:42 12/28/18 07:00 12/28/18 07:46 Lactic Acid Level 4.0 mmol/L (0.4-2.0) 2.7 mmol/L (0.4-2.0) Glucose (Fingerstick) 270 mg/dL (70-99) 140 mg/dL (70-99) White Blood Count 11.6 x10^3/uL (4.0-11.0) Red Blood Count 3.34 x10^6/uL (3.50-5.40) Hemoglobin 10.5 g/dL (12.0-15.5) Hematocrit 31.0 % (36.0-47.0) Mean Corpuscular Volume 93 fL (79-100) Mean Corpuscular Hemoglobin 31 pg (25-35) Mean Corpuscular Hemoglobin Concent 34 g/dL (31-37) Red Cell Distribution Width 14.5 % (11.5-14.5) Platelet Count 107 x10^3/uL (140-400) Neutrophils (%) (Auto) 79 % (31-73) Lymphocytes (%) (Auto) 11 % (24-48) Monocytes (%) (Auto) 10 % (0-9) Eosinophils (%) (Auto) 0 % (0-3) Basophils (%) (Auto) 1 % (0-3) Neutrophils # (Auto) 9.1 x10^3/uL (1.8-7.7) Lymphocytes # (Auto) 1.3 x10^3/uL (1.0-4.8) Monocytes # (Auto) 1.2 x10^3/uL (0.0-1.1) Eosinophils # (Auto) 0.0 x10^3/uL (0.0-0.7) Basophils # (Auto) 0.1 x10^3/uL (0.0-0.2) Sodium Level 136 mmol/L (136-145) Potassium Level 5.4 mmol/L (3.5-5.1) Chloride Level 101 mmol/L (98-107) Carbon Dioxide Level 28 mmol/L (21-32) Anion Gap 7 (6-14) Blood Urea Nitrogen 10 mg/dL (7-20) Creatinine 0.7 mg/dL (0.6-1.0) Estimated GFR (Cockcroft-Gault) 84.2 Glucose Level 130 mg/dL (70-99) Calcium Level 8.3 mg/dL (8.5-10.1) Magnesium Level 2.2 mg/dL (1.8-2.4) Laboratory Tests Test 12/27/18 11:00 12/27/18 12:23 12/27/18 15:00 12/27/18 17:28 Lactic Acid Level 3.7 mmol/L (0.4-2.0) 4.0 mmol/L (0.4-2.0) Troponin I Quantitative < 0.017 ng/mL (0.000-0.055) Glucose (Fingerstick) 148 mg/dL (70-99) 211 mg/dL (70-99) Test 12/27/18 18:40 12/27/18 20:42 12/28/18 07:00 12/28/18 07:46 Lactic Acid Level 4.0 mmol/L (0.4-2.0) 2.7 mmol/L (0.4-2.0) Glucose (Fingerstick) 270 mg/dL (70-99) 140 mg/dL (70-99) White Blood Count 11.6 x10^3/uL (4.0-11.0) Red Blood Count 3.34 x10^6/uL (3.50-5.40) Hemoglobin 10.5 g/dL (12.0-15.5) Hematocrit 31.0 % (36.0-47.0) Mean Corpuscular Volume 93 fL (79-100) Mean Corpuscular Hemoglobin 31 pg (25-35) Mean Corpuscular Hemoglobin Concent 34 g/dL (31-37) Red Cell Distribution Width 14.5 % (11.5-14.5) Platelet Count 107 x10^3/uL (140-400) Neutrophils (%) (Auto) 79 % (31-73) Lymphocytes (%) (Auto) 11 % (24-48) Monocytes (%) (Auto) 10 % (0-9) Eosinophils (%) (Auto) 0 % (0-3) Basophils (%) (Auto) 1 % (0-3) Neutrophils # (Auto) 9.1 x10^3/uL (1.8-7.7) Lymphocytes # (Auto) 1.3 x10^3/uL (1.0-4.8) Monocytes # (Auto) 1.2 x10^3/uL (0.0-1.1) Eosinophils # (Auto) 0.0 x10^3/uL (0.0-0.7) Basophils # (Auto) 0.1 x10^3/uL (0.0-0.2) Sodium Level 136 mmol/L (136-145) Potassium Level 5.4 mmol/L (3.5-5.1) Chloride Level 101 mmol/L (98-107) Carbon Dioxide Level 28 mmol/L (21-32) Anion Gap 7 (6-14) Blood Urea Nitrogen 10 mg/dL (7-20) Creatinine 0.7 mg/dL (0.6-1.0) Estimated GFR (Cockcroft-Gault) 84.2 Glucose Level 130 mg/dL (70-99) Calcium Level 8.3 mg/dL (8.5-10.1) Magnesium Level 2.2 mg/dL (1.8-2.4) Medications Active Scripts Medications Dose Route/Sig Max Daily Dose Days Date Category Tramadol Hcl 50 Mg Tablet 50 Mg PO Q6HRS PRN 12/27/18 Reported Montelukast Sodium Tablet (Montelukast Sodium) 10 Mg Tablet 10 Mg PO HS 12/27/18 Reported Banophen (Diphenhydramine Hcl) 25 Mg Tablet 25 Mg PO BID 11/29/18 Reported Protonix (Pantoprazole Sodium) 40 Mg Tablet.dr 40 Mg PO DAILYAC 11/29/18 Reported Tramadol Hcl 50 Mg Tablet 50 Mg PO Q6HRS PRN 11/13/18 Reported Ambien (Zolpidem Tartrate) 10 Mg Tablet 10 Mg PO HS PRN 06/25/17 Reported Gabapentin 600 Mg Tablet 600 Mg PO TID 06/25/17 Reported Levothyroxine Sodium 150 Mcg Tablet 150 Mcg PO DAILYAC 06/25/17 Reported Cymbalta (Duloxetine Hcl) 30 Mg Capsule.dr 30 Mg PO BID 06/25/17 Reported Sucralfate 1 Gm Tablet 1 Gm PO BID 02/11/17 Reported Loratadine 10 Mg Tablet 10 Mg PO DAILY 02/11/17 Reported Meloxicam 15 Mg Tablet 15 Mg PO DAILY 02/11/17 Reported NITRO-DUR 0.2mg/hr (Nitroglycerin) 1 Each Patch.td24 1 Each TD 02/11/17 Reported Potassium Chloride 8 Meq Capsule.er 8 Meq PO TID 06/30/16 Rx Hydrocodone-Apap 10-325 (Hydrocodone Bit/Acetaminophen) 1 Each Tablet 1 Tab PO PRN Q4HRS PRN 01/25/16 Reported Zofran (Ondansetron Hcl) 8 Mg Tablet 8 Mg PO PRN TID PRN 05/19/13 Reported Spiriva (Tiotropium [place]) 18 Mcg Cap.w.dev 18 Mcg IH DAILY 05/19/13 Reported Crestor (Rosuvastatin Calcium) 40 Mg Tablet 40 Mg PO DAILY 05/19/13 Reported Metformin Hcl 500 Mg Tablet 500 Mg PO BIDAC 05/19/13 Reported Albuterol Sulfate Neb Soln (Albuterol Sulfate) 0.63 Mg/3 Ml Vial.neb 0.63 Mg IH QID 05/19/13 Reported Advair 500-50 Diskus (Fluticasone/Salmeterol) 1 Each Disk.w.dev 1 Each IH BID 05/19/13 Reported Lisinopril 10 Mg Tablet 10 Mg PO BID 05/19/13 Reported Lasix (Furosemide) 40 Mg Tablet 40 Mg PO BID 05/19/13 Reported Fosamax (Alendronate Sodium) 70 Mg Tablet 70 Mg PO Thursday05/19/13 Reported Flovent 44MCG Hfa (Fluticasone Propionate) 10.6 Gm Aer.w.adap 2 IH BID 05/19/13 Reported Bentyl (Dicyclomine Hcl) 10 Mg Capsule 10 Mg PO TID 05/19/13 Reported Impression . IMPRESSION: 1. Progressive dyspnea, multifactorial. 2. Acute exacerbation of chronic obstructive pulmonary disease. 3. Lactic acidosis workup in process. 5. Morbid obesity. 6. History of tobacco dependence, in remission. Plan . DC METFORMIN FOLLOW ID INPUT RESP STATUS COMPENSATED STEPHEN MOYA MD Dec 28, 2018 09:05
--- NOTE | 2018-12-28 09:26 | PDOC ---
Infectious Disease Note Subjective Subjective pt is feeling ok, not well yet diarrhea has improved, though still has not given sample ROS ROS no n/v/sob/fever Vital Sign Vital Signs Vital Signs Date Time Temp Pulse Resp B/P (MAP) Pulse Ox O2 Delivery O2 Flow Rate FiO2 12/28/18 08:39 81 12/28/18 07:45 99 Nasal Cannula 3.0 12/28/18 07:00 96.8 16 112/59 (76) 96.8 Physical Exam PHYSICAL EXAM GENERAL: Alert, oriented female, not in distress. VITAL SIGNS: Stable, afebrile. HEENT: NAD. NECK: Supple, no JVP, no lymphadenopathy. LUNGS: Clear. HEART: S1, S2 regular. ABDOMEN: Soft, nontender, no organomegaly. EXTREMITIES: No edema, cyanosis. SKIN: Unremarkable. NEUROLOGIC: The patient is neurologically alert, awake and appropriate. No focal neurologic deficit. Labs Lab Laboratory Tests Test 12/27/18 11:00 12/27/18 12:23 12/27/18 15:00 12/27/18 17:28 Lactic Acid Level 3.7 mmol/L (0.4-2.0) 4.0 mmol/L (0.4-2.0) Troponin I Quantitative < 0.017 ng/mL (0.000-0.055) Glucose (Fingerstick) 148 mg/dL (70-99) 211 mg/dL (70-99) Test 12/27/18 18:40 12/27/18 20:42 12/28/18 07:00 12/28/18 07:46 Lactic Acid Level 4.0 mmol/L (0.4-2.0) 2.7 mmol/L (0.4-2.0) Glucose (Fingerstick) 270 mg/dL (70-99) 140 mg/dL (70-99) White Blood Count 11.6 x10^3/uL (4.0-11.0) Red Blood Count 3.34 x10^6/uL (3.50-5.40) Hemoglobin 10.5 g/dL (12.0-15.5) Hematocrit 31.0 % (36.0-47.0) Mean Corpuscular Volume 93 fL (79-100) Mean Corpuscular Hemoglobin 31 pg (25-35) Mean Corpuscular Hemoglobin Concent 34 g/dL (31-37) Red Cell Distribution Width 14.5 % (11.5-14.5) Platelet Count 107 x10^3/uL (140-400) Neutrophils (%) (Auto) 79 % (31-73) Lymphocytes (%) (Auto) 11 % (24-48) Monocytes (%) (Auto) 10 % (0-9) Eosinophils (%) (Auto) 0 % (0-3) Basophils (%) (Auto) 1 % (0-3) Neutrophils # (Auto) 9.1 x10^3/uL (1.8-7.7) Lymphocytes # (Auto) 1.3 x10^3/uL (1.0-4.8) Monocytes # (Auto) 1.2 x10^3/uL (0.0-1.1) Eosinophils # (Auto) 0.0 x10^3/uL (0.0-0.7) Basophils # (Auto) 0.1 x10^3/uL (0.0-0.2) Sodium Level 136 mmol/L (136-145) Potassium Level 5.4 mmol/L (3.5-5.1) Chloride Level 101 mmol/L (98-107) Carbon Dioxide Level 28 mmol/L (21-32) Anion Gap 7 (6-14) Blood Urea Nitrogen 10 mg/dL (7-20) Creatinine 0.7 mg/dL (0.6-1.0) Estimated GFR (Cockcroft-Gault) 84.2 Glucose Level 130 mg/dL (70-99) Calcium Level 8.3 mg/dL (8.5-10.1) Magnesium Level 2.2 mg/dL (1.8-2.4) Micro Microbiology 12/27/18 Blood Culture - Preliminary, Resulted NO GROWTH AFTER 1 DAY Objective Assessment Lactic acidosis, etiology unclear, rule out sepsis Severe diarrhea, rule out c diff COPD DM HTN Plan Plan of Care iv meropenem and po vanc supportive care check cultures check c diff d/w dr Erica SHEIKH,LUTHER Cloud MD Dec 28, 2018 09:26
--- NOTE | 2018-12-28 09:46 | PDOC ---
PROGRESS NOTES Subjective Subjective less abd pain Objective Objective Vital Signs Date Time Temp Pulse Resp B/P (MAP) Pulse Ox O2 Delivery O2 Flow Rate FiO2 12/28/18 08:39 81 12/28/18 07:45 99 Nasal Cannula 3.0 12/28/18 07:00 96.8 16 112/59 (76) 96.8 Intake and Output 12/28/18 07:00 Intake Total 6900 ml Output Total 7380 ml Balance -480 ml Intake Oral 2580 ml IV Total 2200 ml Other 2120 ml Output Urine Total 7380 ml Physical Exam Abdomen: Normal bowel sounds, Soft Heart: Regular rate, Normal S1 Extremities: No clubbing General: Alert HEENT: Atraumatic Lungs: Clear to auscultation MUSCULOSKELETAL: No swelling, Osteoarthritic changes both hands Neck: No JVD Neuro: Normal speech Psych/Mental Status: Mental status NL Skin: No breakdown Diagnosis Problem List Problems Medical Problems: (1) COPD exacerbation Status: Acute (2) Dysphagia Status: Acute (3) Hypokalemia Status: Acute (4) Hypomagnesemia Status: Acute (5) Morbid obesity Status: Chronic (6) Severe sepsis Status: Acute Assessment Assessment Problems Medical Problems: (1) COPD exacerbation Status: Acute (2) Dysphagia Status: Acute (3) Hypokalemia Status: Acute (4) Hypomagnesemia Status: Acute (5) Morbid obesity Status: Chronic (6) Severe sepsis Status: Acute FINAL IMPRESSION: 1. Abdominal pain. 2. Diarrhea, possible C. diff. 3. Lactic acidosis. 4. Chronic obstructive pulmonary disease, on home oxygen and also prednisone dependent chronic obstructive pulmonary disease. 5. Diabetes type 2. 6. Hypothyroidism. 7. Hypertension. 8. Hyperlipidemia. PLAN: lactic acid 2.7 ,peaked to 5.0 trending down blood c/s neg c diff pending cxr -ve ct abd and pelvis -ve for colitis. wbc 11 went up. spoke with ID continue present antibiotics d/c metformin due to lactic acidosis. Plan Plan of Care Problems Medical Problems: (1) COPD exacerbation Status: Acute (2) Dysphagia Status: Acute (3) Hypokalemia Status: Acute (4) Hypomagnesemia Status: Acute (5) Morbid obesity Status: Chronic (6) Severe sepsis Status: Acute Comment Review of Relevant I have reviewed the following items vinny (where applicable) has been applied. Labs Laboratory Tests Test 12/27/18 11:00 12/27/18 12:23 12/27/18 15:00 12/27/18 17:28 Lactic Acid Level 3.7 mmol/L (0.4-2.0) 4.0 mmol/L (0.4-2.0) Troponin I Quantitative < 0.017 ng/mL (0.000-0.055) Glucose (Fingerstick) 148 mg/dL (70-99) 211 mg/dL (70-99) Test 12/27/18 18:40 12/27/18 20:42 12/28/18 07:00 12/28/18 07:46 Lactic Acid Level 4.0 mmol/L (0.4-2.0) 2.7 mmol/L (0.4-2.0) Glucose (Fingerstick) 270 mg/dL (70-99) 140 mg/dL (70-99) White Blood Count 11.6 x10^3/uL (4.0-11.0) Red Blood Count 3.34 x10^6/uL (3.50-5.40) Hemoglobin 10.5 g/dL (12.0-15.5) Hematocrit 31.0 % (36.0-47.0) Mean Corpuscular Volume 93 fL (79-100) Mean Corpuscular Hemoglobin 31 pg (25-35) Mean Corpuscular Hemoglobin Concent 34 g/dL (31-37) Red Cell Distribution Width 14.5 % (11.5-14.5) Platelet Count 107 x10^3/uL (140-400) Neutrophils (%) (Auto) 79 % (31-73) Lymphocytes (%) (Auto) 11 % (24-48) Monocytes (%) (Auto) 10 % (0-9) Eosinophils (%) (Auto) 0 % (0-3) Basophils (%) (Auto) 1 % (0-3) Neutrophils # (Auto) 9.1 x10^3/uL (1.8-7.7) Lymphocytes # (Auto) 1.3 x10^3/uL (1.0-4.8) Monocytes # (Auto) 1.2 x10^3/uL (0.0-1.1) Eosinophils # (Auto) 0.0 x10^3/uL (0.0-0.7) Basophils # (Auto) 0.1 x10^3/uL (0.0-0.2) Sodium Level 136 mmol/L (136-145) Potassium Level 5.4 mmol/L (3.5-5.1) Chloride Level 101 mmol/L (98-107) Carbon Dioxide Level 28 mmol/L (21-32) Anion Gap 7 (6-14) Blood Urea Nitrogen 10 mg/dL (7-20) Creatinine 0.7 mg/dL (0.6-1.0) Estimated GFR (Cockcroft-Gault) 84.2 Glucose Level 130 mg/dL (70-99) Calcium Level 8.3 mg/dL (8.5-10.1) Magnesium Level 2.2 mg/dL (1.8-2.4) Microbiology 12/27/18 Blood Culture - Preliminary, Resulted NO GROWTH AFTER 1 DAY Medications Current Medications Acetaminophen/ Hydrocodone Bitart (Lortab 10/325) 1 tab PRN Q4HRS PRN PO PAIN Last administered on 12/28/18 08:52; Start 12/27/18 at 10:00 Albuterol/ Ipratropium (Duoneb) 3 ml RTQID NEB Last administered on 12/28/18 07:45; Start 12/27/18 at 12:00 Atorvastatin Calcium (Lipitor) 80 mg QHS PO Last administered on 12/27/18 20:07; Start 12/27/18 at 21:00 Budesonide (Pulmicort) 0.5 mg RTBID NEB Last administered on 12/28/18 07:45; Start 12/27/18 at 20:00 Cetirizine HCl (ZyrTEC) 10 mg DAILY PO Last administered on 12/28/18 08:39; Start 12/27/18 at 10:30 Dextrose 250 ml PRN Q15MIN PRN IV SEE COMMENTS; Start 12/27/18 at 10:15 Dextrose (Dextrose 50%-Water Syringe) 12.5 gm PRN Q15MIN PRN IV SEE COMMENTS; Start 12/27/18 at 10:15 Dicyclomine HCl (Bentyl) 10 mg TID PO Last administered on 12/28/18 08:39; Start 12/27/18 at 14:00 Diphenhydramine HCl (Benadryl) 25 mg BID PO Last administered on 12/27/18 19:59; Start 12/27/18 at 10:30 Duloxetine HCl (Cymbalta) 30 mg BID PO Last administered on 12/28/18 08:39; Start 12/27/18 at 10:30 Enoxaparin Sodium (Lovenox 40mg Syringe) 40 mg Q24H SQ Last administered on 12/27/18 12:18; Start 12/27/18 at 11:00 Fluticasone Propionate (Flonase) 2 spray BID NS Last administered on 12/28/18 08:39; Start 12/27/18 at 10:30 Gabapentin (Neurontin) 600 mg TID PO Last administered on 12/28/18 08:39; Sta rt 12/27/18 at 14:00 Info (CONTRAST GIVEN -- Rx MONITORING) 1 each PRN DAILY PRN MC SEE COMMENTS; Start 12/27/18 at 10:30; Stop 12/29/18 at 10:29 Insulin Human Lispro (HumaLOG) 0-7 UNITS TIDWMEALS SQ Last administered on 12/27/18at 17:43; Start 12/27/18 at 12:00 Iohexol (Omnipaque 240 Mg/ml) 30 ml 1X ONCE PO ; Start 12/27/18 at 10:15; Stop 12/27/18 at 10:20; Status DC Iohexol (Omnipaque 300 Mg/ml) 60 ml 1X ONCE IV ; Start 12/27/18 at 10:15; Stop 12/27/18 at 10:20; Status DC Levothyroxine Sodium (Synthroid) 150 mcg DAILYAC PO Last administered on 12/28/18 08:39; Start 12/27/18 at 10:30 Lisinopril (Prinivil) 10 mg BID PO Last administered on 12/28/18 08:39; Start 12/27/18 at 10:30 Magnesium Sulfate/ Dextrose 100 ml @ 25 mls/hr 1X ONCE IV Last administered on 12/27/18 10:21; Start 12/27/18 at 10:30; Stop 12/27/18 at 14:29; Status DC Meloxicam (Mobic) 15 mg DAILY PO Last administered on 12/28/18 08:39; Start 12/27/18 at 10:30 Meropenem 500 mg/ Sodium Chloride 50 ml @ 100 mls/hr Q8HRS IV Last admi nistered on 12/28/18 03:22; Start 12/27/18 at 14:00 Montelukast Sodium (Singulair) 10 mg HS PO Last administered on 12/27/18 20:07; Start 12/27/18 at 21:00 Nitroglycerin (Nitro-Dur) 1 patch DAILY TD Last administered on 12/28/18 08:39; Start 12/27/18 at 10:30 Non-Formulary Medication (Albuterol Sulfate (Albuterol Sulfate Neb Soln)) 0.63 mg QID IH ; Start 12/27/18 at 13:00; Status UNV Non-Formulary Medication (Alendronate Sodium (Fosamax)) 70 mg THURSDAY PO ; Start 12/27/18 at 10:00; Status UNV Non-Formulary Medication (Fluticasone/ Salmeterol (Advair 500-50 Diskus)) 1 each BID IH ; Start 12/27/18 at 21:00; Status UNV Non-Formulary Medication (Tiotropium [place] (Spiriva)) 18 mcg DAILY IH ; Start 12/28/18 at 09:00; Status UNV Ondansetron HCl (Zofran Odt) 8 mg PRN Q8HRS PRN PO NAUSEA/VOMITING; Start 12/27/18 at 10:30 Pantoprazole Sodium (Protonix) 40 mg DAILYAC PO Last administered on 12/28/18 08:39; Start 12/27/18 at 10:30 Potassium Chloride (Klor-Con) 10 meq TIDWMEALS PO Last administered on 9at 16:50; Start 12/27/18 at 12:00 Prednisone (Prednisone) 10 mg DAILY PO Last administered on 12/28/18 08:39; Start 12/28/18 at 09:00 Prednisone (Prednisone) 50 mg 1X ONCE PO Last administered on 12/27/18 12:18; Start 12/27/18 at 10:30; Stop 12/27/18 at 10:31; Status DC Sucralfate (Carafate) 1 gm BIDAC PO Last administered on 12/28/18 08:39; Start 12/27/18 at 10:30 Tramadol HCl (Ultram) 50 mg PRN Q6HRS PRN PO MILD PAIN 1-3 Last administered on 12/27/18at 19:59; Start 12/27/18 at 10:00 Tramadol HCl (Ultram) 50 mg Q6HRS PRN PO PAIN; Start 12/27/18 at 10:00; Status UNV Vancomycin HCl (Vancomycin Trough Level) 1 each 1X ONCE MC ; Start 12/29/18 at 08:30; Stop 12/27/18 at 09:18; Status DC Vancomycin HCl 1.25 gm/Sodium Chloride 250 ml @ 167 mls/hr Q24H IV ; Start 12/28/18 at 09:00; Stop 12/27/18 at 09:14; Status DC Zolpidem Tartrate (Ambien) 5 mg PRN QHS PRN PO INSOMNIA, MRX1 Last administered on 12/27/18at 19:59; Start 12/27/18 at 10:30 Vitals/I & O Vital Sign - Last 24 Hours 12/27/18 12/27/18 12/27/18 12/27/18 10:51 12:18 13:27 14:54 Temp 98.3 98.3 Pulse 109 109 Resp 18 B/P (MAP) 125/44 (71) 125/44 Pulse Ox 97 97 97 O2 Delivery Nasal Cannula Nasal Cannula Nasal Cannula O2 Flow Rate 4.0 4.0 4.0 12/27/18 12/27/18 12/27/18 12/27/18 15:00 15:51 19:52 19:56 Temp 97.7 98.4 97.7 98.4 Pulse 80 90 Resp 16 20 B/P (MAP) 116/66 (83) 138/78 (98) Pulse Ox 98 97 97 95 O2 Delivery Nasal Cannula Nasal Cannula Nasal Cannula Nasal Cannula O2 Flow Rate 4.0 4.0 4.0 3.0 12/27/18 12/27/18 12/27/18 12/27/18 19:59 19:59 20:00 20:07 Pulse 89 Resp 18 18 B/P (MAP) 138/78 Pulse Ox 97 97 O2 Delivery Nasal Cannula Nasal Cannula Nasal Cannula O2 Flow Rate 4.0 4.0 4.0 12/27/18 12/27/18 12/27/18 12/28/18 22:18 23:33 23:33 02:59 Temp 98.1 98.0 98.1 98.0 Pulse 92 95 Resp 20 18 18 18 B/P (MAP) 125/67 (86) 117/75 (89) Pulse Ox 98 98 98 98 O2 Delivery Nasal Cannula Nasal Cannula Nasal Cannula Nasal Cannula O2 Flow Rate 3.5 3.5 3.5 3.5 12/28/18 12/28/18 12/28/18 12/28/18 03:22 04:42 07:00 07:45 Temp 96.8 96.8 Pulse 79 Resp 16 18 16 B/P (MAP) 112/59 (76) Pulse Ox 98 98 98 99 O2 Delivery Nasal Cannula Nasal Cannula Nasal Cannula Nasal Cannula O2 Flow Rate 3.5 3.5 3.5 3.0 12/28/18 08:39 Pulse 81 Intake and Output 12/27/18 12/27/18 12/28/18 15:00 23:00 07:00 Intake Total 3640 ml 3260 ml Output Total 300 ml 4580 ml 2500 ml Balance 3340 ml -4580 ml 760 ml MIGUEL DELAROSA MD Dec 28, 2018 09:46
--- NOTE | 2018-12-28 10:38 | NUR ---
Pt admitted with sepsis. Per RN, weak and SOB with activity. Would benefit from PT/OT assessment to ensure safe discharge plan. Please wrtire PT/OT eval and treat orders if you agree. Addendum: 12/28/18 at 1039 by RICHELLE RICHARD PT Amended: Links added.
[2018-12-28 11:00] VITALS: BP 130/55
[2018-12-28] MEDS: ENOXAPARIN 40 MG/0.4 ML SYRINGE. SQ SCH (14:00)
[2018-12-28 15:00] VITALS: BP 122/62
[2018-12-28 19:35] VITALS: BP 109/67
[2018-12-28] MEDS: ATORVASTATIN CALCIUM 40 MG TABLET. PO SCH (20:54)
[2018-12-28] MEDS: MONTELUKAST SODIUM 10 MG TABLET. PO SCH (20:54)
[2018-12-28] MEDS: ZOLPIDEM 5 MG TABLET. PO PRN (21:36)
[2018-12-28 23:35] VITALS: BP 125/62
[2018-12-29] MEDS: ONDANSETRON ODT 4 MG TAB.RAPDIS. PO PRN (02:24)
[2018-12-29] MEDS: HYDROcodone/APAP 10/325 1 TAB TABLET PO PRN ×3 (02:26→21:21)
[2018-12-29 03:30] VITALS: BP 105/60
[2018-12-29] MEDS: MEROPENEM 500 MG in IV NORMAL SALINE 50ML 50 ML IV SCH ×3 (05:50→21:22)
[2018-12-29] MEDS: PANTOPRAZOLE 40 MG TABLET.DR. PO SCH (06:07)
[2018-12-29] MEDS: SUCRALFATE 1 GM TABLET. PO SCH ×2 (06:07→17:03)
[2018-12-29] MEDS: LEVOTHYROXINE 150 MCG TABLET PO SCH (06:07)
[2018-12-29 07:00] VITALS: BP 97/54
[2018-12-29] MEDS: IPRATRPIUM/ALBUTEROL 0.5/2.5MG 3 ML NEBU. NEB SCH ×4 (07:52→19:41)
[2018-12-29] MEDS: BUDESONIDE 0.5 MG/2 ML NEBU. NEB SCH ×2 (07:52→19:41)
[2018-12-29 08:00] LABS: BASO # 0.1 x10^3/uL (0.0-0.2); BASO % 1 % (0-3); EOS # 0.1 x10^3/uL (0.0-0.7); EOS % 1 % (0-3); HEMATOCRIT 32.3 % (36.0-47.0); HEMOGLOBIN 10.9 g/dL (12.0-15.5); LYMPH # 2.8 x10^3/uL (1.0-4.8); LYMPH % 30 % (24-48); MEAN CORPUSCULAR HEMOGLOBIN 32 pg (25-35); MEAN CORPUSCULAR HGB CONC 34 g/dL (31-37); MEAN CORPUSCULAR VOLUME 93 fL (79-100); MONO % 10 % (0-9); NEUT # 5.5 x10^3/uL (1.8-7.7); NEUT % 58 % (31-73); PLATELET COUNT 196 x10^3/uL (140-400); RED BLOOD COUNT 3.47 x10^6/uL (3.50-5.40); RED CELL DISTRIBUTION WIDTH 14.7 % (11.5-14.5); WHITE BLOOD COUNT 9.5 x10^3/uL (4.0-11.0)
[2018-12-29] MEDS: INSULIN LISPRO 300 UNITS/3 ML INSULN.PEN. SQ SCH ×3 (08:00→17:06)
[2018-12-29 08:17] LABS: CALCIUM 8.5 mg/dL (8.5-10.1); CREATININE 0.8 mg/dL (0.6-1.0); GFR 72.2
[2018-12-29 08:19] LABS: POTASSIUM 5.3 mmol/L (3.5-5.1)
--- NOTE | 2018-12-29 08:37 | PDOC ---
PULMONARY PROGRESS NOTES Subjective PT FEELS BETTER LESS SOA Vitals Vital Signs Date Time Temp Pulse Resp B/P (MAP) Pulse Ox O2 Delivery O2 Flow Rate FiO2 12/29/18 07:52 99 Nasal Cannula 4.0 12/29/18 07:00 97.8 75 16 97/54 (68) 97.8 ROS: No Nausea, No Chest Pain, No Abdominal Pain, No Increase Cough General: Alert, No acute distress Lungs: Wheezing Cardiovascular: S1, S2 Abdomen: Soft, Non-tender Extremities: No Edema Skin: Warm, Dry Labs Laboratory Tests Test 12/27/18 11:00 12/27/18 12:23 12/27/18 15:00 12/27/18 17:28 Lactic Acid Level 3.7 mmol/L (0.4-2.0) 4.0 mmol/L (0.4-2.0) Troponin I Quantitative < 0.017 ng/mL (0.000-0.055) Glucose (Fingerstick) 148 mg/dL (70-99) 211 mg/dL (70-99) Test 12/27/18 18:40 12/27/18 20:42 12/28/18 07:00 12/28/18 07:46 Lactic Acid Level 4.0 mmol/L (0.4-2.0) 2.7 mmol/L (0.4-2.0) Glucose (Fingerstick) 270 mg/dL (70-99) 140 mg/dL (70-99) White Blood Count 11.6 x10^3/uL (4.0-11.0) Red Blood Count 3.34 x10^6/uL (3.50-5.40) Hemoglobin 10.5 g/dL (12.0-15.5) Hematocrit 31.0 % (36.0-47.0) Mean Corpuscular Volume 93 fL (79-100) Mean Corpuscular Hemoglobin 31 pg (25-35) Mean Corpuscular Hemoglobin Concent 34 g/dL (31-37) Red Cell Distribution Width 14.5 % (11.5-14.5) Platelet Count 107 x10^3/uL (140-400) Neutrophils (%) (Auto) 79 % (31-73) Lymphocytes (%) (Auto) 11 % (24-48) Monocytes (%) (Auto) 10 % (0-9) Eosinophils (%) (Auto) 0 % (0-3) Basophils (%) (Auto) 1 % (0-3) Neutrophils # (Auto) 9.1 x10^3/uL (1.8-7.7) Lymphocytes # (Auto) 1.3 x10^3/uL (1.0-4.8) Monocytes # (Auto) 1.2 x10^3/uL (0.0-1.1) Eosinophils # (Auto) 0.0 x10^3/uL (0.0-0.7) Basophils # (Auto) 0.1 x10^3/uL (0.0-0.2) Sodium Level 136 mmol/L (136-145) Potassium Level 5.4 mmol/L (3.5-5.1) Chloride Level 101 mmol/L (98-107) Carbon Dioxide Level 28 mmol/L (21-32) Anion Gap 7 (6-14) Blood Urea Nitrogen 10 mg/dL (7-20) Creatinine 0.7 mg/dL (0.6-1.0) Estimated GFR (Cockcroft-Gault) 84.2 Glucose Level 130 mg/dL (70-99) Calcium Level 8.3 mg/dL (8.5-10.1) Magnesium Level 2.2 mg/dL (1.8-2.4) Test 12/28/18 12:24 12/28/18 17:14 12/28/18 20:25 12/29/18 06:25 Glucose (Fingerstick) 181 mg/dL (70-99) 127 mg/dL (70-99) Lactic Acid Level 1.3 mmol/L (0.4-2.0) 1.2 mmol/L (0.4-2.0) White Blood Count 9.5 x10^3/uL (4.0-11.0) Red Blood Count 3.47 x10^6/uL (3.50-5.40) Hemoglobin 10.9 g/dL (12.0-15.5) Hematocrit 32.3 % (36.0-47.0) Mean Corpuscular Volume 93 fL (79-100) Mean Corpuscular Hemoglobin 32 pg (25-35) Mean Corpuscular Hemoglobin Concent 34 g/dL (31-37) Red Cell Distribution Width 14.7 % (11.5-14.5) Platelet Count 196 x10^3/uL (140-400) Neutrophils (%) (Auto) 58 % (31-73) Lymphocytes (%) (Auto) 30 % (24-48) Monocytes (%) (Auto) 10 % (0-9) Eosinophils (%) (Auto) 1 % (0-3) Basophils (%) (Auto) 1 % (0-3) Neutrophils # (Auto) 5.5 x10^3/uL (1.8-7.7) Lymphocytes # (Auto) 2.8 x10^3/uL (1.0-4.8) Monocytes # (Auto) 1.0 x10^3/uL (0.0-1.1) Eosinophils # (Auto) 0.1 x10^3/uL (0.0-0.7) Basophils # (Auto) 0.1 x10^3/uL (0.0-0.2) Sodium Level 132 mmol/L (136-145) Potassium Level 5.3 mmol/L (3.5-5.1) Chloride Level 96 mmol/L (98-107) Carbon Dioxide Level 33 mmol/L (21-32) Anion Gap 3 (6-14) Blood Urea Nitrogen 14 mg/dL (7-20) Creatinine 0.8 mg/dL (0.6-1.0) Estimated GFR (Cockcroft-Gault) 72.2 Glucose Level 97 mg/dL (70-99) Calcium Level 8.5 mg/dL (8.5-10.1) Test 12/29/18 08:01 Glucose (Fingerstick) 111 mg/dL (70-99) Laboratory Tests Test 12/28/18 12:24 12/28/18 17:14 12/28/18 20:25 12/29/18 06:25 Glucose (Fingerstick) 181 mg/dL (70-99) 127 mg/dL (70-99) Lactic Acid Level 1.3 mmol/L (0.4-2.0) 1.2 mmol/L (0.4-2.0) White Blood Count 9.5 x10^3/uL (4.0-11.0) Red Blood Count 3.47 x10^6/uL (3.50-5.40) Hemoglobin 10.9 g/dL (12.0-15.5) Hematocrit 32.3 % (36.0-47.0) Mean Corpuscular Volume 93 fL (79-100) Mean Corpuscular Hemoglobin 32 pg (25-35) Mean Corpuscular Hemoglobin Concent 34 g/dL (31-37) Red Cell Distribution Width 14.7 % (11.5-14.5) Platelet Count 196 x10^3/uL (140-400) Neutrophils (%) (Auto) 58 % (31-73) Lymphocytes (%) (Auto) 30 % (24-48) Monocytes (%) (Auto) 10 % (0-9) Eosinophils (%) (Auto) 1 % (0-3) Basophils (%) (Auto) 1 % (0-3) Neutrophils # (Auto) 5.5 x10^3/uL (1.8-7.7) Lymphocytes # (Auto) 2.8 x10^3/uL (1.0-4.8) Monocytes # (Auto) 1.0 x10^3/uL (0.0-1.1) Eosinophils # (Auto) 0.1 x10^3/uL (0.0-0.7) Basophils # (Auto) 0.1 x10^3/uL (0.0-0.2) Sodium Level 132 mmol/L (136-145) Potassium Level 5.3 mmol/L (3.5-5.1) Chloride Level 96 mmol/L (98-107) Carbon Dioxide Level 33 mmol/L (21-32) Anion Gap 3 (6-14) Blood Urea Nitrogen 14 mg/dL (7-20) Creatinine 0.8 mg/dL (0.6-1.0) Estimated GFR (Cockcroft-Gault) 72.2 Glucose Level 97 mg/dL (70-99) Calcium Level 8.5 mg/dL (8.5-10.1) Test 12/29/18 08:01 Glucose (Fingerstick) 111 mg/dL (70-99) Medications Active Scripts Medications Dose Route/Sig Max Daily Dose Days Date Category Tramadol Hcl 50 Mg Tablet 50 Mg PO Q6HRS PRN 12/27/18 Reported Montelukast Sodium Tablet (Montelukast Sodium) 10 Mg Tablet 10 Mg PO HS 12/27/18 Reported Banophen (Diphenhydramine Hcl) 25 Mg Tablet 25 Mg PO BID 11/29/18 Reported Protonix (Pantoprazole Sodium) 40 Mg Tablet.dr 40 Mg PO DAILYAC 11/29/18 Reported Tramadol Hcl 50 Mg Tablet 50 Mg PO Q6HRS PRN 11/13/18 Reported Ambien (Zolpidem Tartrate) 10 Mg Tablet 10 Mg PO HS PRN 06/25/17 Reported Gabapentin 600 Mg Tablet 600 Mg PO TID 06/25/17 Reported Levothyroxine Sodium 150 Mcg Tablet 150 Mcg PO DAILYAC 06/25/17 Reported Cymbalta (Duloxetine Hcl) 30 Mg Capsule.dr 30 Mg PO BID 06/25/17 Reported Sucralfate 1 Gm Tablet 1 Gm PO BID 02/11/17 Reported Loratadine 10 Mg Tablet 10 Mg PO DAILY 02/11/17 Reported Meloxicam 15 Mg Tablet 15 Mg PO DAILY 02/11/17 Reported NITRO-DUR 0.2mg/hr (Nitroglycerin) 1 Each Patch.td24 1 Each TD 02/11/17 Reported Potassium Chloride 8 Meq Capsule.er 8 Meq PO TID 06/30/16 Rx Hydrocodone-Apap 10-325 (Hydrocodone Bit/Acetaminophen) 1 Each Tablet 1 Tab PO PRN Q4HRS PRN 01/25/16 Reported Zofran (Ondansetron Hcl) 8 Mg Tablet 8 Mg PO PRN TID PRN 05/19/13 Reported Spiriva (Tiotropium [place]) 18 Mcg Cap.w.dev 18 Mcg IH DAILY 05/19/13 Reported Crestor (Rosuvastatin Calcium) 40 Mg Tablet 40 Mg PO DAILY 05/19/13 Reported Metformin Hcl 500 Mg Tablet 500 Mg PO BIDAC 05/19/13 Reported Albuterol Sulfate Neb Soln (Albuterol Sulfate) 0.63 Mg/3 Ml Vial.neb 0.63 Mg IH QID 05/19/13 Reported Advair 500-50 Diskus (Fluticasone/Salmeterol) 1 Each Disk.w.dev 1 Each IH BID 05/19/13 Reported Lisinopril 10 Mg Tablet 10 Mg PO BID 05/19/13 Reported Lasix (Furosemide) 40 Mg Tablet 40 Mg PO BID 05/19/13 Reported Fosamax (Alendronate Sodium) 70 Mg Tablet 70 Mg PO Thursday05/19/13 Reported Flovent 44MCG Hfa (Fluticasone Propionate) 10.6 Gm Aer.w.adap 2 IH BID 05/19/13 Reported Bentyl (Dicyclomine Hcl) 10 Mg Capsule 10 Mg PO TID 05/19/13 Reported Impression . IMPRESSION: 1. Progressive dyspnea, multifactorial. 2. Acute exacerbation of chronic obstructive pulmonary disease. 3. Lactic acidosis workup in process. 5. Morbid obesity. 6. History of tobacco dependence, in remission. Plan . DC METFORMIN FOLLOW ID INPUT RESP STATUS COMPENSATED STEPHEN MOYA MD Dec 29, 2018 08:37
[2018-12-29] MEDS: LACTOBACILLUS RHAMNOSUS GG 1 CAPSULE. PO SCH ×2 (08:46→21:20)
[2018-12-29] MEDS: LISINOPRIL 10 MG TABLET PO SCH ×3 (08:46→21:22)
[2018-12-29] MEDS: GABAPENTIN 300 MG CAPSULE. PO SCH ×3 (08:46→21:21)
[2018-12-29] MEDS: DICYCLOMINE HCL 10 MG CAPSULE PO SCH ×3 (08:46→21:20)
[2018-12-29] MEDS: CETIRIZINE HCL 10 MG TABLET. PO SCH (08:46)
[2018-12-29] MEDS: MELOXICAM 7.5 MG TABLET PO SCH (08:47)
[2018-12-29] MEDS: DULoxetine HCL 30 MG CAPSULE.DR PO SCH ×2 (08:47→21:21)
[2018-12-29] MEDS: predniSONE 10 MG TABLET PO SCH (08:47)
[2018-12-29] MEDS: NITROGLYCERIN 0.2MG/HR PATCH. TD SCH (08:48)
[2018-12-29] MEDS: VANCOMYCIN 125 MG/2.5 ML ORAL SOLUTION. PO SCH ×4 (08:48→21:30)
--- NOTE | 2018-12-29 08:50 | NUR ---
SW following pt. Pt has whole person home care services at home. PT/OT pending- pt eligible for rehab or skilled home health if needed. Will await for therapy assessment.
[2018-12-29] MEDS: FLUTICASONE 50MCG/NASAL SPRAY 16GM BOTTLE. NS SCH ×2 (08:54→21:20)
[2018-12-29] MEDS: diphenhydrAMINE HCL 25 MG CAPSULE PO SCH ×2 (09:00→21:21)
--- NOTE | 2018-12-29 09:36 | PDOC ---
Infectious Disease Note Subjective Subjective pt is feeling ok, not well yet diarrhea has improved, though still has not given sample ROS ROS no n/v/d Vital Sign Vital Signs Vital Signs Date Time Temp Pulse Resp B/P (MAP) Pulse Ox O2 Delivery O2 Flow Rate FiO2 12/29/18 07:52 99 Nasal Cannula 4.0 12/29/18 07:00 97.8 75 16 97/54 (68) 97.8 Physical Exam PHYSICAL EXAM GENERAL: Alert, oriented female, not in distress. VITAL SIGNS: Stable, afebrile. HEENT: NAD. NECK: Supple, no JVP, no lymphadenopathy. LUNGS: Clear. HEART: S1, S2 regular. ABDOMEN: Soft, nontender, no organomegaly. EXTREMITIES: No edema, cyanosis. SKIN: Unremarkable. NEUROLOGIC: The patient is neurologically alert, awake and appropriate. No focal neurologic deficit. Labs Lab Laboratory Tests Test 12/28/18 12:24 12/28/18 17:14 12/28/18 20:25 12/29/18 06:25 Glucose (Fingerstick) 181 mg/dL (70-99) 127 mg/dL (70-99) Lactic Acid Level 1.3 mmol/L (0.4-2.0) 1.2 mmol/L (0.4-2.0) White Blood Count 9.5 x10^3/uL (4.0-11.0) Red Blood Count 3.47 x10^6/uL (3.50-5.40) Hemoglobin 10.9 g/dL (12.0-15.5) Hematocrit 32.3 % (36.0-47.0) Mean Corpuscular Volume 93 fL (79-100) Mean Corpuscular Hemoglobin 32 pg (25-35) Mean Corpuscular Hemoglobin Concent 34 g/dL (31-37) Red Cell Distribution Width 14.7 % (11.5-14.5) Platelet Count 196 x10^3/uL (140-400) Neutrophils (%) (Auto) 58 % (31-73) Lymphocytes (%) (Auto) 30 % (24-48) Monocytes (%) (Auto) 10 % (0-9) Eosinophils (%) (Auto) 1 % (0-3) Basophils (%) (Auto) 1 % (0-3) Neutrophils # (Auto) 5.5 x10^3/uL (1.8-7.7) Lymphocytes # (Auto) 2.8 x10^3/uL (1.0-4.8) Monocytes # (Auto) 1.0 x10^3/uL (0.0-1.1) Eosinophils # (Auto) 0.1 x10^3/uL (0.0-0.7) Basophils # (Auto) 0.1 x10^3/uL (0.0-0.2) Sodium Level 132 mmol/L (136-145) Potassium Level 5.3 mmol/L (3.5-5.1) Chloride Level 96 mmol/L (98-107) Carbon Dioxide Level 33 mmol/L (21-32) Anion Gap 3 (6-14) Blood Urea Nitrogen 14 mg/dL (7-20) Creatinine 0.8 mg/dL (0.6-1.0) Estimated GFR (Cockcroft-Gault) 72.2 Glucose Level 97 mg/dL (70-99) Calcium Level 8.5 mg/dL (8.5-10.1) Test 12/29/18 08:01 Glucose (Fingerstick) 111 mg/dL (70-99) Micro Microbiology 12/27/18 Blood Culture - Preliminary, Resulted NO GROWTH AFTER 1 DAY Objective Assessment Lactic acidosis, etiology unclear, rule out sepsis Severe diarrhea, rule out c diff COPD DM HTN Plan Plan of Care iv meropenem and po vanc supportive care check cultures check c diff d/w LUTHER Arriaga MD Dec 29, 2018 09:36
--- NOTE | 2018-12-29 09:48 | PDOC ---
PROGRESS NOTES Subjective Subjective no more loose stools Objective Objective Vital Signs Date Time Temp Pulse Resp B/P (MAP) Pulse Ox O2 Delivery O2 Flow Rate FiO2 12/29/18 07:52 99 Nasal Cannula 4.0 12/29/18 07:00 97.8 75 16 97/54 (68) 97.8 Intake and Output 12/29/18 06:59 Intake Total 4665 ml Output Total 3550 ml Balance 1115 ml Intake Oral 3765 ml IV Total 900 ml Output Urine Total 3550 ml Physical Exam Abdomen: Normal bowel sounds, Soft Heart: Regular rate, Normal S1 Extremities: No clubbing General: Alert HEENT: Atraumatic Lungs: Clear to auscultation MUSCULOSKELETAL: No swelling, Osteoarthritic changes both hands Neck: No JVD Neuro: Normal speech Psych/Mental Status: Mental status NL Skin: No breakdown Diagnosis Problem List Problems Medical Problems: (1) Abdominal pain Status: Acute (2) COPD exacerbation Status: Acute (3) Diarrhea Status: Acute (4) DM2 (diabetes mellitus, type 2) Status: Chronic (5) Dysphagia Status: Acute (6) Hyperlipidemia Status: Chronic (7) Hypokalemia Status: Acute (8) Hypomagnesemia Status: Acute (9) Hypothyroidism Status: Chronic (10) Morbid obesity Status: Chronic (11) Severe sepsis Status: Acute Assessment Assessment Problems Medical Problems: (1) COPD exacerbation Status: Acute (2) Dysphagia Status: Acute (3) Hypokalemia Status: Acute (4) Hypomagnesemia Status: Acute (5) Morbid obesity Status: Chronic (6) Severe sepsis Status: Acute FINAL IMPRESSION: 1. Abdominal pain. 2. Diarrhea, possible C. diff. 3. Lactic acidosis. 4. Chronic obstructive pulmonary disease, on home oxygen and also prednisone dependent chronic obstructive pulmonary disease. 5. Diabetes type 2. 6. Hypothyroidism. 7. Hypertension. 8. Hyperlipidemia. PLAN: clinically improving lactic acid 1.2 normal ,peaked to 5.0 trending down blood c/s neg c diff pending cxr -ve ct abd and pelvis -ve for colitis. wbc 8 went down. spoke with ID continue present antibiotics d/c metformin due to lactic acidosis. pot 5.4 ,d/c potassium. Plan Plan of Care Problems Medical Problems: (1) Abdominal pain Status: Acute (2) COPD exacerbation Status: Acute (3) Diarrhea Status: Acute (4) DM2 (diabetes mellitus, type 2) Status: Chronic (5) Dysphagia Status: Acute (6) Hyperlipidemia Status: Chronic (7) Hypokalemia Status: Acute (8) Hypomagnesemia Status: Acute (9) Hypothyroidism Status: Chronic (10) Morbid obesity Status: Chronic (11) Severe sepsis Status: Acute Comment Review of Relevant I have reviewed the following items vinny (where applicable) has been applied. Labs Laboratory Tests Test 12/28/18 12:24 12/28/18 17:14 12/28/18 20:25 12/29/18 06:25 Glucose (Fingerstick) 181 mg/dL (70-99) 127 mg/dL (70-99) Lactic Acid Level 1.3 mmol/L (0.4-2.0) 1.2 mmol/L (0.4-2.0) White Blood Count 9.5 x10^3/uL (4.0-11.0) Red Blood Count 3.47 x10^6/uL (3.50-5.40) Hemoglobin 10.9 g/dL (12.0-15.5) Hematocrit 32.3 % (36.0-47.0) Mean Corpuscular Volume 93 fL (79-100) Mean Corpuscular Hemoglobin 32 pg (25-35) Mean Corpuscular Hemoglobin Concent 34 g/dL (31-37) Red Cell Distribution Width 14.7 % (11.5-14.5) Platelet Count 196 x10^3/uL (140-400) Neutrophils (%) (Auto) 58 % (31-73) Lymphocytes (%) (Auto) 30 % (24-48) Monocytes (%) (Auto) 10 % (0-9) Eosinophils (%) (Auto) 1 % (0-3) Basophils (%) (Auto) 1 % (0-3) Neutrophils # (Auto) 5.5 x10^3/uL (1.8-7.7) Lymphocytes # (Auto) 2.8 x10^3/uL (1.0-4.8) Monocytes # (Auto) 1.0 x10^3/uL (0.0-1.1) Eosinophils # (Auto) 0.1 x10^3/uL (0.0-0.7) Basophils # (Auto) 0.1 x10^3/uL (0.0-0.2) Sodium Level 132 mmol/L (136-145) Potassium Level 5.3 mmol/L (3.5-5.1) Chloride Level 96 mmol/L (98-107) Carbon Dioxide Level 33 mmol/L (21-32) Anion Gap 3 (6-14) Blood Urea Nitrogen 14 mg/dL (7-20) Creatinine 0.8 mg/dL (0.6-1.0) Estimated GFR (Cockcroft-Gault) 72.2 Glucose Level 97 mg/dL (70-99) Calcium Level 8.5 mg/dL (8.5-10.1) Test 12/29/18 08:01 Glucose (Fingerstick) 111 mg/dL (70-99) Microbiology 12/27/18 Blood Culture - Preliminary, Resulted NO GROWTH AFTER 2 DAYS Medications Current Medications Vancomycin HCl (Vancomycin Trough Level) 1 each 1X ONCE MC ; Start 12/29/18 at 08:30; Stop 12/27/18 at 09:18; Status DC Vitals/I & O Vital Sign - Last 24 Hours 12/28/18 12/28/18 12/28/18 12/28/18 11:00 11:24 15:00 16:25 Temp 98.2 97.8 98.2 97.8 Pulse 80 79 Resp 14 16 B/P (MAP) 130/55 (80) 122/62 (82) Pulse Ox 99 99 96 O2 Delivery Room Air Nasal Cannula Nasal Cannula O2 Flow Rate 3.0 3.5 3.0 12/28/18 12/28/18 12/28/18 12/28/18 19:35 20:00 20:40 20:42 Temp 98.2 98.2 Pulse 78 Resp 18 B/P (MAP) 109/67 (81) Pulse Ox 98 O2 Delivery Nasal Cannula Nasal Cannula Nasal Cannula Nasal Cannula O2 Flow Rate 3.5 4.0 4.0 4.0 12/28/18 12/28/18 12/28/18 12/28/18 21:01 21:37 23:32 23:35 Temp 97.7 97.7 Pulse 87 77 Resp 18 18 B/P (MAP) 119/68 125/62 (83) Pulse Ox 98 98 98 O2 Delivery Nasal Cannula Nasal Cannula Nasal Cannula O2 Flow Rate 4.0 4.0 3.5 12/29/18 12/29/18 12/29/18 12/29/18 02:26 03:30 06:12 07:00 Temp 98.0 97.8 98.0 97.8 Pulse 79 75 Resp 16 18 18 16 B/P (MAP) 105/60 (75) 97/54 (68) Pulse Ox 98 98 98 100 O2 Delivery Nasal Cannula Nasal Cannula Nasal Cannula Nasal Cannula O2 Flow Rate 3.5 3.5 3.5 3.5 12/29/18 07:52 Pulse Ox 99 O2 Delivery Nasal Cannula O2 Flow Rate 4.0 Intake and Output 12/28/18 12/28/18 12/29/18 14:59 22:59 06:59 Intake Total 1075 ml 3590 ml Output Total 1950 ml 1600 ml Balance -1950 ml 1075 ml 1990 ml MIGUEL DELAROSA MD Dec 29, 2018 09:48
[2018-12-29 11:00] VITALS: BP 112/41
[2018-12-29] MEDS: ENOXAPARIN 40 MG/0.4 ML SYRINGE. SQ SCH (12:53)
[2018-12-29 15:00] VITALS: BP 114/60
--- NOTE | 2018-12-29 16:24 | NUR ---
Report received from Rosa on 2N at 0920.
--- NOTE | 2018-12-29 16:24 | NUR ---
Pt arrived on unit at approx 1100. Pt oriented to room and call light. Pt resting comfortably. Will continue to monitor.
[2018-12-29 19:00] VITALS: BP 140/83
[2018-12-29] MEDS: ATORVASTATIN CALCIUM 40 MG TABLET. PO SCH (21:20)
[2018-12-29] MEDS: ZOLPIDEM 5 MG TABLET. PO PRN (21:20)
[2018-12-29] MEDS: MONTELUKAST SODIUM 10 MG TABLET. PO SCH (21:21)
[2018-12-29 22:33] VITALS: BP 113/72
[2018-12-30 03:06] VITALS: BP 111/68
--- NOTE | 2018-12-30 03:53 | NUR ---
Patient had soft, semi-formed stool, not loose, very little for sample. so not obtained at this time.
[2018-12-30 04:13] LABS: BASO # 0.1 x10^3/uL (0.0-0.2); BASO % 1 % (0-3); EOS # 0.1 x10^3/uL (0.0-0.7); EOS % 2 % (0-3); HEMATOCRIT 33.5 % (36.0-47.0); HEMOGLOBIN 11.4 g/dL (12.0-15.5); LYMPH # 2.6 x10^3/uL (1.0-4.8); LYMPH % 31 % (24-48); MEAN CORPUSCULAR HEMOGLOBIN 32 pg (25-35); MEAN CORPUSCULAR HGB CONC 34 g/dL (31-37); MEAN CORPUSCULAR VOLUME 93 fL (79-100); MONO # 0.9 x10^3/uL (0.0-1.1); MONO % 10 % (0-9); NEUT # 4.8 x10^3/uL (1.8-7.7); NEUT % 57 % (31-73); PLATELET COUNT 236 x10^3/uL (140-400); RED BLOOD COUNT 3.59 x10^6/uL (3.50-5.40); RED CELL DISTRIBUTION WIDTH 15.2 % (11.5-14.5); WHITE BLOOD COUNT 8.5 x10^3/uL (4.0-11.0)
[2018-12-30 05:57] LABS: CALCIUM 8.7 mg/dL (8.5-10.1); CREATININE 0.7 mg/dL (0.6-1.0); GFR 84.2; POTASSIUM 4.8 mmol/L (3.5-5.1)
[2018-12-30] MEDS: LEVOTHYROXINE 150 MCG TABLET PO SCH (06:00)
[2018-12-30] MEDS: MEROPENEM 500 MG in IV NORMAL SALINE 50ML 50 ML IV SCH (06:00)
[2018-12-30] MEDS: ONDANSETRON ODT 4 MG TAB.RAPDIS. PO PRN (06:10)
[2018-12-30 07:00] VITALS: BP_SYST 113; BP_SYST 66; BP_DIAS 66
[2018-12-30] MEDS: IPRATRPIUM/ALBUTEROL 0.5/2.5MG 3 ML NEBU. NEB SCH ×4 (07:11→19:35)
[2018-12-30] MEDS: BUDESONIDE 0.5 MG/2 ML NEBU. NEB SCH ×2 (07:11→19:35)
[2018-12-30] MEDS: INSULIN LISPRO 300 UNITS/3 ML INSULN.PEN. SQ SCH ×3 (08:00→17:00)
[2018-12-30] MEDS: PANTOPRAZOLE 40 MG TABLET.DR. PO SCH (08:07)
[2018-12-30] MEDS: LACTOBACILLUS RHAMNOSUS GG 1 CAPSULE. PO SCH ×2 (08:07→21:33)
[2018-12-30] MEDS: diphenhydrAMINE HCL 25 MG CAPSULE PO SCH ×2 (08:07→21:33)
[2018-12-30] MEDS: GABAPENTIN 300 MG CAPSULE. PO SCH ×3 (08:07→21:33)
[2018-12-30] MEDS: HYDROcodone/APAP 10/325 1 TAB TABLET PO PRN ×2 (08:07→21:49)
[2018-12-30] MEDS: LISINOPRIL 10 MG TABLET PO SCH ×2 (08:08→21:34)
[2018-12-30] MEDS: MELOXICAM 7.5 MG TABLET PO SCH (08:08)
[2018-12-30] MEDS: SUCRALFATE 1 GM TABLET. PO SCH ×2 (08:08→16:53)
[2018-12-30] MEDS: predniSONE 10 MG TABLET PO SCH (08:08)
[2018-12-30] MEDS: DULoxetine HCL 30 MG CAPSULE.DR PO SCH ×2 (08:08→21:34)
[2018-12-30] MEDS: DICYCLOMINE HCL 10 MG CAPSULE PO SCH ×3 (08:09→21:33)
[2018-12-30] MEDS: VANCOMYCIN 125 MG/2.5 ML ORAL SOLUTION. PO SCH (08:09)
[2018-12-30] MEDS: CETIRIZINE HCL 10 MG TABLET. PO SCH (08:09)
[2018-12-30] MEDS: FLUTICASONE 50MCG/NASAL SPRAY 16GM BOTTLE. NS SCH ×2 (08:10→21:32)
[2018-12-30] MEDS: NITROGLYCERIN 0.2MG/HR PATCH. TD SCH (08:10)
--- NOTE | 2018-12-30 08:55 | PDOC ---
PROGRESS NOTES Subjective Subjective feels better today Objective Objective Vital Signs Date Time Temp Pulse Resp B/P (MAP) Pulse Ox O2 Delivery O2 Flow Rate FiO2 12/30/18 08:10 78 113/66 12/30/18 08:10 Nasal Cannula 4.0 12/30/18 07:12 97 12/30/18 07:00 98.0 18 98.0 Intake and Output 12/30/18 07:00 Intake Total 4250 ml Output Total 4000 ml Balance 250 ml Intake Oral 4150 ml IV Total 100 ml Output Urine Total 4000 ml # Voids 2 # Bowel Movements 1 Physical Exam Abdomen: Normal bowel sounds, Soft Heart: Regular rate, Normal S1 Extremities: No clubbing General: Alert HEENT: Atraumatic Lungs: Clear to auscultation MUSCULOSKELETAL: No swelling, Osteoarthritic changes both hands Neck: No JVD Neuro: Normal speech Psych/Mental Status: Mental status NL Skin: No breakdown Diagnosis Problem List Problems Medical Problems: (1) Abdominal pain Status: Acute (2) COPD exacerbation Status: Acute (3) Diarrhea Status: Acute (4) DM2 (diabetes mellitus, type 2) Status: Chronic (5) Dysphagia Status: Acute (6) Hyperlipidemia Status: Chronic (7) Hypokalemia Status: Acute (8) Hypomagnesemia Status: Acute (9) Hypothyroidism Status: Chronic (10) Morbid obesity Status: Chronic (11) Severe sepsis Status: Acute Assessment Assessment Problems Medical Problems: (1) COPD exacerbation Status: Acute (2) Dysphagia Status: Acute (3) Hypokalemia Status: Acute (4) Hypomagnesemia Status: Acute (5) Morbid obesity Status: Chronic (6) Severe sepsis Status: Acute FINAL IMPRESSION: 1. Abdominal pain. 2. Diarrhea, improved . 3. Lactic acidosis. 4. Chronic obstructive pulmonary disease, on home oxygen and also prednisone dependent chronic obstructive pulmonary disease. 5. Diabetes type 2. 6. Hypothyroidism. 7. Hypertension. 8. Hyperlipidemia. PLAN: clinically improving wean off antibiotics? d/c home tomorrow. lactic acid 1.2 normal ,peaked to 5.0 trending down blood c/s neg c diff , not able to collect specimen,no diarrhea cxr -ve ct abd and pelvis -ve for colitis. wbc 8 went down. spoke with ID d/c metformin due to lactic acidosis. Plan Plan of Care Problems Medical Problems: (1) Abdominal pain Status: Acute (2) COPD exacerbation Status: Acute (3) Diarrhea Status: Acute (4) DM2 (diabetes mellitus, type 2) Status: Chronic (5) Dysphagia Status: Acute (6) Hyperlipidemia Status: Chronic (7) Hypokalemia Status: Acute (8) Hypomagnesemia Status: Acute (9) Hypothyroidism Status: Chronic (10) Morbid obesity Status: Chronic (11) Severe sepsis Status: Acute Comment Review of Relevant I have reviewed the following items vinny (where applicable) has been applied. Labs Laboratory Tests Test 12/29/18 12:21 12/29/18 16:36 12/29/18 20:42 12/30/18 03:05 Glucose (Fingerstick) 124 mg/dL (70-99) 223 mg/dL (70-99) 125 mg/dL (70-99) White Blood Count 8.5 x10^3/uL (4.0-11.0) Red Blood Count 3.59 x10^6/uL (3.50-5.40) Hemoglobin 11.4 g/dL (12.0-15.5) Hematocrit 33.5 % (36.0-47.0) Mean Corpuscular Volume 93 fL (79-100) Mean Corpuscular Hemoglobin 32 pg (25-35) Mean Corpuscular Hemoglobin Concent 34 g/dL (31-37) Red Cell Distribution Width 15.2 % (11.5-14.5) Platelet Count 236 x10^3/uL (140-400) Neutrophils (%) (Auto) 57 % (31-73) Lymphocytes (%) (Auto) 31 % (24-48) Monocytes (%) (Auto) 10 % (0-9) Eosinophils (%) (Auto) 2 % (0-3) Basophils (%) (Auto) 1 % (0-3) Neutrophils # (Auto) 4.8 x10^3/uL (1.8-7.7) Lymphocytes # (Auto) 2.6 x10^3/uL (1.0-4.8) Monocytes # (Auto) 0.9 x10^3/uL (0.0-1.1) Eosinophils # (Auto) 0.1 x10^3/uL (0.0-0.7) Basophils # (Auto) 0.1 x10^3/uL (0.0-0.2) Sodium Level 137 mmol/L (136-145) Potassium Level 4.8 mmol/L (3.5-5.1) Chloride Level 97 mmol/L (98-107) Carbon Dioxide Level 37 mmol/L (21-32) Anion Gap 3 (6-14) Blood Urea Nitrogen 15 mg/dL (7-20) Creatinine 0.7 mg/dL (0.6-1.0) Estimated GFR (Cockcroft-Gault) 84.2 Glucose Level 93 mg/dL (70-99) Calcium Level 8.7 mg/dL (8.5-10.1) Test 12/30/18 07:33 Glucose (Fingerstick) 99 mg/dL (70-99) Microbiology 12/27/18 Blood Culture - Preliminary, Resulted NO GROWTH AFTER 3 DAYS Vitals/I & O Vital Sign - Last 24 Hours 12/29/18 12/29/18 12/29/18 12/29/18 11:00 12:50 15:00 15:29 Temp 98.2 98.0 98.2 98.0 Pulse 85 68 Resp 16 16 B/P (MAP) 112/41 (64) 114/60 (78) Pulse Ox 92 98 O2 Delivery Nasal Cannula Nasal Cannula Nasal Cannula Nasal Cannula O2 Flow Rate 4.0 4.0 4.0 4.0 12/29/18 12/29/18 12/29/18 12/29/18 19:00 19:42 19:42 20:30 Temp 98.2 98.2 Pulse 89 Resp 20 B/P (MAP) 140/83 (102) Pulse Ox 95 98 98 O2 Delivery Nasal Cannula Nasal Cannula Nasal Cannula Nasal Cannula O2 Flow Rate 4.0 4.0 4.0 4.0 12/29/18 12/29/18 12/29/18 12/30/18 21:25 21:25 22:33 03:06 Temp 97.8 98.0 97.8 98.0 Pulse 89 80 83 Resp 20 19 22 B/P (MAP) 140/83 113/72 (86) 111/68 (82) Pulse Ox 99 95 O2 Delivery Nasal Cannula Nasal Cannula Nasal Cannula O2 Flow Rate 4.0 4.0 12/30/18 12/30/18 12/30/18 12/30/18 03:45 07:00 07:00 07:12 Temp 98.0 98.0 Pulse 78 Resp 20 18 B/P (MAP) 66/ 113/66 (82) Pulse Ox 99 97 O2 Delivery Nasal Cannula Nasal Cannula Nasal Cannula O2 Flow Rate 4.0 4.0 12/30/18 12/30/18 08:10 08:10 Pulse 78 B/P (MAP) 113/66 O2 Delivery Nasal Cannula O2 Flow Rate 4.0 Intake and Output 12/29/18 12/29/18 12/30/18 15:00 23:00 07:00 Intake Total 1100 ml 700 ml 2450 ml Output Total 1500 ml 2500 ml Balance 1100 ml -800 ml -50 ml MIGUEL DELAROSA MD Dec 30, 2018 08:55
--- NOTE | 2018-12-30 10:10 | PDOC ---
Infectious Disease Note Subjective Subjective pt is feeling much better, no diarrhea, formed stool ROS ROS no n/v/d/pain/sob/fever Vital Sign Vital Signs Vital Signs Date Time Temp Pulse Resp B/P (MAP) Pulse Ox O2 Delivery O2 Flow Rate FiO2 12/30/18 08:10 78 113/66 12/30/18 08:10 Nasal Cannula 4.0 12/30/18 07:12 97 12/30/18 07:00 98.0 18 98.0 Physical Exam PHYSICAL EXAM GENERAL: Alert, oriented female, not in distress. VITAL SIGNS: Stable, afebrile. HEENT: NAD. NECK: Supple, no JVP, no lymphadenopathy. LUNGS: Clear. HEART: S1, S2 regular. ABDOMEN: Soft, nontender, no organomegaly. EXTREMITIES: No edema, cyanosis. SKIN: Unremarkable. NEUROLOGIC: The patient is neurologically alert, awake and appropriate. No focal neurologic deficit. Labs Lab Laboratory Tests Test 12/29/18 12:21 12/29/18 16:36 12/29/18 20:42 12/30/18 03:05 Glucose (Fingerstick) 124 mg/dL (70-99) 223 mg/dL (70-99) 125 mg/dL (70-99) White Blood Count 8.5 x10^3/uL (4.0-11.0) Red Blood Count 3.59 x10^6/uL (3.50-5.40) Hemoglobin 11.4 g/dL (12.0-15.5) Hematocrit 33.5 % (36.0-47.0) Mean Corpuscular Volume 93 fL (79-100) Mean Corpuscular Hemoglobin 32 pg (25-35) Mean Corpuscular Hemoglobin Concent 34 g/dL (31-37) Red Cell Distribution Width 15.2 % (11.5-14.5) Platelet Count 236 x10^3/uL (140-400) Neutrophils (%) (Auto) 57 % (31-73) Lymphocytes (%) (Auto) 31 % (24-48) Monocytes (%) (Auto) 10 % (0-9) Eosinophils (%) (Auto) 2 % (0-3) Basophils (%) (Auto) 1 % (0-3) Neutrophils # (Auto) 4.8 x10^3/uL (1.8-7.7) Lymphocytes # (Auto) 2.6 x10^3/uL (1.0-4.8) Monocytes # (Auto) 0.9 x10^3/uL (0.0-1.1) Eosinophils # (Auto) 0.1 x10^3/uL (0.0-0.7) Basophils # (Auto) 0.1 x10^3/uL (0.0-0.2) Sodium Level 137 mmol/L (136-145) Potassium Level 4.8 mmol/L (3.5-5.1) Chloride Level 97 mmol/L (98-107) Carbon Dioxide Level 37 mmol/L (21-32) Anion Gap 3 (6-14) Blood Urea Nitrogen 15 mg/dL (7-20) Creatinine 0.7 mg/dL (0.6-1.0) Estimated GFR (Cockcroft-Gault) 84.2 Glucose Level 93 mg/dL (70-99) Calcium Level 8.7 mg/dL (8.5-10.1) Test 12/30/18 07:33 Glucose (Fingerstick) 99 mg/dL (70-99) Micro Microbiology 12/27/18 Blood Culture - Preliminary, Resulted NO GROWTH AFTER 1 DAY Objective Assessment Lactic acidosis, etiology unclear, sepsis ruled out Severe diarrhea, resolved COPD DM HTN Plan Plan of Care d/c iv meropenem and po vanc supportive care d/w LUTHER Arriaga MD Dec 30, 2018 10:10
[2018-12-30 10:48] VITALS: BP 118/52
--- NOTE | 2018-12-30 11:37 | PDOC ---
PULMONARY PROGRESS NOTES Subjective PT FEELS BETTER LESS SOA Vitals Vital Signs Date Time Temp Pulse Resp B/P (MAP) Pulse Ox O2 Delivery O2 Flow Rate FiO2 12/30/18 10:48 96.4 85 16 118/52 (74) 96 Nasal Cannula 4.0 96.4 ROS: No Nausea, No Chest Pain, No Abdominal Pain, No Increase Cough General: Alert, No acute distress Lungs: Wheezing Cardiovascular: S1, S2 Abdomen: Soft, Non-tender Extremities: No Edema Skin: Warm, Dry Labs Laboratory Tests Test 12/28/18 12:24 12/28/18 17:14 12/28/18 20:25 12/29/18 06:25 Glucose (Fingerstick) 181 mg/dL (70-99) 127 mg/dL (70-99) Lactic Acid Level 1.3 mmol/L (0.4-2.0) 1.2 mmol/L (0.4-2.0) White Blood Count 9.5 x10^3/uL (4.0-11.0) Red Blood Count 3.47 x10^6/uL (3.50-5.40) Hemoglobin 10.9 g/dL (12.0-15.5) Hematocrit 32.3 % (36.0-47.0) Mean Corpuscular Volume 93 fL (79-100) Mean Corpuscular Hemoglobin 32 pg (25-35) Mean Corpuscular Hemoglobin Concent 34 g/dL (31-37) Red Cell Distribution Width 14.7 % (11.5-14.5) Platelet Count 196 x10^3/uL (140-400) Neutrophils (%) (Auto) 58 % (31-73) Lymphocytes (%) (Auto) 30 % (24-48) Monocytes (%) (Auto) 10 % (0-9) Eosinophils (%) (Auto) 1 % (0-3) Basophils (%) (Auto) 1 % (0-3) Neutrophils # (Auto) 5.5 x10^3/uL (1.8-7.7) Lymphocytes # (Auto) 2.8 x10^3/uL (1.0-4.8) Monocytes # (Auto) 1.0 x10^3/uL (0.0-1.1) Eosinophils # (Auto) 0.1 x10^3/uL (0.0-0.7) Basophils # (Auto) 0.1 x10^3/uL (0.0-0.2) Sodium Level 132 mmol/L (136-145) Potassium Level 5.3 mmol/L (3.5-5.1) Chloride Level 96 mmol/L (98-107) Carbon Dioxide Level 33 mmol/L (21-32) Anion Gap 3 (6-14) Blood Urea Nitrogen 14 mg/dL (7-20) Creatinine 0.8 mg/dL (0.6-1.0) Estimated GFR (Cockcroft-Gault) 72.2 Glucose Level 97 mg/dL (70-99) Calcium Level 8.5 mg/dL (8.5-10.1) Test 12/29/18 08:01 12/29/18 12:21 12/29/18 16:36 12/29/18 20:42 Glucose (Fingerstick) 111 mg/dL (70-99) 124 mg/dL (70-99) 223 mg/dL (70-99) 125 mg/dL (70-99) Test 12/30/18 03:05 12/30/18 07:33 White Blood Count 8.5 x10^3/uL (4.0-11.0) Red Blood Count 3.59 x10^6/uL (3.50-5.40) Hemoglobin 11.4 g/dL (12.0-15.5) Hematocrit 33.5 % (36.0-47.0) Mean Corpuscular Volume 93 fL (79-100) Mean Corpuscular Hemoglobin 32 pg (25-35) Mean Corpuscular Hemoglobin Concent 34 g/dL (31-37) Red Cell Distribution Width 15.2 % (11.5-14.5) Platelet Count 236 x10^3/uL (140-400) Neutrophils (%) (Auto) 57 % (31-73) Lymphocytes (%) (Auto) 31 % (24-48) Monocytes (%) (Auto) 10 % (0-9) Eosinophils (%) (Auto) 2 % (0-3) Basophils (%) (Auto) 1 % (0-3) Neutrophils # (Auto) 4.8 x10^3/uL (1.8-7.7) Lymphocytes # (Auto) 2.6 x10^3/uL (1.0-4.8) Monocytes # (Auto) 0.9 x10^3/uL (0.0-1.1) Eosinophils # (Auto) 0.1 x10^3/uL (0.0-0.7) Basophils # (Auto) 0.1 x10^3/uL (0.0-0.2) Sodium Level 137 mmol/L (136-145) Potassium Level 4.8 mmol/L (3.5-5.1) Chloride Level 97 mmol/L (98-107) Carbon Dioxide Level 37 mmol/L (21-32) Anion Gap 3 (6-14) Blood Urea Nitrogen 15 mg/dL (7-20) Creatinine 0.7 mg/dL (0.6-1.0) Estimated GFR (Cockcroft-Gault) 84.2 Glucose Level 93 mg/dL (70-99) Calcium Level 8.7 mg/dL (8.5-10.1) Glucose (Fingerstick) 99 mg/dL (70-99) Laboratory Tests Test 12/29/18 12:21 12/29/18 16:36 12/29/18 20:42 12/30/18 03:05 Glucose (Fingerstick) 124 mg/dL (70-99) 223 mg/dL (70-99) 125 mg/dL (70-99) White Blood Count 8.5 x10^3/uL (4.0-11.0) Red Blood Count 3.59 x10^6/uL (3.50-5.40) Hemoglobin 11.4 g/dL (12.0-15.5) Hematocrit 33.5 % (36.0-47.0) Mean Corpuscular Volume 93 fL (79-100) Mean Corpuscular Hemoglobin 32 pg (25-35) Mean Corpuscular Hemoglobin Concent 34 g/dL (31-37) Red Cell Distribution Width 15.2 % (11.5-14.5) Platelet Count 236 x10^3/uL (140-400) Neutrophils (%) (Auto) 57 % (31-73) Lymphocytes (%) (Auto) 31 % (24-48) Monocytes (%) (Auto) 10 % (0-9) Eosinophils (%) (Auto) 2 % (0-3) Basophils (%) (Auto) 1 % (0-3) Neutrophils # (Auto) 4.8 x10^3/uL (1.8-7.7) Lymphocytes # (Auto) 2.6 x10^3/uL (1.0-4.8) Monocytes # (Auto) 0.9 x10^3/uL (0.0-1.1) Eosinophils # (Auto) 0.1 x10^3/uL (0.0-0.7) Basophils # (Auto) 0.1 x10^3/uL (0.0-0.2) Sodium Level 137 mmol/L (136-145) Potassium Level 4.8 mmol/L (3.5-5.1) Chloride Level 97 mmol/L (98-107) Carbon Dioxide Level 37 mmol/L (21-32) Anion Gap 3 (6-14) Blood Urea Nitrogen 15 mg/dL (7-20) Creatinine 0.7 mg/dL (0.6-1.0) Estimated GFR (Cockcroft-Gault) 84.2 Glucose Level 93 mg/dL (70-99) Calcium Level 8.7 mg/dL (8.5-10.1) Test 12/30/18 07:33 Glucose (Fingerstick) 99 mg/dL (70-99) Medications Active Scripts Medications Dose Route/Sig Max Daily Dose Days Date Category Tramadol Hcl 50 Mg Tablet 50 Mg PO Q6HRS PRN 12/27/18 Reported Montelukast Sodium Tablet (Montelukast Sodium) 10 Mg Tablet 10 Mg PO HS 12/27/18 Reported Banophen (Diphenhydramine Hcl) 25 Mg Tablet 25 Mg PO BID 11/29/18 Reported Protonix (Pantoprazole Sodium) 40 Mg Tablet.dr 40 Mg PO DAILYAC 11/29/18 Reported Tramadol Hcl 50 Mg Tablet 50 Mg PO Q6HRS PRN 11/13/18 Reported Ambien (Zolpidem Tartrate) 10 Mg Tablet 10 Mg PO HS PRN 06/25/17 Reported Gabapentin 600 Mg Tablet 600 Mg PO TID 06/25/17 Reported Levothyroxine Sodium 150 Mcg Tablet 150 Mcg PO DAILYAC 06/25/17 Reported Cymbalta (Duloxetine Hcl) 30 Mg Capsule.dr 30 Mg PO BID 06/25/17 Reported Sucralfate 1 Gm Tablet 1 Gm PO BID 9/27/17 Reported Loratadine 10 Mg Tablet 10 Mg PO DAILY 02/11/17 Reported Meloxicam 15 Mg Tablet 15 Mg PO DAILY 02/11/17 Reported NITRO-DUR 0.2mg/hr (Nitroglycerin) 1 Each Patch.td24 1 Each TD 02/11/17 Reported Potassium Chloride 8 Meq Capsule.er 8 Meq PO TID 06/30/16 Rx Hydrocodone-Apap 10-325 (Hydrocodone Bit/Acetaminophen) 1 Each Tablet 1 Tab PO PRN Q4HRS PRN 01/25/16 Reported Zofran (Ondansetron Hcl) 8 Mg Tablet 8 Mg PO PRN TID PRN 05/19/13 Reported Spiriva (Tiotropium [place]) 18 Mcg Cap.w.dev 18 Mcg IH DAILY 05/19/13 Reported Crestor (Rosuvastatin Calcium) 40 Mg Tablet 40 Mg PO DAILY 05/19/13 Reported Metformin Hcl 500 Mg Tablet 500 Mg PO BIDAC 05/19/13 Reported Albuterol Sulfate Neb Soln (Albuterol Sulfate) 0.63 Mg/3 Ml Vial.neb 0.63 Mg IH QID 05/19/13 Reported Advair 500-50 Diskus (Fluticasone/Salmeterol) 1 Each Disk.w.dev 1 Each IH BID 05/19/13 Reported Lisinopril 10 Mg Tablet 10 Mg PO BID 05/19/13 Reported Lasix (Furosemide) 40 Mg Tablet 40 Mg PO BID 05/19/13 Reported Fosamax (Alendronate Sodium) 70 Mg Tablet 70 Mg PO Thursday05/19/13 Reported Flovent 44MCG Hfa (Fluticasone Propionate) 10.6 Gm Aer.w.adap 2 IH BID 05/19/13 Reported Bentyl (Dicyclomine Hcl) 10 Mg Capsule 10 Mg PO TID 05/19/13 Reported Impression . IMPRESSION: 1. Progressive dyspnea, multifactorial. 2. Acute exacerbation of chronic obstructive pulmonary disease. 3. Lactic acidosis workup in process. 5. Morbid obesity. 6. History of tobacco dependence, in remission. Plan . DC METFORMIN FOLLOW ID INPUT RESP STATUS COMPENSATED STEPHEN MOYA MD Dec 30, 2018 11:37
[2018-12-30] MEDS: ENOXAPARIN 40 MG/0.4 ML SYRINGE. SQ SCH (11:52)
[2018-12-30 15:00] VITALS: BP 110/55
[2018-12-30 19:00] VITALS: BP 110/57
[2018-12-30] MEDS: MONTELUKAST SODIUM 10 MG TABLET. PO SCH (21:33)
[2018-12-30] MEDS: ATORVASTATIN CALCIUM 40 MG TABLET. PO SCH (21:33)
[2018-12-30] MEDS: ZOLPIDEM 5 MG TABLET. PO PRN (21:48)
[2018-12-30 23:00] VITALS: BP 103/54
[2018-12-31 03:00] VITALS: BP 98/42
[2018-12-31 07:00] VITALS: BP 103/61
[2018-12-31] MEDS: IPRATRPIUM/ALBUTEROL 0.5/2.5MG 3 ML NEBU. NEB SCH ×2 (07:37→11:17)
[2018-12-31] MEDS: BUDESONIDE 0.5 MG/2 ML NEBU. NEB SCH (07:37)
[2018-12-31] MEDS: INSULIN LISPRO 300 UNITS/3 ML INSULN.PEN. SQ SCH ×2 (08:00→12:00)
--- NOTE | 2018-12-31 08:55 | PDOC ---
PULMONARY PROGRESS NOTES Subjective PT FEELS BETTER LESS SOA Vitals Vital Signs Date Time Temp Pulse Resp B/P (MAP) Pulse Ox O2 Delivery O2 Flow Rate FiO2 12/31/18 07:39 98 Nasal Cannula 4.0 12/31/18 07:00 97.4 76 16 103/61 (75) 97.4 ROS: No Nausea, No Chest Pain, No Abdominal Pain, No Increase Cough General: Alert, No acute distress Lungs: Wheezing Cardiovascular: S1, S2 Abdomen: Soft, Non-tender Extremities: No Edema Skin: Warm, Dry Labs Laboratory Tests Test 12/29/18 12:21 12/29/18 16:36 12/29/18 20:42 12/30/18 03:05 Glucose (Fingerstick) 124 mg/dL (70-99) 223 mg/dL (70-99) 125 mg/dL (70-99) White Blood Count 8.5 x10^3/uL (4.0-11.0) Red Blood Count 3.59 x10^6/uL (3.50-5.40) Hemoglobin 11.4 g/dL (12.0-15.5) Hematocrit 33.5 % (36.0-47.0) Mean Corpuscular Volume 93 fL (79-100) Mean Corpuscular Hemoglobin 32 pg (25-35) Mean Corpuscular Hemoglobin Concent 34 g/dL (31-37) Red Cell Distribution Width 15.2 % (11.5-14.5) Platelet Count 236 x10^3/uL (140-400) Neutrophils (%) (Auto) 57 % (31-73) Lymphocytes (%) (Auto) 31 % (24-48) Monocytes (%) (Auto) 10 % (0-9) Eosinophils (%) (Auto) 2 % (0-3) Basophils (%) (Auto) 1 % (0-3) Neutrophils # (Auto) 4.8 x10^3/uL (1.8-7.7) Lymphocytes # (Auto) 2.6 x10^3/uL (1.0-4.8) Monocytes # (Auto) 0.9 x10^3/uL (0.0-1.1) Eosinophils # (Auto) 0.1 x10^3/uL (0.0-0.7) Basophils # (Auto) 0.1 x10^3/uL (0.0-0.2) Sodium Level 137 mmol/L (136-145) Potassium Level 4.8 mmol/L (3.5-5.1) Chloride Level 97 mmol/L (98-107) Carbon Dioxide Level 37 mmol/L (21-32) Anion Gap 3 (6-14) Blood Urea Nitrogen 15 mg/dL (7-20) Creatinine 0.7 mg/dL (0.6-1.0) Estimated GFR (Cockcroft-Gault) 84.2 Glucose Level 93 mg/dL (70-99) Calcium Level 8.7 mg/dL (8.5-10.1) Test 12/30/18 07:33 12/30/18 11:38 12/30/18 16:53 12/30/18 21:16 Glucose (Fingerstick) 99 mg/dL (70-99) 167 mg/dL (70-99) 143 mg/dL (70-99) 128 mg/dL (70-99) Test 12/31/18 07:55 Glucose (Fingerstick) 97 mg/dL (70-99) Laboratory Tests Test 12/30/18 11:38 12/30/18 16:53 12/30/18 21:16 12/31/18 07:55 Glucose (Fingerstick) 167 mg/dL (70-99) 143 mg/dL (70-99) 128 mg/dL (70-99) 97 mg/dL (70-99) Medications Active Scripts Medications Dose Route/Sig Max Daily Dose Days Date Category Tramadol Hcl 50 Mg Tablet 50 Mg PO Q6HRS PRN 12/27/18 Reported Montelukast Sodium Tablet (Montelukast Sodium) 10 Mg Tablet 10 Mg PO HS 12/27/18 Reported Banophen (Diphenhydramine Hcl) 25 Mg Tablet 25 Mg PO BID 11/29/18 Reported Protonix (Pantoprazole Sodium) 40 Mg Tablet.dr 40 Mg PO DAILYAC 11/29/18 Reported Tramadol Hcl 50 Mg Tablet 50 Mg PO Q6HRS PRN 11/13/18 Reported Ambien (Zolpidem Tartrate) 10 Mg Tablet 10 Mg PO HS PRN 06/25/17 Reported Gabapentin 600 Mg Tablet 600 Mg PO TID 06/25/17 Reported Levothyroxine Sodium 150 Mcg Tablet 150 Mcg PO DAILYAC 06/25/17 Reported Cymbalta (Duloxetine Hcl) 30 Mg Capsule.dr 30 Mg PO BID 06/25/17 Reported Sucralfate 1 Gm Tablet 1 Gm PO BID 02/11/17 Reported Loratadine 10 Mg Tablet 10 Mg PO DAILY 02/11/17 Reported Meloxicam 15 Mg Tablet 15 Mg PO DAILY 02/11/17 Reported NITRO-DUR 0.2mg/hr (Nitroglycerin) 1 Each Patch.td24 1 Each TD 02/11/17 Reported Potassium Chloride 8 Meq Capsule.er 8 Meq PO TID 06/30/16 Rx Hydrocodone-Apap 10-325 (Hydrocodone Bit/Acetaminophen) 1 Each Tablet 1 Tab PO PRN Q4HRS PRN 01/25/16 Reported Zofran (Ondansetron Hcl) 8 Mg Tablet 8 Mg PO PRN TID PRN 05/19/13 Reported Spiriva (Tiotropium [place]) 18 Mcg Cap.w.dev 18 Mcg IH DAILY 05/19/13 Reported Crestor (Rosuvastatin Calcium) 40 Mg Tablet 40 Mg PO DAILY 05/19/13 Reported Metformin Hcl 500 Mg Tablet 500 Mg PO BIDAC 05/19/13 Reported Albuterol Sulfate Neb Soln (Albuterol Sulfate) 0.63 Mg/3 Ml Vial.neb 0.63 Mg IH QID 05/19/13 Reported Advair 500-50 Diskus (Fluticasone/Salmeterol) 1 Each Disk.w.dev 1 Each IH BID 05/19/13 Reported Lisinopril 10 Mg Tablet 10 Mg PO BID 05/19/13 Reported Lasix (Furosemide) 40 Mg Tablet 40 Mg PO BID 05/19/13 Reported Fosamax (Alendronate Sodium) 70 Mg Tablet 70 Mg PO Thursday05/19/13 Reported Flovent 44MCG Hfa (Fluticasone Propionate) 10.6 Gm Aer.w.adap 2 IH BID 05/19/13 Reported Bentyl (Dicyclomine Hcl) 10 Mg Capsule 10 Mg PO TID 05/19/13 Reported Impression . IMPRESSION: 1. Progressive dyspnea, multifactorial. 2. Acute exacerbation of chronic obstructive pulmonary disease. 3. Lactic acidosis workup in process. 5. Morbid obesity. 6. History of tobacco dependence, in remission. Plan . DC METFORMIN FOLLOW ID INPUT RESP STATUS COMPENSATED STEPHEN MOYA MD Dec 31, 2018 08:55
[2018-12-31] MEDS: LISINOPRIL 10 MG TABLET PO SCH (09:00)
[2018-12-31] MEDS: PANTOPRAZOLE 40 MG TABLET.DR. PO SCH (09:01)
[2018-12-31] MEDS: SUCRALFATE 1 GM TABLET. PO SCH (09:01)
[2018-12-31] MEDS: LEVOTHYROXINE 150 MCG TABLET PO SCH (09:02)
[2018-12-31] MEDS: LACTOBACILLUS RHAMNOSUS GG 1 CAPSULE. PO SCH (09:02)
[2018-12-31] MEDS: diphenhydrAMINE HCL 25 MG CAPSULE PO SCH (09:02)
[2018-12-31] MEDS: DICYCLOMINE HCL 10 MG CAPSULE PO SCH (09:02)
[2018-12-31] MEDS: DULoxetine HCL 30 MG CAPSULE.DR PO SCH (09:02)
[2018-12-31] MEDS: GABAPENTIN 300 MG CAPSULE. PO SCH (09:03)
[2018-12-31] MEDS: MELOXICAM 7.5 MG TABLET PO SCH (09:03)
[2018-12-31] MEDS: predniSONE 10 MG TABLET PO SCH (09:03)
[2018-12-31] MEDS: NITROGLYCERIN 0.2MG/HR PATCH. TD SCH (09:04)
[2018-12-31] MEDS: CETIRIZINE HCL 10 MG TABLET. PO SCH (09:04)
[2018-12-31] MEDS: HYDROcodone/APAP 10/325 1 TAB TABLET PO PRN (09:05)
--- NOTE | 2018-12-31 10:00 | PDOC ---
PROGRESS NOTES Subjective Subjective feels better ,no abd pain ,no loose stools Objective Objective Vital Signs Date Time Temp Pulse Resp B/P (MAP) Pulse Ox O2 Delivery O2 Flow Rate FiO2 12/31/18 09:12 76 103/61 12/31/18 09:11 Nasal Cannula 4.0 12/31/18 07:39 98 12/31/18 07:00 97.4 16 97.4 Intake and Output 12/31/18 07:00 Intake Total 1700 ml Output Total 1500 ml Balance 200 ml Intake Oral 1700 ml Output Urine Total 1500 ml Physical Exam Abdomen: Normal bowel sounds, Soft Heart: Regular rate, Normal S1 Extremities: No clubbing General: Alert HEENT: Atraumatic Lungs: Clear to auscultation MUSCULOSKELETAL: No swelling, Osteoarthritic changes both hands Neck: No JVD Neuro: Normal speech Psych/Mental Status: Mental status NL Skin: No breakdown Diagnosis Problem List Problems Medical Problems: (1) Abdominal pain Status: Acute (2) COPD exacerbation Status: Acute (3) Diarrhea Status: Acute (4) DM2 (diabetes mellitus, type 2) Status: Chronic (5) Dysphagia Status: Acute (6) Hyperlipidemia Status: Chronic (7) Hypokalemia Status: Acute (8) Hypomagnesemia Status: Acute (9) Hypothyroidism Status: Chronic (10) Morbid obesity Status: Chronic (11) Severe sepsis Status: Acute Assessment Assessment Problems Medical Problems: (1) COPD exacerbation Status: Acute (2) Dysphagia Status: Acute (3) Hypokalemia Status: Acute (4) Hypomagnesemia Status: Acute (5) Morbid obesity Status: Chronic (6) Severe sepsis Status: Acute FINAL IMPRESSION: 1. Abdominal pain. 2. Diarrhea, improved . 3. Lactic acidosis. 4. Chronic obstructive pulmonary disease, on home oxygen and also prednisone dependent chronic obstructive pulmonary disease. 5. Diabetes type 2. 6. Hypothyroidism. 7. Hypertension. 8. Hyperlipidemia. PLAN: D/c home clinically improving weaned off antibiotics. lactic acid 1.2 normal ,peaked to 5.0 trending down,d/c metformin due to lactic acidosis blood c/s neg c diff , not able to collect specimen,no diarrhea cxr -ve ct abd and pelvis -ve for colitis. wbc 8 went down. spoke with ID Plan Plan of Care Problems Medical Problems: (1) Abdominal pain Status: Acute (2) COPD exacerbation Status: Acute (3) Diarrhea Status: Acute (4) DM2 (diabetes mellitus, type 2) Status: Chronic (5) Dysphagia Status: Acute (6) Hyperlipidemia Status: Chronic (7) Hypokalemia Status: Acute (8) Hypomagnesemia Status: Acute (9) Hypothyroidism Status: Chronic (10) Morbid obesity Status: Chronic (11) Severe sepsis Status: Acute Comment Review of Relevant I have reviewed the following items vinny (where applicable) has been applied. Labs Laboratory Tests Test 12/30/18 11:38 12/30/18 16:53 12/30/18 21:16 12/31/18 07:55 Glucose (Fingerstick) 167 mg/dL (70-99) 143 mg/dL (70-99) 128 mg/dL (70-99) 97 mg/dL (70-99) Microbiology 12/27/18 Blood Culture - Preliminary, Resulted NO GROWTH AFTER 4 DAYS Vitals/I & O Vital Sign - Last 24 Hours 12/30/18 12/30/18 12/30/18 12/30/18 10:41 10:48 15:00 16:05 Temp 96.4 98.0 96.4 98.0 Pulse 85 74 Resp 16 B/P (MAP) 118/52 (74) 110/55 (73) Pulse Ox 96 96 99 O2 Delivery Nasal Cannula Nasal Cannula Nasal Cannula Nasal Cannula O2 Flow Rate 4.0 4.0 4.0 4.0 12/30/18 12/30/18 12/30/18 12/30/18 19:00 19:35 20:00 21:35 Temp 98.5 98.5 Pulse 77 77 Resp 16 B/P (MAP) 110/57 (74) 110/57 Pulse Ox 91 95 O2 Delivery Room Air Nasal Cannula Nasal Cannula O2 Flow Rate 4.0 4.0 12/30/18 12/31/18 12/31/18 12/31/18 23:00 03:00 07:00 07:39 Temp 97.4 97.9 97.4 97.4 97.9 97.4 Pulse 81 77 76 Resp 16 12 16 B/P (MAP) 103/54 (70) 98/42 (60) 103/61 (75) Pulse Ox 96 100 100 98 O2 Delivery Room Air Nasal Cannula Nasal Cannula O2 Flow Rate 4.0 4.0 12/31/18 12/31/18 09:11 09:12 Pulse 76 B/P (MAP) 103/61 O2 Delivery Nasal Cannula O2 Flow Rate 4.0 Intake and Output 12/30/18 12/30/18 12/31/18 15:00 23:00 07:00 Intake Total 1220 ml 480 ml Output Total 1500 ml Balance -1500 ml 1220 ml 480 ml MIGUEL DELAROSA MD Dec 31, 2018 10:00
[2018-12-31] MEDS ORDERED: PRED-220 PO (10:04)
[2018-12-31 11:00] VITALS: BP 92/35
[2018-12-31] MEDS: ENOXAPARIN 40 MG/0.4 ML SYRINGE. SQ SCH (12:14)
[2018-12-31] MEDS: FLUTICASONE 50MCG/NASAL SPRAY 16GM BOTTLE. NS SCH (12:14)
--- NOTE | 2018-12-31 12:50 | NUR ---
Discharge Note: CIPRIANO ALBRECHT [address] Discharge instructions and discharge home medications reviewed with Patient and a copy given. All questions have been answered and understanding verbalized. The following instructions and handouts were given: patient visit report, medication education, disease process education Discontinued lines and drains: peripheral IV previously removed. Patient discharged to home with self care via private vehicle. Patient left unit awake, in stable condition, with all personal belongings.
--- NOTE | 2019-01-04 15:13 | PDOC ---
Provider Note Provider Note Discharge summary dictated.#[id number]. MIGUEL DELAROSA MD Jan 04, 2019 15:13
--- NOTE | 2019-01-04 18:49 | DS ---
DATE OF DISCHARGE: 12/31/2018 REASON FOR ADMISSION TO THE HOSPITAL: Abdominal pain, diarrhea, weakness. CONSULTATIONS: Dr. Juan Carlos Chinchilla, Infectious Disease and Dr. Red, Pulmonology. PROCEDURES DONE: CT of the abdomen and pelvis. COMPLICATIONS NOTED: None. HOSPITAL COURSE: The patient is a 63-year-old female with history of diabetes, hypertension and COPD. She had diarrhea. She was in and out of the hospitals, initially without C. diff. We tried to get C. diff. stool, but after she came to the hospital, she did not have more loose stools. The patient also had lactic acidosis. She was on metformin, which was stopped. Lactic acid peaked to 5. Troponin was negative. Magnesium was low at 1.2, was replaced. The patient had a CT of the abdomen and pelvis, was benign. She could not get the stool culture. Urine cultures negative. Blood cultures negative. The patient was treated with antibiotics initially because of lactic acidosis, and later on, antibiotic was stopped after culture was negative. Chest x-ray was negative. The patient was seen by Pulmonology while she was in the hospital for lung problems, remained stable. On the whole, the patient's condition improved and she was discharged. FINAL DIAGNOSES: 1. Diarrhea, probably self-limited. 2. Lactic acidosis, probably secondary to metformin, which was stopped. 3. Chronic obstructive pulmonary disease, prednisone dependent. 4. Chronic oxygen-dependent chronic obstructive pulmonary disease. 5. Diabetes, hypertension, hyperlipidemia, hypothyroidism and discharged home. Discontinue metformin and the patient did not have any further loose stools. We will follow up in the office. MIGUEL DELAROSA MD DR: CARLOS/adrianna JOB#: [id number] / [id number]
== END 2018-12-31 12:40 | disposition home or self-care (01) | DRG 189 ==
LOC: ER 03:33 → 2 NORTH 05:22 → 5 SOUTH 12-29 11:20
PROVIDERS: ADMIT Internal Medicine; ATTEND Internal Medicine
DX: J96.20 Acute and chronic respiratory failure, unspecified whether with hypoxia or hypercapnia (principal); E78.00 Pure hypercholesterolemia, unspecified; I10 Essential (primary) hypertension; E11.9 Type 2 diabetes mellitus without complications; G89.29 Other chronic pain; M19.90 Unspecified osteoarthritis, unspecified site; J43.9 Emphysema, unspecified; E89.0 Postprocedural hypothyroidism; E87.6 Hypokalemia; E83.42 Hypomagnesemia; F41.9 Anxiety disorder, unspecified; F32.9 Major depressive disorder, single episode, unspecified; E66.01 Morbid (severe) obesity due to excess calories; E78.5 Hyperlipidemia, unspecified; R13.10 Dysphagia, unspecified; R19.7 Diarrhea, unspecified; Z79.52 Long term (current) use of systemic steroids; Z90.49 Acquired absence of other specified parts of digestive tract; Z90.711 Acquired absence of uterus with remaining cervical stump; Z87.891 Personal history of nicotine dependence; Z88.0 Allergy status to penicillin; Z99.81 Dependence on supplemental oxygen; Z82.5 Family history of asthma and other chronic lower respiratory diseases; Z83.3 Family history of diabetes mellitus; Z68.32 Body mass index [BMI] 32.0-32.9, adult
CPT/HCPCS: 36415; 71046; 74177; 80048; 80053; 81001; 82553; 82962; 83605; 83690; 83735; 83880; 84484; 85025; 87040; 93005; 94640; 94760; 96365; 96368; 96375; J1100; J1650; J1815; J1956; J2185; J3370; J3475; J3490; J7030; J7040; J7512; J7620; J7626; Q0162; Q0163; 97116; 99291-25; G0378

== ENCOUNTER 2019-07-22 13:49 | Inpatient (IN) | payer OTHER ==
[~2019-07-22] VITALS: Ht 162.6 cm; Wt 97.7 kg
[~2019-07-22 13:49] MED LIST changes: +AMIT25TA PO; +AZIT250T6 PO; +INSU100I11 SQ; +INSU100V8 SQ; +LIDO700A21 TD; -LINE600T PO; +LINE600T12 PO; +LUBI8CAP4 PO; +METO10SO PO; -NITR1PAT11 TD; -NITR1PAT5 TD; +NITR1PAT72 TD; +NITR1PAT74 TD; +POLY17PO28 PO
[2019-07-22] MEDS ORDERED: IPRATRPIUM/ALBUTEROL 0.5/2.5MG 3 ML NEBU. ONE (13:58)
[2019-07-22 14:14] LABS: BASO # 0.1 x10^3/uL (0.0-0.2); BASO % 1 % (0-3); EOS % 0 % (0-3); HEMATOCRIT 41.4 % (36.0-47.0); HEMOGLOBIN 13.5 g/dL (12.0-15.5); LYMPH # 0.8 x10^3/uL (1.0-4.8); LYMPH % 6 % (24-48); MEAN CORPUSCULAR HEMOGLOBIN 29 pg (25-35); MEAN CORPUSCULAR HGB CONC 33 g/dL (31-37); MEAN CORPUSCULAR VOLUME 88 fL (79-100); MONO # 1.3 x10^3/uL (0.0-1.1); MONO % 10 % (0-9); NEUT # 10.6 x10^3/uL (1.8-7.7); NEUT % 83 % (31-73); PLATELET COUNT 220 x10^3/uL (140-400); RED BLOOD COUNT 4.72 x10^6/uL (3.50-5.40); RED CELL DISTRIBUTION WIDTH 15.1 % (11.5-14.5); WHITE BLOOD COUNT 12.8 x10^3/uL (4.0-11.0)
[2019-07-22 14:15] LABS: BASE EXCESS ABG 15 mmol/L (-3-3); HCO3 ABG 45 mmol/L (21-28); PO2 ABG 71 mmHg (65-108); SAT O2 ABG 94 % (92-99)
[2019-07-22] MEDS ORDERED: IPRATRPIUM/ALBUTEROL 0.5/2.5MG 3 ML NEBU. NEB ONE (14:15)
[2019-07-22] MEDS ORDERED: methylPREDNISolone SOD SUCC PF 125 MG/2 ML VIAL. IV ONE (14:15)
[2019-07-22 14:17] LABS: FIO2 ABG 40; PCO2 ABG 84 mmHg (35-46)
--- NOTE | 2019-07-22 14:28 | RAD ---
PORTABLE CHEST 1V History: Shortness of breath. COMPARISON: 01/25/2019. FINDINGS: Cardiomediastinal silhouette is stable and is not enlarged. Mild fullness of the lorena, but this appears similar to an earlier study of 01/20/2019. No evidence of pneumothorax. No evidence of pleural effusion. No dense lobar airspace consolidation. There are mild markings in both lung bases, could be accentuated by overlying soft tissue. Bones appear grossly intact. IMPRESSION: Mild bibasilar density may just be due to overlying soft tissue. No definite consolidating infiltrate. Electronically signed by: Dominic Tyler MD (07/22/2019 2:25 PM) [id number]
[2019-07-22 14:46] LABS: CALCIUM 8.8 mg/dL (8.5-10.1); CREATININE 1.2 mg/dL (0.6-1.0); GFR 45.2; POTASSIUM 3.3 mmol/L (3.5-5.1)
[2019-07-22 14:51] LABS: ALBUMIN 3.4 g/dL (3.4-5.0); ALBUMIN/GLOBULIN RATIO 0.9 (1.0-1.7); MAGNESIUM 1.7 mg/dL (1.8-2.4); TOTAL BILIRUBIN 0.6 mg/dL (0.2-1.0); TOTAL PROTEIN 7.1 g/dL (6.4-8.2)
--- NOTE | 2019-07-22 15:15 | PHYS DOC ---
Past Medical History Past Medical History: A-Fib, Asthma, COPD, Diabetes-Type II, Hypertension Additional Past Medical Histor: Emphysema, chronic back pain, osteoarthritis; O2 dependent Past Surgical History: Cholecystectomy, Other Additional Past Surgical Histo: PARTIAL HYSTERECTOMY, DENTAL, PROLAPSE BLADDER ;THYROIDECTOMY Smoking Status: Former Smoker Alcohol Use: None Drug Use: None Adult General Chief Complaint Chief Complaint: SHORTNESS OF BREATH HPI HPI Patient is a 63 year old female with a history of hypertension, COPD, diabetes type 2, A. fib, who presents to the ED today complaining of shortness of breath that began 3 days ago. Patient reports using her inhaler with no relief. Review of Systems Review of Systems Constitutional: Denies fever or chills [] Eyes: Denies change in visual acuity, redness, or eye pain [] HENT: Denies nasal congestion or sore throat [] Respiratory: Reports shortness of breath Cardiovascular: No additional information not addressed in HPI [] GI: Denies abdominal pain, nausea, vomiting, bloody stools or diarrhea [] : Denies dysuria or hematuria [] Musculoskeletal: Denies back pain or joint pain [] Integument: Denies rash or skin lesions [] Neurologic: Denies headache, focal weakness or sensory changes [] All other systems were reviewed and found to be within normal limits, except as documented in this note. Current Medications Current Medications Current Medications Medications (Trade) Dose Ordered Sig/Santiago Start Time Stop Time Status Last Admin Dose Admin Albuterol/ Ipratropium (Duoneb) 3 ml 1X ONCE 07/22/19 14:15 07/22/19 14:16 DC 07/22/19 14:15 3 ML Methylprednisolone Sodium Succinate (SOLU-Medrol 125MG VIAL) 125 mg 1X ONCE 07/22/19 14:15 07/22/19 14:16 DC 07/22/19 14:20 125 MG Allergies Allergies Allergies Coded Allergies Type Severity Reaction Last Updated Verified amoxicillin Allergy Intermediate Nausea and Vomiting 11/16/18 Yes amoxicillin trihydrate Allergy Intermediate yeast infection 11/16/18 Yes potassium clavulanate Allergy Intermediate yeast infection 11/16/18 Yes meperidine HCl Adverse Reaction Intermediate Nausea and itching. 11/16/18 Yes Physical Exam Physical Exam Constitutional: Well developed, well nourished, no acute distress, non-toxic appearance. [] HENT: Normocephalic, atraumatic, bilateral external ears normal, oropharynx moist, no oral exudates, nose normal. [] Eyes: PERRLA, EOMI, conjunctiva normal, no discharge. [] Neck: Normal range of motion, no tenderness, supple, no stridor. [] Cardiovascular:Heart rate regular rhythm, no murmur [] Lungs & Thorax: Patient arrives in the ED short of air, was put on oxygen 4 L, diminished breath sounds. Abdomen: Bowel sounds normal, soft, no tenderness, no masses, no pulsatile masses. [] Skin: Warm, dry, no erythema, no rash. [] Back: No tenderness, no CVA tenderness. [] Extremities: No tenderness, no cyanosis, no clubbing, ROM intact, no edema. [] Neurologic: Alert and oriented X 3, normal motor function, normal sensory function, no focal deficits noted. [] Psychologic: Affect normal, judgement normal, mood normal. [] Current Patient Data Vital Signs Vital Signs Date Time Temp Pulse Resp B/P (MAP) Pulse Ox O2 Delivery O2 Flow Rate FiO2 07/22/19 14:27 93 BiPAP/CPAP 07/22/19 14:00 5.0 07/22/19 13:49 98.5 90 30 140/89 (106) 98.5 Lab Values Laboratory Tests Test 07/22/19 14:05 07/22/19 14:07 07/22/19 14:15 White Blood Count 12.8 x10^3/uL (4.0-11.0) H Red Blood Count 4.72 x10^6/uL (3.50-5.40) Hemoglobin 13.5 g/dL (12.0-15.5) Hematocrit 41.4 % (36.0-47.0) Mean Corpuscular Volume 88 fL (79-100) Mean Corpuscular Hemoglobin 29 pg (25-35) Mean Corpuscular Hemoglobin Concent 33 g/dL (31-37) Red Cell Distribution Width 15.1 % (11.5-14.5) H Platelet Count 220 x10^3/uL (140-400) Neutrophils (%) (Auto) 83 % (31-73) H Lymphocytes (%) (Auto) 6 % (24-48) L Monocytes (%) (Auto) 10 % (0-9) H Eosinophils (%) (Auto) 0 % (0-3) Basophils (%) (Auto) 1 % (0-3) Neutrophils # (Auto) 10.6 x10^3/uL (1.8-7.7) H Lymphocytes # (Auto) 0.8 x10^3/uL (1.0-4.8) L Monocytes # (Auto) 1.3 x10^3/uL (0.0-1.1) H Eosinophils # (Auto) 0.0 x10^3/uL (0.0-0.7) Basophils # (Auto) 0.1 x10^3/uL (0.0-0.2) Sodium Level 135 mmol/L (136-145) L Potassium Level 3.3 mmol/L (3.5-5.1) L Chloride Level 90 mmol/L (98-107) L Carbon Dioxide Level 41 mmol/L (21-32) H Anion Gap 4 (6-14) L Blood Urea Nitrogen 9 mg/dL (7-20) Creatinine 1.2 mg/dL (0.6-1.0) H Estimated GFR (Cockcroft-Gault) 45.2 BUN/Creatinine Ratio 8 (6-20) Glucose Level 203 mg/dL (70-99) H Lactic Acid Level 2.1 mmol/L (0.4-2.0) H Calcium Level 8.8 mg/dL (8.5-10.1) Magnesium Level 1.7 mg/dL (1.8-2.4) L Total Bilirubin 0.6 mg/dL (0.2-1.0) Aspartate Amino Transferase (AST) 17 U/L (15-37) Alanine Aminotransferase (ALT) 17 U/L (14-59) Alkaline Phosphatase 74 U/L (46-116) Creatine Kinase 46 U/L (26-192) Creatine Kinase MB (Mass) 0.7 ng/mL (0.0-3.6) Creatine Kinase MB Relative Index 1.5 % (0-4) Troponin I Quantitative < 0.017 ng/mL (0.000-0.055) DJ-Upe-J-Type Natriuretic Peptide 237 pg/mL (0-124) H Total Protein 7.1 g/dL (6.4-8.2) Albumin 3.4 g/dL (3.4-5.0) Albumin/Globulin Ratio 0.9 (1.0-1.7) L Thyroid Stimulating Hormone (TSH) 0.202 uIU/mL (0.358-3.74) L Glucose (Fingerstick) 212 mg/dL (70-99) H O2 Saturation 94 % (92-99) Arterial Blood pH 7.34 (7.35-7.45) L Arterial Blood pCO2 at Patient Temp 84 mmHg (35-46) *H Arterial Blood pO2 at Patient Temp 71 mmHg (65-108) Arterial Blood HCO3 45 mmol/L (21-28) H Arterial Blood Base Excess 15 mmol/L (-3-3) H FiO2 40 Laboratory Tests 07/22/19 14:05 Laboratory Tests 07/22/19 14:05 EKG EKG [] Radiology/Procedures Radiology/Procedures []PROCEDURE: PORTABLE CHEST 1V PORTABLE CHEST 1V History: Shortness of breath. COMPARISON: 01/25/2019. FINDINGS: Cardiomediastinal silhouette is stable and is not enlarged. Mild fullness of the lorena, but this appears similar to an earlier study of 01/20/2019. No evidence of pneumothorax. No evidence of pleural effusion. No dense lobar airspace consolidation. There are mild markings in both lung bases, could be accentuated by overlying soft tissue. Bones appear grossly intact. IMPRESSION: Mild bibasilar density may just be due to overlying soft tissue. No definite consolidating infiltrate. Electronically signed by: Dominic Tyler MD (07/22/2019 2:25 PM) [id number] DICTATED and SIGNED BY: DOMINIC TYLER MD DATE: 07/22/19 1425 Course & Med Decision Making Course & Med Decision Making Pertinent Labs and Imaging studies reviewed. (See chart for details) This is a 63-year-old female patient with history of COPD presenting today for shortness of breath for 3 days. Patient arrives in the ED very short of breath, was put on oxygen, still appeared to be short of breath, DuoNeb was given, no improvement. ABG shows patient is retaining CO2. Patient was placed on a BiPAP. Much improvement on her breathing on BiPAP Chest x-ray interpreted by radiologist was negative for infiltrate. CBC with a WBC of 12.8. CMP with K of 3.3, CO2 41, Chloride 90 patient was put on Bipat. [address] Delarosa who accepted patient for admission Routine consult placed for Pulmonary Dragon Disclaimer Dragon Disclaimer This electronic medical record was generated, in whole or in part, using a voice recognition dictation system. Departure Departure Impression: Primary Impression: COPD exacerbation Additional Impression: Shortness of breath Disposition: 09 ADMITTED INPATIENT Referrals: MIGUEL DELAROSA MD (PCP) Problem Qualifiers KAROLIAN HENRY APRN Jul 22, 2019 15:15
[2019-07-22 16:40] VITALS: BP 126/70
[2019-07-22] MEDS ORDERED: ONDANSETRON PF 4 MG/2 ML VIAL. IV PRN (17:00)
--- NOTE | 2019-07-22 17:33 | NUR ---
Patient arrived to room 207 via bed from ER at 1640. Patient A&OX4. VSS. Patient on bipap. Complaints of chronic back pain. The patient, CIPRIANO ALBRECHT, 63 y/o, F admitted by MIGUEL DELAROSA MD, was given written information regarding hospital policies, unit procedures and contact persons. Valuables were checked and noted. Admission completed with help from past visit due to patient being short of breath with bipap. Patient stated nothing has changed since last visit. Will continue to monitor.
--- NOTE | 2019-07-22 17:37 | NUR ---
Messaged Dr. Minaya through [employer] pager to let him know about patient.
[2019-07-22] MEDS ORDERED: NYST15PO9 TOP (18:10)
[2019-07-22] MEDS ORDERED: DIPH25CA20 PO (18:10)
[2019-07-22] MEDS ORDERED: DEXTROSE 50% 25 GM / 50ML DISP.SYRIN. IV PRN (18:45)
[2019-07-22 19:22] VITALS: BP 97/61
[2019-07-22 19:44] LABS: BASE EXCESS ABG 12 mmol/L (-3-3); HCO3 ABG 41 mmol/L (21-28); PO2 ABG 60 mmHg (65-108); SAT O2 ABG 91 % (92-99)
[2019-07-22 19:45] LABS: FIO2 ABG 35; PCO2 ABG 75 mmHg (35-46)
[2019-07-22] MEDS: IPRATRPIUM/ALBUTEROL 0.5/2.5MG 3 ML NEBU. NEB SCH (20:46)
[2019-07-22] MEDS ORDERED: IV NORMAL SALINE 1000ML BAG 1,000 ML IV SCH (21:30)
[2019-07-22] MEDS: MORPHINE SULFATE 4 MG/ML VIAL. IV PRN (21:50)
[2019-07-22] MEDS: methylPREDNISolone SOD SUCC PF 40 MG/ML VIAL. IV SCH (22:12)
[2019-07-22 22:35] VITALS: BP 95/61
[2019-07-23 02:39] VITALS: BP 118/60
[2019-07-23] MEDS: MORPHINE SULFATE 4 MG/ML VIAL. IV PRN ×3 (03:42→16:02)
[2019-07-23 05:09] LABS: BASO % 0 % (0-3); EOS % 0 % (0-3); HEMATOCRIT 39.4 % (36.0-47.0); LYMPH # 0.5 x10^3/uL (1.0-4.8); LYMPH % 5 % (24-48); MEAN CORPUSCULAR HEMOGLOBIN 29 pg (25-35); MEAN CORPUSCULAR HGB CONC 33 g/dL (31-37); MEAN CORPUSCULAR VOLUME 88 fL (79-100); MONO # 0.3 x10^3/uL (0.0-1.1); MONO % 3 % (0-9); NEUT % 91 % (31-73); PLATELET COUNT 214 x10^3/uL (140-400); RED BLOOD COUNT 4.49 x10^6/uL (3.50-5.40); RED CELL DISTRIBUTION WIDTH 15.5 % (11.5-14.5); WHITE BLOOD COUNT 8.8 x10^3/uL (4.0-11.0)
[2019-07-23 05:48] LABS: CALCIUM 8.9 mg/dL (8.5-10.1); CREATININE 1.4 mg/dL (0.6-1.0); GFR 37.9; POTASSIUM 3.1 mmol/L (3.5-5.1)
[2019-07-23] MEDS: methylPREDNISolone SOD SUCC PF 40 MG/ML VIAL. IV SCH ×3 (05:48→19:49)
[2019-07-23 06:57] LABS: BILIRUBIN,URINE NEGATIVE (NEG); CLARITY,URINE CLEAR; COLOR,URINE YELLOW; NITRITE,URINE NEGATIVE (NEG); PH,URINE 5.5; PROTEIN,URINE 100 mg/dL (NEG-TRACE); UROBILINOGEN,URINE 0.2 mg/dL (0.2 mg/dL)
[2019-07-23 07:00] VITALS: BP 127/63
[2019-07-23 07:05] LABS: BARBITURATES NEG (NEG); BENZODIAZEPINES NEG (NEG); CANNABINOIDS NEG (NEG); COCAINE NEG (NEG); METHADONE NEG (NEG); OPIATES POS (NEG); PHENCYCLIDINE NEG (NEG)
[2019-07-23 07:06] LABS: AMPHETAMINE/METHAMPHETAMINE NEG (NEG)
[2019-07-23 07:14] LABS: BACTERIA,URINE FEW /HPF (0-FEW); RBC,URINE 0 /HPF (0-2)
[2019-07-23 07:15] LABS: HYALINE CASTS, URINE MODERATE /HPF; SQUAMOUS EPITHELIAL CELL,UR FEW /LPF
[2019-07-23] MEDS: IPRATRPIUM/ALBUTEROL 0.5/2.5MG 3 ML NEBU. NEB SCH ×4 (08:42→20:16)
[2019-07-23 09:26] LABS: % BANDS 11 % (0-9); % LYMPHS 11 % (24-48); % MONOS 2 % (0-10); % MYELOS 2 % (0-0); % SEGS 74 % (35-66); PLT ESTIMATE ADEQUATE (ADEQUATE); TOXIC GRANULATION PRESENT; TOXIC VACUOLATION PRESENT
--- NOTE | 2019-07-23 09:52 | CONS ---
DATE OF CONSULTATION: 07/23/2019 PULMONARY CONSULTATION ATTENDING PHYSICIAN: Aurelia Maldonado MD. REASON FOR CONSULTATION: Respiratory failure. HISTORY OF PRESENT ILLNESS: The patient is a 63-year-old who has history of severe COPD with chronic hypercapnia and chronic hypoxia. She is on home oxygen with 4 liters. She presented to the hospital complaining of shortness of breath along with wheezing. She also had a cough productive of yellow sputum. The patient also has history of atrial fibrillation. Her admission ABG showed a pH of 7.34, pCO2 of 84 and pO2 of 71 on 40% FiO2. She was kept on BiPAP all night. Yesterday evening, followup ABG showed improvement with a pH of 7.35, pCO2 went down to 75 and pO2 of 60. She is awake, following commands. I have reviewed the patient's chest x-ray. Mild basilar atelectasis seen. Otherwise, no consolidating infiltrates. PAST MEDICAL HISTORY: Significant for history of severe COPD with chronic hypoxia, history of type 2 diabetes, hypertension, AFib. PAST SURGICAL HISTORY: Cholecystectomy, partial hysterectomy, prolapsed bladder, and thyroidectomy. ALLERGIES: Multiple. All reviewed. MEDICATIONS: All reviewed as listed in the MRAD including Zyvox, Solu-Medrol and Levaquin. REVIEW OF SYSTEMS: Twelve-point system obtained. Pertinent positives discussed in my history of present illness, otherwise noncontributory. All systems that were negative were reviewed as well. SOCIAL HISTORY: She quit tobacco, but smoked for at least 35-40 years. FAMILY HISTORY: Noncontributory to lungs. PHYSICAL EXAMINATION: VITAL SIGNS: Reviewed. Afebrile, pulse ox 92% on 4 liters. NECK: Supple. LUNGS: With diminished breath sounds, no wheezes. CARDIOVASCULAR: Regular rate. ABDOMEN: Soft, nontender, obese. EXTREMITIES: With no pitting edema. LABORATORY DATA: Reviewed. ABG discussed in my history of present illness. BUN 16, creatinine 1.4. White cell count was 12.8 on admission, now 8.8. IMPRESSION: 1. Afyhy-yp-[id number] hypercapnic respiratory failure secondary to acute exacerbation of chronic obstructive pulmonary disease and acute bronchitis. 2. The patient with oxygen-dependent chronic obstructive pulmonary disease and chronic hypercapnia comes in with acute on chronic decompensation. 3. Cough with yellow sputum production, likely acute bronchitis. No obvious consolidation seen on the chest x-ray. 4. Underlying obesity with a BMI of 34. RECOMMENDATIONS: 1. Discontinue BiPAP and use cannula during the day. ABGs have improved. We will use BiPAP daily at bedtime. 2. Continue DuoNeb. 3. Continue antibiotics. 4. IV steroids with gradual taper. 5. Add DVT prophylaxis. 6. Discussed with RN. We will follow along with you. ADAM CAZARES MD DR: ABRAM/adrianna JOB#: [id number] / [id number]
[2019-07-23] MEDS: PROMETHAZINE 12.5 MG TABLET. PO PRN (10:39)
[2019-07-23 11:00] VITALS: BP 147/67
--- NOTE | 2019-07-23 11:28 | PDOC1 ---
HISTORY AND PHYSICAL Chief Complaint Chief Complaint Dr. Delarosa dictating a medical history and physical and patient Jadiel Reeder. account number [id number]. date of admiss ion 07/22/2019. Ms. Lilli Duvall is a 63-year-old female patient well-known to me has chronic COPD on home oxygen and she had multiple admissions last time she has been in the hospital is more than 3 months ago. Patient has history of chronic COPD chronic smoker home oxygen she stopped smoking more than 5 years ago she has been not feeling well for last 3 days. She was having cough yellow sputum and also shortness of breath with wheezing.. She also was complaining of nausea and vomiting going on for last 2 days. Past Medical History Cardiovascular: HTN, Hyperlipidemia Pulmonary: COPD CENTRAL NERVOUS SYSTEM: Other GI: GERD Heme/Onc: Anemia NOS Psych: Anxiety, Depression Musculoskeletal: Osteoarthritis Infectious disease: Herpes zoster Renal/: Urinary Incontinence Endocrine: Diabetes, Hypothyroidism, Osteopenia Past Surgical History Past Surgical History: Cholecystectomy, Tubal Ligation, Other Past Family History Family History: Diabetes, Heart Disease Past Social History [facility] Social history was positive for smoking smoked for 30 years 1 to 2 packs stop s moking 5 years ago. Patient denies drinking alcohol denies any street drugs. Review of Symptoms Review of Symptoms General ROS: positive for for nausea vomiting. She also has cough yellow sputum. Low-grade fever. She also has nausea for last 1 week patient was diagnosed with gastroparesis in the past. Medications Current Medications Albuterol/ Ipratropium (Duoneb) 3 ml 1X ONCE NEB Last administered on 07/22/19at 14:15; Start 07/22/19 at 14:15; Stop 07/22/19 at 14:16; Status DC Albuterol/ Ipratropium (Duoneb) 3 ml RTQID NEB Last administered on 07/23/19at 08:42; Start 07/22/19 at 20:00; Stop 07/23/19 at 19:59 Albuterol/ Ipratropium (Duoneb) 3 ml STK-MED ONCE .ROUTE ; Start 07/22/19 at 13:58; Stop 07/22/19 at 13:58; Status DC Dextrose (Dextrose 50%-Water Syringe) 12.5 gm PRN Q15MIN PRN IV SEE COMMENTS; Start 07/22/19 at 18:45 Enoxaparin Sodium (Lovenox 40mg Syringe) 40 mg Q24H SQ ; Start 07/23/19 at 10:00 Lactobacillus Rhamnosus (Culturelle) 1 cap BID PO ; Start 07/23/19 at 21:00 Levofloxacin/ Dextrose 100 ml @ 100 mls/hr Q24H IV Last administered on 07/22/19at 23:22; Start 07/22/19 at 21:30 Linezolid/Dextrose 300 ml @ 300 mls/hr 1X ONCE IV Last administered on 07/22/19at 23:20; Start 07/22/19 at 22:30; Stop 07/22/19 at 23:29; Status DC Linezolid/Dextrose 300 ml @ 300 mls/hr Q12HR IV Last administered on 07/23/19at 10:45; Start 07/23/19 at 09:00 Methylprednisolone Sodium Succinate (SOLU-Medrol 40MG VIAL) 80 mg Q8HRS IV Last administered on 07/23/19at 05:48; Start 07/22/19 at 22:00 Methylprednisolone Sodium Succinate (SOLU-Medrol 125MG VIAL) 125 mg 1X ONCE IV Last administered on 07/22/19at 14:20; Start 07/22/19 at 14:15; Stop 07/22/19 at 14:16; Status DC Morphine Sulfate (Morphine Sulfate) 4 mg PRN Q2HR PRN IV PAIN Last administered on 07/23/19at 07:53; Start 07/22/19 at 17:00; Stop 07/23/19 at 16:59 Ondansetron HCl (Zofran) 4 mg PRN Q8HRS PRN IV NAUSEA/VOMITING Last administered on 07/23/19at 07:47; Start 07/22/19 at 17:00; Stop 07/23/19 at 16:59 Ondansetron HCl (Zofran) 8 mg PRN Q6HRS PRN IVP NAUSEA/VOMITING; Start 07/23/19 at 10:30 Promethazine HCl (Phenergan) 25 mg PRN Q6HRS PRN PO NAUSEA/VOMITING Last administered on 07/23/19at 10:39; Start 07/23/19 at 10:30 Sodium Chloride 1,000 ml @ 100 mls/hr Q10H IV Last administered on 07/22/19at 21:48; Start 07/22/19 at 21:30 Allergy Allergies Coded Allergies Type Severity Reaction Last Updated Verified amoxicillin Allergy Intermediate Nausea and Vomiting 11/16/18 Yes amoxicillin trihydrate Allergy Intermediate yeast infection 11/16/18 Yes potassium clavulanate Allergy Intermediate yeast infection 11/16/18 Yes meperidine HCl Adverse Reaction Intermediate Nausea and itching. 11/16/18 Yes Physical Exam Physical Exam General appearance - mild distress patient has a BiPAP machine at bedside ,patient is using oxygen right now Mental Status - alert, oriented to person, place, and time, affect appropriate to mood Head - normal Chest mild wheezing present on auscultation,. Heart - S1 and S2 normal Abdomen - soft, nontender, nondistended, no masses or organomegaly Neurological - alert and oriented Musculoskeletal - no muscular tenderness noted Extremities - no pedal edema Skin - warm and dry Labs Laboratory Tests Test 07/22/19 14:05 07/22/19 14:07 07/22/19 14:15 07/22/19 16:46 White Blood Count 12.8 x10^3/uL (4.0-11.0) Red Blood Count 4.72 x10^6/uL (3.50-5.40) Hemoglobin 13.5 g/dL (12.0-15.5) Hematocrit 41.4 % (36.0-47.0) Mean Corpuscular Volume 88 fL (79-100) Mean Corpuscular Hemoglobin 29 pg (25-35) Mean Corpuscular Hemoglobin Concent 33 g/dL (31-37) Red Cell Distribution Width 15.1 % (11.5-14.5) Platelet Count 220 x10^3/uL (140-400) Neutrophils (%) (Auto) 83 % (31-73) Lymphocytes (%) (Auto) 6 % (24-48) Monocytes (%) (Auto) 10 % (0-9) Eosinophils (%) (Auto) 0 % (0-3) Basophils (%) (Auto) 1 % (0-3) Neutrophils # (Auto) 10.6 x10^3/uL (1.8-7.7) Lymphocytes # (Auto) 0.8 x10^3/uL (1.0-4.8) Monocytes # (Auto) 1.3 x10^3/uL (0.0-1.1) Eosinophils # (Auto) 0.0 x10^3/uL (0.0-0.7) Basophils # (Auto) 0.1 x10^3/uL (0.0-0.2) Sodium Level 135 mmol/L (136-145) Potassium Level 3.3 mmol/L (3.5-5.1) Chloride Level 90 mmol/L (98-107) Carbon Dioxide Level 41 mmol/L (21-32) Anion Gap 4 (6-14) Blood Urea Nitrogen 9 mg/dL (7-20) Creatinine 1.2 mg/dL (0.6-1.0) Estimated GFR (Cockcroft-Gault) 45.2 BUN/Creatinine Ratio 8 (6-20) Glucose Level 203 mg/dL (70-99) Lactic Acid Level 2.1 mmol/L (0.4-2.0) Calcium Level 8.8 mg/dL (8.5-10.1) Magnesium Level 1.7 mg/dL (1.8-2.4) Total Bilirubin 0.6 mg/dL (0.2-1.0) Aspartate Amino Transf (AST/SGOT) 17 U/L (15-37) Alanine Aminotransferase (ALT/SGPT) 17 U/L (14-59) Alkaline Phosphatase 74 U/L (46-116) Creatine Kinase 46 U/L (26-192) Creatine Kinase MB (Mass) 0.7 ng/mL (0.0-3.6) Creatine Kinase MB Relative Index 1.5 % (0-4) Troponin I Quantitative < 0.017 ng/mL (0.000-0.055) CH-Kjd-[id number]-Type Natriuretic Peptide 237 pg/mL (0-124) Total Protein 7.1 g/dL (6.4-8.2) Albumin 3.4 g/dL (3.4-5.0) Albumin/Globulin Ratio 0.9 (1.0-1.7) Thyroid Stimulating Hormone (TSH) 0.202 uIU/mL (0.358-3.74) Glucose (Fingerstick) 212 mg/dL (70-99) 207 mg/dL (70-99) O2 Saturation 94 % (92-99) Arterial Blood pH 7.34 (7.35-7.45) Arterial Blood pCO2 at Patient Temp 84 mmHg (35-46) Arterial Blood pO2 at Patient Temp 71 mmHg (65-108) Arterial Blood HCO3 45 mmol/L (21-28) Arterial Blood Base Excess 15 mmol/L (-3-3) FiO2 40 Test 07/22/19 17:30 07/22/19 19:15 07/22/19 20:51 07/23/19 04:30 Lactic Acid Level 3.3 mmol/L (0.4-2.0) 3.9 mmol/L (0.4-2.0) O2 Saturation 91 % (92-99) Arterial Blood pH 7.35 (7.35-7.45) Arterial Blood pCO2 at Patient Temp 75 mmHg (35-46) Arterial Blood pO2 at Patient Temp 60 mmHg (65-108) Arterial Blood pO2 (Temp corrected) mmHg Arterial Blood HCO3 41 mmol/L (21-28) Arterial Blood Base Excess 12 mmol/L (-3-3) FiO2 35 Glucose (Fingerstick) 216 mg/dL (70-99) White Blood Count 8.8 x10^3/uL (4.0-11.0) Red Blood Count 4.49 x10^6/uL (3.50-5.40) Hemoglobin 13.0 g/dL (12.0-15.5) Hematocrit 39.4 % (36.0-47.0) Mean Corpuscular Volume 88 fL (79-100) Mean Corpuscular Hemoglobin 29 pg (25-35) Mean Corpuscular Hemoglobin Concent 33 g/dL (31-37) Red Cell Distribution Width 15.5 % (11.5-14.5) Platelet Count 214 x10^3/uL (140-400) Neutrophils (%) (Auto) 91 % (31-73) Lymphocytes (%) (Auto) 5 % (24-48) Monocytes (%) (Auto) 3 % (0-9) Eosinophils (%) (Auto) 0 % (0-3) Basophils (%) (Auto) 0 % (0-3) Neutrophils # (Auto) 8.0 x10^3/uL (1.8-7.7) Lymphocytes # (Auto) 0.5 x10^3/uL (1.0-4.8) Monocytes # (Auto) 0.3 x10^3/uL (0.0-1.1) Eosinophils # (Auto) 0.0 x10^3/uL (0.0-0.7) Basophils # (Auto) 0.0 x10^3/uL (0.0-0.2) Segmented Neutrophils % 74 % (35-66) Band Neutrophils % 11 % (0-9) Lymphocytes % 11 % (24-48) Monocytes % 2 % (0-10) Myelocytes % 2 % (0-0) Toxic Granulation Present Toxic Vacuolation Present Platelet Estimate Adequate (ADEQUATE) Large Platelets Few Sodium Level 135 mmol/L (136-145) Potassium Level 3.1 mmol/L (3.5-5.1) Chloride Level 88 mmol/L (98-107) Carbon Dioxide Level 38 mmol/L (21-32) Anion Gap 9 (6-14) Blood Urea Nitrogen 16 mg/dL (7-20) Creatinine 1.4 mg/dL (0.6-1.0) Estimated GFR (Cockcroft-Gault) 37.9 Glucose Level 159 mg/dL (70-99) Calcium Level 8.9 mg/dL (8.5-10.1) Test 07/23/19 05:35 07/23/19 07:28 07/23/19 08:20 Urine Collection Type Unknown Urine Color Yellow Urine Clarity Clear Urine pH 5.5 Urine Specific [place] 1.015 Urine Protein 100 mg/dL (NEG-TRACE) Urine Glucose (UA) Negative mg/dL (NEG) Urine Ketones (Stick) Negative mg/dL (NEG) Urine Blood Negative (NEG) Urine Nitrite Negative (NEG) Urine Bilirubin Negative (NEG) Urine Urobilinogen Dipstick 0.2 mg/dL (0.2 mg/dL) Urine Leukocyte Esterase Negative (NEG) Urine RBC 0 /HPF (0-2) Urine WBC 1-4 /HPF (0-4) Urine Squamous Epithelial Cells Few /LPF Urine Bacteria Few /HPF (0-FEW) Urine Hyaline Casts Moderate /HPF Urine Mucus Marked /LPF Urine Opiates Screen Pos (NEG) Urine Methadone Screen Neg (NEG) Urine Barbiturates Neg (NEG) Urine Phencyclidine Screen Neg (NEG) Urine Amphetamine/Methamphetamine Neg (NEG) Urine Benzodiazepines Screen Neg (NEG) Urine Cocaine Screen Neg (NEG) Urine Cannabinoids Screen Neg (NEG) Urine Ethyl Alcohol Neg (NEG) Glucose (Fingerstick) 165 mg/dL (70-99) Lactic Acid Level 1.7 mmol/L (0.4-2.0) Laboratory Tests Test 07/22/19 14:05 07/22/19 14:07 07/22/19 14:15 07/22/19 16:46 White Blood Count 12.8 x10^3/uL (4.0-11.0) Red Blood Count 4.72 x10^6/uL (3.50-5.40) Hemoglobin 13.5 g/dL (12.0-15.5) Hematocrit 41.4 % (36.0-47.0) Mean Corpuscular Volume 88 fL (79-100) Mean Corpuscular Hemoglobin 29 pg (25-35) Mean Corpuscular Hemoglobin Concent 33 g/dL (31-37) Red Cell Distribution Width 15.1 % (11.5-14.5) Platelet Count 220 x10^3/uL (140-400) Neutrophils (%) (Auto) 83 % (31-73) Lymphocytes (%) (Auto) 6 % (24-48) Monocytes (%) (Auto) 10 % (0-9) Eosinophils (%) (Auto) 0 % (0-3) Basophils (%) (Auto) 1 % (0-3) Neutrophils # (Auto) 10.6 x10^3/uL (1.8-7.7) Lymphocytes # (Auto) 0.8 x10^3/uL (1.0-4.8) Monocytes # (Auto) 1.3 x10^3/uL (0.0-1.1) Eosinophils # (Auto) 0.0 x10^3/uL (0.0-0.7) Basophils # (Auto) 0.1 x10^3/uL (0.0-0.2) Sodium Level 135 mmol/L (136-145) Potassium Level 3.3 mmol/L (3.5-5.1) Chloride Level 90 mmol/L (98-107) Carbon Dioxide Level 41 mmol/L (21-32) Anion Gap 4 (6-14) Blood Urea Nitrogen 9 mg/dL (7-20) Creatinine 1.2 mg/dL (0.6-1.0) Estimated GFR (Cockcroft-Gault) 45.2 BUN/Creatinine Ratio 8 (6-20) Glucose Level 203 mg/dL (70-99) Lactic Acid Level 2.1 mmol/L (0.4-2.0) Calcium Level 8.8 mg/dL (8.5-10.1) Magnesium Level 1.7 mg/dL (1.8-2.4) Total Bilirubin 0.6 mg/dL (0.2-1.0) Aspartate Amino Transf (AST/SGOT) 17 U/L (15-37) Alanine Aminotransferase (ALT/SGPT) 17 U/L (14-59) Alkaline Phosphatase 74 U/L (46-116) Creatine Kinase 46 U/L (26-192) Creatine Kinase MB (Mass) 0.7 ng/mL (0.0-3.6) Creatine Kinase MB Relative Index 1.5 % (0-4) Troponin I Quantitative < 0.017 ng/mL (0.000-0.055) XY-Ort-Y-Type Natriuretic Peptide 237 pg/mL (0-124) Total Protein 7.1 g/dL (6.4-8.2) Albumin 3.4 g/dL (3.4-5.0) Albumin/Globulin Ratio 0.9 (1.0-1.7) Thyroid Stimulating Hormone (TSH) 0.202 uIU/mL (0.358-3.74) Glucose (Fingerstick) 212 mg/dL (70-99) 207 mg/dL (70-99) O2 Saturation 94 % (92-99) Arterial Blood pH 7.34 (7.35-7.45) Arterial Blood pCO2 at Patient Temp 84 mmHg (35-46) Arterial Blood pO2 at Patient Temp 71 mmHg (65-108) Arterial Blood HCO3 45 mmol/L (21-28) Arterial Blood Base Excess 15 mmol/L (-3-3) FiO2 40 Test 07/22/19 17:30 07/22/19 19:15 07/22/19 20:51 07/23/19 04:30 Lactic Acid Level 3.3 mmol/L (0.4-2.0) 3.9 mmol/L (0.4-2.0) O2 Saturation 91 % (92-99) Arterial Blood pH 7.35 (7.35-7.45) Arterial Blood pCO2 at Patient Temp 75 mmHg (35-46) Arterial Blood pO2 at Patient Temp 60 mmHg (65-108) Arterial Blood pO2 (Temp corrected) mmHg Arterial Blood HCO3 41 mmol/L (21-28) Arterial Blood Base Excess 12 mmol/L (-3-3) FiO2 35 Glucose (Fingerstick) 216 mg/dL (70-99) White Blood Count 8.8 x10^3/uL (4.0-11.0) Red Blood Count 4.49 x10^6/uL (3.50-5.40) Hemoglobin 13.0 g/dL (12.0-15.5) Hematocrit 39.4 % (36.0-47.0) Mean Corpuscular Volume 88 fL (79-100) Mean Corpuscular Hemoglobin 29 pg (25-35) Mean Corpuscular Hemoglobin Concent 33 g/dL (31-37) Red Cell Distribution Width 15.5 % (11.5-14.5) Platelet Count 214 x10^3/uL (140-400) Neutrophils (%) (Auto) 91 % (31-73) Lymphocytes (%) (Auto) 5 % (24-48) Monocytes (%) (Auto) 3 % (0-9) Eosinophils (%) (Auto) 0 % (0-3) Basophils (%) (Auto) 0 % (0-3) Neutrophils # (Auto) 8.0 x10^3/uL (1.8-7.7) Lymphocytes # (Auto) 0.5 x10^3/uL (1.0-4.8) Monocytes # (Auto) 0.3 x10^3/uL (0.0-1.1) Eosinophils # (Auto) 0.0 x10^3/uL (0.0-0.7) Basophils # (Auto) 0.0 x10^3/uL (0.0-0.2) Segmented Neutrophils % 74 % (35-66) Band Neutrophils % 11 % (0-9) Lymphocytes % 11 % (24-48) Monocytes % 2 % (0-10) Myelocytes % 2 % (0-0) Toxic Granulation Present Toxic Vacuolation Present Platelet Estimate Adequate (ADEQUATE) Large Platelets Few Sodium Level 135 mmol/L (136-145) Potassium Level 3.1 mmol/L (3.5-5.1) Chloride Level 88 mmol/L (98-107) Carbon Dioxide Level 38 mmol/L (21-32) Anion Gap 9 (6-14) Blood Urea Nitrogen 16 mg/dL (7-20) Creatinine 1.4 mg/dL (0.6-1.0) Estimated GFR (Cockcroft-Gault) 37.9 Glucose Level 159 mg/dL (70-99) Calcium Level 8.9 mg/dL (8.5-10.1) Test 07/23/19 05:35 07/23/19 07:28 07/23/19 08:20 Urine Collection Type Unknown Urine Color Yellow Urine Clarity Clear Urine pH 5.5 Urine Specific [place] 1.015 Urine Protein 100 mg/dL (NEG-TRACE) Urine Glucose (UA) Negative mg/dL (NEG) Urine Ketones (Stick) Negative mg/dL (NEG) Urine Blood Negative (NEG) Urine Nitrite Negative (NEG) Urine Bilirubin Negative (NEG) Urine Urobilinogen Dipstick 0.2 mg/dL (0.2 mg/dL) Urine Leukocyte Esterase Negative (NEG) Urine RBC 0 /HPF (0-2) Urine WBC 1-4 /HPF (0-4) Urine Squamous Epithelial Cells Few /LPF Urine Bacteria Few /HPF (0-FEW) Urine Hyaline Casts Moderate /HPF Urine Mucus Marked /LPF Urine Opiates Screen Pos (NEG) Urine Methadone Screen Neg (NEG) Urine Barbiturates Neg (NEG) Urine Phencyclidine Screen Neg (NEG) Urine Amphetamine/Methamphetamine Neg (NEG) Urine Benzodiazepines Screen Neg (NEG) Urine Cocaine Screen Neg (NEG) Urine Cannabinoids Screen Neg (NEG) Urine Ethyl Alcohol Neg (NEG) Glucose (Fingerstick) 165 mg/dL (70-99) Lactic Acid Level 1.7 mmol/L (0.4-2.0) Vitals Vital Signs Date Time Temp Pulse Resp B/P (MAP) Pulse Ox O2 Delivery O2 Flow Rate FiO2 07/23/19 08:44 94 BiPAP/CPAP 07/23/19 08:20 4.0 07/23/19 07:00 97.9 77 33 127/63 (84) 97.9 VTE Prophylaxis VTE Prophylaxis Devices: Yes VTE Pharmacological Prophylaxi: Yes Assessment Assessment Impression; 1. COPD with acute exacerbation. 2. Lactic acidosis. 3. Chronic hypoxia on home oxygen. 4. Diabetes type 2. 5. Hypothyroidism. 6. Diabetic gastroparesis. 7. Anxiety. 8. Depression chronic. 9. Chronic narcotic pain medication for pain control. 10. General debility and general decline. Plan; Blood cultures x2, urine culture, sputum culture. Start on broad-spectrum IV antibiotics Vanco and Levaquin. Start on IV Solu-Medrol 120 mg loading dose and 80 mg every 8 hours. IV fluids for hydration monitor kidney function and lactic acid level. Breathing treatments with DuoNeb 4 times daily and as needed. Pulmonary consult Dr. Minaya. Zofran and Phenergan for nausea and vomiting. Plan Plan For more details regarding further plans, please refer to the orders. Hemodynamically unstable?: No Respiratory Distress?: Yes Serious Diagnosis?: Yes Is patient at high risk?: Yes MIGUEL DELAROSA MD Jul 23, 2019 11:28
[2019-07-23] MEDS ORDERED: diphenhydrAMINE HCL 25 MG CAPSULE PO PRN (11:30)
[2019-07-23] MEDS ORDERED: POTASSIUM CHLORIDE 20 MEQ TABLET.ER. PO ONE ×2 (11:30→14:30)
[2019-07-23] MEDS ORDERED: POLYETHYLENE GLYCOL 3350 17 GM PACKET. PO PRN (11:30)
[2019-07-23] MEDS ORDERED: DEXTROSE 50% 25 GM / 50ML DISP.SYRIN. IV PRN (11:30)
[2019-07-23] MEDS: DULoxetine HCL 30 MG CAPSULE.DR PO SCH ×2 (12:00→19:40)
[2019-07-23] MEDS: FUROSEMIDE 40 MG TABLET. PO SCH ×2 (12:00→15:54)
[2019-07-23] MEDS: LEVOTHYROXINE 150 MCG TABLET PO SCH (12:00)
[2019-07-23] MEDS: MELOXICAM 7.5 MG TABLET PO SCH (12:00)
[2019-07-23] MEDS ORDERED: ATORVASTATIN CALCIUM 40 MG TABLET. PO SCH (12:00)
[2019-07-23] MEDS: POTASSIUM CHLORIDE 10 MEQ TABLET.ER. PO SCH ×2 (12:00→17:50)
[2019-07-23] MEDS: CETIRIZINE HCL 10 MG TABLET. PO SCH (12:00)
[2019-07-23] MEDS: LISINOPRIL 10 MG TABLET PO SCH ×2 (12:00→19:39)
[2019-07-23] MEDS: ENOXAPARIN 40 MG/0.4 ML SYRINGE. SQ SCH (12:22)
[2019-07-23] MEDS: SUCRALFATE 1 GM TABLET. PO SCH ×2 (12:22→15:55)
[2019-07-23] MEDS: PANTOPRAZOLE 40 MG TABLET.DR. PO SCH (12:22)
[2019-07-23] MEDS: POTASSIUM CL 40MEQ IN 0.9%NACL 1,000 ML IV SCH ×2 (12:22→23:36)
[2019-07-23] MEDS: METOCLOPRAMIDE 5 MG TABLET. PO SCH ×3 (12:22→19:37)
[2019-07-23] MEDS: ONDANSETRON PF 4 MG/2 ML VIAL. IVP PRN (12:25)
[2019-07-23] MEDS: INSULIN LISPRO 300 UNITS/3 ML VIAL. SQ SCH ×2 (12:31→17:00)
[2019-07-23] MEDS ORDERED: NON FORMULARY ITEM (Albuterol Sulfate (Albuterol Sulfate Neb Soln) 0.63 MG) IH SCH (13:00)
[2019-07-23] MEDS: DICYCLOMINE HCL 10 MG CAPSULE PO SCH ×2 (14:00→19:40)
[2019-07-23] MEDS: GABAPENTIN 300 MG CAPSULE. PO SCH ×2 (14:00→19:39)
[2019-07-23 15:00] VITALS: BP 128/62
[2019-07-23] MEDS ORDERED: NON FORMULARY ITEM (Lubiprostone (Amitiza) 8 MCG) PO SCH (17:00)
[2019-07-23 19:00] VITALS: BP 136/77
[2019-07-23] MEDS: HYDROcodone/APAP 10/325 1 TAB TABLET PO PRN (19:36)
[2019-07-23] MEDS: traMADol 50 MG TABLET PO PRN (19:37)
[2019-07-23] MEDS: LACTOBACILLUS RHAMNOSUS GG 1 CAPSULE. PO SCH (19:56)
[2019-07-23] MEDS: ATORVASTATIN CALCIUM 40 MG TABLET. PO SCH (19:56)
[2019-07-23] MEDS: MONTELUKAST SODIUM 10 MG TABLET. PO SCH (19:56)
[2019-07-23] MEDS: BUDESONIDE 0.5 MG/2 ML NEBU. NEB SCH (20:16)
[2019-07-23] MEDS ORDERED: NON FORMULARY ITEM (Fluticasone/Salmeterol (Advair 500-50 Diskus) 1 EACH) IH SCH (21:00)
[2019-07-23] MEDS: INSULIN GLARGINE SYRINGE. SQ SCH (21:28)
[2019-07-23 22:59] VITALS: BP 137/72
[2019-07-24 03:00] VITALS: BP 133/57
[2019-07-24] MEDS: LEVOTHYROXINE 150 MCG TABLET PO SCH (04:22)
[2019-07-24] MEDS: HYDROcodone/APAP 10/325 1 TAB TABLET PO PRN ×3 (04:23→20:59)
[2019-07-24] MEDS: methylPREDNISolone SOD SUCC PF 40 MG/ML VIAL. IV SCH ×3 (04:24→20:45)
[2019-07-24 05:27] LABS: BASO % 0 % (0-3); EOS % 0 % (0-3); HEMATOCRIT 35.1 % (36.0-47.0); HEMOGLOBIN 11.5 g/dL (12.0-15.5); LYMPH # 0.5 x10^3/uL (1.0-4.8); LYMPH % 3 % (24-48); MEAN CORPUSCULAR HEMOGLOBIN 29 pg (25-35); MEAN CORPUSCULAR HGB CONC 33 g/dL (31-37); MEAN CORPUSCULAR VOLUME 88 fL (79-100); MONO # 1.2 x10^3/uL (0.0-1.1); MONO % 7 % (0-9); NEUT # 15.5 x10^3/uL (1.8-7.7); NEUT % 90 % (31-73); PLATELET COUNT 190 x10^3/uL (140-400); RED BLOOD COUNT 3.99 x10^6/uL (3.50-5.40); RED CELL DISTRIBUTION WIDTH 15.1 % (11.5-14.5); WHITE BLOOD COUNT 17.3 x10^3/uL (4.0-11.0)
[2019-07-24 05:32] LABS: CALCIUM 8.5 mg/dL (8.5-10.1); CREATININE 1.2 mg/dL (0.6-1.0); GFR 45.2; POTASSIUM 3.8 mmol/L (3.5-5.1)
[2019-07-24 07:00] VITALS: BP 120/56
[2019-07-24] MEDS: SUCRALFATE 1 GM TABLET. PO SCH ×2 (07:20→16:30)
[2019-07-24] MEDS: PANTOPRAZOLE 40 MG TABLET.DR. PO SCH (07:20)
[2019-07-24] MEDS: DICYCLOMINE HCL 10 MG CAPSULE PO SCH ×3 (07:20→20:44)
[2019-07-24] MEDS: traMADol 50 MG TABLET PO PRN (07:21)
[2019-07-24] MEDS: METOCLOPRAMIDE 5 MG TABLET. PO SCH ×4 (07:21→20:44)
[2019-07-24] MEDS: IPRATRPIUM/ALBUTEROL 0.5/2.5MG 3 ML NEBU. NEB SCH ×4 (07:33→20:24)
[2019-07-24] MEDS: BUDESONIDE 0.5 MG/2 ML NEBU. NEB SCH ×2 (07:33→20:24)
[2019-07-24] MEDS: DULoxetine HCL 30 MG CAPSULE.DR PO SCH ×2 (08:10→20:44)
[2019-07-24] MEDS: POTASSIUM CHLORIDE 10 MEQ TABLET.ER. PO SCH ×2 (08:11→16:31)
[2019-07-24] MEDS: GABAPENTIN 300 MG CAPSULE. PO SCH ×3 (08:11→20:44)
[2019-07-24] MEDS: LACTOBACILLUS RHAMNOSUS GG 1 CAPSULE. PO SCH ×2 (08:11→20:43)
[2019-07-24] MEDS: FUROSEMIDE 40 MG TABLET. PO SCH ×2 (08:11→16:30)
[2019-07-24] MEDS: CETIRIZINE HCL 10 MG TABLET. PO SCH (08:11)
[2019-07-24] MEDS: LISINOPRIL 10 MG TABLET PO SCH ×2 (08:11→20:44)
[2019-07-24] MEDS: MELOXICAM 7.5 MG TABLET PO SCH (08:12)
[2019-07-24] MEDS: INSULIN LISPRO 300 UNITS/3 ML VIAL. SQ SCH ×3 (08:16→16:56)
[2019-07-24] MEDS: ONDANSETRON PF 4 MG/2 ML VIAL. IVP PRN (09:46)
[2019-07-24] MEDS: ENOXAPARIN 40 MG/0.4 ML SYRINGE. SQ SCH (09:47)
[2019-07-24 10:37] VITALS: BP 97/54
--- NOTE | 2019-07-24 11:00 | PDOC ---
PULMONARY PROGRESS NOTES Subjective feels better Vitals Vital Signs Date Time Temp Pulse Resp B/P (MAP) Pulse Ox O2 Delivery O2 Flow Rate FiO2 07/24/19 10:37 98.3 74 22 97/54 (68) 96 Nasal Cannula 4.0 98.3 General: Alert, No acute distress Lungs: Wheezing (faint) Cardiovascular: S1, S2 Abdomen: Soft, Non-tender Extremities: No Edema Skin: Warm Labs Laboratory Tests Test 07/22/19 14:05 07/22/19 14:07 07/22/19 14:15 07/22/19 16:46 White Blood Count 12.8 x10^3/uL (4.0-11.0) Red Blood Count 4.72 x10^6/uL (3.50-5.40) Hemoglobin 13.5 g/dL (12.0-15.5) Hematocrit 41.4 % (36.0-47.0) Mean Corpuscular Volume 88 fL (79-100) Mean Corpuscular Hemoglobin 29 pg (25-35) Mean Corpuscular Hemoglobin Concent 33 g/dL (31-37) Red Cell Distribution Width 15.1 % (11.5-14.5) Platelet Count 220 x10^3/uL (140-400) Neutrophils (%) (Auto) 83 % (31-73) Lymphocytes (%) (Auto) 6 % (24-48) Monocytes (%) (Auto) 10 % (0-9) Eosinophils (%) (Auto) 0 % (0-3) Basophils (%) (Auto) 1 % (0-3) Neutrophils # (Auto) 10.6 x10^3/uL (1.8-7.7) Lymphocytes # (Auto) 0.8 x10^3/uL (1.0-4.8) Monocytes # (Auto) 1.3 x10^3/uL (0.0-1.1) Eosinophils # (Auto) 0.0 x10^3/uL (0.0-0.7) Basophils # (Auto) 0.1 x10^3/uL (0.0-0.2) Sodium Level 135 mmol/L (136-145) Potassium Level 3.3 mmol/L (3.5-5.1) Chloride Level 90 mmol/L (98-107) Carbon Dioxide Level 41 mmol/L (21-32) Anion Gap 4 (6-14) Blood Urea Nitrogen 9 mg/dL (7-20) Creatinine 1.2 mg/dL (0.6-1.0) Estimated GFR (Cockcroft-Gault) 45.2 BUN/Creatinine Ratio 8 (6-20) Glucose Level 203 mg/dL (70-99) Lactic Acid Level 2.1 mmol/L (0.4-2.0) Calcium Level 8.8 mg/dL (8.5-10.1) Magnesium Level 1.7 mg/dL (1.8-2.4) Total Bilirubin 0.6 mg/dL (0.2-1.0) Aspartate Amino Transf (AST/SGOT) 17 U/L (15-37) Alanine Aminotransferase (ALT/SGPT) 17 U/L (14-59) Alkaline Phosphatase 74 U/L (46-116) Creatine Kinase 46 U/L (26-192) Creatine Kinase MB (Mass) 0.7 ng/mL (0.0-3.6) Creatine Kinase MB Relative Index 1.5 % (0-4) Troponin I Quantitative < 0.017 ng/mL (0.000-0.055) KD-Fyc-Q-Type Natriuretic Peptide 237 pg/mL (0-124) Total Protein 7.1 g/dL (6.4-8.2) Albumin 3.4 g/dL (3.4-5.0) Albumin/Globulin Ratio 0.9 (1.0-1.7) Thyroid Stimulating Hormone (TSH) 0.202 uIU/mL (0.358-3.74) Glucose (Fingerstick) 212 mg/dL (70-99) 207 mg/dL (70-99) O2 Saturation 94 % (92-99) Arterial Blood pH 7.34 (7.35-7.45) Arterial Blood pCO2 at Patient Temp 84 mmHg (35-46) Arterial Blood pO2 at Patient Temp 71 mmHg (65-108) Arterial Blood HCO3 45 mmol/L (21-28) Arterial Blood Base Excess 15 mmol/L (-3-3) FiO2 40 Test 07/22/19 17:30 07/22/19 19:15 07/22/19 20:51 07/23/19 04:30 Lactic Acid Level 3.3 mmol/L (0.4-2.0) 3.9 mmol/L (0.4-2.0) O2 Saturation 91 % (92-99) Arterial Blood pH 7.35 (7.35-7.45) Arterial Blood pCO2 at Patient Temp 75 mmHg (35-46) Arterial Blood pO2 at Patient Temp 60 mmHg (65-108) Arterial Blood pO2 (Temp corrected) mmHg Arterial Blood HCO3 41 mmol/L (21-28) Arterial Blood Base Excess 12 mmol/L (-3-3) FiO2 35 Glucose (Fingerstick) 216 mg/dL (70-99) White Blood Count 8.8 x10^3/uL (4.0-11.0) Red Blood Count 4.49 x10^6/uL (3.50-5.40) Hemoglobin 13.0 g/dL (12.0-15.5) Hematocrit 39.4 % (36.0-47.0) Mean Corpuscular Volume 88 fL (79-100) Mean Corpuscular Hemoglobin 29 pg (25-35) Mean Corpuscular Hemoglobin Concent 33 g/dL (31-37) Red Cell Distribution Width 15.5 % (11.5-14.5) Platelet Count 214 x10^3/uL (140-400) Neutrophils (%) (Auto) 91 % (31-73) Lymphocytes (%) (Auto) 5 % (24-48) Monocytes (%) (Auto) 3 % (0-9) Eosinophils (%) (Auto) 0 % (0-3) Basophils (%) (Auto) 0 % (0-3) Neutrophils # (Auto) 8.0 x10^3/uL (1.8-7.7) Lymphocytes # (Auto) 0.5 x10^3/uL (1.0-4.8) Monocytes # (Auto) 0.3 x10^3/uL (0.0-1.1) Eosinophils # (Auto) 0.0 x10^3/uL (0.0-0.7) Basophils # (Auto) 0.0 x10^3/uL (0.0-0.2) Segmented Neutrophils % 74 % (35-66) Band Neutrophils % 11 % (0-9) Lymphocytes % 11 % (24-48) Monocytes % 2 % (0-10) Myelocytes % 2 % (0-0) Toxic Granulation Present Toxic Vacuolation Present Platelet Estimate Adequate (ADEQUATE) Large Platelets Few Sodium Level 135 mmol/L (136-145) Potassium Level 3.1 mmol/L (3.5-5.1) Chloride Level 88 mmol/L (98-107) Carbon Dioxide Level 38 mmol/L (21-32) Anion Gap 9 (6-14) Blood Urea Nitrogen 16 mg/dL (7-20) Creatinine 1.4 mg/dL (0.6-1.0) Estimated GFR (Cockcroft-Gault) 37.9 Glucose Level 159 mg/dL (70-99) Calcium Level 8.9 mg/dL (8.5-10.1) Test 07/23/19 05:35 07/23/19 07:28 07/23/19 08:20 07/23/19 11:57 Urine Collection Type Unknown Urine Color Yellow Urine Clarity Clear Urine pH 5.5 Urine Specific [place] 1.015 Urine Protein 100 mg/dL (NEG-TRACE) Urine Glucose (UA) Negative mg/dL (NEG) Urine Ketones (Stick) Negative mg/dL (NEG) Urine Blood Negative (NEG) Urine Nitrite Negative (NEG) Urine Bilirubin Negative (NEG) Urine Urobilinogen Dipstick 0.2 mg/dL (0.2 mg/dL) Urine Leukocyte Esterase Negative (NEG) Urine RBC 0 /HPF (0-2) Urine WBC 1-4 /HPF (0-4) Urine Squamous Epithelial Cells Few /LPF Urine Bacteria Few /HPF (0-FEW) Urine Hyaline Casts Moderate /HPF Urine Mucus Marked /LPF Urine Opiates Screen Pos (NEG) Urine Methadone Screen Neg (NEG) Urine Barbiturates Neg (NEG) Urine Phencyclidine Screen Neg (NEG) Urine Amphetamine/Methamphetamine Neg (NEG) Urine Benzodiazepines Screen Neg (NEG) Urine Cocaine Screen Neg (NEG) Urine Cannabinoids Screen Neg (NEG) Urine Ethyl Alcohol Neg (NEG) Glucose (Fingerstick) 165 mg/dL (70-99) 229 mg/dL (70-99) Lactic Acid Level 1.7 mmol/L (0.4-2.0) Test 07/23/19 17:05 07/23/19 21:01 07/24/19 05:00 07/24/19 07:37 Glucose (Fingerstick) 148 mg/dL (70-99) 284 mg/dL (70-99) 304 mg/dL (70-99) White Blood Count 17.3 x10^3/uL (4.0-11.0) Red Blood Count 3.99 x10^6/uL (3.50-5.40) Hemoglobin 11.5 g/dL (12.0-15.5) Hematocrit 35.1 % (36.0-47.0) Mean Corpuscular Volume 88 fL (79-100) Mean Corpuscular Hemoglobin 29 pg (25-35) Mean Corpuscular Hemoglobin Concent 33 g/dL (31-37) Red Cell Distribution Width 15.1 % (11.5-14.5) Platelet Count 190 x10^3/uL (140-400) Neutrophils (%) (Auto) 90 % (31-73) Lymphocytes (%) (Auto) 3 % (24-48) Monocytes (%) (Auto) 7 % (0-9) Eosinophils (%) (Auto) 0 % (0-3) Basophils (%) (Auto) 0 % (0-3) Neutrophils # (Auto) 15.5 x10^3/uL (1.8-7.7) Lymphocytes # (Auto) 0.5 x10^3/uL (1.0-4.8) Monocytes # (Auto) 1.2 x10^3/uL (0.0-1.1) Eosinophils # (Auto) 0.0 x10^3/uL (0.0-0.7) Basophils # (Auto) 0.0 x10^3/uL (0.0-0.2) Sodium Level 136 mmol/L (136-145) Potassium Level 3.8 mmol/L (3.5-5.1) Chloride Level 95 mmol/L (98-107) Carbon Dioxide Level 38 mmol/L (21-32) Anion Gap 3 (6-14) Blood Urea Nitrogen 15 mg/dL (7-20) Creatinine 1.2 mg/dL (0.6-1.0) Estimated GFR (Cockcroft-Gault) 45.2 Glucose Level 156 mg/dL (70-99) Lactic Acid Level 2.5 mmol/L (0.4-2.0) Calcium Level 8.5 mg/dL (8.5-10.1) Test 07/24/19 08:40 Lactic Acid Level 2.9 mmol/L (0.4-2.0) Laboratory Tests Test 07/23/19 11:57 07/23/19 17:05 07/23/19 21:01 07/24/19 05:00 Glucose (Fingerstick) 229 mg/dL (70-99) 148 mg/dL (70-99) 284 mg/dL (70-99) White Blood Count 17.3 x10^3/uL (4.0-11.0) Red Blood Count 3.99 x10^6/uL (3.50-5.40) Hemoglobin 11.5 g/dL (12.0-15.5) Hematocrit 35.1 % (36.0-47.0) Mean Corpuscular Volume 88 fL (79-100) Mean Corpuscular Hemoglobin 29 pg (25-35) Mean Corpuscular Hemoglobin Concent 33 g/dL (31-37) Red Cell Distribution Width 15.1 % (11.5-14.5) Platelet Count 190 x10^3/uL (140-400) Neutrophils (%) (Auto) 90 % (31-73) Lymphocytes (%) (Auto) 3 % (24-48) Monocytes (%) (Auto) 7 % (0-9) Eosinophils (%) (Auto) 0 % (0-3) Basophils (%) (Auto) 0 % (0-3) Neutrophils # (Auto) 15.5 x10^3/uL (1.8-7.7) Lymphocytes # (Auto) 0.5 x10^3/uL (1.0-4.8) Monocytes # (Auto) 1.2 x10^3/uL (0.0-1.1) Eosinophils # (Auto) 0.0 x10^3/uL (0.0-0.7) Basophils # (Auto) 0.0 x10^3/uL (0.0-0.2) Sodium Level 136 mmol/L (136-145) Potassium Level 3.8 mmol/L (3.5-5.1) Chloride Level 95 mmol/L (98-107) Carbon Dioxide Level 38 mmol/L (21-32) Anion Gap 3 (6-14) Blood Urea Nitrogen 15 mg/dL (7-20) Creatinine 1.2 mg/dL (0.6-1.0) Estimated GFR (Cockcroft-Gault) 45.2 Glucose Level 156 mg/dL (70-99) Lactic Acid Level 2.5 mmol/L (0.4-2.0) Calcium Level 8.5 mg/dL (8.5-10.1) Test 07/24/19 07:37 07/24/19 08:40 Glucose (Fingerstick) 304 mg/dL (70-99) Lactic Acid Level 2.9 mmol/L (0.4-2.0) Medications Active Scripts Medications Dose Route/Sig Max Daily Dose Days Date Category Banophen (Diphenhydramine Hcl) 25 Mg Capsule 25 Mg PO PRN BID PRN 07/22/19 Reported Nystatin 15 Gm Powder 1 Dereck TOP PRN BID PRN 07/22/19 Reported Metoclopramide Hcl 10 Mg/10 Ml Solution 5 Mg PO QIDACHS 30 01/26/19 Rx Polyethylene Glycol 3350 17 Gm Powd.pack 17 Gm PO PRN DAILY PRN 30 01/26/19 Rx Amitiza (Lubiprostone) 8 Mcg Capsule 8 Mcg PO BIDWMEALS 30 01/26/19 Rx Prednisone 20 Mg Tablet 20 Mg PO DAILY 3 01/26/19 Rx Prednisone (Prednisone) 10 Mg Tablet 50 Mg PO 1X 3 01/26/19 Rx Lantus (Insulin Glargine,Hum.rec.anlog) 100 Unit/1 Ml Vial 10 Unit SQ QHS 30 01/26/19 Rx Humalog (Insulin Lispro) 100 Unit/1 Ml Insuln.pen 10 Units SQ TIDWMEALS 30 01/26/19 Rx Prednisone (Prednisone) 10 Mg Tablet 10 Mg PO DAILY 30 12/31/18 Rx Montelukast Sodium Tablet (Montelukast Sodium) 10 Mg Tablet 10 Mg PO HS 12/27/18 Reported Protonix (Pantoprazole Sodium) 40 Mg Tablet.dr 40 Mg PO DAILYAC 11/29/18 Reported Tramadol Hcl 50 Mg Tablet 50 Mg PO Q6HRS PRN 11/13/18 Reported Gabapentin 600 Mg Tablet 600 Mg PO TID 06/25/17 Reported Levothyroxine Sodium 150 Mcg Tablet 150 Mcg PO DAILYAC 06/25/17 Reported Cymbalta (Duloxetine Hcl) 30 Mg Capsule.dr 30 Mg PO BID 06/25/17 Reported Sucralfate 1 Gm Tablet 1 Gm PO BID 02/11/17 Reported Loratadine 10 Mg Tablet 10 Mg PO DAILY 02/11/17 Reported Meloxicam 15 Mg Tablet 15 Mg PO DAILY 02/11/17 Reported NITRO-DUR 0.2mg/hr (Nitroglycerin) 1 Each Patch.td24 1 Each TD 02/11/17 Reported Potassium Chloride 8 Meq Capsule.er 8 Meq PO TID 06/30/16 Rx Hydrocodone-Apap 10-325 (Hydrocodone Bit/Acetaminophen) 1 Each Tablet 1 Tab PO PRN Q4HRS PRN 01/25/16 Reported Spiriva (Tiotropium [place]) 18 Mcg Cap.w.dev 18 Mcg IH DAILY 05/19/13 Reported Crestor (Rosuvastatin Calcium) 40 Mg Tablet 40 Mg PO DAILY 05/19/13 Reported Albuterol Sulfate Neb Soln (Albuterol Sulfate) 0.63 Mg/3 Ml Vial.neb 0.63 Mg IH QID 05/19/13 Reported Advair 500-50 Diskus (Fluticasone/Salmeterol) 1 Each Disk.w.dev 1 Each IH BID 05/19/13 Reported Lisinopril 10 Mg Tablet 10 Mg PO BID 05/19/13 Reported Lasix (Furosemide) 40 Mg Tablet 40 Mg PO BID 05/19/13 Reported Fosamax (Alendronate Sodium) 70 Mg Tablet 70 Mg PO Thursday05/19/13 Reported Flovent 44MCG Hfa (Fluticasone Propionate) 10.6 Gm Aer.w.adap 2 IH BID 05/19/13 Reported Bentyl (Dicyclomine Hcl) 10 Mg Capsule 10 Mg PO TID 05/19/13 Reported Impression . 1. [id number] hypercapnic respiratory failure secondary to acute exacerbation of chronic obstructive pulmonary disease and acute bronchitis. 2. The patient with oxygen-dependent chronic obstructive pulmonary disease and chronic hypercapnia comes in with acute on chronic decompensation. 3. Cough with yellow sputum production, likely acute bronchitis. No obvious consolidation seen on the chest x-ray. 4. Underlying obesity with a BMI of 34. 5. Mildly increase lactic acid, likely from increase WOB, less likely sepsis Plan . 1. Discontinue BiPAP and use cannula during the day. ABGs have improved. We will use BiPAP daily at bedtime. 2. Continue DuoNeb. 3. Continue antibiotics. 4. IV steroids with gradual taper. 5. DVT prophylaxis. 6. BS abx 7. Discussed with RN. / monitor ADAM JIN MD Jul 24, 2019 10:59
--- NOTE | 2019-07-24 11:27 | PDOC ---
PROGRESS NOTES Subjective Subjective lower abd pain, still nauseated Objective Objective Vital Signs Date Time Temp Pulse Resp B/P (MAP) Pulse Ox O2 Delivery O2 Flow Rate FiO2 07/24/19 10:37 98.3 74 22 97/54 (68) 96 Nasal Cannula 4.0 98.3 Intake and Output 07/24/19 07:00 Intake Total 3180 ml Output Total 2300 ml Balance 880 ml Intake Oral 1330 ml Other 1850 ml Output Urine Total 2300 ml Physical Exam Abdomen: Normal bowel sounds, Soft Heart: Regular rate, Normal S1 Extremities: No clubbing General: Alert HEENT: Atraumatic Lungs: Other (wheezing) MUSCULOSKELETAL: No swelling, Osteoarthritic changes both hands Neuro: Normal speech Psych/Mental Status: Mental status NL COMMENT rash around mouth from BIPAP Diagnosis Problem List Problems Medical Problems: (1) COPD (chronic obstructive pulmonary disease) Status: Acute (2) COPD exacerbation Status: Acute (3) Shortness of breath Status: Acute Assessment Assessment Problems Medical Problems: (1) COPD (chronic obstructive pulmonary disease) Status: Acute (2) COPD exacerbation Status: Acute (3) Shortness of breath Status: Acute Impression;Lactic acidosis? reason 1. COPD with acute exacerbation. 2. Lactic acidosis. 3. Chronic hypoxia on home oxygen. 4. Diabetes type 2. 5. Hypothyroidism. 6. Diabetic gastroparesis. 7. Anxiety. 8. Depression chronic. 9. Chronic narcotic pain medication for pain control. 10. General debility and general decline. Plan;Ct scan abd and pelvis today for abd pain cxr -ve, will repeat again today wbc 18 ? reactive due to steroids Blood cultures x2, urine culture, sputum culture. Start on broad-spectrum IV antibiotics Zyvox and Levaquin. Start on IV Solu-Medrol 120 mg loading dose and 80 mg every 8 hours. IV fluids for hydration monitor kidney function and lactic acid level. Breathing treatments with DuoNeb 4 times daily and as needed. Pulmonary consult Dr. Minaya. Cecy and Phenergan for nausea and vomiting. Plan Plan of Care Problems Medical Problems: (1) COPD (chronic obstructive pulmonary disease) Status: Acute (2) COPD exacerbation Status: Acute (3) Shortness of breath Status: Acute Comment Review of Relevant I have reviewed the following items vinny (where applicable) has been applied. Labs Laboratory Tests Test 07/23/19 11:57 07/23/19 17:05 3/7/20 21:01 07/24/19 05:00 Glucose (Fingerstick) 229 mg/dL (70-99) 148 mg/dL (70-99) 284 mg/dL (70-99) White Blood Count 17.3 x10^3/uL (4.0-11.0) Red Blood Count 3.99 x10^6/uL (3.50-5.40) Hemoglobin 11.5 g/dL (12.0-15.5) Hematocrit 35.1 % (36.0-47.0) Mean Corpuscular Volume 88 fL (79-100) Mean Corpuscular Hemoglobin 29 pg (25-35) Mean Corpuscular Hemoglobin Concent 33 g/dL (31-37) Red Cell Distribution Width 15.1 % (11.5-14.5) Platelet Count 190 x10^3/uL (140-400) Neutrophils (%) (Auto) 90 % (31-73) Lymphocytes (%) (Auto) 3 % (24-48) Monocytes (%) (Auto) 7 % (0-9) Eosinophils (%) (Auto) 0 % (0-3) Basophils (%) (Auto) 0 % (0-3) Neutrophils # (Auto) 15.5 x10^3/uL (1.8-7.7) Lymphocytes # (Auto) 0.5 x10^3/uL (1.0-4.8) Monocytes # (Auto) 1.2 x10^3/uL (0.0-1.1) Eosinophils # (Auto) 0.0 x10^3/uL (0.0-0.7) Basophils # (Auto) 0.0 x10^3/uL (0.0-0.2) Sodium Level 136 mmol/L (136-145) Potassium Level 3.8 mmol/L (3.5-5.1) Chloride Level 95 mmol/L (98-107) Carbon Dioxide Level 38 mmol/L (21-32) Anion Gap 3 (6-14) Blood Urea Nitrogen 15 mg/dL (7-20) Creatinine 1.2 mg/dL (0.6-1.0) Estimated GFR (Cockcroft-Gault) 45.2 Glucose Level 156 mg/dL (70-99) Lactic Acid Level 2.5 mmol/L (0.4-2.0) Calcium Level 8.5 mg/dL (8.5-10.1) Test 07/24/19 07:37 07/24/19 08:40 Glucose (Fingerstick) 304 mg/dL (70-99) Lactic Acid Level 2.9 mmol/L (0.4-2.0) Microbiology 07/22/19 Blood Culture - Preliminary, Resulted NO GROWTH AFTER 1 DAY Medications Current Medications Acetaminophen/ Hydrocodone Bitart (Lortab 10/325) 1 tab PRN Q4HRS PRN PO SEVERE PAIN Last administered on 07/24/19 04:23; Start 07/23/19 at 11:30 Albuterol/ Ipratropium (Duoneb) 3 ml RTQID NEB Last administered on 07/24/19 07:33; Start 07/23/19 at 12:00 Atorvastatin Calcium (Lipitor) 80 mg DAILY PO ; Start 07/23/19 at 12:00; Stop 07/23/19 at 15:51; Status DC Atorvastatin Calcium (Lipitor) 80 mg HS PO Last administered on 07/23/19 19:56; Start 07/23/19 at 21:00 Budesonide (Pulmicort) 0.5 mg RTBID NEB Last administered on 07/24/19 07:33; Start 07/23/19 at 20:00 Cetirizine HCl (ZyrTEC) 10 mg DAILY PO Last administered on 07/24/19at 08:11; Start 07/23/19 at 12:00 Dextrose (Dextrose 50%-Water Syringe) 12.5 gm PRN Q15MIN PRN IV SEE COMMENTS; Start 07/23/19 at 11:30 Dicyclomine HCl (Bentyl) 10 mg TID PO Last administered on 07/24/19 07:20; Start 07/23/19 at 14:00 Diphenhydramine HCl (Benadryl) 25 mg PRN BID PRN PO ITCHING Last administered on 07/23/19 19:40; Start 07/23/19 at 11:30 Duloxetine HCl (Cymbalta) 30 mg BID PO Last administered on 07/24/19 08:10; Start 07/23/19 at 12:00 Furosemide (Lasix) 40 mg BID94 PO Last administered on 07/24/19 08:11; Start 07/23/19 at 12:00 Gabapentin (Neurontin) 600 mg TID PO Last administered on 07/24/19 08:11; Start 07/23/19 at 14:00 Insulin Glargine (Lantus Syringe) 10 unit QHS SQ Last administered on 07/23/19 21:28; Start 07/23/19 at 21:00 Insulin Human Lispro (HumaLOG) 0-7 UNITS TIDWMEALS SQ Last administered on 07/24/19 08:16; Start 07/23/19 at 12:00 Lactobacillus Rhamnosus (Culturelle) 1 cap BID PO Last administered on 07/24/19 08:11; Start 07/23/19 at 21:00 Levothyroxine Sodium (Synthroid) 150 mcg DAILY06 PO Last administered on 07/24/19 04:22; Start 07/23/19 at 12:00 Lisinopril (Prinivil) 10 mg BID PO Last administered on 07/24/19 08:11; Start 07/23/19 at 12:00 Meloxicam (Mobic) 15 mg DAILY PO Last administered on 07/24/19 08:12; Start 07/23/19 at 12:00 Metoclopramide HCl (Reglan) 5 mg QIDACHS PO Last administered on 07/24/19 07:21; Start 07/23/19 at 11:30 Montelukast Sodium (Singulair) 10 mg HS PO Last administered on 07/23/19 19:56; Start 07/23/19 at 21:00 Non-Formulary Medication (Albuterol Sulfate (Albuterol Sulfate Neb Soln)) 0.63 mg QID IH ; Start 07/23/19 at 13:00; Status UNV Non-Formulary Medication (Fluticasone/ Salmeterol (Advair 500-50 Diskus)) 1 each BID IH ; Start 07/23/19 at 21:00; Status UNV Non-Formulary Medication (Lubiprostone (Amitiza)) 8 mcg BIDWMEALS PO ; Start 07/23/19 at 17:00; Status UNV Pantoprazole Sodium (Protonix) 40 mg DAILYAC PO Last administered on 3/8/20at 07:20; Start 07/23/19 at 12:00 Polyethylene Glycol (miraLAX PACKET) 17 gm PRN DAILY PRN PO CONSTIPATION; Start 07/23/19 at 11:30 Potassium Chloride/Sodium Chloride 1,000 ml @ 75 mls/hr [id number] IV Last administered on 07/23/19at 23:36; Start 07/23/19 at 13:00 Potassium Chloride (Klor-Con) 10 meq BIDWMEALS PO Last administered on 07/24/19at 08:11; Start 07/23/19 at 12:00 Potassium Chloride (Klor-Con) 20 meq 1X ONCE PO ; Start 07/23/19 at 14:30; Stop 07/23/19 at 14:31; Status DC Potassium Chloride (Klor-Con) 40 meq 1X ONCE PO Last administered on 07/23/19at 15:55; Start 07/23/19 at 11:30; Stop 07/23/19 at 11:46; Status DC Sucralfate (Carafate) 1 gm BIDAC PO Last administered on 07/24/19 07:20; Start 07/23/19 at 12:00 Tramadol HCl (Ultram) 50 mg PRN Q6HRS PRN PO MILD TO MODERATE PAIN Last administered on 07/24/19 07:21; Start 07/23/19 at 11:30 Vitals/I & O Vital Sign - Last 24 Hours 07/23/19 07/23/19 07/23/19 07/23/19 12:13 15:00 16:02 16:13 Temp 97.4 97.4 Pulse 79 Resp 24 B/P (MAP) 128/62 (84) Pulse Ox 98 92 92 92 O2 Delivery Nasal Cannula Nasal Cannula Nasal Cannula Nasal Cannula O2 Flow Rate 5.0 4.0 4.0 4.5 07/23/19 07/23/19 07/23/19 07/23/19 19:00 19:36 19:37 19:39 Temp 98.0 98.0 Pulse 87 79 Resp 20 20 20 B/P (MAP) 136/77 (96) 128/62 Pulse Ox 92 92 92 O2 Delivery Nasal Cannula O2 Flow Rate 4.5 4.5 07/23/19 07/23/19 07/23/19 07/23/19 20:00 20:18 20:36 20:36 Resp 20 20 Pulse Ox 93 93 93 O2 Delivery Room Air Nasal Cannula Room Air Room Air O2 Flow Rate 4.0 4.0 4.0 4.0 07/23/19 07/23/19 07/23/19 07/24/19 22:05 22:59 23:42 02:00 Temp 97.6 97.6 Pulse 89 Resp 20 B/P (MAP) 137/72 (93) Pulse Ox 97 96 97 97 O2 Delivery BiPAP/CPAP BiPAP/CPAP BiPAP/CPAP BiPAP/CPAP 07/24/19 07/24/19 07/24/19 07/24/19 03:00 04:23 05:10 05:23 Temp 97.5 97.5 Pulse 88 Resp 20 18 18 B/P (MAP) 133/57 (82) Pulse Ox 97 97 97 97 O2 Delivery BiPAP/CPAP Room Air BiPAP/CPAP Room Air O2 Flow Rate 4.0 4.0 07/24/19 07/24/19 07/24/19 07/24/19 07:00 07:21 07:30 07:33 Temp 97.9 97.9 Pulse 78 Resp 20 B/P (MAP) 120/56 (77) Pulse Ox 97 97 92 O2 Delivery Nasal Cannula Room Air Nasal Cannula Nasal Cannula O2 Flow Rate 4.0 4.0 4.0 4.0 07/24/19 07/24/19 07/24/19 08:11 08:20 10:37 Temp 98.3 98.3 Pulse 78 74 Resp 22 B/P (MAP) 120/56 97/54 (68) Pulse Ox 92 96 O2 Delivery Nasal Cannula Nasal Cannula O2 Flow Rate 4.0 4.0 Intake and Output 07/23/19 07/23/19 07/24/19 15:00 23:00 07:00 Intake Total 300 ml 240 ml 2640 ml Output Total 200 ml 800 ml 1300 ml Balance 100 ml -560 ml 1340 ml Hemodynamically unstable?: No Respiratory Distress?: Yes Serious Diagnosis?: Yes Is patient at high risk?: Yes MIGUEL DELAROSA MD Jul 24, 2019 11:27
[2019-07-24] MEDS: TRIAMCINOLONE ACETONIDE 0.1% TOPICAL CREAM 15GM TUBE. TP SCH ×2 (13:12→20:52)
[2019-07-24] MEDS: SODIUM CHL/ALOE VERA NASAL GEL 14.1GM TUBE. NS PRN ×2 (13:20→20:53)
[2019-07-24] MEDS ORDERED: IOHEXOL 240 MG/ML 50ML VIAL. PO ONE (14:15)
[2019-07-24] MEDS ORDERED: CONTRAST GIVEN. MC PRN (14:15)
[2019-07-24] MEDS ORDERED: IOHEXOL 300 MG/ML 100ML VIAL. IV ONE (14:15)
[2019-07-24 15:00] VITALS: BP 114/56
--- NOTE | 2019-07-24 16:49 | RAD ---
Exam performed: CT abdomen and pelvis with contrast HISTORY: Abdominal pain, lactic acidosis. DATE OF SERVICE: 07/24/2019. COMPARISON: CT abdomen and pelvis from 12/27/2018. TECHNIQUE: Contiguous helical acquisitions are obtained through the abdomen and pelvis during intravenous administration of 60 cc of Omnipaque 300. Sagittal and coronal reformatted images are obtained and reviewed. FINDINGS: Linear occasional opacity seen in both lung bases. Visualized heart is normal. The liver, spleen and pancreas appear normal. Cholecystectomy. Both adrenal glands and bilateral kidneys are normal in size with symmetric excretion of contrast via both kidneys. Diffuse atheromatous aortic calcification. Small and large bowel loops are nondilated and unremarkable. Scattered stool in the colon. Appendix not clearly seen. The bladder is partially decompressed. Hysterectomy. No adnexal masses seen. There are degenerative disc disease at L3/4 level. IMPRESSION: No acute intra-abdominal or pelvic process detected. PQRS Compliance Statement: One or more of the following individualized dose reduction techniques were utilized for this examination: 1. Automated exposure control 2. Adjustment of the mA and/or kV according to patient size 3. Use of iterative reconstruction technique Electronically signed by: María Mcknight MD (07/24/2019 4:46 PM) [id number]
[2019-07-24] MEDS: POTASSIUM CL 40MEQ IN 0.9%NACL 1,000 ML IV SCH (16:53)
[2019-07-24 19:00] VITALS: BP 122/66
[2019-07-24] MEDS: MONTELUKAST SODIUM 10 MG TABLET. PO SCH (20:44)
[2019-07-24] MEDS: ATORVASTATIN CALCIUM 40 MG TABLET. PO SCH (20:44)
[2019-07-24] MEDS ORDERED: TRIAMCINOLONE ACETONIDE 0.1% TOPICAL CREAM 15GM TUBE. TP SCH (21:00)
[2019-07-24] MEDS: INSULIN GLARGINE SYRINGE. SQ SCH (21:04)
[2019-07-24 23:00] VITALS: BP 132/75
[2019-07-25] VITALS (7 sets, daily range): BP systolic 95–147; BP diastolic 51–96
[2019-07-25] MEDS: HYDROcodone/APAP 10/325 1 TAB TABLET PO PRN ×2 (01:05→05:50)
[2019-07-25] MEDS: LEVOTHYROXINE 150 MCG TABLET PO SCH (05:49)
[2019-07-25] MEDS: methylPREDNISolone SOD SUCC PF 40 MG/ML VIAL. IV SCH ×3 (05:49→21:12)
[2019-07-25] MEDS: ONDANSETRON PF 4 MG/2 ML VIAL. IVP PRN (05:54)
[2019-07-25 07:23] LABS: BASO % 0 % (0-3); EOS % 0 % (0-3); HEMATOCRIT 35.8 % (36.0-47.0); HEMOGLOBIN 11.5 g/dL (12.0-15.5); LYMPH # 0.7 x10^3/uL (1.0-4.8); LYMPH % 4 % (24-48); MEAN CORPUSCULAR HEMOGLOBIN 29 pg (25-35); MEAN CORPUSCULAR HGB CONC 32 g/dL (31-37); MEAN CORPUSCULAR VOLUME 89 fL (79-100); MONO % 5 % (0-9); NEUT # 17.1 x10^3/uL (1.8-7.7); NEUT % 91 % (31-73); PLATELET COUNT 198 x10^3/uL (140-400); RED BLOOD COUNT 4.03 x10^6/uL (3.50-5.40); RED CELL DISTRIBUTION WIDTH 15.1 % (11.5-14.5); WHITE BLOOD COUNT 18.8 x10^3/uL (4.0-11.0)
[2019-07-25 07:37] LABS: CALCIUM 8.2 mg/dL (8.5-10.1); CREATININE 1.1 mg/dL (0.6-1.0); POTASSIUM 4.6 mmol/L (3.5-5.1)
[2019-07-25] MEDS: PROMETHAZINE 12.5 MG TABLET. PO PRN (08:35)
[2019-07-25] MEDS: MELOXICAM 7.5 MG TABLET PO SCH (08:36)
[2019-07-25] MEDS: LACTOBACILLUS RHAMNOSUS GG 1 CAPSULE. PO SCH ×2 (08:36→21:12)
[2019-07-25] MEDS: METOCLOPRAMIDE 5 MG TABLET. PO SCH ×4 (08:37→21:11)
[2019-07-25] MEDS: CETIRIZINE HCL 10 MG TABLET. PO SCH (08:37)
[2019-07-25] MEDS: DICYCLOMINE HCL 10 MG CAPSULE PO SCH ×3 (08:37→21:12)
[2019-07-25] MEDS: DULoxetine HCL 30 MG CAPSULE.DR PO SCH ×2 (08:37→21:12)
[2019-07-25] MEDS: PANTOPRAZOLE 40 MG TABLET.DR. PO SCH (08:37)
[2019-07-25] MEDS: FUROSEMIDE 40 MG TABLET. PO SCH ×2 (08:37→17:01)
[2019-07-25] MEDS: SUCRALFATE 1 GM TABLET. PO SCH ×2 (08:37→17:00)
[2019-07-25] MEDS: POTASSIUM CHLORIDE 10 MEQ TABLET.ER. PO SCH ×2 (08:38→17:00)
[2019-07-25] MEDS: GABAPENTIN 300 MG CAPSULE. PO SCH ×3 (08:38→21:12)
[2019-07-25] MEDS: LISINOPRIL 10 MG TABLET PO SCH ×2 (08:38→21:12)
[2019-07-25] MEDS: TRIAMCINOLONE ACETONIDE 0.1% TOPICAL CREAM 15GM TUBE. TP SCH ×2 (08:39→21:13)
[2019-07-25] MEDS: ENOXAPARIN 40 MG/0.4 ML SYRINGE. SQ SCH (08:39)
[2019-07-25] MEDS: INSULIN LISPRO 300 UNITS/3 ML VIAL. SQ SCH ×3 (08:54→17:00)
[2019-07-25] MEDS: IPRATRPIUM/ALBUTEROL 0.5/2.5MG 3 ML NEBU. NEB SCH ×4 (08:57→20:32)
[2019-07-25] MEDS: BUDESONIDE 0.5 MG/2 ML NEBU. NEB SCH ×2 (08:57→20:32)
--- NOTE | 2019-07-25 10:27 | PDOC ---
PROGRESS NOTES Subjective Subjective c/o abd discomfort Objective Objective Vital Signs Date Time Temp Pulse Resp B/P (MAP) Pulse Ox O2 Delivery O2 Flow Rate FiO2 07/25/19 08:58 95 Nasal Cannula 4.0 07/25/19 08:38 78 119/66 07/25/19 07:00 98.3 20 98.3 Intake and Output 07/25/19 07:00 Intake Total 1671 ml Output Total 3750 ml Balance -2079 ml Intake Oral 1671 ml Output Urine Total 3750 ml Physical Exam Abdomen: Normal bowel sounds, Soft Heart: Regular rate, Normal S1 Extremities: No clubbing General: Alert HEENT: Atraumatic Lungs: Other (wheezing) MUSCULOSKELETAL: No swelling, Osteoarthritic changes both hands Neuro: Normal speech Psych/Mental Status: Mental status NL COMMENT rash around mouth from BIPAP Diagnosis Problem List Problems Medical Problems: (1) COPD (chronic obstructive pulmonary disease) Status: Acute (2) COPD exacerbation Status: Acute (3) Shortness of breath Status: Acute Assessment Assessment Problems Medical Problems: (1) COPD (chronic obstructive pulmonary disease) Status: Acute (2) COPD exacerbation Status: Acute (3) Shortness of breath Status: Acute Impression; harjeet wbc ,Lactic acidosis? reason 1. COPD with acute exacerbation. 2. Lactic acidosis. 3. Chronic hypoxia on home oxygen. 4. Diabetes type 2. 5. Hypothyroidism. 6. Diabetic gastroparesis. 7. Anxiety. 8. Depression chronic. 9. Chronic narcotic pain medication for pain control. 10. General debility and general decline. Plan;Will consult ID for harjeet wbc and lactic acidosis Ct scan abd and pelvis -neg cxr -ve, will repeat again today wbc 18 ? reactive due to steroids Blood cultures x2, urine culture, sputum culture. Start on broad-spectrum IV antibiotics Zyvox and Levaquin. Start on IV Solu-Medrol 120 mg loading dose and 80 mg every 8 hours. IV fluids for hydration monitor kidney function and lactic acid level. Breathing treatments with DuoNeb 4 times daily and as needed. Zofran and Phenergan for nausea and vomiting. Plan Plan of Care Problems Medical Problems: (1) COPD (chronic obstructive pulmonary disease) Status: Acute (2) COPD exacerbation Status: Acute (3) Shortness of breath Status: Acute Comment Review of Relevant I have reviewed the following items vinny (where applicable) has been applied. Labs Laboratory Tests Test 07/24/19 11:50 07/24/19 16:39 07/24/19 20:20 07/25/19 05:35 Glucose (Fingerstick) 163 mg/dL (70-99) 241 mg/dL (70-99) 168 mg/dL (70-99) Sodium Level 134 mmol/L (136-145) Potassium Level 4.6 mmol/L (3.5-5.1) Chloride Level 95 mmol/L (98-107) Carbon Dioxide Level 37 mmol/L (21-32) Anion Gap 2 (6-14) Blood Urea Nitrogen 14 mg/dL (7-20) Creatinine 1.1 mg/dL (0.6-1.0) Estimated GFR (Cockcroft-Gault) 50.0 Glucose Level 213 mg/dL (70-99) Calcium Level 8.2 mg/dL (8.5-10.1) Test 07/25/19 06:00 07/25/19 08:02 White Blood Count 18.8 x10^3/uL (4.0-11.0) Red Blood Count 4.03 x10^6/uL (3.50-5.40) Hemoglobin 11.5 g/dL (12.0-15.5) Hematocrit 35.8 % (36.0-47.0) Mean Corpuscular Volume 89 fL (79-100) Mean Corpuscular Hemoglobin 29 pg (25-35) Mean Corpuscular Hemoglobin Concent 32 g/dL (31-37) Red Cell Distribution Width 15.1 % (11.5-14.5) Platelet Count 198 x10^3/uL (140-400) Neutrophils (%) (Auto) 91 % (31-73) Lymphocytes (%) (Auto) 4 % (24-48) Monocytes (%) (Auto) 5 % (0-9) Eosinophils (%) (Auto) 0 % (0-3) Basophils (%) (Auto) 0 % (0-3) Neutrophils # (Auto) 17.1 x10^3/uL (1.8-7.7) Lymphocytes # (Auto) 0.7 x10^3/uL (1.0-4.8) Monocytes # (Auto) 1.0 x10^3/uL (0.0-1.1) Eosinophils # (Auto) 0.0 x10^3/uL (0.0-0.7) Basophils # (Auto) 0.0 x10^3/uL (0.0-0.2) Lactic Acid Level 2.8 mmol/L (0.4-2.0) Glucose (Fingerstick) 272 mg/dL (70-99) Microbiology 07/22/19 Blood Culture - Preliminary, Resulted NO GROWTH AFTER 2 DAYS Medications Current Medications Info (CONTRAST GIVEN -- Rx MONITORING) 1 each PRN DAILY PRN MC SEE COMMENTS; Start 07/24/19 at 14:15; Stop 07/26/19 at 14:14 Iohexol (Omnipaque 240 Mg/ml) 30 ml 1X ONCE PO Last administered on 07/24/19at 14:33; Start 07/24/19 at 14:15; Stop 07/24/19 at 14:16; Status DC Iohexol (Omnipaque 300 Mg/ml) 60 ml 1X ONCE IV Last administered on 07/24/19at 14:33; Start 07/24/19 at 14:15; Stop 07/24/19 at 14:16; Status DC Sodium Chloride ([place] Saline Nasal) 1 georges PRN DAILY PRN NS NASAL CONGESTION Last administered on 07/24/19at 20:53; Start 07/24/19 at 11:30 Triamcinolone Acetonide (Kenalog 0.1%) 1 georges BID TP Last administered on 07/25/19at 08:39; Start 07/24/19 at 12:15 Triamcinolone Acetonide (Kenalog 0.1%) 1 georges BID TP ; Start 07/24/19 at 21:00; Stop 07/24/19 at 12:10; Status DC Vitals/I & O Vital Sign - Last 24 Hours 07/24/19 07/24/19 07/24/19 07/24/19 10:37 11:42 15:00 16:30 Temp 98.3 98.2 98.3 98.2 Pulse 74 80 Resp 22 22 B/P (MAP) 97/54 (68) 114/56 (75) Pulse Ox 96 96 96 O2 Delivery Nasal Cannula Nasal Cannula Nasal Cannula Nasal Cannula O2 Flow Rate 4.0 4.0 4.0 4.0 07/24/19 07/24/19 07/24/19 07/24/19 16:47 17:30 19:00 20:00 Temp 97.9 97.9 Pulse 73 Resp 20 B/P (MAP) 122/66 (84) Pulse Ox 96 96 O2 Delivery Nasal Cannula Nasal Cannula Nasal Cannula Nasal Cannula O2 Flow Rate 4.0 4.0 4.0 4.0 07/24/19 07/24/19 07/24/19 07/24/19 20:24 20:28 20:44 23:00 Temp 96.7 96.7 Pulse 73 67 Resp 28 B/P (MAP) 122/66 132/75 (94) Pulse Ox 96 96 98 O2 Delivery Nasal Cannula Nasal Cannula Nasal Cannula O2 Flow Rate 4.0 4.0 4.0 07/24/19 07/25/19 07/25/19 07/25/19 23:43 02:08 03:00 05:00 Temp 97.2 97.2 Pulse 53 Resp 24 B/P (MAP) 119/66 (83) Pulse Ox 99 O2 Delivery BiPAP/CPAP BiPAP/CPAP Nasal Cannula BiPAP/CPAP O2 Flow Rate 4.0 07/25/19 07/25/19 07/25/19 07/25/19 06:50 07:00 08:38 08:58 Temp 98.3 98.3 Pulse 80 78 Resp 20 B/P (MAP) 147/64 (91) 119/66 Pulse Ox 99 97 95 O2 Delivery Nasal Cannula Nasal Cannula Nasal Cannula O2 Flow Rate 4.0 4.0 4.0 Intake and Output 07/24/19 07/24/19 07/25/19 15:00 23:00 07:00 Intake Total 480 ml 954 ml 237 ml Output Total 1200 ml 2000 ml 550 ml Balance -720 ml -1046 ml -313 ml Hemodynamically unstable?: No Respiratory Distress?: Yes Serious Diagnosis?: Yes Is patient at high risk?: Yes MIGUEL DELAROSA MD Jul 25, 2019 10:26
--- NOTE | 2019-07-25 10:56 | PDOC ---
Infectious Disease Note Vital Sign Vital Signs Vital Signs Date Time Temp Pulse Resp B/P (MAP) Pulse Ox O2 Delivery O2 Flow Rate FiO2 07/25/19 10:48 97.9 87 20 147/67 (93) 97 Nasal Cannula 4.0 97.9 Labs Lab Laboratory Tests Test 07/24/19 11:50 07/24/19 16:39 07/24/19 20:20 07/25/19 05:35 Glucose (Fingerstick) 163 mg/dL (70-99) 241 mg/dL (70-99) 168 mg/dL (70-99) Sodium Level 134 mmol/L (136-145) Potassium Level 4.6 mmol/L (3.5-5.1) Chloride Level 95 mmol/L (98-107) Carbon Dioxide Level 37 mmol/L (21-32) Anion Gap 2 (6-14) Blood Urea Nitrogen 14 mg/dL (7-20) Creatinine 1.1 mg/dL (0.6-1.0) Estimated GFR (Cockcroft-Gault) 50.0 Glucose Level 213 mg/dL (70-99) Calcium Level 8.2 mg/dL (8.5-10.1) Test 07/25/19 06:00 07/25/19 08:02 White Blood Count 18.8 x10^3/uL (4.0-11.0) Red Blood Count 4.03 x10^6/uL (3.50-5.40) Hemoglobin 11.5 g/dL (12.0-15.5) Hematocrit 35.8 % (36.0-47.0) Mean Corpuscular Volume 89 fL (79-100) Mean Corpuscular Hemoglobin 29 pg (25-35) Mean Corpuscular Hemoglobin Concent 32 g/dL (31-37) Red Cell Distribution Width 15.1 % (11.5-14.5) Platelet Count 198 x10^3/uL (140-400) Neutrophils (%) (Auto) 91 % (31-73) Lymphocytes (%) (Auto) 4 % (24-48) Monocytes (%) (Auto) 5 % (0-9) Eosinophils (%) (Auto) 0 % (0-3) Basophils (%) (Auto) 0 % (0-3) Neutrophils # (Auto) 17.1 x10^3/uL (1.8-7.7) Lymphocytes # (Auto) 0.7 x10^3/uL (1.0-4.8) Monocytes # (Auto) 1.0 x10^3/uL (0.0-1.1) Eosinophils # (Auto) 0.0 x10^3/uL (0.0-0.7) Basophils # (Auto) 0.0 x10^3/uL (0.0-0.2) Lactic Acid Level 2.8 mmol/L (0.4-2.0) Glucose (Fingerstick) 272 mg/dL (70-99) Micro Microbiology 07/22/19 Blood Culture - Preliminary, Resulted NO GROWTH AFTER 2 DAYS Objective Assessment pt seen, consult dictated Plan Plan of Care / LUTHER SHEIKH MD Jul 25, 2019 10:56
--- NOTE | 2019-07-25 12:38 | PDOC ---
PULMONARY PROGRESS NOTES Subjective c/o mild soa/ wheezing Vitals Vital Signs Date Time Temp Pulse Resp B/P (MAP) Pulse Ox O2 Delivery O2 Flow Rate FiO2 07/25/19 11:56 99 Nasal Cannula 4.0 07/25/19 10:48 97.9 87 20 147/67 (93) 97.9 General: Alert, No acute distress Lungs: Wheezing (faint) Cardiovascular: S1, S2 Abdomen: Soft, Non-tender Extremities: No Edema Skin: Warm Labs Laboratory Tests Test 07/23/19 17:05 07/23/19 21:01 07/24/19 05:00 07/24/19 07:37 Glucose (Fingerstick) 148 mg/dL (70-99) 284 mg/dL (70-99) 304 mg/dL (70-99) White Blood Count 17.3 x10^3/uL (4.0-11.0) Red Blood Count 3.99 x10^6/uL (3.50-5.40) Hemoglobin 11.5 g/dL (12.0-15.5) Hematocrit 35.1 % (36.0-47.0) Mean Corpuscular Volume 88 fL (79-100) Mean Corpuscular Hemoglobin 29 pg (25-35) Mean Corpuscular Hemoglobin Concent 33 g/dL (31-37) Red Cell Distribution Width 15.1 % (11.5-14.5) Platelet Count 190 x10^3/uL (140-400) Neutrophils (%) (Auto) 90 % (31-73) Lymphocytes (%) (Auto) 3 % (24-48) Monocytes (%) (Auto) 7 % (0-9) Eosinophils (%) (Auto) 0 % (0-3) Basophils (%) (Auto) 0 % (0-3) Neutrophils # (Auto) 15.5 x10^3/uL (1.8-7.7) Lymphocytes # (Auto) 0.5 x10^3/uL (1.0-4.8) Monocytes # (Auto) 1.2 x10^3/uL (0.0-1.1) Eosinophils # (Auto) 0.0 x10^3/uL (0.0-0.7) Basophils # (Auto) 0.0 x10^3/uL (0.0-0.2) Sodium Level 136 mmol/L (136-145) Potassium Level 3.8 mmol/L (3.5-5.1) Chloride Level 95 mmol/L (98-107) Carbon Dioxide Level 38 mmol/L (21-32) Anion Gap 3 (6-14) Blood Urea Nitrogen 15 mg/dL (7-20) Creatinine 1.2 mg/dL (0.6-1.0) Estimated GFR (Cockcroft-Gault) 45.2 Glucose Level 156 mg/dL (70-99) Lactic Acid Level 2.5 mmol/L (0.4-2.0) Calcium Level 8.5 mg/dL (8.5-10.1) Test 07/24/19 08:40 07/24/19 11:50 07/24/19 16:39 07/24/19 20:20 Lactic Acid Level 2.9 mmol/L (0.4-2.0) Glucose (Fingerstick) 163 mg/dL (70-99) 241 mg/dL (70-99) 168 mg/dL (70-99) Test 07/25/19 05:35 07/25/19 06:00 07/25/19 08:02 07/25/19 10:30 Sodium Level 134 mmol/L (136-145) Potassium Level 4.6 mmol/L (3.5-5.1) Chloride Level 95 mmol/L (98-107) Carbon Dioxide Level 37 mmol/L (21-32) Anion Gap 2 (6-14) Blood Urea Nitrogen 14 mg/dL (7-20) Creatinine 1.1 mg/dL (0.6-1.0) Estimated GFR (Cockcroft-Gault) 50.0 Glucose Level 213 mg/dL (70-99) Calcium Level 8.2 mg/dL (8.5-10.1) White Blood Count 18.8 x10^3/uL (4.0-11.0) Red Blood Count 4.03 x10^6/uL (3.50-5.40) Hemoglobin 11.5 g/dL (12.0-15.5) Hematocrit 35.8 % (36.0-47.0) Mean Corpuscular Volume 89 fL (79-100) Mean Corpuscular Hemoglobin 29 pg (25-35) Mean Corpuscular Hemoglobin Concent 32 g/dL (31-37) Red Cell Distribution Width 15.1 % (11.5-14.5) Platelet Count 198 x10^3/uL (140-400) Neutrophils (%) (Auto) 91 % (31-73) Lymphocytes (%) (Auto) 4 % (24-48) Monocytes (%) (Auto) 5 % (0-9) Eosinophils (%) (Auto) 0 % (0-3) Basophils (%) (Auto) 0 % (0-3) Neutrophils # (Auto) 17.1 x10^3/uL (1.8-7.7) Lymphocytes # (Auto) 0.7 x10^3/uL (1.0-4.8) Monocytes # (Auto) 1.0 x10^3/uL (0.0-1.1) Eosinophils # (Auto) 0.0 x10^3/uL (0.0-0.7) Basophils # (Auto) 0.0 x10^3/uL (0.0-0.2) Lactic Acid Level 2.8 mmol/L (0.4-2.0) 2.1 mmol/L (0.4-2.0) Glucose (Fingerstick) 272 mg/dL (70-99) Test 07/25/19 11:38 Glucose (Fingerstick) 224 mg/dL (70-99) Laboratory Tests Test 07/24/19 16:39 07/24/19 20:20 07/25/19 05:35 07/25/19 06:00 Glucose (Fingerstick) 241 mg/dL (70-99) 168 mg/dL (70-99) Sodium Level 134 mmol/L (136-145) Potassium Level 4.6 mmol/L (3.5-5.1) Chloride Level 95 mmol/L (98-107) Carbon Dioxide Level 37 mmol/L (21-32) Anion Gap 2 (6-14) Blood Urea Nitrogen 14 mg/dL (7-20) Creatinine 1.1 mg/dL (0.6-1.0) Estimated GFR (Cockcroft-Gault) 50.0 Glucose Level 213 mg/dL (70-99) Calcium Level 8.2 mg/dL (8.5-10.1) White Blood Count 18.8 x10^3/uL (4.0-11.0) Red Blood Count 4.03 x10^6/uL (3.50-5.40) Hemoglobin 11.5 g/dL (12.0-15.5) Hematocrit 35.8 % (36.0-47.0) Mean Corpuscular Volume 89 fL (79-100) Mean Corpuscular Hemoglobin 29 pg (25-35) Mean Corpuscular Hemoglobin Concent 32 g/dL (31-37) Red Cell Distribution Width 15.1 % (11.5-14.5) Platelet Count 198 x10^3/uL (140-400) Neutrophils (%) (Auto) 91 % (31-73) Lymphocytes (%) (Auto) 4 % (24-48) Monocytes (%) (Auto) 5 % (0-9) Eosinophils (%) (Auto) 0 % (0-3) Basophils (%) (Auto) 0 % (0-3) Neutrophils # (Auto) 17.1 x10^3/uL (1.8-7.7) Lymphocytes # (Auto) 0.7 x10^3/uL (1.0-4.8) Monocytes # (Auto) 1.0 x10^3/uL (0.0-1.1) Eosinophils # (Auto) 0.0 x10^3/uL (0.0-0.7) Basophils # (Auto) 0.0 x10^3/uL (0.0-0.2) Lactic Acid Level 2.8 mmol/L (0.4-2.0) Test 07/25/19 08:02 07/25/19 10:30 07/25/19 11:38 Glucose (Fingerstick) 272 mg/dL (70-99) 224 mg/dL (70-99) Lactic Acid Level 2.1 mmol/L (0.4-2.0) Medications Active Scripts Medications Dose Route/Sig Max Daily Dose Days Date Category Banophen (Diphenhydramine Hcl) 25 Mg Capsule 25 Mg PO PRN BID PRN 07/22/19 Reported Nystatin 15 Gm Powder 1 Dereck TOP PRN BID PRN 07/22/19 Reported Metoclopramide Hcl 10 Mg/10 Ml Solution 5 Mg PO QIDACHS 01/26/19 Rx Polyethylene Glycol 3350 17 Gm Powd.pack 17 Gm PO PRN DAILY PRN 30 01/26/19 Rx Amitiza (Lubiprostone) 8 Mcg Capsule 8 Mcg PO BIDWMEALS 30 01/26/19 Rx Prednisone 20 Mg Tablet 20 Mg PO DAILY 3 01/26/19 Rx Prednisone (Prednisone) 10 Mg Tablet 50 Mg PO 1X 3 01/26/19 Rx Lantus (Insulin Glargine,Hum.rec.anlog) 100 Unit/1 Ml Vial 10 Unit SQ QHS 30 01/26/19 Rx Humalog (Insulin Lispro) 100 Unit/1 Ml Insuln.pen 10 Units SQ TIDWMEALS 30 01/26/19 Rx Prednisone (Prednisone) 10 Mg Tablet 10 Mg PO DAILY 30 12/31/18 Rx Montelukast Sodium Tablet (Montelukast Sodium) 10 Mg Tablet 10 Mg PO HS 12/27/18 Reported Protonix (Pantoprazole Sodium) 40 Mg Tablet.dr 40 Mg PO DAILYAC 11/29/18 Reported Tramadol Hcl 50 Mg Tablet 50 Mg PO Q6HRS PRN 11/13/18 Reported Gabapentin 600 Mg Tablet 600 Mg PO TID 06/25/17 Reported Levothyroxine Sodium 150 Mcg Tablet 150 Mcg PO DAILYAC 06/25/17 Reported Cymbalta (Duloxetine Hcl) 30 Mg Capsule.dr 30 Mg PO BID 06/25/17 Reported Sucralfate 1 Gm Tablet 1 Gm PO BID 02/11/17 Reported Loratadine 10 Mg Tablet 10 Mg PO DAILY 02/11/17 Reported Meloxicam 15 Mg Tablet 15 Mg PO DAILY 02/11/17 Reported NITRO-DUR 0.2mg/hr (Nitroglycerin) 1 Each Patch.td24 1 Each TD 02/11/17 Reported Potassium Chloride 8 Meq Capsule.er 8 Meq PO TID 06/30/16 Rx Hydrocodone-Apap 10-325 (Hydrocodone Bit/Acetaminophen) 1 Each Tablet 1 Tab PO PRN Q4HRS PRN 01/25/16 Reported Spiriva (Tiotropium Spring) 18 Mcg Cap.w.dev 18 Mcg IH DAILY 05/19/13 Reported Crestor (Rosuvastatin Calcium) 40 Mg Tablet 40 Mg PO DAILY 05/19/13 Reported Albuterol Sulfate Neb Soln (Albuterol Sulfate) 0.63 Mg/3 Ml Vial.neb 0.63 Mg IH QID 05/19/13 Reported Advair 500-50 Diskus (Fluticasone/Salmeterol) 1 Each Disk.w.dev 1 Each IH BID 05/19/13 Reported Lisinopril 10 Mg Tablet 10 Mg PO BID 05/19/13 Reported Lasix (Furosemide) 40 Mg Tablet 40 Mg PO BID 05/19/13 Reported Fosamax (Alendronate Sodium) 70 Mg Tablet 70 Mg PO Thursday05/19/13 Reported Flovent 44MCG Hfa (Fluticasone Propionate) 10.6 Gm Aer.w.adap 2 IH BID 05/19/13 Reported Bentyl (Dicyclomine Hcl) 10 Mg Capsule 10 Mg PO TID 05/19/13 Reported Impression . 1. [id number] hypercapnic respiratory failure secondary to acute exacerbation of chronic obstructive pulmonary disease and acute bronchitis. 2. The patient with oxygen-dependent chronic obstructive pulmonary disease and chronic hypercapnia comes in with acute on chronic decompensation. 3. Cough with yellow sputum production, likely acute bronchitis. No obvious consolidation seen on the chest x-ray. 4. Underlying obesity with a BMI of 34. 5. Mildly increase lactic acid, likely from increase WOB, less likely sepsis Plan . 1. prn BiPAP and use cannula during the day. ABGs have improved. We will use BiPAP daily at bedtime. 2. Continue DuoNeb. 3. Continue antibiotics. 4. IV steroids with gradual taper. 5. DVT prophylaxis. 6. abx pe rID 7. Discussed with RN. / cxr 07/24 no infiltrate ADAM CAZARES MD Jul 25, 2019 12:38
[2019-07-25] MEDS: POTASSIUM CL 40MEQ IN 0.9%NACL 1,000 ML IV SCH (12:51)
--- NOTE | 2019-07-25 13:09 | CONS ---
DATE OF CONSULTATION: 07/25/2019 REQUESTING PHYSICIAN: Dr. Maldonado. REASON FOR CONSULTATION: Leukocytosis. HISTORY OF PRESENT ILLNESS: This is a 63-year-old female with history of COPD, who is on home oxygen, came in with shortness of breath. The patient had some nausea, no vomiting. Denied any fever. Denied any chest pain, abdominal pain, urinary symptoms or bowel symptoms. The patient has been on steroid as well as Zyvox and Levaquin. The patient says she is feeling a little bit better, not still back to normal, but better than she came in. PAST MEDICAL HISTORY: Positive for COPD, oxygen dependent at home, obesity, gastroesophageal reflux disease, hypertension, hyperlipidemia, osteoarthritis, diabetes, hypothyroidism. SOCIAL HISTORY: Negative for smoking, alcohol, drug use. ALLERGIES: LISTED ALLERGIC TO AMOXICILLIN, CAUSES ITCHING. CURRENT MEDICATIONS: Reviewed. REVIEW OF SYSTEMS: As per HPI, all other systems reviewed and are negative. PHYSICAL EXAMINATION: GENERAL: Alert, oriented female, not in distress. VITAL SIGNS: Stable, afebrile. HEENT: NAD. NECK: Supple, no JVP, no lymphadenopathy. LUNGS: Clear. HEART: S1, S2 regular. ABDOMEN: Benign. EXTREMITIES: No edema or cyanosis. SKIN: Unremarkable. NEUROLOGIC: The patient is alert, awake and appropriate. No focal neurologic deficit. LABORATORY DATA: White count is 18.8. BUN and creatinine are normal. Urinalysis unremarkable. Influenza screen was negative. Blood culture done is negative. Chest x-ray showed bibasilar opacity. CT abdomen and pelvis was unremarkable. IMPRESSION: 1. Chronic obstructive pulmonary disease exacerbation. 2. Acute on chronic respiratory failure. 3. Leukocytosis secondary to steroids. 4. Diabetes. 5. Hypertension. 6. Obesity. RECOMMENDATIONS: Antibiotics can be changed over to oral, and once the steroid is tapered off, the white count will improve. Supportive care and we will continue to follow. Thank you very much, Dr. Maldonado, for giving me the opportunity to participate in this patient's care. LUTHER SHEIKH MD DR: NAVARRO/adrianna JOB#: [id number] / [id number]
--- NOTE | 2019-07-25 13:26 | RAD ---
AP and Lateral Views of the Chest 07/25/2019 11:03 AM Indication: COPD, cough Comparison: Chest radiograph January 25, 2019 Findings: Eventration posterior left diaphragm similar. Flattening of the hemidiaphragms is noted. There is no new focal consolidation or infiltrate seen. There is no pneumothorax or definitive effusion. Heart size is normal. Bony thorax is grossly unchanged. IMPRESSION: Grossly stable radiographic appearance of the chest without evidence of acute cardiopulmonary process Electronically signed by: Gonzales Spencer MD (07/25/2019 1:22 PM) [id number]
[2019-07-25] MEDS: MONTELUKAST SODIUM 10 MG TABLET. PO SCH (21:12)
[2019-07-25] MEDS: ATORVASTATIN CALCIUM 40 MG TABLET. PO SCH (21:12)
[2019-07-25] MEDS: INSULIN GLARGINE SYRINGE. SQ SCH (21:17)
[2019-07-26] MEDS: HYDROcodone/APAP 10/325 1 TAB TABLET PO PRN ×4 (01:03→21:08)
[2019-07-26 03:04] VITALS: BP 126/62
[2019-07-26] MEDS: LEVOTHYROXINE 150 MCG TABLET PO SCH (06:10)
[2019-07-26] MEDS: methylPREDNISolone SOD SUCC PF 40 MG/ML VIAL. IV SCH (06:11)
[2019-07-26 06:54] LABS: BASO % 0 % (0-3); EOS % 0 % (0-3); HEMATOCRIT 34.9 % (36.0-47.0); HEMOGLOBIN 11.4 g/dL (12.0-15.5); LYMPH # 0.8 x10^3/uL (1.0-4.8); LYMPH % 6 % (24-48); MEAN CORPUSCULAR HEMOGLOBIN 29 pg (25-35); MEAN CORPUSCULAR HGB CONC 33 g/dL (31-37); MEAN CORPUSCULAR VOLUME 88 fL (79-100); MONO # 1.1 x10^3/uL (0.0-1.1); MONO % 8 % (0-9); NEUT # 12.6 x10^3/uL (1.8-7.7); NEUT % 87 % (31-73); PLATELET COUNT 195 x10^3/uL (140-400); RED BLOOD COUNT 3.97 x10^6/uL (3.50-5.40); RED CELL DISTRIBUTION WIDTH 15.2 % (11.5-14.5); WHITE BLOOD COUNT 14.5 x10^3/uL (4.0-11.0)
[2019-07-26] MEDS: IPRATRPIUM/ALBUTEROL 0.5/2.5MG 3 ML NEBU. NEB SCH ×4 (08:01→20:13)
[2019-07-26] MEDS: BUDESONIDE 0.5 MG/2 ML NEBU. NEB SCH ×2 (08:01→20:13)
--- NOTE | 2019-07-26 08:30 | PDOC ---
Infectious Disease Note Subjective Subjective pt is feeling little better ROS ROS no n/v/d/sob/fever Vital Sign Vital Signs Vital Signs Date Time Temp Pulse Resp B/P (MAP) Pulse Ox O2 Delivery O2 Flow Rate FiO2 07/26/19 08:07 94 Nasal Cannula 3.0 07/26/19 03:04 98.2 91 20 126/62 (83) 98.2 Physical Exam PHYSICAL EXAM GENERAL: Alert, oriented female, not in distress. VITAL SIGNS: Stable, afebrile. HEENT: NAD. NECK: Supple, no JVP, no lymphadenopathy. LUNGS: Clear. HEART: S1, S2 regular. ABDOMEN: Benign. EXTREMITIES: No edema or cyanosis. SKIN: Unremarkable. NEUROLOGIC: The patient is alert, awake and appropriate. No focal neurologic deficit. Labs Lab Laboratory Tests Test 07/25/19 10:30 07/25/19 11:38 07/25/19 17:00 07/25/19 20:23 Lactic Acid Level 2.1 mmol/L (0.4-2.0) Glucose (Fingerstick) 224 mg/dL (70-99) 120 mg/dL (70-99) 281 mg/dL (70-99) Test 07/26/19 06:25 07/26/19 08:16 White Blood Count 14.5 x10^3/uL (4.0-11.0) Red Blood Count 3.97 x10^6/uL (3.50-5.40) Hemoglobin 11.4 g/dL (12.0-15.5) Hematocrit 34.9 % (36.0-47.0) Mean Corpuscular Volume 88 fL (79-100) Mean Corpuscular Hemoglobin 29 pg (25-35) Mean Corpuscular Hemoglobin Concent 33 g/dL (31-37) Red Cell Distribution Width 15.2 % (11.5-14.5) Platelet Count 195 x10^3/uL (140-400) Neutrophils (%) (Auto) 87 % (31-73) Lymphocytes (%) (Auto) 6 % (24-48) Monocytes (%) (Auto) 8 % (0-9) Eosinophils (%) (Auto) 0 % (0-3) Basophils (%) (Auto) 0 % (0-3) Neutrophils # (Auto) 12.6 x10^3/uL (1.8-7.7) Lymphocytes # (Auto) 0.8 x10^3/uL (1.0-4.8) Monocytes # (Auto) 1.1 x10^3/uL (0.0-1.1) Eosinophils # (Auto) 0.0 x10^3/uL (0.0-0.7) Basophils # (Auto) 0.0 x10^3/uL (0.0-0.2) Glucose (Fingerstick) 165 mg/dL (70-99) Micro Microbiology 07/22/19 Blood Culture - Preliminary, Resulted NO GROWTH AFTER 2 DAYS Objective Assessment IMPRESSION: 1. Chronic obstructive pulmonary disease exacerbation. 2. Acute on chronic respiratory failure. 3. Leukocytosis secondary to steroids. 4. Diabetes. 5. Hypertension. 6. Obesity. Plan Plan of Care cont po antibiotics cont steroids cont supportive care LUTHER SHEIKH MD Jul 26, 2019 08:30
[2019-07-26] MEDS: DULoxetine HCL 30 MG CAPSULE.DR PO SCH ×2 (08:31→21:08)
[2019-07-26] MEDS: GABAPENTIN 300 MG CAPSULE. PO SCH ×3 (08:31→21:08)
[2019-07-26] MEDS: PANTOPRAZOLE 40 MG TABLET.DR. PO SCH (08:31)
[2019-07-26] MEDS: MELOXICAM 7.5 MG TABLET PO SCH (08:31)
[2019-07-26] MEDS: CETIRIZINE HCL 10 MG TABLET. PO SCH (08:32)
[2019-07-26] MEDS: FUROSEMIDE 40 MG TABLET. PO SCH ×2 (08:32→17:17)
[2019-07-26] MEDS: LISINOPRIL 10 MG TABLET PO SCH ×2 (08:32→21:09)
[2019-07-26] MEDS: LACTOBACILLUS RHAMNOSUS GG 1 CAPSULE. PO SCH ×2 (08:32→21:09)
[2019-07-26] MEDS: SUCRALFATE 1 GM TABLET. PO SCH ×2 (08:33→17:17)
[2019-07-26] MEDS: POTASSIUM CHLORIDE 10 MEQ TABLET.ER. PO SCH ×2 (08:33→17:17)
[2019-07-26] MEDS: METOCLOPRAMIDE 5 MG TABLET. PO SCH ×4 (08:34→21:09)
[2019-07-26] MEDS: INSULIN LISPRO 300 UNITS/3 ML VIAL. SQ SCH ×3 (08:36→17:22)
[2019-07-26] MEDS: DICYCLOMINE HCL 10 MG CAPSULE PO SCH ×3 (08:48→21:09)
[2019-07-26] MEDS: ENOXAPARIN 40 MG/0.4 ML SYRINGE. SQ SCH (08:50)
[2019-07-26] MEDS: TRIAMCINOLONE ACETONIDE 0.1% TOPICAL CREAM 15GM TUBE. TP SCH ×2 (08:51→21:00)
--- NOTE | 2019-07-26 10:13 | PDOC ---
PROGRESS NOTES Subjective Subjective feels better today Objective Objective Vital Signs Date Time Temp Pulse Resp B/P (MAP) Pulse Ox O2 Delivery O2 Flow Rate FiO2 07/26/19 08:48 97 Nasal Cannula 4.0 07/26/19 08:32 83 111/72 07/26/19 03:04 98.2 20 98.2 Intake and Output 07/26/19 07:00 Intake Total 1622 ml Output Total 500 ml Balance 1122 ml Intake Oral 1622 ml Output Urine Total 500 ml # Voids 2 Physical Exam Abdomen: Normal bowel sounds, Soft Heart: Regular rate, Normal S1 Extremities: No clubbing General: Alert HEENT: Atraumatic Lungs: Other (wheezing) MUSCULOSKELETAL: No swelling, Osteoarthritic changes both hands Neuro: Normal speech Psych/Mental Status: Mental status NL COMMENT rash around mouth from BIPAP Diagnosis Problem List Problems Medical Problems: (1) COPD (chronic obstructive pulmonary disease) Status: Acute (2) COPD exacerbation Status: Acute (3) Shortness of breath Status: Acute Assessment Assessment Problems Medical Problems: (1) COPD (chronic obstructive pulmonary disease) Status: Acute (2) COPD exacerbation Status: Acute (3) Shortness of breath Status: Acute Impression; harjeet wbc ,Lactic acidosis? reason 1. COPD with acute exacerbation. 2. Lactic acidosis. 3. Chronic hypoxia on home oxygen. 4. Diabetes type 2. 5. Hypothyroidism. 6. Diabetic gastroparesis. 7. Anxiety. 8. Depression chronic. 9. Chronic narcotic pain medication for pain control. 10. General debility and general decline. Plan;spoke with ID for harjeet wbc , reactive Ct scan abd and pelvis -neg cxr -ve, wbc 14 ? reactive due to steroids, trending down Blood cultures x2, urine culture, sputum culture. po Levaquin po prednisone home tomorrow PT Plan Plan of Care Problems Medical Problems: (1) COPD (chronic obstructive pulmonary disease) Status: Acute (2) COPD exacerbation Status: Acute (3) Shortness of breath Status: Acute Comment Review of Relevant I have reviewed the following items vinny (where applicable) has been applied. Labs Laboratory Tests Test 07/25/19 10:30 07/25/19 11:38 07/25/19 17:00 07/25/19 20:23 Lactic Acid Level 2.1 mmol/L (0.4-2.0) Glucose (Fingerstick) 224 mg/dL (70-99) 120 mg/dL (70-99) 281 mg/dL (70-99) Test 07/26/19 06:25 07/26/19 08:16 White Blood Count 14.5 x10^3/uL (4.0-11.0) Red Blood Count 3.97 x10^6/uL (3.50-5.40) Hemoglobin 11.4 g/dL (12.0-15.5) Hematocrit 34.9 % (36.0-47.0) Mean Corpuscular Volume 88 fL (79-100) Mean Corpuscular Hemoglobin 29 pg (25-35) Mean Corpuscular Hemoglobin Concent 33 g/dL (31-37) Red Cell Distribution Width 15.2 % (11.5-14.5) Platelet Count 195 x10^3/uL (140-400) Neutrophils (%) (Auto) 87 % (31-73) Lymphocytes (%) (Auto) 6 % (24-48) Monocytes (%) (Auto) 8 % (0-9) Eosinophils (%) (Auto) 0 % (0-3) Basophils (%) (Auto) 0 % (0-3) Neutrophils # (Auto) 12.6 x10^3/uL (1.8-7.7) Lymphocytes # (Auto) 0.8 x10^3/uL (1.0-4.8) Monocytes # (Auto) 1.1 x10^3/uL (0.0-1.1) Eosinophils # (Auto) 0.0 x10^3/uL (0.0-0.7) Basophils # (Auto) 0.0 x10^3/uL (0.0-0.2) Glucose (Fingerstick) 165 mg/dL (70-99) Microbiology 07/22/19 Blood Culture - Preliminary, Resulted NO GROWTH AFTER 3 DAYS Medications Current Medications Levofloxacin (Levaquin) 750 mg DAILY06 PO Last administered on 07/26/19at 06:10; Start 07/25/19 at 13:00 Methylprednisolone Sodium Succinate (SOLU-Medrol 40MG VIAL) 40 mg Q8HRS IV Last administered on 07/26/19at 06:11; Start 07/25/19 at 14:00 Vitals/I & O Vital Sign - Last 24 Hours 307/25/19 07/25/19 07/25/19 10:30 10:48 11:56 13:40 Temp 97.9 98.2 97.9 98.2 Pulse 87 66 Resp 20 20 B/P (MAP) 147/67 (93) 95/58 (70) Pulse Ox 97 99 96 O2 Delivery BiPAP/CPAP Nasal Cannula Nasal Cannula Nasal Cannula O2 Flow Rate 4.0 4.0 4.0 07/25/19 07/25/19 07/25/19 07/25/19 15:00 16:29 19:00 20:00 Temp 98.3 97.6 98.3 97.6 Pulse 74 94 Resp 24 20 B/P (MAP) 104/51 (68) 126/68 (87) Pulse Ox 98 96 95 O2 Delivery Nasal Cannula Nasal Cannula Nasal Cannula Nasal Cannula O2 Flow Rate 4.0 3.0 4.0 4.0 07/25/19 07/25/19 07/25/19 07/26/19 20:34 21:12 22:41 00:03 Temp 98.2 98.2 Pulse 94 82 Resp 23 B/P (MAP) 126/68 124/96 (105) Pulse Ox 94 92 O2 Delivery Nasal Cannula Room Air BiPAP/CPAP O2 Flow Rate 3.0 07/26/19 07/26/19 07/26/19 07/26/19 01:03 03:04 03:25 08:05 Temp 98.2 98.2 Pulse 91 Resp 20 B/P (MAP) 126/62 (83) Pulse Ox 92 93 94 O2 Delivery Nasal Cannula Nasal Cannula BiPAP/CPAP Nasal Cannula O2 Flow Rate 3.0 4.0 3.0 07/26/19 07/26/19 07/26/19 08:07 08:32 08:48 Pulse 83 B/P (MAP) 111/72 Pulse Ox 94 97 O2 Delivery Nasal Cannula Nasal Cannula O2 Flow Rate 3.0 4.0 Intake and Output 07/25/19 07/25/19 07/26/19 15:00 23:00 07:00 Intake Total 932 ml 440 ml 250 ml Output Total 500 ml 0 ml Balance 432 ml 440 ml 250 ml Hemodynamically unstable?: No Respiratory Distress?: Yes Serious Diagnosis?: Yes Is patient at high risk?: Yes MIGUEL DELAROSA MD Jul 26, 2019 10:13
--- NOTE | 2019-07-26 10:16 | PDOC ---
PULMONARY PROGRESS NOTES Subjective feels better Vitals Vital Signs Date Time Temp Pulse Resp B/P (MAP) Pulse Ox O2 Delivery O2 Flow Rate FiO2 07/26/19 08:48 97 Nasal Cannula 4.0 07/26/19 08:32 83 111/72 07/26/19 03:04 98.2 20 98.2 General: Alert, No acute distress Lungs: Wheezing (faint) Cardiovascular: S1, S2 Abdomen: Soft, Non-tender Extremities: No Edema Skin: Warm Labs Laboratory Tests Test 07/24/19 11:50 07/24/19 16:39 07/24/19 20:20 07/25/19 05:35 Glucose (Fingerstick) 163 mg/dL (70-99) 241 mg/dL (70-99) 168 mg/dL (70-99) Sodium Level 134 mmol/L (136-145) Potassium Level 4.6 mmol/L (3.5-5.1) Chloride Level 95 mmol/L (98-107) Carbon Dioxide Level 37 mmol/L (21-32) Anion Gap 2 (6-14) Blood Urea Nitrogen 14 mg/dL (7-20) Creatinine 1.1 mg/dL (0.6-1.0) Estimated GFR (Cockcroft-Gault) 50.0 Glucose Level 213 mg/dL (70-99) Calcium Level 8.2 mg/dL (8.5-10.1) Test 07/25/19 06:00 07/25/19 08:02 07/25/19 10:30 07/25/19 11:38 White Blood Count 18.8 x10^3/uL (4.0-11.0) Red Blood Count 4.03 x10^6/uL (3.50-5.40) Hemoglobin 11.5 g/dL (12.0-15.5) Hematocrit 35.8 % (36.0-47.0) Mean Corpuscular Volume 89 fL (79-100) Mean Corpuscular Hemoglobin 29 pg (25-35) Mean Corpuscular Hemoglobin Concent 32 g/dL (31-37) Red Cell Distribution Width 15.1 % (11.5-14.5) Platelet Count 198 x10^3/uL (140-400) Neutrophils (%) (Auto) 91 % (31-73) Lymphocytes (%) (Auto) 4 % (24-48) Monocytes (%) (Auto) 5 % (0-9) Eosinophils (%) (Auto) 0 % (0-3) Basophils (%) (Auto) 0 % (0-3) Neutrophils # (Auto) 17.1 x10^3/uL (1.8-7.7) Lymphocytes # (Auto) 0.7 x10^3/uL (1.0-4.8) Monocytes # (Auto) 1.0 x10^3/uL (0.0-1.1) Eosinophils # (Auto) 0.0 x10^3/uL (0.0-0.7) Basophils # (Auto) 0.0 x10^3/uL (0.0-0.2) Lactic Acid Level 2.8 mmol/L (0.4-2.0) 2.1 mmol/L (0.4-2.0) Glucose (Fingerstick) 272 mg/dL (70-99) 224 mg/dL (70-99) Test 07/25/19 17:00 07/25/19 20:23 07/26/19 06:25 07/26/19 08:16 Glucose (Fingerstick) 120 mg/dL (70-99) 281 mg/dL (70-99) 165 mg/dL (70-99) White Blood Count 14.5 x10^3/uL (4.0-11.0) Red Blood Count 3.97 x10^6/uL (3.50-5.40) Hemoglobin 11.4 g/dL (12.0-15.5) Hematocrit 34.9 % (36.0-47.0) Mean Corpuscular Volume 88 fL (79-100) Mean Corpuscular Hemoglobin 29 pg (25-35) Mean Corpuscular Hemoglobin Concent 33 g/dL (31-37) Red Cell Distribution Width 15.2 % (11.5-14.5) Platelet Count 195 x10^3/uL (140-400) Neutrophils (%) (Auto) 87 % (31-73) Lymphocytes (%) (Auto) 6 % (24-48) Monocytes (%) (Auto) 8 % (0-9) Eosinophils (%) (Auto) 0 % (0-3) Basophils (%) (Auto) 0 % (0-3) Neutrophils # (Auto) 12.6 x10^3/uL (1.8-7.7) Lymphocytes # (Auto) 0.8 x10^3/uL (1.0-4.8) Monocytes # (Auto) 1.1 x10^3/uL (0.0-1.1) Eosinophils # (Auto) 0.0 x10^3/uL (0.0-0.7) Basophils # (Auto) 0.0 x10^3/uL (0.0-0.2) Laboratory Tests Test 07/25/19 10:30 07/25/19 11:38 07/25/19 17:00 07/25/19 20:23 Lactic Acid Level 2.1 mmol/L (0.4-2.0) Glucose (Fingerstick) 224 mg/dL (70-99) 120 mg/dL (70-99) 281 mg/dL (70-99) Test 07/26/19 06:25 07/26/19 08:16 White Blood Count 14.5 x10^3/uL (4.0-11.0) Red Blood Count 3.97 x10^6/uL (3.50-5.40) Hemoglobin 11.4 g/dL (12.0-15.5) Hematocrit 34.9 % (36.0-47.0) Mean Corpuscular Volume 88 fL (79-100) Mean Corpuscular Hemoglobin 29 pg (25-35) Mean Corpuscular Hemoglobin Concent 33 g/dL (31-37) Red Cell Distribution Width 15.2 % (11.5-14.5) Platelet Count 195 x10^3/uL (140-400) Neutrophils (%) (Auto) 87 % (31-73) Lymphocytes (%) (Auto) 6 % (24-48) Monocytes (%) (Auto) 8 % (0-9) Eosinophils (%) (Auto) 0 % (0-3) Basophils (%) (Auto) 0 % (0-3) Neutrophils # (Auto) 12.6 x10^3/uL (1.8-7.7) Lymphocytes # (Auto) 0.8 x10^3/uL (1.0-4.8) Monocytes # (Auto) 1.1 x10^3/uL (0.0-1.1) Eosinophils # (Auto) 0.0 x10^3/uL (0.0-0.7) Basophils # (Auto) 0.0 x10^3/uL (0.0-0.2) Glucose (Fingerstick) 165 mg/dL (70-99) Medications Active Scripts Medications Dose Route/Sig Max Daily Dose Days Date Category Banophen (Diphenhydramine Hcl) 25 Mg Capsule 25 Mg PO PRN BID PRN 07/22/19 Reported Nystatin 15 Gm Powder 1 Dereck TOP PRN BID PRN 07/22/19 Reported Metoclopramide Hcl 10 Mg/10 Ml Solution 5 Mg PO QIDACHS 30 01/26/19 Rx Polyethylene Glycol 3350 17 Gm Powd.pack 17 Gm PO PRN DAILY PRN 30 01/26/19 Rx Amitiza (Lubiprostone) 8 Mcg Capsule 8 Mcg PO BIDWMEALS 30 01/26/19 Rx Prednisone 20 Mg Tablet 20 Mg PO DAILY 3 01/26/19 Rx Prednisone (Prednisone) 10 Mg Tablet 50 Mg PO 1X 3 01/26/19 Rx Lantus (Insulin Glargine,Hum.rec.anlog) 100 Unit/1 Ml Vial 10 Unit SQ QHS 30 01/26/19 Rx Humalog (Insulin Lispro) 100 Unit/1 Ml Insuln.pen 10 Units SQ TIDWMEALS 30 01/26/19 Rx Prednisone (Prednisone) 10 Mg Tablet 10 Mg PO DAILY 30 12/31/18 Rx Montelukast Sodium Tablet (Montelukast Sodium) 10 Mg Tablet 10 Mg PO HS 12/27/18 Reported Protonix (Pantoprazole Sodium) 40 Mg Tablet.dr 40 Mg PO DAILYAC 11/29/18 Reported Tramadol Hcl 50 Mg Tablet 50 Mg PO Q6HRS PRN 11/13/18 Reported Gabapentin 600 Mg Tablet 600 Mg PO TID 06/25/17 Reported Levothyroxine Sodium 150 Mcg Tablet 150 Mcg PO DAILYAC 06/25/17 Reported Cymbalta (Duloxetine Hcl) 30 Mg Capsule.dr 30 Mg PO BID 06/25/17 Reported Sucralfate 1 Gm Tablet 1 Gm PO BID 02/11/17 Reported Loratadine 10 Mg Tablet 10 Mg PO DAILY 02/11/17 Reported Meloxicam 15 Mg Tablet 15 Mg PO DAILY 02/11/17 Reported NITRO-DUR 0.2mg/hr (Nitroglycerin) 1 Each Patch.td24 1 Each TD 02/11/17 Reported Potassium Chloride 8 Meq Capsule.er 8 Meq PO TID 06/30/16 Rx Hydrocodone-Apap 10-325 (Hydrocodone Bit/Acetaminophen) 1 Each Tablet 1 Tab PO PRN Q4HRS PRN 01/25/16 Reported Spiriva (Tiotropium [place]) 18 Mcg Cap.w.dev 18 Mcg IH DAILY 05/19/13 Reported Crestor (Rosuvastatin Calcium) 40 Mg Tablet 40 Mg PO DAILY 05/19/13 Reported Albuterol Sulfate Neb Soln (Albuterol Sulfate) 0.63 Mg/3 Ml Vial.neb 0.63 Mg IH QID 05/19/13 Reported Advair 500-50 Diskus (Fluticasone/Salmeterol) 1 Each Disk.w.dev 1 Each IH BID 05/19/13 Reported Lisinopril 10 Mg Tablet 10 Mg PO BID 05/19/13 Reported Lasix (Furosemide) 40 Mg Tablet 40 Mg PO BID 05/19/13 Reported Fosamax (Alendronate Sodium) 70 Mg Tablet 70 Mg PO Thursday05/19/13 Reported Flovent 44MCG Hfa (Fluticasone Propionate) 10.6 Gm Aer.w.adap 2 IH BID 05/19/13 Reported Bentyl (Dicyclomine Hcl) 10 Mg Capsule 10 Mg PO TID 05/19/13 Reported Impression . 1. Tzman-[id number]-[id number] hypercapnic respiratory failure secondary to acute exacerbation of chronic obstructive pulmonary disease and acute bronchitis. 2. The patient with oxygen-dependent chronic obstructive pulmonary disease and chronic hypercapnia comes in with acute on chronic decompensation. 3. Cough with yellow sputum production, likely acute bronchitis. No obvious consolidation seen on the chest x-ray. 4. Underlying obesity with a BMI of 34. 5. Mildly increase lactic acid, likely from increase WOB, less likely sepsis Plan . 1. prn BiPAP and use cannula during the day. ABGs have improved. We will use BiPAP daily at bedtime. 2. Continue DuoNeb. 3. Continue antibiotics. 4. IV steroids with gradual taper. can change to po at dc 5. DVT prophylaxis. 6. abx pe rID 7. Discussed with RN. / cxr 07/24 no infiltrate d/w DR Maldonado. ok with dc plans ADAM CAZARES MD Jul 26, 2019 10:16
--- NOTE | 2019-07-26 10:19 | NUR ---
SW following. Discussed with RN, pt has oxygen at home. Does not use bipap at home, but has been using here. RN advised probable discharge home tomorrow (07/27/2019). SW will continue to follow.
[2019-07-26 11:00] VITALS: BP 107/47
[2019-07-26] MEDS ORDERED: predniSONE 10 MG TABLET PO ONE (12:00)
[2019-07-26 15:00] VITALS: BP 118/74
[2019-07-26 19:00] VITALS: BP 129/51
[2019-07-26] MEDS: ATORVASTATIN CALCIUM 40 MG TABLET. PO SCH (21:09)
[2019-07-26] MEDS: MONTELUKAST SODIUM 10 MG TABLET. PO SCH (21:09)
[2019-07-26] MEDS: INSULIN GLARGINE SYRINGE. SQ SCH (21:14)
[2019-07-26] MEDS ORDERED: FUROSEMIDE 40 MG TABLET. PO ONE (22:15)
[2019-07-26 23:00] VITALS: BP 112/35
[2019-07-27 03:27] VITALS: BP 114/59
[2019-07-27] MEDS: LEVOTHYROXINE 150 MCG TABLET PO SCH (05:34)
[2019-07-27 07:00] VITALS: BP 111/44
[2019-07-27] MEDS: BUDESONIDE 0.5 MG/2 ML NEBU. NEB SCH (07:54)
[2019-07-27] MEDS: IPRATRPIUM/ALBUTEROL 0.5/2.5MG 3 ML NEBU. NEB SCH ×2 (07:54→12:24)
[2019-07-27] MEDS: GABAPENTIN 300 MG CAPSULE. PO SCH ×2 (08:57→15:19)
[2019-07-27] MEDS: DULoxetine HCL 30 MG CAPSULE.DR PO SCH (08:57)
[2019-07-27] MEDS: LACTOBACILLUS RHAMNOSUS GG 1 CAPSULE. PO SCH (08:57)
[2019-07-27] MEDS: ENOXAPARIN 40 MG/0.4 ML SYRINGE. SQ SCH (08:57)
[2019-07-27] MEDS: SUCRALFATE 1 GM TABLET. PO SCH (08:58)
[2019-07-27] MEDS: METOCLOPRAMIDE 5 MG TABLET. PO SCH ×2 (08:58→11:30)
[2019-07-27] MEDS: PANTOPRAZOLE 40 MG TABLET.DR. PO SCH (08:58)
[2019-07-27] MEDS: POTASSIUM CHLORIDE 10 MEQ TABLET.ER. PO SCH (08:59)
[2019-07-27] MEDS: LISINOPRIL 10 MG TABLET PO SCH (08:59)
[2019-07-27] MEDS: CETIRIZINE HCL 10 MG TABLET. PO SCH (08:59)
[2019-07-27] MEDS: MELOXICAM 7.5 MG TABLET PO SCH (08:59)
[2019-07-27] MEDS: FUROSEMIDE 40 MG TABLET. PO SCH (08:59)
[2019-07-27] MEDS: TRIAMCINOLONE ACETONIDE 0.1% TOPICAL CREAM 15GM TUBE. TP SCH (09:00)
[2019-07-27] MEDS: DICYCLOMINE HCL 10 MG CAPSULE PO SCH ×2 (09:00→15:19)
[2019-07-27] MEDS ORDERED: predniSONE 20 MG TABLET PO SCH (09:00)
[2019-07-27] MEDS: INSULIN LISPRO 300 UNITS/3 ML VIAL. SQ SCH ×2 (09:09→12:00)
--- NOTE | 2019-07-27 09:31 | PDOC ---
Infectious Disease Note Subjective Subjective pt is feeling better ROS ROS no n/v/d/sob Vital Sign Vital Signs Vital Signs Date Time Temp Pulse Resp B/P (MAP) Pulse Ox O2 Delivery O2 Flow Rate FiO2 07/27/19 08:59 72 111/44 07/27/19 07:54 96 Nasal Cannula 3.0 07/27/19 07:00 98.0 22 98.0 Physical Exam PHYSICAL EXAM GENERAL: Alert, oriented female, not in distress. VITAL SIGNS: Stable, afebrile. HEENT: NAD. NECK: Supple, no JVP, no lymphadenopathy. LUNGS: Clear. HEART: S1, S2 regular. ABDOMEN: Benign. EXTREMITIES: No edema or cyanosis. SKIN: Unremarkable. NEUROLOGIC: The patient is alert, awake and appropriate. No focal neurologic deficit. Labs Lab Laboratory Tests Test 07/26/19 12:12 07/26/19 16:37 07/26/19 20:36 07/27/19 07:26 Glucose (Fingerstick) 323 mg/dL (70-99) 152 mg/dL (70-99) 267 mg/dL (70-99) 191 mg/dL (70-99) Micro Microbiology 07/22/19 Blood Culture - Preliminary, Resulted NO GROWTH AFTER 2 DAYS Objective Assessment IMPRESSION: 1. Chronic obstructive pulmonary disease exacerbation. 2. Acute on chronic respiratory failure. 3. Leukocytosis secondary to steroids. 4. Diabetes. 5. Hypertension. 6. Obesity. Plan Plan of Care cont po antibiotics cont steroids cont supportive care LUTHER SHEIKH MD Jul 27, 2019 09:31
--- NOTE | 2019-07-27 10:18 | PDOC ---
PROGRESS NOTES Subjective Subjective feels good Objective Objective Vital Signs Date Time Temp Pulse Resp B/P (MAP) Pulse Ox O2 Delivery O2 Flow Rate FiO2 07/27/19 08:59 72 111/44 07/27/19 07:54 96 Nasal Cannula 3.0 07/27/19 07:00 98.0 22 98.0 Intake and Output 07/27/19 07:00 Intake Total 2910 ml Output Total 2000 ml Balance 910 ml Intake Oral 2910 ml Output Urine Total 2000 ml # Voids 3 Physical Exam Abdomen: Normal bowel sounds, Soft Heart: Regular rate, Normal S1 Extremities: No clubbing General: Alert HEENT: Atraumatic Lungs: Other (wheezing) MUSCULOSKELETAL: No swelling, Osteoarthritic changes both hands Neuro: Normal speech Psych/Mental Status: Mental status NL COMMENT rash around mouth from BIPAP Diagnosis Problem List Problems Medical Problems: (1) COPD (chronic obstructive pulmonary disease) Status: Acute (2) COPD exacerbation Status: Acute (3) Shortness of breath Status: Acute Assessment Assessment Problems Medical Problems: (1) COPD (chronic obstructive pulmonary disease) Status: Acute (2) COPD exacerbation Status: Acute (3) Shortness of breath Status: Acute Impression; harjeet wbc ,Lactic acidosis.resolving 1. COPD with acute exacerbation. 2. Lactic acidosis. 3. Chronic hypoxia on home oxygen. 4. Diabetes type 2. 5. Hypothyroidism. 6. Diabetic gastroparesis. 7. Anxiety. 8. Depression chronic. 9. Chronic narcotic pain medication for pain control. 10. General debility and general decline. Plan;d/c home today wbc 14 down. spoke with ID for harjeet wbc , reactive Ct scan abd and pelvis -neg cxr -ve, wbc 14 ? reactive due to steroids, trending down Blood cultures x2, urine culture, sputum culture. po Levaquin+po prednisone home today Plan Plan of Care Problems Medical Problems: (1) COPD (chronic obstructive pulmonary disease) Status: Acute (2) COPD exacerbation Status: Acute (3) Shortness of breath Status: Acute Comment Review of Relevant I have reviewed the following items vinny (where applicable) has been applied. Labs Laboratory Tests Test 07/26/19 12:12 07/26/19 16:37 07/26/19 20:36 07/27/19 07:26 Glucose (Fingerstick) 323 mg/dL (70-99) 152 mg/dL (70-99) 267 mg/dL (70-99) 191 mg/dL (70-99) Microbiology 07/25/19 Urine Culture - Final, Complete 07/25/19 Urine Culture Result 1 (SHERITA) - Final, Complete 07/22/19 Blood Culture - Preliminary, Resulted NO GROWTH AFTER 4 DAYS Medications Current Medications Furosemide (Lasix) 40 mg 1X ONCE PO Last administered on 07/26/19at 22:13; Start 07/26/19 at 22:15; Stop 07/26/19 at 22:16; Status DC Prednisone (Prednisone) 50 mg 1X ONCE PO Last administered on 07/26/19at 12:13; Start 07/26/19 at 12:00; Stop 07/26/19 at 12:01; Status DC Prednisone (Prednisone) 50 mg DAILY PO Last administered on 07/27/19at 08:58; Start 07/27/19 at 09:00 Vitals/I & O Vital Sign - Last 24 Hours 07/26/19 07/26/19 07/26/19 07/26/19 11:00 11:46 14:55 15:00 Temp 98.3 97.9 98.3 97.9 Pulse 82 66 Resp 20 20 16 B/P (MAP) 107/47 (67) 118/74 (89) Pulse Ox 94 94 92 O2 Delivery Nasal Cannula Nasal Cannula Nasal Cannula Nasal Cannula O2 Flow Rate 4.0 3.0 4.0 4.0 07/26/19 07/26/19 07/26/19 07/26/19 15:55 15:57 19:00 20:00 Temp 98.2 98.2 Pulse 86 Resp 20 20 B/P (MAP) 129/51 (77) Pulse Ox 92 96 O2 Delivery Nasal Cannula Nasal Cannula Nasal Cannula Nasal Cannula O2 Flow Rate 4.0 3.0 4.0 4.0 07/26/19 07/26/19 07/26/19 07/26/19 20:15 20:16 21:08 21:09 Pulse 86 B/P (MAP) 129/51 Pulse Ox 96 96 O2 Delivery Nasal Cannula Nasal Cannula Nasal Cannula O2 Flow Rate 3.0 3.0 4.0 07/26/19 07/26/19 07/27/19 07/27/19 22:10 23:00 00:09 03:27 Temp 98.3 98.0 98.3 98.0 Pulse 73 75 Resp 18 18 B/P (MAP) 112/35 (60) 114/59 (77) Pulse Ox 97 94 94 O2 Delivery Nasal Cannula Nasal Cannula BiPAP/CPAP Nasal Cannula O2 Flow Rate 4.0 4.0 4.0 07/27/19 07/27/19 07/27/19 07/27/19 03:55 07:00 07:54 08:59 Temp 98.0 98.0 Pulse 72 72 Resp 22 B/P (MAP) 111/44 (66) 111/44 Pulse Ox 93 96 O2 Delivery BiPAP/CPAP Nasal Cannula Nasal Cannula O2 Flow Rate 4.0 3.0 Intake and Output 07/26/19 07/26/19 07/27/19 15:00 23:00 07:00 Intake Total 760 ml 1800 ml 350 ml Output Total 2000 ml Balance 760 ml -200 ml 350 ml Hemodynamically unstable?: No Respiratory Distress?: Yes Serious Diagnosis?: Yes Is patient at high risk?: Yes MIGUEL DELAROSA MD Jul 27, 2019 10:18
[2019-07-27] MEDS ORDERED: LEVO750T31 PO (10:21)
--- NOTE | 2019-07-27 10:43 | NUR ---
SW following. Discussed with RN, pt from home. PT recommending home health. SW met with pt, pt declined home health stating she has someone who comes to help her. Pt uses oxygen at home. Pt discharging home today with self care.
[2019-07-27 11:00] VITALS: BP 94/36
--- NOTE | 2019-07-27 12:39 | PDOC ---
PULMONARY PROGRESS NOTES Subjective feels better Vitals Vital Signs Date Time Temp Pulse Resp B/P (MAP) Pulse Ox O2 Delivery O2 Flow Rate FiO2 07/27/19 11:00 98.5 61 20 94/36 (55) 93 Nasal Cannula 4.0 98.5 General: Alert, No acute distress Lungs: Wheezing (faint) Cardiovascular: S1, S2 Abdomen: Soft, Non-tender Extremities: No Edema Skin: Warm Labs Laboratory Tests Test 07/25/19 17:00 07/25/19 20:23 07/26/19 06:25 07/26/19 08:16 Glucose (Fingerstick) 120 mg/dL (70-99) 281 mg/dL (70-99) 165 mg/dL (70-99) White Blood Count 14.5 x10^3/uL (4.0-11.0) Red Blood Count 3.97 x10^6/uL (3.50-5.40) Hemoglobin 11.4 g/dL (12.0-15.5) Hematocrit 34.9 % (36.0-47.0) Mean Corpuscular Volume 88 fL (79-100) Mean Corpuscular Hemoglobin 29 pg (25-35) Mean Corpuscular Hemoglobin Concent 33 g/dL (31-37) Red Cell Distribution Width 15.2 % (11.5-14.5) Platelet Count 195 x10^3/uL (140-400) Neutrophils (%) (Auto) 87 % (31-73) Lymphocytes (%) (Auto) 6 % (24-48) Monocytes (%) (Auto) 8 % (0-9) Eosinophils (%) (Auto) 0 % (0-3) Basophils (%) (Auto) 0 % (0-3) Neutrophils # (Auto) 12.6 x10^3/uL (1.8-7.7) Lymphocytes # (Auto) 0.8 x10^3/uL (1.0-4.8) Monocytes # (Auto) 1.1 x10^3/uL (0.0-1.1) Eosinophils # (Auto) 0.0 x10^3/uL (0.0-0.7) Basophils # (Auto) 0.0 x10^3/uL (0.0-0.2) Test 07/26/19 12:12 07/26/19 16:37 07/26/19 20:36 07/27/19 07:26 Glucose (Fingerstick) 323 mg/dL (70-99) 152 mg/dL (70-99) 267 mg/dL (70-99) 191 mg/dL (70-99) Test 07/27/19 11:31 Glucose (Fingerstick) 136 mg/dL (70-99) Laboratory Tests Test 07/26/19 16:37 07/26/19 20:36 07/27/19 07:26 07/27/19 11:31 Glucose (Fingerstick) 152 mg/dL (70-99) 267 mg/dL (70-99) 191 mg/dL (70-99) 136 mg/dL (70-99) Medications Active Scripts Medications Dose Route/Sig Max Daily Dose Days Date Category Banophen (Diphenhydramine Hcl) 25 Mg Capsule 25 Mg PO PRN BID PRN 07/22/19 Reported Nystatin 15 Gm Powder 1 Dereck TOP PRN BID PRN 07/22/19 Reported Metoclopramide Hcl 10 Mg/10 Ml Solution 5 Mg PO QIDACHS 30 01/26/19 Rx Polyethylene Glycol 3350 17 Gm Powd.pack 17 Gm PO PRN DAILY PRN 30 01/26/19 Rx Amitiza (Lubiprostone) 8 Mcg Capsule 8 Mcg PO BIDWMEALS 30 01/26/19 Rx Prednisone 20 Mg Tablet 20 Mg PO DAILY 3 01/26/19 Rx Prednisone (Prednisone) 10 Mg Tablet 50 Mg PO 1X 3 01/26/19 Rx Lantus (Insulin Glargine,Hum.rec.anlog) 100 Unit/1 Ml Vial 10 Unit SQ QHS 30 01/26/19 Rx Humalog (Insulin Lispro) 100 Unit/1 Ml Insuln.pen 10 Units SQ TIDWMEALS 30 01/26/19 Rx Prednisone (Prednisone) 10 Mg Tablet 10 Mg PO DAILY 30 12/31/18 Rx Montelukast Sodium Tablet (Montelukast Sodium) 10 Mg Tablet 10 Mg PO HS 12/27/18 Reported Protonix (Pantoprazole Sodium) 40 Mg Tablet.dr 40 Mg PO DAILYAC 11/29/18 Reported Tramadol Hcl 50 Mg Tablet 50 Mg PO Q6HRS PRN 11/13/18 Reported Gabapentin 600 Mg Tablet 600 Mg PO TID 06/25/17 Reported Levothyroxine Sodium 150 Mcg Tablet 150 Mcg PO DAILYAC 06/25/17 Reported Cymbalta (Duloxetine Hcl) 30 Mg Capsule.dr 30 Mg PO BID 06/25/17 Reported Sucralfate 1 Gm Tablet 1 Gm PO BID 02/11/17 Reported Loratadine 10 Mg Tablet 10 Mg PO DAILY 02/11/17 Reported Meloxicam 15 Mg Tablet 15 Mg PO DAILY 02/11/17 Reported NITRO-DUR 0.2mg/hr (Nitroglycerin) 1 Each Patch.td24 1 Each TD 02/11/17 Reported Potassium Chloride 8 Meq Capsule.er 8 Meq PO TID 06/30/16 Rx Hydrocodone-Apap 10-325 (Hydrocodone Bit/Acetaminophen) 1 Each Tablet 1 Tab PO PRN Q4HRS PRN 01/25/16 Reported Spiriva (Tiotropium [place]) 18 Mcg Cap.w.dev 18 Mcg IH DAILY 05/19/13 Reported Crestor (Rosuvastatin Calcium) 40 Mg Tablet 40 Mg PO DAILY 05/19/13 Reported Albuterol Sulfate Neb Soln (Albuterol Sulfate) 0.63 Mg/3 Ml Vial.neb 0.63 Mg IH QID 05/19/13 Reported Advair 500-50 Diskus (Fluticasone/Salmeterol) 1 Each Disk.w.dev 1 Each IH BID 05/19/13 Reported Lisinopril 10 Mg Tablet 10 Mg PO BID 05/19/13 Reported Lasix (Furosemide) 40 Mg Tablet 40 Mg PO BID 05/19/13 Reported Fosamax (Alendronate Sodium) 70 Mg Tablet 70 Mg PO Thursday05/19/13 Reported Flovent 44MCG Hfa (Fluticasone Propionate) 10.6 Gm Aer.w.adap 2 IH BID 05/19/13 Reported Bentyl (Dicyclomine Hcl) 10 Mg Capsule 10 Mg PO TID 05/19/13 Reported Impression . 1. Dsyuy-hd-kbzdvoi hypercapnic respiratory failure secondary to acute exacerbation of chronic obstructive pulmonary disease and acute bronchitis. 2. The patient with oxygen-dependent chronic obstructive pulmonary disease and chronic hypercapnia comes in with acute on chronic decompensation. 3. Cough with yellow sputum production, likely acute bronchitis. No obvious consolidation seen on the chest x-ray. 4. Underlying obesity with a BMI of 34. 5. Mildly increase lactic acid, likely from increase WOB, less likely sepsis Plan . 1. prn BiPAP and use cannula during the day. ABGs have improved. We will use BiPAP daily at bedtime. 2. Continue DuoNeb. 3. Continue antibiotics. 4. IV steroids with gradual taper. can change to po at dc 5. DVT prophylaxis. 6. abx pe rID 7. Discussed with RN. / cxr 07/24 no infiltrate d/w DR Maldonado. ok with dc plans ADAM CAZARES MD Jul 27, 2019 12:39
--- NOTE | 2019-07-27 14:44 | NUR ---
pt did not want lunch reglan or insulin as she was not eating lunch here. is waiting until she goes home.
[2019-07-27 15:00] VITALS: BP 97/44
--- NOTE | 2019-07-27 16:31 | NUR ---
pt discharged home with daughter. meds and follow up reviewed. pt v/u. pt stable upon dc.
--- NOTE | 2019-08-03 15:15 | PDOC ---
Provider Note Provider Note Discharge summary dictated.#[id number]. Hemodynamically unstable?: No Respiratory Distress?: Yes Serious Diagnosis?: Yes Is patient at high risk?: Yes MIGUEL DELAROSA MD Aug 03, 2019 15:15
--- NOTE | 2019-08-03 16:25 | DS ---
DATE OF DISCHARGE: 07/27/2019 REASON FOR ADMISSION TO THE HOSPITAL: Chronic obstructive pulmonary disease with acute exacerbation. CONSULTATIONS: Dr. Minaya; Dr. Chinchilla. PROCEDURE DONE: CT of the abdomen and pelvis. HOSPITAL COURSE: The patient is a 63-year-old female with chronic obstructive pulmonary disease, on home oxygen, steroid dependent, has been in and out of the hospitals every 2-3 months. She came with chronic obstructive pulmonary disease with acute exacerbation and was treated with intravenous Solu-Medrol and intravenous antibiotics. Her white count was going up, was seen by Infectious Disease, and chest x-ray was negative. CT of the abdomen and pelvis was negative. She was complaining of abdominal pain. The patient was taken off the antibiotics and changed to oral Levaquin. The white count was coming down to 14 from 18. The patient was feeling better and she was discharged. FINAL DIAGNOSES: 1. Chronic obstructive pulmonary disease with acute exacerbation. 2. Leukocytosis, probably secondary to steroids. 3. Abdominal pain, had a CT of the abdomen and pelvis, was benign. 4. Diabetes. 5. Hypertension. 6. Hyperlipidemia. 7. Hypothyroidism. 8. Chronic hypoxia, on home oxygen. DISPOSITION: The patient was discharged home. CONDITION: The patient's long-term prognosis is poor. Chance of readmission is high. IMMUNIZATION: The patient had flu and pneumonia shot. She does not smoke now. MIGUEL DELAROSA MD DR: CARLOS/adrianna JOB#: [id number] / [id number]
[2019-08-04] MEDS ORDERED: METF500T16 PO (07:37)
[2019-08-07] MEDS ORDERED: POTA20TA83 PO (10:30)
[2019-08-08] MEDS ORDERED: DOXY100T PO (10:07)
== END 2019-07-27 16:37 | disposition home or self-care (01) | DRG 871 ==
LOC: ER 13:49 → 2 NORTH 15:13 → 2 SOUTH 07-25 14:03 → 2 NORTH 07-25 14:08 → 5 SOUTH 07-25 14:09
PROVIDERS: ADMIT Internal Medicine; ATTEND Internal Medicine
PROC: 5A09357 Assistance with Respiratory Ventilation, Less than 24 Consecutive Hours, Continuous Positive Airway Pressure (ICD-10-PCS; principal; 2019-07-22)
PROC: 5A09357 Assistance with Respiratory Ventilation, Less than 24 Consecutive Hours, Continuous Positive Airway Pressure (ICD-10-PCS; 2019-07-23)
PROC: 5A09357 Assistance with Respiratory Ventilation, Less than 24 Consecutive Hours, Continuous Positive Airway Pressure (ICD-10-PCS; 2019-07-24)
PROC: 5A09357 Assistance with Respiratory Ventilation, Less than 24 Consecutive Hours, Continuous Positive Airway Pressure (ICD-10-PCS; 2019-07-25)
PROC: 5A09357 Assistance with Respiratory Ventilation, Less than 24 Consecutive Hours, Continuous Positive Airway Pressure (ICD-10-PCS; 2019-07-26)
PROC: 5A09357 Assistance with Respiratory Ventilation, Less than 24 Consecutive Hours, Continuous Positive Airway Pressure (ICD-10-PCS; 2019-07-27)
DX: A41.9 Sepsis, unspecified organism (principal); J96.21 Acute and chronic respiratory failure with hypoxia; J96.22 Acute and chronic respiratory failure with hypercapnia; E87.2 Acidosis; J98.11 Atelectasis; J20.9 Acute bronchitis, unspecified; E11.43 Type 2 diabetes mellitus with diabetic autonomic (poly)neuropathy; E66.9 Obesity, unspecified; Z68.37 Body mass index [BMI] 37.0-37.9, adult; E78.5 Hyperlipidemia, unspecified; E89.0 Postprocedural hypothyroidism; F32.9 Major depressive disorder, single episode, unspecified; F41.9 Anxiety disorder, unspecified; I10 Essential (primary) hypertension; I48.91 Unspecified atrial fibrillation; J43.9 Emphysema, unspecified; K31.84 Gastroparesis; M85.80 Other specified disorders of bone density and structure, unspecified site; T38.0X5A Adverse effect of glucocorticoids and synthetic analogues, initial encounter; Y92.89 Other specified places as the place of occurrence of the external cause; Z83.3 Family history of diabetes mellitus; Z87.891 Personal history of nicotine dependence; Z90.711 Acquired absence of uterus with remaining cervical stump; Z99.81 Dependence on supplemental oxygen; G89.29 Other chronic pain; K21.9 Gastro-esophageal reflux disease without esophagitis; M19.90 Unspecified osteoarthritis, unspecified site; Z90.49 Acquired absence of other specified parts of digestive tract; Z88.1 Allergy status to other antibiotic agents; Z88.8 Allergy status to other drugs, medicaments and biological substances; Z90.710 Acquired absence of both cervix and uterus
CPT/HCPCS: 36415; 36600; 71045; 71046; 74177; 80048; 80053; 80307; 81001; 82553; 82805; 82962; 83605; 83735; 83880; 84443; 84484; 85007; 85025; 87040; 87086; 94640; 94660; 94760; 96374; J1650; J1815; J1956; J2020; J2270; J2405; J2920; J2930; J3480; J7030; J7512; J8597; Q9966; Q9967; 99285-25; G0378; J7626; Q0163; Q0169